=== PATIENT | female | born 1960 | race Caucasian/White ===

== ENCOUNTER → 2017-12-05 09:05 | Outpatient (CLI) | payer OTHER, SELFPAY ==
[2017-12-05 18:31] LABS: Cholesterol 168 mg/dL (200); Glucose 105 mg/dL (74-106); High Density Lipoprotein 47 mg/dL; Triglycerides 138 mg/dL; Very Low Density Lipoprotein 28 mg/dL (5-40)
== END ==
PROVIDERS: Family Provider Family Medicine; PCP Family Medicine; Visit Provider Family Medicine
DX: E78.00 Pure hypercholesterolemia, unspecified (principal); R73.03 Prediabetes
CPT/HCPCS: 36415; 80061; 82947; 83036

== ENCOUNTER → 2017-12-27 09:05 | Outpatient (CLI) | payer OTHER, SELFPAY ==
--- NOTE | 2017-12-27 09:06 | HPBI_ITS ---
MAMMOGRAPHY - BILATERAL SCREENING REASON FOR EXAM: Female, 57 years old. Routine annual screening examination. PERTINENT HISTORY: Grandmother with breast cancer. Remote right stereotactic breast biopsy. TECHNIQUE: Digital bilateral breast perez (3D mammographic acquisition) in the CC and MLO projections. 2-D mediolateral oblique (MLO) and craniocaudad (CC) views of both breasts were obtained. CAD: Full Field Digital Mammography with Computer Added Detection was performed. COMPARISON: Comparison is made with prior study dated June 27, 2016 and June 10, 2015. FINDINGS: Breast Composition: There are scattered areas of fibroglandular density. There are no dominant masses or suspicious calcifications. Once again, a tissue clip marker is seen in the upper anterior lateral portion of the right breast. No other significant abnormalities are identified. There has been no significant change since the prior study. HPBI/SCREENING MAMM (CAD), BILAT IMPRESSION: Stable bilateral screening mammogram. Yearly follow-up mammogram recommended. (A) ASSESSMENT CATEGORY: BIRADS Category 2: Benign. A letter regarding these results will be sent to the patient by the facility within 30 days. Approximately 10% of breast cancers are not detected by mammography. A normal mammogram should not delay biopsy of a clinically suspicious abnormality. [id number] Electronically Signed: Ibrahima Gonzalez MD at 11:07 EST Tel [phone], Service support ,
== END ==
PROVIDERS: Family Provider Family Medicine; PCP Family Medicine; Visit Provider Family Medicine
DX: Z12.31 Encounter for screening mammogram for malignant neoplasm of breast (principal)
CPT/HCPCS: 77063; 77067

== ENCOUNTER → 2018-11-01 16:04 | Outpatient (CLI) | payer OTHER, SELFPAY ==
[2018-11-01 18:11] LABS: Absolute Lymphocyte Count 1.94 X10^3/ul (0.83-4.51); Absolute Neutrophil Count 12.2 X10^3/uL (2.0-7.7); Basophil# 0.02 X10^3/uL; Basophil% 0.1 % (0-1); Eosinophil# 0.01 X10^3/uL; Eosinophils% 0.1 % (0-5); Hematocrit 43.9 % (37-47); Hemoglobin 14.3 g/dl (12.0-15.0); Lymphocyte # 1.94 X10^3/ul (4.0); Lymphocyte % 12.7 % (19-41); Mean Corp Hgb Conc 32.6 g/gl (32-36); Mean Corpuscular Hgb 29.5 pg (27.0-32.0); Mean Corpuscular Volume 90.5 fL (81-99); Mean Platelet Vol. 11.6 fl (6.2-12.0); Monocyte# 1.07 X10^3/uL; Neutrophil # 12.24 X10^3/uL (2.7-7.7); Platelet Count 399 K/mm3 (150-450); RBC Distribution Width SD 43.1 fl (35.1-43.9); Red Blood Count 4.85 M/mm3 (4.2-5.4); White Blood Count 15.3 K/mm3 (4.4-11.0)
[2018-11-01 18:26] LABS: ALB/GLOB Ratio 1.4 RATIO (0.9-2.4); AST(SGOT) 13 U/L (15-37); Alanine Aminotransfer ALT/SGPT 28 U/L (13-56); Albumin, Serum 4.2 g/dL (3.2-5.0); Alkaline Phosphatase 84 U/L (45-117); BUN 20 mg/dL (7-18); BUN/Creat Ratio 23.7 RATIO (10-20); Calcium,Total 9.5 mg/dL (8.5-10.1); Creatinine, Serum 0.84 mg/dL (0.55-1.02); EST Glomerular Filtration Rate 73 mL/min (>60); Est Glom Filt Rate - Afr Amer 88 mL/min (>60); Globulin 2.9 g/dL (2.2-4.2); Glucose 99 mg/dL (74-106); Protein, Total 7.1 g/dL (6.4-8.2); Sodium Level 143 mmol/L (136-145)
[2018-11-01 18:27] LABS: Anion Gap 9 (5-15); Chloride 106 mmol/L (98-107); Free T3 3.2 pg/mL (2.18-3.98); Potassium 3.8 mmol/L (3.5-5.1); T4 Free Direct 1.01 ng/dL (0.76-1.46); Thyroid Stim Hormone (TSH) 3.27 uIU/mL (0.358-3.74)
[2018-11-01 18:30] LABS: POSITIVE COUNT NO; POSITIVE DIFFERENTIAL NO; POSITIVE MORPHOLOGY NO
[2018-11-01 18:38] LABS: Hemoglobin A1c 6.3 % (4.2-6.3)
== END ==
PROVIDERS: Family Provider Family Medicine; PCP Family Medicine; Visit Provider Family Medicine
DX: R63.4 Abnormal weight loss (principal); R73.03 Prediabetes
CPT/HCPCS: 36415; 80053; 83036; 84439; 84443; 84481; 85025

== ENCOUNTER → 2018-11-04 17:11 | Outpatient (CLI) | payer OTHER, SELFPAY ==
--- NOTE | 2018-11-04 17:15 | RAD_ITS ---
HISTORY: weight loss EXAM: XR Chest 2 Views: COMPARISON: None FINDINGS: Normal heart size. No vascular congestion, pleural effusion, or pulmonary infiltration. Atherosclerotic thoracic aorta. No pneumothorax. The bony thorax appears intact. IMPRESSION: No active cardiopulmonary disease. at 0759 Reported and signed by: Haseeb Lainez MD Electronically Signed: Haseeb Lainez, at 7:57 EST Tel , Service support , RAD/Chest PA and Lateral
== END ==
PROVIDERS: Family Provider Family Medicine; PCP Family Medicine; Referring Provider Family Medicine; Visit Provider Family Medicine
DX: R63.4 Abnormal weight loss (principal)
CPT/HCPCS: 71046

== ENCOUNTER → 2018-12-11 10:44 | Outpatient (CLI) | payer OTHER, SELFPAY ==
[2018-12-11 13:01] LABS: Hemoglobin A1c 5.9 % (4.2-6.3)
[2018-12-11 13:24] LABS: Anion Gap 11 (5-15); BUN 18 mg/dL (7-18); BUN/Creat Ratio 22.1 RATIO (10-20); Calcium,Total 9.4 mg/dL (8.5-10.1); Chloride 102 mmol/L (98-107); Cholesterol 147 mg/dL (200); Creatinine, Serum 0.81 mg/dL (0.55-1.02); EST Glomerular Filtration Rate 76 mL/min (>60); Est Glom Filt Rate - Afr Amer 92 mL/min (>60); Glucose 88 mg/dL (74-106); High Density Lipoprotein 50 mg/dL; Potassium 3.9 mmol/L (3.5-5.1); Sodium Level 141 mmol/L (136-145); Triglycerides 116 mg/dL; Very Low Density Lipoprotein 23 mg/dL (5-40)
== END ==
PROVIDERS: Family Provider Family Medicine; PCP Family Medicine; Visit Provider Family Medicine
DX: E78.00 Pure hypercholesterolemia, unspecified (principal); R73.03 Prediabetes; I10 Essential (primary) hypertension
CPT/HCPCS: 36415; 80048; 80061; 83036

== ENCOUNTER → 2018-12-16 10:03 | Outpatient (CLI) | payer OTHER, SELFPAY ==
[2018-12-16 12:51] LABS: Absolute Lymphocyte Count 1.68 X10^3/ul (0.83-4.51); Absolute Neutrophil Count 8.1 X10^3/uL (2.0-7.7); Basophil# 0.03 X10^3/uL; Basophil% 0.3 % (0-1); Eosinophil# 0.05 X10^3/uL; Eosinophils% 0.5 % (0-5); Hematocrit 43.8 % (37-47); Hemoglobin 14.4 g/dl (12.0-15.0); Lymphocyte # 1.68 X10^3/ul (4.0); Lymphocyte % 16.1 % (19-41); Mean Corp Hgb Conc 32.9 g/gl (32-36); Mean Corpuscular Hgb 30.4 pg (27.0-32.0); Mean Corpuscular Volume 92.6 fL (81-99); Mean Platelet Vol. 11.6 fl (6.2-12.0); Monocyte# 0.51 X10^3/uL; Monocyte% 4.9 % (0-10); Neutrophil # 8.14 X10^3/uL (2.7-7.7); Platelet Count 439 K/mm3 (150-450); RBC Distribution Width CV 13.2 % (11.6-14.6); RBC Distribution Width SD 43.7 fl (35.1-43.9); Red Blood Count 4.73 M/mm3 (4.2-5.4); White Blood Count 10.4 K/mm3 (4.4-11.0)
[2018-12-16 12:59] LABS: POSITIVE COUNT NO; POSITIVE DIFFERENTIAL NO; POSITIVE MORPHOLOGY NO
[2018-12-16 13:01] LABS: Erythrocyte Sedimentation Rate 13 mm/hr (0-30)
[2018-12-16 13:26] LABS: AST(SGOT) 17 U/L (15-37); Alanine Aminotransfer ALT/SGPT 25 U/L (13-56); Alkaline Phosphatase 91 U/L (45-117); Bilirubin, Direct 0.12 mg/dL (0.00-0.30); Free T3 3.1 pg/mL (2.18-3.98); Globulin 3.6 g/dL (2.2-4.2); Protein, Total 7.6 g/dL (6.4-8.2); T4 Free Direct 1.12 ng/dL (0.76-1.46); Thyroid Stim Hormone (TSH) 2.87 uIU/mL (0.358-3.74)
== END ==
PROVIDERS: Family Provider Family Medicine; PCP Family Medicine; Visit Provider Family Medicine
DX: R63.4 Abnormal weight loss (principal); R00.0 Tachycardia, unspecified
CPT/HCPCS: 36415; 80076; 84439; 84443; 84481; 85025; 85652

== ENCOUNTER → 2018-12-24 13:48 | Outpatient (CLI) | payer OTHER, SELFPAY ==
--- NOTE | 2018-12-24 13:51 | CT_ITS ---
STUDY: CT ABDOMEN AND PELVIS WITH CONTRAST REASON FOR EXAM: Female, 58 years old. Weight loss in 4 months. RADIATION DOSAGE (If Supplied By Facility): CTDIvol = ( 12.06 ) mGy, DLP = ( 660.62 ) mGycm TECHNIQUE: Transaxial images were obtained from the dome of the diaphragm to the symphysis pubis with oral contrast. Isovue 300 100CC IV/Oral was administered. Sagittal and coronal images were reconstructed. Individualized dose optimization techniques were used for this CT. COMPARISON: None. FINDINGS: The visualized portions of lung bases demonstrate mild atelectasis or scarring in the lingula. The visualized portions of the heart are within normal limits. Normal liver. Normal gallbladder and extrahepatic biliary system. Normal spleen. Normal pancreas. There is symmetric enlargement of the adrenal glands suggesting adrenal hyperplasia. Normal right kidney. Normal left kidney. Normal visualized stomach. Normal small intestine. There is fecal retention. The splenic flexure and the descending colon are not well distended and difficult to evaluate. There is diverticulosis of the sigmoid colon but there is no evidence of acute diverticulitis. There is non-visualization of the appendix. There is mild atherosclerotic calcification of the abdominal aorta, without a demonstrated aneurysm. Normal inferior vena cava. Normal retroperitoneum. Normal urinary bladder. There is a small umbilical hernia containing fat. There are mild degenerative changes in the spine. CT/Abdomen/Pelvis WITH Contrast IMPRESSION: 1. Diverticulosis of the sigmoid colon without evidence of acute diverticulitis. 2. Thickening of the descending colon likely due to underdistention suboptimally evaluated on this exam. 3. Symmetric prominence of the adrenal glands which could be due to adrenal hyperplasia. 4. Otherwise no demonstrated acute process. Electronically Signed: Obey Reich MD at 23:56 EST Tel , Service support ,
== END ==
PROVIDERS: Family Provider Family Medicine; PCP Family Medicine; Referring Provider Family Medicine; Visit Provider Family Medicine
DX: R10.9 Unspecified abdominal pain (principal)
CPT/HCPCS: 74177; Q9967

== ENCOUNTER → 2018-12-31 07:48 | Outpatient (CLI) | payer OTHER, SELFPAY ==
--- NOTE | 2018-12-31 07:50 | ECHOD_ITS ---
Reason For Study: Tachycardia Procedure This was a 2D Doppler, Color Flow transthoracic echocardiogram. The exam was of adequate technical quality. Exam performed in department. Left Ventricle Normal LV size. Left ventricular systolic function is hyperdynamic. The estimated ejection fraction is 75 %. No evidence for diastolic dysfunction. No regional wall motion abnormalities noted. Right Ventricle Normal RV size. Normal systolic function. Atria Normal left atrium. Normal right atrium. No doppler evidence for ASD. Mitral Valve There is no mitral annular calcification. Normal mitral valve. Trivial mitral valve insufficiency. Tricuspid Valve Normal tricuspid valve. Trivial tricuspid valve insufficiency. Aortic Valve Trisinus/trileaflet aortic valve. Mild focal aortic valve thickening. Pulmonic Valve The pulmonic valve is not well visualized. Great Vessels Normal sized aortic root. Pericardium/Pleural No pericardial effusion. MMode/2D Measurements & Calculations LVIDd: 2.9 cm IVSd: 1.1 cm Ao root diam: 2.9 cm LVIDs: 1.6 cm LVPWd: 1.00 cm LA dimension: 2.9 cm FS: 43.4 % LAV(MOD-bp): 23.3 ml LA A4 area: 9.0 cm2 LAV(MOD-bp) Indexed: 14.8 ml/m2 LAV(MOD-sp2): 21.6 ml LAV(MOD-sp4): 18.5 ml Time Measurements MV dec time: 0.21 sec Doppler Measurements & Calculations MV E max michael: 68.2 cm/sec Lat Peak E' Michael: 10.9 cm/sec Med Peak E' Michael: 10.8 cm/sec MV A max michael: 103.8 cm/sec E/E' lat: 6.3 E/E' med: 6.3 MV E/A: 0.66 Ao V2 max: 118.5 cm/sec LV V1 max: 105.2 cm/sec PA V2 max: 124.2 cm/sec Ao max P.6 mmHg LV V1 max P.4 mmHg Interpretation Summary Left ventricular systolic function is hyperdynamic. The estimated ejection fraction is 75 %. Trivial mitral valve insufficiency. Trivial tricuspid valve insufficiency. Mild focal aortic valve thickening. No evidence for diastolic dysfunction. Ordering Physician: Alessandro Lorenzo Referring Physician: Alessandro Lorenzo Performed By: David Harding RCS
== END ==
PROVIDERS: Family Provider Family Medicine; PCP Family Medicine; Referring Provider Family Medicine; Visit Provider Family Medicine
DX: R00.0 Tachycardia, unspecified (principal)
CPT/HCPCS: 93306

== ENCOUNTER → 2019-01-20 12:19 | Outpatient (CLI) | payer OTHER, SELFPAY ==
--- NOTE | 2019-01-20 12:21 | BI_ITS ---
MAMMOGRAPHY - BILATERAL SCREENING REASON FOR EXAM: Female, 58 years old. Routine annual screening examination. PERTINENT HISTORY: Grandmother with breast cancer. TECHNIQUE: Digital bilateral breast perez (3D mammographic acquisition) in the CC and MLO projections. 2-D mediolateral oblique (MLO) and craniocaudad (CC) views of both breasts were obtained. CAD: Full Field Digital Mammography with Computer Added Detection was performed. COMPARISON: Comparison is made with prior study December 27, 2017 and June 27, 2016. FINDINGS: Breast Composition: There are scattered areas of fibroglandular density. There are no dominant masses or suspicious calcifications. A tissue clip marker is once again seen in the upper anterior lateral portion of the right breast. No other significant abnormalities are identified. There has been no significant change since the prior study. BI/SCREENING MAMM (CAD), BILAT IMPRESSION: Stable bilateral screening mammogram. Yearly follow-up mammogram recommended. (A) ASSESSMENT CATEGORY: BIRADS Category 2: Benign. A letter regarding these results will be sent to the patient by the facility within 30 days. Approximately 10% of breast cancers are not detected by mammography. A normal mammogram should not delay biopsy of a clinically suspicious abnormality. [id number] Electronically Signed: Ibrahima Gonzalez, at 14:51 EDT , Service support ,
== END ==
PROVIDERS: Family Provider Family Medicine; PCP Family Medicine; Referring Provider Family Medicine; Visit Provider Family Medicine
DX: Z12.31 Encounter for screening mammogram for malignant neoplasm of breast (principal)
CPT/HCPCS: 77063; 77067

== ENCOUNTER → 2019-07-04 | Outpatient (CLI) | payer OTHER, SELFPAY ==
[2019-07-04 11:21] LABS: Cholesterol 155 mg/dL (200); Glucose 98 mg/dL (74-106); High Density Lipoprotein 51 mg/dL; Thyroid Stim Hormone (TSH) 4.17 uIU/mL (0.358-3.74); Triglycerides 72 mg/dL; Very Low Density Lipoprotein 14 mg/dL (5-40)
[2019-07-04 12:14] LABS: Hemoglobin A1c 5.7 % (4.2-6.3)
== END | disposition home or self-care (01) ==
LOC: MTLAB 07:55
PROVIDERS: Family Provider Family Medicine; PCP Family Medicine; Referring Provider Family Medicine; Visit Provider Family Medicine
DX: R00.0 Tachycardia, unspecified (principal); E78.00 Pure hypercholesterolemia, unspecified; R73.03 Prediabetes
CPT/HCPCS: 36415; 80061; 82947; 83036; 84443

== ENCOUNTER → 2019-10-10 14:32 | Outpatient (CLI) | payer OTHER, SELFPAY ==
[2019-08-30 13:51] VITALS: BMI 27.4
[2019-10-10 15:55] LABS: T4 Total, Thyroxin 6.6 ug/dL (4.8-13.9); Thyroid Stim Hormone (TSH) 2.83 uIU/mL (0.358-3.74)
== END ==
PROVIDERS: Family Provider Family Medicine; PCP Family Medicine; Referring Provider Family Medicine; Visit Provider Family Medicine
DX: R79.89 Other specified abnormal findings of blood chemistry (principal)
CPT/HCPCS: 36415; 84436; 84443

== ENCOUNTER → 2019-10-15 09:16 | Outpatient (CLI) | payer OTHER, SELFPAY ==
[2019-08-30 13:51] VITALS: BMI 27.4
[2019-10-15 09:18] LABS: Bacteria 0 SEEN /hpf (None Seen); White Blood Cells 0 SEEN /hpf (0-5)
[2019-10-15 10:14] LABS: Absolute Lymphocyte Count 1.72 X10^3/uL (0.83-4.51); Absolute Neutrophil Count 5.6 X10^3/uL (2.0-7.7); Basophil# 0.08 X10^3/uL; Basophil% 0.9 % (0-1); Eosinophil# 0.22 X10^3/uL; Eosinophils% 2.6 % (0-5); Hematocrit 44.9 % (37-47); Hemoglobin 14.5 g/dL (12.0-15.0); Lymphocyte # 1.72 X10^3/ul (4.0); Lymphocyte % 20.3 % (19-41); Mean Corp Hgb Conc 32.3 g/dL (32-36); Mean Corpuscular Hgb 30.2 pg (27.0-32.0); Mean Corpuscular Volume 93.5 fL (81-99); Mean Platelet Vol. 11.3 fl (6.2-12.0); Monocyte# 0.79 X10^3/uL; Monocyte% 9.3 % (0-10); NRBC Flagged by Analyzer 0 % (0-5); Neutrophil # 5.63 X10^3/uL (2.7-7.7); Neutrophil % 66.5 % (47-70); Platelet Count 351 K/mm3 (150-450); RBC Distribution Width CV 13.2 % (11.6-14.6); RBC Distribution Width SD 45.2 fl (35.1-43.9); White Blood Count 8.5 K/mm3 (4.4-11.0)
[2019-10-15 10:24] LABS: Color, Urine Yellow (Yellow); Glucose, Dipstick Normal (Normal); Ketone-Dipstick Negative (Negative); Leukocyte Esterase-Dipstick Negative /ul (Negative); Nitrite-Dipstick Negative (Negative); Occult Blood-Urine 10 /ul (Negative); Protein-Dipstick Negative (Negative); Specific Gravity, Urine 1.015 (1.002-1.030); Urine Bilirubin Dipstick Negative (Negative); Urine Clarity Clear (Clear); Urine Urobilinogen Normal (Normal); Urine pH 6.5 (5.0 - 8.0)
[2019-10-15 10:38] LABS: ALB/GLOB Ratio 1.2 RATIO (0.9-2.4); AST(SGOT) 15 U/L (15-37); Alanine Aminotransfer ALT/SGPT 33 U/L (13-56); Albumin, Serum 3.8 g/dL (3.2-5.0); Alkaline Phosphatase 93 U/L (45-117); Anion Gap 5 (5-15); BUN 16 mg/dL (7-18); BUN/Creat Ratio 17.9 RATIO (10-20); CPK Total, Creatine Kinase 78 U/L (26-192); Calcium,Total 8.7 mg/dL (8.5-10.1); Chloride 106 mmol/L (98-107); Cholesterol 166 mg/dL (200); EST Glomerular Filtration Rate 68 mL/min (>60); Est Glom Filt Rate - Afr Amer 82 mL/min (>60); Ferritin 66 ng/mL (8-252); Globulin 3.2 g/dL (2.2-4.2); Glucose 113 mg/dL (74-106); High Density Lipoprotein 50 mg/dL; Magnesium 1.9 mg/dL (1.6-2.6); Potassium 4.1 mmol/L (3.5-5.1); Sodium Level 141 mmol/L (136-145); Triglycerides 127 mg/dL; Very Low Density Lipoprotein 25 mg/dL (5-40)
[2019-10-15 10:40] LABS: Mucous, Urine 1+ /hpf (<or=2+); Red Blood Cells-Urine 0-5 SEEN /hpf (0-5); Squamous Epithelial Cells - UA 0-5 SEEN /hpf (5-10)
[2019-10-15 10:50] LABS: Vitamin D,25 Hydroxy 35.3 ng/mL (29.95-100.01)
[2019-10-15 14:53] LABS: Hemoglobin A1c 6.3 % (4.2-6.3)
== END ==
PROVIDERS: Family Provider Family Medicine; PCP Family Medicine; Referring Provider Family Medicine; Visit Provider Family Medicine
DX: I10 Essential (primary) hypertension (principal); E55.9 Vitamin D deficiency, unspecified; E78.00 Pure hypercholesterolemia, unspecified; R73.02 Impaired glucose tolerance (oral)
CPT/HCPCS: 36415; 80053; 80061; 81001; 82306; 82550; 82728; 83036; 83735; 85025

== ENCOUNTER → 2019-10-24 08:23 | Outpatient (CLI) | payer OTHER, SELFPAY ==
[2019-08-30 13:51] VITALS: BMI 27.4
--- NOTE | 2019-10-24 08:26 | US_ITS ---
STUDY: THYROID ULTRASOUND REASON FOR EXAM: Female, 59 years old. NODULE FELT BY DOCTOR TECHNIQUE: Ultrasound evaluation of the thyroid was performed with real-time and static nicole-scale imaging. COMPARISON: None. FINDINGS: RIGHT LOBE: The right lobe of the thyroid gland measures 3.9 x 1.3 x 1.0 cm. There is a homogeneous echotexture. There are no demonstrated solid, cystic or complex lesions. LEFT LOBE: The left lobe of the thyroid gland measures 3.9 x 1.5 x 0.9 cm. There is a homogeneous echotexture. Tiny nearly anechoic cyst of the left thyroid lobe measures 3 mm. ISTHMUS: The isthmus measures 3 mm. The regional lymph nodes are normal. US/Thyroid IMPRESSION: 1. No solid nodules. 2. 3 mm left colloidal cyst. Electronically Signed: Ramírez Castillo MD ([place]) at 14:27 EST , Service support ,
== END ==
PROVIDERS: Family Provider Family Medicine; PCP Family Medicine; Referring Provider Family Medicine; Visit Provider Family Medicine
DX: E04.1 Nontoxic single thyroid nodule (principal)
CPT/HCPCS: 76536

== ENCOUNTER → 2020-02-09 | Outpatient (CLI) | payer OTHER, SELFPAY ==
[2019-08-30 13:51] VITALS: BMI 27.4
[2020-02-09 12:38] LABS: ALB/GLOB Ratio 1.1 RATIO (0.9-2.4); AST(SGOT) 25 U/L (15-37); Alanine Aminotransfer ALT/SGPT 46 U/L (13-56); Albumin, Serum 3.8 g/dL (3.2-5.0); Alkaline Phosphatase 86 U/L (45-117); Anion Gap 3 (5-15); BUN 16 mg/dL (7-18); BUN/Creat Ratio 19.3 RATIO (10-20); Chloride 105 mmol/L (98-107); Cholesterol 193 mg/dL (200); Creatinine, Serum 0.83 mg/dL (0.55-1.02); EST Glomerular Filtration Rate 74 mL/min (>60); Est Glom Filt Rate - Afr Amer 90 mL/min (>60); Globulin 3.4 g/dL (2.2-4.2); Glucose 119 mg/dL (74-106); High Density Lipoprotein 44 mg/dL; Potassium 3.8 mmol/L (3.5-5.1); Protein, Total 7.2 g/dL (6.4-8.2); Sodium Level 139 mmol/L (136-145); Triglycerides 228 mg/dL; Very Low Density Lipoprotein 46 mg/dL (5-40)
[2020-02-09 13:04] LABS: Hemoglobin A1c 6.5 % (4.2-6.3)
== END | disposition home or self-care (01) ==
LOC: MTLAB 10:09
PROVIDERS: PCP Family Medicine; Referring Provider Family Medicine; Visit Provider Family Medicine
DX: I10 Essential (primary) hypertension (principal); E78.00 Pure hypercholesterolemia, unspecified; R73.02 Impaired glucose tolerance (oral)
CPT/HCPCS: 36415; 80053; 80061; 83036

== ENCOUNTER → 2020-02-17 | Outpatient (CLI) | payer OTHER, SELFPAY ==
[2019-08-30 13:51] VITALS: BMI 27.4
--- NOTE | 2020-02-17 10:23 | BI_ITS ---
MAMMOGRAPHY - BILATERAL SCREENING REASON FOR EXAM: Female, 59 years old. Routine annual screening examination. PERTINENT HISTORY: Grandmother with breast cancer. Remote right stereotactic breast biopsy. TECHNIQUE: Digital bilateral breast syed (3D mammographic acquisition) in the CC and MLO projections. 2-D mediolateral oblique (MLO) and craniocaudad (CC) views of both breasts were obtained. CAD: Full Field Digital Mammography with Computer Added Detection was performed. COMPARISON: Comparison is made with prior examination dated January 20, 2019 and December 27, 2017. FINDINGS: Breast Composition: The breasts are heterogeneously dense, which may obscure small masses. There are no dominant masses or suspicious calcifications. A tissue clip marker is once again seen in the upper anterior lateral portion of the right breast. No other significant abnormalities are identified. There has been no significant change since the prior study. BI/SCREEN MAMM (CAD) W/SYED BILAT IMPRESSION: Stable bilateral screening mammogram. Yearly follow-up mammogram recommended. (A) ASSESSMENT CATEGORY: BIRADS Category 2: Benign. A letter regarding these results will be sent to the patient by the facility within 30 days. Approximately 10% of breast cancers are not detected by mammography. A normal mammogram should not delay biopsy of a clinically suspicious abnormality. [id number] Electronically Signed: Ibrahima Gonzalez, at 11:00 EDT , Service support ,
== END | disposition home or self-care (01) ==
LOC: OPBI 10:21
PROVIDERS: PCP Family Medicine; Referring Provider Family Medicine; Visit Provider Family Medicine
DX: Z12.31 Encounter for screening mammogram for malignant neoplasm of breast (principal)
CPT/HCPCS: 77063; 77067

== ENCOUNTER 2020-02-24 14:00 | Outpatient (RCR) | payer OTHER, SELFPAY ==
[2019-08-30 13:51] VITALS: BMI 27.4
== END 2020-02-26 23:59 ==
LOC: DC 14:00
PROVIDERS: PCP Family Medicine; Visit Provider Family Medicine
DX: Z71.3 Dietary counseling and surveillance (principal); E11.9 Type 2 diabetes mellitus without complications
CPT/HCPCS: 97802; G0108

== ENCOUNTER → 2020-04-21 | Outpatient (CLI) | payer OTHER, SELFPAY ==
[2019-08-30 13:51] VITALS: BMI 27.4
[2020-04-21 12:41] LABS: Absolute Lymphocyte Count 1.58 X10^3/uL (0.83-4.51); Absolute Neutrophil Count 6.5 X10^3/uL (2.0-7.7); Basophil# 0.09 X10^3/uL; Eosinophil# 0.13 X10^3/uL; Eosinophils% 1.5 % (0-5); Lymphocyte # 1.58 X10^3/ul (4.0); Lymphocyte % 17.7 % (19-41); Mean Corp Hgb Conc 31.8 g/dL (32-36); Mean Corpuscular Hgb 30.2 pg (27.0-32.0); Mean Corpuscular Volume 94.8 fL (81-99); Mean Platelet Vol. 11.7 fl (6.2-12.0); Monocyte# 0.64 X10^3/uL; Monocyte% 7.2 % (0-10); NRBC Flagged by Analyzer 0 % (0-5); Neutrophil # 6.46 X10^3/uL (2.7-7.7); Neutrophil % 72.4 % (47-70); Platelet Count 358 K/mm3 (150-450); RBC Distribution Width CV 13.6 % (11.6-14.6); RBC Distribution Width SD 46.9 fl (35.1-43.9); Red Blood Count 4.64 M/mm3 (4.2-5.4); White Blood Count 8.9 K/mm3 (4.4-11.0)
[2020-04-21 12:55] LABS: ALB/GLOB Ratio 1.1 RATIO (0.9-2.4); AST(SGOT) 22 U/L (15-37); Alanine Aminotransfer ALT/SGPT 43 U/L (13-56); Albumin, Serum 3.7 g/dL (3.2-5.0); Alkaline Phosphatase 98 U/L (45-117); Anion Gap 7 (5-15); BUN 17 mg/dL (7-18); BUN/Creat Ratio 20.2 RATIO (10-20); Chloride 104 mmol/L (98-107); Cholesterol 140 mg/dL (200); Creatinine, Serum 0.84 mg/dL (0.55-1.02); EST Glomerular Filtration Rate 73 mL/min (>60); Est Glom Filt Rate - Afr Amer 88 mL/min (>60); Globulin 3.5 g/dL (2.2-4.2); Glucose 124 mg/dL (74-106); High Density Lipoprotein 42 mg/dL; Potassium 4.1 mmol/L (3.5-5.1); Protein, Total 7.2 g/dL (6.4-8.2); Sodium Level 139 mmol/L (136-145); Triglycerides 120 mg/dL; Very Low Density Lipoprotein 24 mg/dL (5-40)
[2020-04-21 12:56] LABS: Vitamin D,25 Hydroxy 62.2 ng/mL
[2020-04-21 16:50] LABS: Microalbumin:Creatinine Ratio 6.3 mg/g CRE (<30 mg/g CRE)
== END | disposition home or self-care (01) ==
LOC: MFPLAB 09:36
PROVIDERS: PCP Family Medicine; Visit Provider Family Medicine
DX: E55.9 Vitamin D deficiency, unspecified (principal); E11.9 Type 2 diabetes mellitus without complications; E78.00 Pure hypercholesterolemia, unspecified; I10 Essential (primary) hypertension
CPT/HCPCS: 36415; 80053; 80061; 82043; 82306; 82570; 83036; 85025

== ENCOUNTER 2020-05-26 09:00 | Outpatient (RCR) | payer OTHER, SELFPAY ==
[2019-08-30 13:51] VITALS: BMI 27.4
== END 2020-05-28 23:59 ==
LOC: DC 09:00
PROVIDERS: PCP Family Medicine; Visit Provider Family Medicine
DX: Z71.3 Dietary counseling and surveillance (principal); E11.9 Type 2 diabetes mellitus without complications
CPT/HCPCS: 97803; G0108

== ENCOUNTER → 2020-08-25 | Outpatient (CLI) | payer OTHER, SELFPAY ==
[2019-08-30 13:51] VITALS: BMI 27.4
[2020-08-25 10:32] LABS: Color, Urine Yellow (Yellow); Glucose, Dipstick Normal (Normal); Ketone-Dipstick 5 mg/dl (Negative); Leukocyte Esterase-Dipstick 25 /ul (Negative); Nitrite-Dipstick Negative (Negative); Occult Blood-Urine 25 /ul (Negative); Protein-Dipstick 15 mg/dl (Negative); Specific Gravity, Urine 1.025 (1.002-1.030); Urine Bilirubin Dipstick Negative (Negative); Urine Clarity Clear (Clear); Urine Urobilinogen 1 mg/dl (Normal)
[2020-08-25 10:35] LABS: Absolute Neutrophil Count 5.7 X10^3/uL (2.0-7.7); Basophil# 0.07 X10^3/uL; Basophil% 0.9 % (0-1); Eosinophil# 0.13 X10^3/uL; Eosinophils% 1.6 % (0-5); Hematocrit 44.7 % (37-47); Hemoglobin 14.3 g/dL (12.0-15.0); Lymphocyte % 18.7 % (19-41); Mean Corpuscular Volume 93.9 fL (81-99); Monocyte# 0.61 X10^3/uL; Monocyte% 7.6 % (0-10); NRBC Flagged by Analyzer 0 % (0-5); Neutrophil # 5.68 X10^3/uL (2.7-7.7); Neutrophil % 70.8 % (47-70); Platelet Count 328 K/mm3 (150-450); RBC Distribution Width CV 13.2 % (11.6-14.6); RBC Distribution Width SD 45.6 fl (35.1-43.9); Red Blood Count 4.76 M/mm3 (4.2-5.4)
[2020-08-25 10:41] LABS: Bacteria 2+ /hpf (None Seen); Hyaline Cast 0-5 SEEN /lpf (0-5); Mucous, Urine 1+ /hpf (<or=2+); Red Blood Cells-Urine 0-5 SEEN /hpf (0-5); Squamous Epithelial Cells - UA 0-5 SEEN /hpf (5-10); White Blood Cells 0-5 SEEN /hpf (0-5)
[2020-08-25 10:55] LABS: Vitamin D,25 Hydroxy 41.7 ng/mL
[2020-08-25 10:57] LABS: Hemoglobin A1c 6.1 % (3.8-5.6)
[2020-08-25 11:04] LABS: ALB/GLOB Ratio 1.2 RATIO (0.9-2.4); AST(SGOT) 19 U/L (15-37); Alanine Aminotransfer ALT/SGPT 37 U/L (13-56); Albumin, Serum 3.8 g/dL (3.2-5.0); Alkaline Phosphatase 104 U/L (45-117); Anion Gap 5 (5-15); BUN 19 mg/dL (7-18); BUN/Creat Ratio 19.4 RATIO (10-20); Calcium,Total 9.3 mg/dL (8.5-10.1); Chloride 109 mmol/L (98-107); Cholesterol 168 mg/dL (200); Creatinine, Serum 0.98 mg/dL (0.55-1.02); EST Glomerular Filtration Rate 61 mL/min (>60); Est Glom Filt Rate - Afr Amer 74 mL/min (>60); Globulin 3.3 g/dL (2.2-4.2); Glucose 118 mg/dL (74-106); High Density Lipoprotein 48 mg/dL; Protein, Total 7.1 g/dL (6.4-8.2); Sodium Level 141 mmol/L (136-145); Triglycerides 120 mg/dL; Very Low Density Lipoprotein 24 mg/dL (5-40)
== END | disposition home or self-care (01) ==
LOC: MFPLAB 08:58
PROVIDERS: PCP Family Medicine; Referring Provider Family Medicine; Visit Provider Family Medicine
DX: I10 Essential (primary) hypertension (principal); E78.00 Pure hypercholesterolemia, unspecified; E11.9 Type 2 diabetes mellitus without complications; E55.9 Vitamin D deficiency, unspecified
CPT/HCPCS: 36415; 80053; 80061; 81001; 82306; 83036; 85025

== ENCOUNTER → 2020-09-02 13:54 | Outpatient (CLI) | payer OTHER, SELFPAY ==
[2019-08-30 13:51] VITALS: BMI 27.4
[2020-09-02 15:13] LABS: Absolute Neutrophil Count 8.3 X10^3/uL (2.0-7.7); Basophil# 0.06 X10^3/uL; Basophil% 0.5 % (0-1); Eosinophil# 0.05 X10^3/uL; Eosinophils% 0.4 % (0-5); Hematocrit 43.2 % (37-47); Hemoglobin 13.8 g/dL (12.0-15.0); Lymphocyte % 20.3 % (19-41); Mean Corp Hgb Conc 31.9 g/dL (32-36); Mean Corpuscular Hgb 29.4 pg (27.0-32.0); Mean Corpuscular Volume 92.1 fL (81-99); Mean Platelet Vol. 11.8 fl (6.2-12.0); Monocyte# 0.95 X10^3/uL; NRBC Flagged by Analyzer 0 % (0-5); Neutrophil # 8.34 X10^3/uL (2.7-7.7); Neutrophil % 70.5 % (47-70); Platelet Count 329 K/mm3 (150-450); RBC Distribution Width CV 13.2 % (11.6-14.6); RBC Distribution Width SD 44.1 fl (35.1-43.9); Red Blood Count 4.69 M/mm3 (4.2-5.4); White Blood Count 11.8 K/mm3 (4.4-11.0)
[2020-09-02 15:24] LABS: ALB/GLOB Ratio 1.1 RATIO (0.9-2.4); AST(SGOT) 16 U/L (15-37); Alanine Aminotransfer ALT/SGPT 32 U/L (13-56); Albumin, Serum 3.8 g/dL (3.2-5.0); Alkaline Phosphatase 114 U/L (45-117); Anion Gap 5 (5-15); BUN 17 mg/dL (7-18); BUN/Creat Ratio 19.5 RATIO (10-20); Calcium,Total 9.5 mg/dL (8.5-10.1); Chloride 105 mmol/L (98-107); Creatinine, Serum 0.87 mg/dL (0.55-1.02); EST Glomerular Filtration Rate 70 mL/min (>60); Est Glom Filt Rate - Afr Amer 85 mL/min (>60); Globulin 3.5 g/dL (2.2-4.2); Glucose 83 mg/dL (74-106); Lactic Acid 1.1 mmol/L (0.4-1.9); Potassium 3.6 mmol/L (3.5-5.1); Protein, Total 7.3 g/dL (6.4-8.2); Sodium Level 139 mmol/L (136-145)
== END ==
PROVIDERS: PCP Family Medicine; Referring Provider Family Medicine; Visit Provider Family Medicine
DX: K57.92 Diverticulitis of intestine, part unspecified, without perforation or abscess without bleeding (principal)
CPT/HCPCS: 36415; 80053; 83605; 85025

== ENCOUNTER → 2020-09-02 14:29 | Outpatient (CLI) | payer OTHER, SELFPAY ==
[2019-08-30 13:51] VITALS: BMI 27.4
--- NOTE | 2020-09-02 14:31 | CT_ITS ---
STUDY: CT ABDOMEN AND PELVIS WITH CONTRAST REASON FOR EXAM: Female, 60 years old. Left lower quadrant abdominal pain for 2 days, history of prior diverticulitis 2 years ago RADIATION DOSAGE (If Supplied By Facility): CTDIvol = ( 15.35 ) mGy, DLP = ( 839.08 ) mGycm TECHNIQUE: CT images were obtained from the dome of the diaphragm to the symphysis pubis without oral contrast. Oral and amp; IV Gastrografin and amp; 100mL Isovue-300 was administered. Sagittal and coronal images were reconstructed. Individualized dose optimization techniques were used for this CT. COMPARISON: None. FINDINGS: The visualized lung bases are unremarkable. The visualized portions of the heart are within normal limits. Normal liver. Normal gallbladder and extrahepatic biliary system. Normal spleen. Normal pancreas. Normal bilateral adrenal glands. Normal right kidney. Normal left kidney. Normal visualized stomach. Normal small intestine. Appendix is normal. There is diffuse sigmoid diverticulosis with rectosigmoid distal diverticulitis. Posterior pelvic pericolonic fat is inflamed without fluid collections or jaycee perforation/gas. Normal abdominal aorta. Normal inferior vena cava. Normal retroperitoneum. Normal urinary bladder. Uterus is removed. Normal abdominal wall. Normal osseous structures. CT/Abdomen/Pelvis WITH Contrast IMPRESSION: Distal sigmoid diverticulitis, no perforation or abscess. Electronically Signed: Catarino Tran, at 17:43 EST Tel , Service support ,
== END ==
PROVIDERS: PCP Family Medicine; Referring Provider Family Medicine; Visit Provider Family Medicine
DX: K57.92 Diverticulitis of intestine, part unspecified, without perforation or abscess without bleeding (principal)
CPT/HCPCS: 74177; Q9967

== ENCOUNTER 2020-11-11 16:12 | Outpatient (RCR) | payer OTHER, SELFPAY ==
[2019-08-30 13:51] VITALS: BMI 27.4
== END 2020-11-28 23:59 ==
LOC: DC 16:12
PROVIDERS: PCP Family Medicine; Visit Provider Family Medicine
DX: Z71.3 Dietary counseling and surveillance (principal); E11.9 Type 2 diabetes mellitus without complications
CPT/HCPCS: G0109

== ENCOUNTER 2020-12-30 14:46 | Outpatient (RCR) | payer OTHER, SELFPAY ==
[2019-08-30 13:51] VITALS: BMI 27.4
== END 2020-12-30 23:59 | disposition home or self-care (01) ==
LOC: DC 14:46
PROVIDERS: PCP Family Medicine; Visit Provider Family Medicine
DX: Z71.3 Dietary counseling and surveillance (principal); E11.9 Type 2 diabetes mellitus without complications
CPT/HCPCS: G0109

== ENCOUNTER → 2021-02-23 08:07 | Outpatient (CLI) | payer OTHER, SELFPAY ==
[2019-08-30 13:51] VITALS: BMI 27.4
[2021-02-23 08:11] LABS: Bacteria 0 SEEN /hpf (None Seen); Mucous, Urine 0 SEEN /hpf (<or=2+); Red Blood Cells-Urine 0 SEEN /hpf (0-5); White Blood Cells 0 SEEN /hpf (0-5)
[2021-02-23 10:24] LABS: Color, Urine Yellow (Yellow); Glucose, Dipstick Normal (Normal); Ketone-Dipstick 5 mg/dl (Negative); Leukocyte Esterase-Dipstick 25 /ul (Negative); Nitrite-Dipstick Negative (Negative); Occult Blood-Urine 25 /ul (Negative); Protein-Dipstick 30 mg/dl (Negative); Specific Gravity, Urine 1.025 (1.002-1.030); Urine Clarity Clear (Clear); Urine Urobilinogen 1 mg/dl (Normal)
[2021-02-23 10:29] LABS: Absolute Lymphocyte Count 1.86 X10^3/uL (0.83-4.51); Basophil# 0.09 X10^3/uL; Basophil% 0.9 % (0-1); Eosinophil# 0.18 X10^3/uL; Eosinophils% 1.8 % (0-5); Hemoglobin 14.4 g/dL (12.0-15.0); Lymphocyte # 1.86 X10^3/ul (0.83-4.51); Lymphocyte % 19.1 % (19-41); Mean Corpuscular Hgb 30.4 pg (27.0-32.0); Mean Corpuscular Volume 94.9 fL (81-99); Mean Platelet Vol. 11.8 fl (6.2-12.0); Monocyte# 0.64 X10^3/uL; Monocyte% 6.6 % (0-10); NRBC Flagged by Analyzer 0 % (0-5); Neutrophil # 6.96 X10^3/uL (2.7-7.7); Neutrophil % 71.3 % (47-70); Platelet Count 365 K/mm3 (150-450); RBC Distribution Width CV 13.5 % (11.6-14.6); RBC Distribution Width SD 47.4 fl (35.1-43.9); Red Blood Count 4.74 M/mm3 (4.2-5.4); White Blood Count 9.8 K/mm3 (4.4-11.0)
[2021-02-23 10:38] LABS: ALB/GLOB Ratio 1.1 RATIO (0.9-2.4); AST(SGOT) 19 U/L (15-37); Alanine Aminotransfer ALT/SGPT 44 U/L (13-56); Albumin, Serum 3.7 g/dL (3.2-5.0); Alkaline Phosphatase 100 U/L (45-117); Anion Gap 4 (5-15); BUN 17 mg/dL (7-18); Calcium,Total 9.1 mg/dL (8.5-10.1); Chloride 108 mmol/L (98-107); Cholesterol 148 mg/dL (200); Creatinine, Serum 0.81 mg/dL (0.55-1.02); EST Glomerular Filtration Rate 76 mL/min (>60); Est Glom Filt Rate - Afr Amer 92 mL/min (>60); Globulin 3.4 g/dL (2.2-4.2); Glucose 112 mg/dL (74-106); High Density Lipoprotein 44 mg/dL; Potassium 3.7 mmol/L (3.5-5.1); Protein, Total 7.1 g/dL (6.4-8.2); Sodium Level 141 mmol/L (136-145); Triglycerides 116 mg/dL; Very Low Density Lipoprotein 23 mg/dL (5-40)
[2021-02-23 10:39] LABS: Urine Bilirubin Dipstick 1 mg/dL (Negative)
[2021-02-23 10:40] LABS: Vitamin D,25 Hydroxy 49.4 ng/mL
[2021-02-23 10:42] LABS: Squamous Epithelial Cells - UA 0-5 SEEN /hpf (5-10)
[2021-02-23 10:59] LABS: Microalbumin,Random Urine 30.3 mg/L (NO RANGE EST.); Microalbumin:Creatinine Ratio 9.7 mg/g CRE (<30 mg/g CRE)
== END ==
PROVIDERS: PCP Family Medicine; Referring Provider Family Medicine; Visit Provider Family Medicine
DX: I10 Essential (primary) hypertension (principal); E78.00 Pure hypercholesterolemia, unspecified; E11.9 Type 2 diabetes mellitus without complications; E55.9 Vitamin D deficiency, unspecified
CPT/HCPCS: 36415; 80053; 80061; 81001; 82043; 82306; 82570; 83036; 85025

== ENCOUNTER → 2021-02-25 08:25 | Outpatient (CLI) | payer OTHER, SELFPAY ==
[2019-08-30 13:51] VITALS: BMI 27.4
[2021-02-25 10:29] LABS: Vitamin B12 341 pg/mL (211-911)
[2021-03-04 20:08] LABS: VITAMIN B6 5.5 ug/L (2.0-32.8)
[2021-03-04 20:50] LABS: Vitamin B1, Thiamine 179.3 nmol/L (66.5-200.0)
== END ==
PROVIDERS: PCP Family Medicine; Referring Provider Family Medicine; Visit Provider Family Medicine
DX: G62.9 Polyneuropathy, unspecified (principal)
CPT/HCPCS: 36415; 82607; 84207; 84425

== ENCOUNTER → 2021-05-31 08:21 | Outpatient (CLI) | payer OTHER, SELFPAY ==
[2019-08-30 13:51] VITALS: BMI 27.4
[2021-05-31 08:24] LABS: Bacteria 0 SEEN /hpf (None Seen); Mucous, Urine 0 SEEN /hpf (<or=2+); Red Blood Cells-Urine 0 SEEN /hpf (0-5)
[2021-05-31 10:05] LABS: Color, Urine Yellow (Yellow); Glucose, Dipstick Normal (Normal); Ketone-Dipstick Negative (Negative); Leukocyte Esterase-Dipstick 25 /ul (Negative); Nitrite-Dipstick Negative (Negative); Occult Blood-Urine 10 /ul (Negative); Protein-Dipstick 15 mg/dl (Negative); Urine Bilirubin Dipstick Negative (Negative); Urine Clarity Clear (Clear); Urine Urobilinogen Normal (Normal)
[2021-05-31 10:06] LABS: Absolute Lymphocyte Count 1.82 X10^3/uL (0.83-4.51); Absolute Neutrophil Count 7.7 X10^3/uL (2.0-7.7); Basophil# 0.08 X10^3/uL; Basophil% 0.8 % (0-1); Eosinophil# 0.15 X10^3/uL; Eosinophils% 1.4 % (0-5); Hematocrit 44.5 % (37-47); Hemoglobin 14.2 g/dL (12.0-15.0); Lymphocyte # 1.82 X10^3/ul (0.83-4.51); Lymphocyte % 17.4 % (19-41); Mean Corp Hgb Conc 31.9 g/dL (32-36); Mean Corpuscular Volume 94.1 fL (81-99); Mean Platelet Vol. 11.9 fl (6.2-12.0); Monocyte% 6.7 % (0-10); NRBC Flagged by Analyzer 0 % (0-5); Neutrophil % 73.4 % (47-70); Platelet Count 335 K/mm3 (150-450); RBC Distribution Width CV 14.1 % (11.6-14.6); RBC Distribution Width SD 47.5 fl (35.1-43.9); Red Blood Count 4.73 M/mm3 (4.2-5.4); White Blood Count 10.5 K/mm3 (4.4-11.0)
[2021-05-31 10:11] LABS: Squamous Epithelial Cells - UA 0-5 SEEN /hpf (5-10); White Blood Cells 0-5 SEEN /hpf (0-5)
[2021-05-31 10:19] LABS: Vitamin D,25 Hydroxy 64.2 ng/mL
[2021-05-31 10:55] LABS: ALB/GLOB Ratio 1.2 RATIO (0.9-2.4); AST(SGOT) 23 U/L (15-37); Alanine Aminotransfer ALT/SGPT 44 U/L (13-56); Albumin, Serum 3.8 g/dL (3.2-5.0); Alkaline Phosphatase 95 U/L (45-117); Anion Gap 7 (5-15); BUN 15 mg/dL (7-18); BUN/Creat Ratio 17.6 RATIO (10-20); Calcium,Total 9.2 mg/dL (8.5-10.1); Chloride 105 mmol/L (98-107); Cholesterol 153 mg/dL (200); Creatinine, Serum 0.85 mg/dL (0.55-1.02); EST Glomerular Filtration Rate 72 mL/min (>60); Est Glom Filt Rate - Afr Amer 87 mL/min (>60); Globulin 3.3 g/dL (2.2-4.2); Glucose 108 mg/dL (74-106); High Density Lipoprotein 42 mg/dL; Potassium 4.1 mmol/L (3.5-5.1); Protein, Total 7.1 g/dL (6.4-8.2); Sodium Level 139 mmol/L (136-145); Triglycerides 176 mg/dL; Very Low Density Lipoprotein 35 mg/dL (5-40)
[2021-05-31 10:56] LABS: Microalbumin:Creatinine Ratio 6.8 mg/g CRE (<30 mg/g CRE)
== END ==
PROVIDERS: PCP Family Medicine; Referring Provider Family Medicine; Visit Provider Family Medicine
DX: E55.9 Vitamin D deficiency, unspecified (principal); E11.59 Type 2 diabetes mellitus with other circulatory complications; F17.200 Nicotine dependence, unspecified, uncomplicated
CPT/HCPCS: 36415; 80053; 80061; 81001; 82043; 82306; 82570; 83036; 85025

== ENCOUNTER → 2021-09-27 08:14 | Outpatient (CLI) | payer OTHER, SELFPAY ==
[2021-09-27 09:52] LABS: Absolute Lymphocyte Count 1.38 X10^3/uL (0.83-4.51); Absolute Neutrophil Count 7.9 X10^3/uL (2.0-7.7); Basophil# 0.08 X10^3/uL; Basophil% 0.8 % (0-1); Eosinophil# 0.31 X10^3/uL; Eosinophils% 2.9 % (0-5); Hematocrit 45.2 % (37-47); Hemoglobin 14.6 g/dL (12.0-15.0); Lymphocyte # 1.38 X10^3/ul (0.83-4.51); Lymphocyte % 13.1 % (19-41); Mean Corp Hgb Conc 32.3 g/dL (32-36); Mean Corpuscular Hgb 29.9 pg (27.0-32.0); Mean Corpuscular Volume 92.6 fL (81-99); Mean Platelet Vol. 11.7 fl (6.2-12.0); Monocyte# 0.85 X10^3/uL; Monocyte% 8.1 % (0-10); NRBC Flagged by Analyzer 0 % (0-5); Neutrophil # 7.86 X10^3/uL (2.7-7.7); Neutrophil % 74.7 % (47-70); Platelet Count 308 K/mm3 (150-450); RBC Distribution Width CV 13.6 % (11.6-14.6); RBC Distribution Width SD 46.1 fl (35.1-43.9); Red Blood Count 4.88 M/mm3 (4.2-5.4); White Blood Count 10.5 K/mm3 (4.4-11.0)
[2021-09-27 10:20] LABS: AST(SGOT) 24 U/L (15-37); Alanine Aminotransfer ALT/SGPT 36 U/L (13-56); Albumin, Serum 3.5 g/dL (3.2-5.0); Alkaline Phosphatase 102 U/L (45-117); Anion Gap 7 (5-15); BUN 18 mg/dL (7-18); BUN/Creat Ratio 21.4 RATIO (10-20); Calcium,Total 9.2 mg/dL (8.5-10.1); Chloride 104 mmol/L (98-107); Cholesterol 163 mg/dL (200); Creatinine, Serum 0.84 mg/dL (0.55-1.02); EST Glomerular Filtration Rate 73 mL/min (>60); Est Glom Filt Rate - Afr Amer 88 mL/min (>60); Globulin 3.6 g/dL (2.2-4.2); Glucose 116 mg/dL (74-106); High Density Lipoprotein 36 mg/dL; Microalbumin,Random Urine 12.2 mg/L (NO RANGE EST.); Microalbumin:Creatinine Ratio 5.2 mg/g CRE (<30 mg/g CRE); Potassium 3.9 mmol/L (3.5-5.1); Protein, Total 7.1 g/dL (6.4-8.2); Sodium Level 139 mmol/L (136-145); Thyroid Stim Hormone (TSH) 3.43 uIU/mL (0.358-3.74); Triglycerides 202 mg/dL; Very Low Density Lipoprotein 40 mg/dL (5-40)
== END ==
PROVIDERS: PCP Family Medicine; Referring Provider Family Medicine; Visit Provider Family Medicine
DX: E55.9 Vitamin D deficiency, unspecified (principal); E11.9 Type 2 diabetes mellitus without complications
CPT/HCPCS: 36415; 80053; 80061; 82043; 82306; 82570; 83036; 84443; 85025

== ENCOUNTER → 2021-10-12 10:30 | Outpatient (CLI) | payer OTHER, SELFPAY ==
--- NOTE | 2021-10-12 10:35 | BD_ITS ---
STUDY: DUAL ENERGY X-RAY ABSORPTIOMETRY / DXA REASON FOR EXAM: Female, 61 years old. Z780. Patient is postmenopausal. TECHNIQUE: Bone Mineral Density (BMD) measurements of lumbar spine and bilateral hips were obtained. COMPARISON: Comparison is made with prior study of 03/07/2011. FINDINGS: Lumbar Spine (L1-L4): g/cm2 (0.865) / T-score (-1.4) / Z-score (0.2) Findings are suggestive of osteopenia with a low fracture risk. Left Femur Total: g/cm2 (0.789) / T-score (-1.3) / Z-score (-0.1) Left Femoral Neck: g/cm2 (0.717) / T-score (-1.2) / Z-score (0.2) Right Femur Total: g/cm2 (0.803) / T-score (-1.1) / Z-score (0.0) Right Femoral Neck: g/cm2 (0.662) / T-score (-1.7) / Z-score (-0.2) The T-Scores on the most recent prior examination were: Lumbar Spine (L1-L4): There has been worsening of bone density since the previous examination. Left Femur Total: which represents a worsening of 8.2%. Right Femur Total: which represents a worsening of 4.5%. BD/Dexa Bone Density Study IMPRESSION: The patient is considered osteopenic as outlined below according to World Terry Organization (WHO) criteria with a low fracture risk. There has been worsening of bone density since the previous examination. Reference Information: The T-score is the number of standard deviations above or below the standard which is normal for young adults at their peak bone mineral density. The World Health Organization (WHO) interprets the T-scores as follows: Above -1 Normal bone density Between -1 and -2.5 Osteopenia Equal to / or below -2.5 Osteoporosis As a practical clinical guideline, osteopenia may be graded as follows: Mild -1 through -1.5 Moderate -1.6 through -2.0 Severe -2.1 through -2.4 The Z-score is the number of standard deviations above or below age-matched controls. A Z-score of less than -1.5 would be considered abnormal. References: 1. NIH Osteoporosis and Related Bone Diseases www osteo.org 2. International Society for Clinical Densitometry www iscd.org 3. National Osteoporosis Foundation www nof.org Electronically Signed: Ibrahima Gonzalez MD at 14:06 EST , Service support ,
== END ==
PROVIDERS: PCP Family Medicine; Visit Provider Family Medicine
DX: Z78.0 Asymptomatic menopausal state (principal)
CPT/HCPCS: 77080

== ENCOUNTER 2021-11-02 13:13 | Outpatient (CLI) | payer OTHER, SELFPAY ==
--- NOTE | 2021-11-02 13:16 | BI_ITS ---
MAMMOGRAPHY - BILATERAL SCREENING REASON FOR EXAM: Female, 61 years old. Routine annual screening examination. PERTINENT HISTORY: Grandmother with breast cancer. Remote right stereotactic breast biopsy. TECHNIQUE: Digital bilateral breast syed (3D mammographic acquisition) in the CC and MLO projections. 2-D mediolateral oblique (MLO) and craniocaudad (CC) views of both breasts were obtained. CAD: Full Field Digital Mammography with Computer Added Detection was performed. COMPARISON: Comparison is made with prior study dated 02/17/2020 and 01/20/2019. FINDINGS: Breast Composition: The breasts are heterogeneously dense, which may obscure small masses. There are no dominant masses or suspicious calcifications. Stable small benign-appearing bilateral axillary lymph nodes. No other significant abnormalities are identified. There has been no significant change since the prior study. BI/SCRN MAMM (CAD)W/SYED BILAT IMPRESSION: Stable bilateral screening mammogram. Yearly follow-up mammogram recommended. (A) ASSESSMENT CATEGORY: BIRADS Category 2: Benign. A letter regarding these results will be sent to the patient by the facility within 30 days. Approximately 10% of breast cancers are not detected by mammography. A normal mammogram should not delay biopsy of a clinically suspicious abnormality. [id number] Electronically Signed: Ibrahima Gonzalez MD at 14:09 EST , Service support ,
== END 2021-11-02 23:59 | disposition short-term general hospital (02) ==
LOC: OPBI 13:15
PROVIDERS: PCP Family Medicine; Referring Provider Family Medicine; Visit Provider Family Medicine
DX: Z12.31 Encounter for screening mammogram for malignant neoplasm of breast (principal); Z80.3 Family history of malignant neoplasm of breast
CPT/HCPCS: 77063; 77067

== ENCOUNTER 2022-01-27 09:16 | Outpatient (CLI) | payer OTHER, SELFPAY ==
[2022-01-27 10:10] LABS: Absolute Lymphocyte Count 1.52 X10^3/uL (0.83-4.51); Absolute Neutrophil Count 6.9 X10^3/uL (2.0-7.7); Basophil# 0.06 X10^3/uL; Basophil% 0.6 % (0-1); Eosinophil# 0.07 X10^3/uL; Eosinophils% 0.8 % (0-5); Hematocrit 45.5 % (37-47); Hemoglobin 14.9 g/dL (12.0-15.0); Lymphocyte # 1.52 X10^3/ul (0.83-4.51); Lymphocyte % 16.4 % (19-41); Mean Corp Hgb Conc 32.7 g/dL (32-36); Mean Corpuscular Hgb 30.3 pg (27.0-32.0); Mean Corpuscular Volume 92.5 fL (81-99); Mean Platelet Vol. 11.4 fl (6.2-12.0); Monocyte# 0.68 X10^3/uL; Monocyte% 7.3 % (0-10); NRBC Flagged by Analyzer 0 % (0-5); Neutrophil % 74.6 % (47-70); Platelet Count 317 K/mm3 (150-450); RBC Distribution Width CV 14.1 % (11.6-14.6); RBC Distribution Width SD 48.2 fl (35.1-43.9); Red Blood Count 4.92 M/mm3 (4.2-5.4); White Blood Count 9.3 K/mm3 (4.4-11.0)
[2022-01-27 10:23] LABS: ALB/GLOB Ratio 1.4 RATIO (0.9-2.4); AST(SGOT) 16 U/L (15-37); Alanine Aminotransfer ALT/SGPT 30 U/L (13-56); Albumin, Serum 3.8 g/dL (3.2-5.0); Alkaline Phosphatase 94 U/L (45-117); Anion Gap 5 (5-15); BUN 20 mg/dL (7-18); BUN/Creat Ratio 22.5 RATIO (10-20); Calcium,Total 9.4 mg/dL (8.5-10.1); Chloride 107 mmol/L (98-107); Cholesterol 167 mg/dL (200); Creatinine, Serum 0.89 mg/dL (0.55-1.02); EST Glomerular Filtration Rate 68 mL/min (>60); Est Glom Filt Rate - Afr Amer 82 mL/min (>60); Globulin 2.8 g/dL (2.2-4.2); Glucose 120 mg/dL (74-106); High Density Lipoprotein 41 mg/dL; Potassium 4.3 mmol/L (3.5-5.1); Protein, Total 6.6 g/dL (6.4-8.2); Sodium Level 141 mmol/L (136-145); Triglycerides 185 mg/dL; Very Low Density Lipoprotein 37 mg/dL (5-40)
[2022-01-27 10:28] LABS: Hemoglobin A1c 5.9 % (3.8-5.6)
== END 2022-01-27 23:59 | disposition home or self-care (01) ==
LOC: MFPLAB 09:17
PROVIDERS: PCP Family Medicine; Referring Provider Family Medicine; Visit Provider Family Medicine
DX: E11.59 Type 2 diabetes mellitus with other circulatory complications (principal); E11.69 Type 2 diabetes mellitus with other specified complication
CPT/HCPCS: 36415; 80053; 80061; 83036; 85025

== ENCOUNTER → 2022-06-26 | Outpatient (CLI) | payer OTHER, SELFPAY ==
[2022-06-26 12:40] LABS: Absolute Lymphocyte Count 2.27 X10^3/uL (0.83-4.51); Absolute Neutrophil Count 12.9 X10^3/uL (2.0-7.7); Basophil% 0.6 % (0-1); Eosinophils% 0.6 % (0-5); Hematocrit 46.1 % (37-47); Hemoglobin 15.2 g/dL (12.0-15.0); Lymphocyte # 2.27 X10^3/ul (0.83-4.51); Mean Corpuscular Hgb 31.1 pg (27.0-32.0); Mean Corpuscular Volume 94.5 fL (81-99); Mean Platelet Vol. 12.2 fl (6.2-12.0); Monocyte# 0.69 X10^3/uL; Monocyte% 4.3 % (0-10); NRBC Flagged by Analyzer 0 % (0-5); Neutrophil # 12.94 X10^3/uL (2.7-7.7); Neutrophil % 79.9 % (47-70); Platelet Count 350 K/mm3 (150-450); RBC Distribution Width SD 48.8 fl (35.1-43.9); Red Blood Count 4.88 M/mm3 (4.2-5.4); White Blood Count 16.2 K/mm3 (4.4-11.0)
[2022-06-26 12:42] LABS: Vitamin D,25 Hydroxy 31.4 ng/mL
[2022-06-26 12:50] LABS: ALB/GLOB Ratio 1.1 RATIO (0.9-2.4); AST(SGOT) 17 U/L (15-37); Alanine Aminotransfer ALT/SGPT 28 U/L (13-56); Albumin, Serum 3.9 g/dL (3.2-5.0); Alkaline Phosphatase 89 U/L (45-117); Anion Gap 7 (5-15); BUN 17 mg/dL (7-18); BUN/Creat Ratio 18.6 RATIO (10-20); Calcium,Total 9.3 mg/dL (8.5-10.1); Chloride 104 mmol/L (98-107); Cholesterol 170 mg/dL (200); Creatinine, Serum 0.91 mg/dL (0.55-1.02); EST Glomerular Filtration Rate 66 mL/min (>60); Est Glom Filt Rate - Afr Amer 80 mL/min (>60); Globulin 3.4 g/dL (2.2-4.2); Glucose 112 mg/dL (74-106); High Density Lipoprotein 42 mg/dL; Potassium 3.7 mmol/L (3.5-5.1); Protein, Total 7.3 g/dL (6.4-8.2); Sodium Level 139 mmol/L (136-145); Thyroid Stim Hormone (TSH) 2.53 uIU/mL (0.358-3.74); Triglycerides 182 mg/dL; Very Low Density Lipoprotein 36 mg/dL (5-40)
[2022-06-26 13:03] LABS: Microalbumin,Random Urine 10.6 mg/L (NO RANGE EST.); Microalbumin:Creatinine Ratio 7.2 mg/g CRE (<30 mg/g CRE)
[2022-06-26 13:57] LABS: Hemoglobin A1c 6.1 % (3.8-5.6)
== END | disposition home or self-care (01) ==
LOC: MFPLAB 09:19
PROVIDERS: PCP Family Medicine; Visit Provider Family Medicine
DX: E11.59 Type 2 diabetes mellitus with other circulatory complications (principal); E55.9 Vitamin D deficiency, unspecified
CPT/HCPCS: 36415; 80053; 80061; 82043; 82306; 82570; 83036; 84443; 85025

== ENCOUNTER → 2022-07-04 | Outpatient (CLI) | payer OTHER, SELFPAY ==
[2022-07-04 15:03] LABS: Absolute Lymphocyte Count 2.64 X10^3/uL (0.83-4.51); Absolute Neutrophil Count 9.4 X10^3/uL (2.0-7.7); Basophil% 0.8 % (0-1); Eosinophil# 0.12 X10^3/uL; Eosinophils% 0.9 % (0-5); Hematocrit 43.9 % (37-47); Hemoglobin 14.3 g/dL (12.0-15.0); Lymphocyte # 2.64 X10^3/ul (0.83-4.51); Lymphocyte % 20.3 % (19-41); Mean Corp Hgb Conc 32.6 g/dL (32-36); Mean Corpuscular Volume 95.2 fL (81-99); Mean Platelet Vol. 12.2 fl (6.2-12.0); Monocyte# 0.71 X10^3/uL; Monocyte% 5.5 % (0-10); NRBC Flagged by Analyzer 0 % (0-5); Neutrophil # 9.36 X10^3/uL (2.7-7.7); Platelet Count 330 K/mm3 (150-450); RBC Distribution Width SD 48.5 fl (35.1-43.9); Red Blood Count 4.61 M/mm3 (4.2-5.4)
== END | disposition home or self-care (01) ==
LOC: MFPLAB 11:51
PROVIDERS: PCP Family Medicine; Visit Provider Family Medicine
DX: D72.829 Elevated white blood cell count, unspecified (principal)
CPT/HCPCS: 36415; 85025

== ENCOUNTER → 2022-07-07 | Outpatient (CLI) | payer OTHER, SELFPAY ==
[2022-07-07 15:51] LABS: Mucous, Urine 0 SEEN /hpf (<or=2+)
[2022-07-07 16:01] LABS: Color, Urine Yellow (Yellow); Glucose, Dipstick Normal (Normal); Ketone-Dipstick 5 mg/dl (Negative); Leukocyte Esterase-Dipstick 500 /ul (Negative); Nitrite-Dipstick Positive (Negative); Occult Blood-Urine 250 /ul (Negative); Protein-Dipstick 30 mg/dl (Negative); Urine Bilirubin Dipstick Negative (Negative); Urine Clarity Cloudy (Clear); Urine Urobilinogen Normal (Normal)
[2022-07-07 18:33] LABS: Bacteria 1+ /hpf (None Seen); Red Blood Cells-Urine 25-50 SEEN /hpf (0-5); Squamous Epithelial Cells - UA 0-5 SEEN /hpf (5-10); White Blood Cells 25-50 SEEN /hpf (0-5)
== END | disposition home or self-care (01) ==
LOC: LABSPEC 15:38
PROVIDERS: PCP Family Medicine; Visit Provider Physician Assistant Surgical
DX: R30.0 Dysuria (principal)
CPT/HCPCS: 81001; 87086; 87088; 87186

== ENCOUNTER → 2022-10-02 | Outpatient (CLI) | payer OTHER, SELFPAY ==
--- NOTE | 2022-10-02 17:42 | CT_ITS ---
EXAM: CT CHEST, LUNG CANCER SCREENING WITHOUT INTRAVENOUS CONTRAST CLINICAL INDICATION: tobacco use TECHNIQUE: Helically acquired images were obtained of the chest without intravenous contrast using low dose (LDCT) lung cancer screening protocol. This CT exam was performed using one or more of the following dose reduction techniques: automated exposure control, adjustment of the mA and/or kV according to patient size, and/or use of iterative reconstruction technique. This report was created using [employer] report generation technology. COMPARISON: None. FINDINGS: LUNGS AND PLEURAL SPACES: There is a calcified nodule in the left lung base which may represent a granuloma. There is minimal scarring in the right middle lobe. No pleural effusion or thickening. No pneumothorax. HEART: Unremarkable. Heart size is normal. No pericardial effusion. No significant coronary artery calcifications. MEDIASTINUM: Unremarkable. No mediastinal or hilar adenopathy. Esophagus is unremarkable. No hiatal hernia. THYROID: Unremarkable. No thyroid lesions. BONES/JOINTS: Unremarkable. No suspicious lytic or blastic abnormality. VASCULATURE: Unremarkable. Thoracic aorta is non-dilated. LYMPH NODES: Unremarkable. No enlarged lymph nodes. CT/Low Dose CT Lung Screening IMPRESSION: 1. Lung-RADS score: 1 - Recommend continued annual screening with low-dose CT (LDCT) in 12 months. 2. No acute pulmonary abnormality. A calcified granuloma left lower lobe as well as minimal scarring in the right middle lobe. Electronically Signed: Grant Mcdonnell MD at 23:55 EST ,
== END | disposition home or self-care (01) ==
LOC: CT 17:41
PROVIDERS: PCP Family Medicine; Referring Provider Family Medicine; Visit Provider Family Medicine
DX: F17.200 Nicotine dependence, unspecified, uncomplicated (principal)
CPT/HCPCS: 71271

== ENCOUNTER → 2022-11-30 | Outpatient (CLI) | payer OTHER, SELFPAY ==
--- NOTE | 2022-11-30 10:31 | BI_ITS ---
MAMMOGRAPHY - BILATERAL SCREENING REASON FOR EXAM: Female, 62 years old. Routine annual screening examination. PERTINENT HISTORY: Grandmother with breast cancer. Remote right stereotactic breast biopsy. TECHNIQUE: Digital bilateral breast syed (3D mammographic acquisition) in the CC and MLO projections. 2-D mediolateral oblique (MLO) and craniocaudad (CC) views of both breasts were obtained. CAD: Full Field Digital Mammography with Computer Added Detection was performed. COMPARISON: Comparison is made with prior study dated 11/02/2021 and 02/17/2020. FINDINGS: Breast Composition: There are scattered areas of fibroglandular density. There are no dominant masses or suspicious calcifications. A tissue clip marker is once again seen in the upper anterior lateral aspect of the right breast. Stable small benign appearing bilateral axillary lymph nodes. No other significant abnormalities are identified. There has been no significant change since the prior study. BI/SCRN MAMM (CAD)W/SYED BILAT IMPRESSION: Stable bilateral screening mammogram. Yearly follow-up mammogram recommended. (A) ASSESSMENT CATEGORY: BIRADS Category 2: Benign. A letter regarding these results will be sent to the patient by the facility within 30 days. Approximately 10% of breast cancers are not detected by mammography. A normal mammogram should not delay biopsy of a clinically suspicious abnormality. [id number] Electronically Signed: Ibrahima Gonzalez MD at 11:26 EST ,
== END | disposition home or self-care (01) ==
PROVIDERS: PCP Family Medicine; Referring Provider Family Medicine; Visit Provider Family Medicine
DX: Z12.31 Encounter for screening mammogram for malignant neoplasm of breast (principal)
CPT/HCPCS: 77063; 77067

== ENCOUNTER → 2022-12-07 | Outpatient (CLI) | payer OTHER, SELFPAY ==
[2022-12-07 10:29] LABS: Hematocrit 44.3 % (37-47); Hemoglobin 14.5 g/dL (12.0-15.0); Mean Corp Hgb Conc 32.7 g/dL (32-36); Mean Corpuscular Hgb 30.8 pg (27.0-32.0); Mean Corpuscular Volume 94.1 fL (81-99); Mean Platelet Vol. 11.7 fl (6.2-12.0); Platelet Count 327 K/mm3 (150-450); RBC Distribution Width CV 13.9 % (11.6-14.6); Red Blood Count 4.71 M/mm3 (4.2-5.4)
[2022-12-07 10:41] LABS: Microalbumin,Random Urine 12.3 mg/L (NO RANGE EST.)
[2022-12-07 11:05] LABS: Vitamin D,25 Hydroxy 34.8 ng/mL
[2022-12-07 11:12] LABS: ALB/GLOB Ratio 1.2 RATIO (0.9-2.4); AST(SGOT) 15 U/L (15-37); Alanine Aminotransfer ALT/SGPT 32 U/L (13-56); Albumin, Serum 3.7 g/dL (3.2-5.0); Alkaline Phosphatase 85 U/L (45-117); Anion Gap 6 (5-15); BUN 20 mg/dL (7-18); BUN/Creat Ratio 25.1 RATIO (10-20); Calcium,Total 9.5 mg/dL (8.5-10.1); Chloride 104 mmol/L (98-107); Cholesterol 166 mg/dL (200); EST Glomerular Filtration Rate 77 mL/min (>60); Est Glom Filt Rate - Afr Amer 93 mL/min (>60); Globulin 3.2 g/dL (2.2-4.2); Glucose 110 mg/dL (74-106); High Density Lipoprotein 43 mg/dL; Protein, Total 6.9 g/dL (6.4-8.2); Sodium Level 140 mmol/L (136-145); Triglycerides 192 mg/dL; Very Low Density Lipoprotein 38 mg/dL (5-40)
[2022-12-07 11:23] LABS: Hemoglobin A1c 6.2 % (3.8-5.6)
== END | disposition home or self-care (01) ==
LOC: MFPLAB 09:26
PROVIDERS: PCP Family Medicine; Referring Provider Family Medicine; Visit Provider Family Medicine
DX: Z00.00 Encounter for general adult medical examination without abnormal findings (principal)
CPT/HCPCS: 36415; 80053; 80061; 82043; 82306; 83036; 85027

== ENCOUNTER → 2023-02-16 | Outpatient (CLI) | payer OTHER, SELFPAY ==
--- NOTE | 2023-02-16 09:30 | RAD_ITS ---
INDICATION: Acute bronchitis EXAMINATION/TECHNIQUE: X-RAY - XR Chest 2 Views COMPARISON: Two-view chest x-ray from 11/04/2018 FINDINGS: LINES/DEVICES: None. LUNGS: Coarsened right basilar opacities. No sizable pleural effusion. No pneumothorax detected. MEDIASTINUM AND CARDIOVASCULAR STRUCTURES: Heart size within normal limits. Mediastinal contours unremarkable. BONES AND SOFT TISSUES: No acute findings. RAD/Chest PA and Lateral IMPRESSION: Mild right basilar scarring versus atelectasis. Electronically Signed: Chuy Vera MD at 7:51 EDT ,
== END | disposition home or self-care (01) ==
LOC: MTRAD 09:29
PROVIDERS: PCP Family Medicine; Referring Provider Family Medicine; Visit Provider Family Medicine
DX: J20.9 Acute bronchitis, unspecified (principal)
CPT/HCPCS: 71046

== ENCOUNTER → 2023-06-14 | Outpatient (CLI) | payer MEDICARE, OTHER, SELFPAY ==
[2023-06-14 10:47] LABS: Absolute Lymphocyte Count 1.83 X10^3/uL (0.83-4.51); Absolute Neutrophil Count 8.7 X10^3/uL (2.0-7.7); Basophil# 0.09 X10^3/uL; Basophil% 0.8 % (0-1); Eosinophil# 0.11 X10^3/uL; Hematocrit 46.2 % (37-47); Hemoglobin 14.6 g/dL (12.0-15.0); Lymphocyte # 1.83 X10^3/ul (0.83-4.51); Lymphocyte % 15.9 % (19-41); Mean Corp Hgb Conc 31.6 g/dL (32-36); Mean Corpuscular Hgb 29.8 pg (27.0-32.0); Mean Corpuscular Volume 94.3 fL (81-99); Mean Platelet Vol. 11.8 fl (6.2-12.0); Monocyte# 0.72 X10^3/uL; Monocyte% 6.2 % (0-10); NRBC Flagged by Analyzer 0 % (0-5); Neutrophil # 8.74 X10^3/uL (2.7-7.7); Neutrophil % 75.7 % (47-70); Platelet Count 352 K/mm3 (150-450); RBC Distribution Width CV 14.1 % (11.6-14.6); RBC Distribution Width SD 48.4 fl (35.1-43.9); White Blood Count 11.5 K/mm3 (4.4-11.0)
[2023-06-14 11:06] LABS: ALB/GLOB Ratio 1.1 RATIO (0.9-2.4); AST(SGOT) 16 U/L (15-37); Alanine Aminotransfer ALT/SGPT 33 U/L (13-56); Albumin, Serum 3.6 g/dL (3.2-5.0); Alkaline Phosphatase 98 U/L (45-117); Anion Gap 5 (5-15); BUN 21 mg/dL (7-18); BUN/Creat Ratio 21.4 RATIO (10-20); Chloride 107 mmol/L (98-107); Cholesterol 176 mg/dL (200); Creatinine, Serum 0.98 mg/dL (0.55-1.02); EST Glomerular Filtration Rate 60 mL/min (>60); Est Glom Filt Rate - Afr Amer 73 mL/min (>60); Globulin 3.4 g/dL (2.2-4.2); Glucose 126 mg/dL (74-106); High Density Lipoprotein 39 mg/dL; Potassium 3.7 mmol/L (3.5-5.1); Sodium Level 139 mmol/L (136-145); Triglycerides 199 mg/dL; Very Low Density Lipoprotein 40 mg/dL (5-40)
[2023-06-14 11:07] LABS: Hemoglobin A1c 6.1 % (3.8-5.6)
[2023-06-14 21:41] LABS: Vitamin D,25 Hydroxy 32.3 ng/mL
== END | disposition home or self-care (01) ==
LOC: MFPLAB 09:39
PROVIDERS: PCP Family Medicine; Visit Provider Family Medicine
DX: E55.9 Vitamin D deficiency, unspecified (principal); E11.9 Type 2 diabetes mellitus without complications; M85.80 Other specified disorders of bone density and structure, unspecified site
CPT/HCPCS: 36415; 80053; 80061; 82306; 83036; 85025

== ENCOUNTER → 2023-10-03 | Outpatient (CLI) | payer MEDICARE, OTHER, SELFPAY ==
--- NOTE | 2023-10-03 12:49 | CT_ITS ---
STUDY: LOW DOSE CT LUNG CANCER SCREENING REASON FOR EXAM: Female, 63 years old. Smoker, Due in September. Patient smokes 1 pack per day for 40 years. RADIATION DOSAGE (If Supplied By Facility): CTDIvol = ( 2.01 ) mGy, DLP = ( 69.72 ) mGycm TECHNIQUE: No contrast was administered. Low dose technique was utilized (average mAS-38 and kVp 120). 1.25 mm axial source images with a slice interval of 1.25-mm were reconstructed in lung windows. 2.5 mm axial source images with a slice interval of 2.5-mm were reconstructed in lung windows. 5.0 mm axial source images with a slice interval of 5.0-mm were reconstructed in soft tissue windows. COMPARISON: Comparison is made with prior study October 02, 2022. NODULES: Calcified granuloma in the posteromedial segment of the left lower lobe. Emphysema: Mild degree of hydrocephalus changes. Minimal linear scarring in the anterior medial aspect of the right upper lobe. Endobronchial lesion: None Aorta: Mild degree of atherosclerotic plaque formation of the aortic arch. CORONARY ARTERIES: Coronary artery calcification is seen. Heart: Unremarkable Pulmonary artery: Remarkable Mediastinal nodes: Unremarkable Other chest and abdominal findings: CT/Low Dose CT Lung Screening IMPRESSION: Lung-RADS category 2 - Continue annual screening with LDCT in 12 months. IMPORTANT NOTES FOR USE: ACR Lung-RADS Version 1.1 Assessment Categories Release Date: 2018 Category: Coded 0-4 bases on nodule(s) with highest degree of suspicion. Negative screen is defined as categories 1 and 2; a positive screen is defined as categories 3 and 4. Category 3 and 4A nodules that are unchanged on interval CT should be coded as category 2, and individuals returned to screening in 12 months. Category 4X: Category 3 or 4 nodules with additional imaging findings that increase the suspicion of lung cancer, such as spiculation, GGN that doubles in size in 1 year, enlarged lymph notes, etc. Category Modifiers: S (significant finding unrelated to lung cancer) Electronically Signed: Ibrahima Gonzalez MD at 15:39 EST ,
== END | disposition home or self-care (01) ==
PROVIDERS: PCP Family Medicine; Referring Provider Family Medicine; Visit Provider Family Medicine
DX: F17.210 Nicotine dependence, cigarettes, uncomplicated (principal)
CPT/HCPCS: 71271

== ENCOUNTER → 2023-12-03 | Outpatient (CLI) | payer MEDICARE, OTHER, SELFPAY ==
--- OUTSIDE RECORDS SUMMARY | 2023-12-03 10:49 | XMS RPT_ITS | CCD ---
Author Name Unknown Address [id number] [place] [address] Organization [facility] Care Team Providers Care Programmer Developer Name Role Phone VIKKI FUENTES Attending Unavailable VIKKI FUENTES Primary Care Unavailable VIKKI FUENTES Admitting Unavailable Encounters Encounter Date Encounter Type Care Provider Facility Start: 01-03-2021 End: 01-03-2021 Patient encounter procedure VIKKI FUENTES [facility] Payers Date Payer Category Payer Unknown [id number] Unknown [id number] Summary Purpose Family History No Family History Records Found Advance Directives No Advanced Directives Records Found Additional Source Comments INFORMATION SOURCE (unrecogn ized section and content) FOR RECORDS PERTAINING TO PATIENTS WHO ARE OR HAVE BEEN ENROLLED IN A CHEMICAL DEPENDENCY/SUBSTANCEABUSE PROGRAM, SOME INFORMATION MAY BE OMITTED. This clinical summary was aggregated from multiple sources. Caution should be exercised in using it in the provision of clinical care. This summary normalizes information from multiple sources, and as a consequence, information in this document may materially change the coding, format and clinical context of patient data. In addition, data may be omitted in some cases. CLINICAL DECISIONS SHOULD BE BASED ON THE PRIMARY CLINICAL RECORDS. [employer] provides no warranty or guarantee of the accuracy or completeness of information in this document.
[2023-12-03 11:56] LABS: Absolute Neutrophil Count 4.9 X10^3/uL (2.0-7.7); Basophil# 0.05 X10^3/uL; Basophil% 0.7 % (0-1); Eosinophil# 0.14 X10^3/uL; Eosinophils% 1.9 % (0-5); Hematocrit 41.7 % (37-47); Hemoglobin 13.5 g/dL (12.0-15.0); Lymphocyte % 20.4 % (19-41); Mean Corp Hgb Conc 32.4 g/dL (32-36); Mean Corpuscular Volume 92.7 fL (81-99); Mean Platelet Vol. 11.8 fl (6.2-12.0); Monocyte% 9.5 % (0-10); NRBC Flagged by Analyzer 0 % (0-5); Neutrophil # 4.94 X10^3/uL (2.7-7.7); Neutrophil % 67.2 % (47-70); Platelet Count 291 K/mm3 (150-450); RBC Distribution Width SD 47.3 fl (35.1-43.9); White Blood Count 7.4 K/mm3 (4.4-11.0)
[2023-12-03 12:28] LABS: Vitamin D,25 Hydroxy 39.7 ng/mL
[2023-12-03 12:38] LABS: Microalbumin,Random Urine 21.9 mg/L (NO RANGE EST.); Microalbumin:Creatinine Ratio 9.4 mg/g CRE (<30 mg/g CRE)
[2023-12-03 12:46] LABS: ALB/GLOB Ratio 0.8 RATIO (0.9-2.4); AST(SGOT) 35 U/L (15-37); Alanine Aminotransfer ALT/SGPT 56 U/L (13-56); Albumin, Serum 3.4 g/dL (3.2-5.0); Alkaline Phosphatase 91 U/L (45-117); Anion Gap 9 (5-15); BUN 20 mg/dL (7-18); BUN/Creat Ratio 26.2 RATIO (10-20); Calcium,Total 9.4 mg/dL (8.5-10.1); Chloride 108 mmol/L (98-107); Cholesterol 139 mg/dL (200); Creatinine, Serum 0.76 mg/dL (0.55-1.02); EST Glomerular Filtration Rate 81 mL/min (>60); Est Glom Filt Rate - Afr Amer 98 mL/min (>60); Globulin 4.4 g/dL (2.2-4.2); Glucose 107 mg/dL (74-106); High Density Lipoprotein 36 mg/dL; Potassium 3.8 mmol/L (3.5-5.1); Protein, Total 7.8 g/dL (6.4-8.2); Sodium Level 141 mmol/L (136-145); Thyroid Stim Hormone (TSH) 2.53 uIU/mL (0.358-3.74); Triglycerides 132 mg/dL; Very Low Density Lipoprotein 26 mg/dL (5-40)
[2023-12-03 13:12] LABS: Hemoglobin A1c 6.2 % (3.8-5.6)
== END | disposition home or self-care (01) ==
LOC: MFPLAB 10:17
PROVIDERS: PCP Family Medicine; Visit Provider Family Medicine
DX: E11.9 Type 2 diabetes mellitus without complications (principal); E55.9 Vitamin D deficiency, unspecified
CPT/HCPCS: 36415; 80053; 80061; 82043; 82306; 82570; 83036; 84443; 85025

== ENCOUNTER → 2023-12-04 | Outpatient (CLI) | payer MEDICARE, OTHER, SELFPAY ==
--- NOTE | 2023-12-04 12:27 | BI_ITS ---
MAMMOGRAPHY - BILATERAL SCREENING REASON FOR EXAM: Female, 63 years old. Routine annual screening examination. PERTINENT HISTORY: Grandmother with breast cancer. TECHNIQUE: Digital bilateral breast syed (3D mammographic acquisition) in the CC and MLO projections. 2-D mediolateral oblique (MLO) and craniocaudad (CC) views of both breasts were obtained. CAD: Full Field Digital Mammography with Computer Added Detection was performed. COMPARISON: Comparison is made with prior study of November 02, 2021 and November 30, 2022. FINDINGS: Breast Composition: There are scattered areas of fibroglandular density. There are no dominant masses or suspicious calcifications. A tissue clip marker is once again seen in the upper anterior lateral aspect of the right breast. Stable small benign-appearing bilateral axillary lymph nodes. No other significant abnormalities are identified. There has been no significant change since the prior study. BI/SCRN MAMM (CAD)W/SYED BILAT IMPRESSION: Stable bilateral screening mammogram. Yearly follow-up mammogram recommended. (A) ASSESSMENT CATEGORY: BIRADS Category 2: Benign. A letter regarding these results will be sent to the patient by the facility within 30 days. Approximately 10% of breast cancers are not detected by mammography. A normal mammogram should not delay biopsy of a clinically suspicious abnormality. [id number] Electronically Signed: Ibrahima Gonzalez MD at 14:20 EST ,
--- NOTE | 2023-12-04 12:31 | BD_ITS ---
STUDY: DUAL ENERGY X-RAY ABSORPTIOMETRY / DXA REASON FOR EXAM: Female, 63 years old. M85.89 TECHNIQUE: Bone Mineral Density (BMD) measurements of lumbar spine and bilateral hips were obtained. COMPARISON: Comparison is made with prior study dated October 12, 2021. FINDINGS: Lumbar Spine (L1-L4): g/cm2 (0.956) / T-score (-0.8) / Z-score (1.0) Findings are suggestive of normal bone density with a low fracture risk. Left Femur Total: g/cm2 (0.817) / T-score (-1.0) / Z-score (0.2) Left Femoral Neck: g/cm2 (0.669) / T-score (-1.6) / Z-score (-0.1) Right Femur Total: g/cm2 (0.895) / T-score (-0.4) / Z-score (0.9) Right Femoral Neck: g/cm2 (0.698) / T-score (-1.4) / Z-score (0.2) The T-Scores on the most recent prior examination were: Lumbar Spine (L1-L4): There has been worsening of bone density since the previous examination. Left Femur Total: which represents an improvement of 3.6%. Right Femur Total: which represents an improvement of 11.4%. BD/Dexa Bone Density Study IMPRESSION: The patient is considered osteopenic as outlined below according to World Terry Organization (WHO) criteria with a moderate fracture risk. There has been improvement of bone density since the previous examination. Reference Information: The T-score is the number of standard deviations above or below the standard which is normal for young adults at their peak bone mineral density. The World Health Organization (WHO) interprets the T-scores as follows: Above -1 Normal bone density Between -1 and -2.5 Osteopenia Equal to / or below -2.5 Osteoporosis As a practical clinical guideline, osteopenia may be graded as follows: Mild -1 through -1.5 Moderate -1.6 through -2.0 Severe -2.1 through -2.4 The Z-score is the number of standard deviations above or below age-matched controls. A Z-score of less than -1.5 would be considered abnormal. References: 1. NIH Osteoporosis and Related Bone Diseases www osteo.org 2. International Society for Clinical Densitometry www iscd.org 3. National Osteoporosis Foundation www nof.org Electronically Signed: Ibrahima Gonzalez MD at 9:18 EST ,
== END | disposition home or self-care (01) ==
LOC: OPBD 12:25
PROVIDERS: PCP Family Medicine; Referring Provider Family Medicine; Visit Provider Family Medicine
DX: Z12.31 Encounter for screening mammogram for malignant neoplasm of breast (principal); M85.89 Other specified disorders of bone density and structure, multiple sites
CPT/HCPCS: 77063; 77067; 77080

== ENCOUNTER → 2024-01-10 | Outpatient (CLI) | payer MEDICARE, OTHER, SELFPAY ==
[2024-01-10 15:23] LABS: Bacteria 0 SEEN /hpf (None Seen)
--- NOTE | 2024-01-10 15:24 | CT_ITS ---
STUDY: CT ABDOMEN AND PELVIS WITH CONTRAST REASON FOR EXAM: Female, 63 years old. Left lower quadrant pain, fever RADIATION DOSAGE (If Supplied By Facility): CTDIvol = ( 14.36 ) mGy, DLP = ( 888.51 ) mGycm TECHNIQUE: Transaxial images were obtained from the dome of the diaphragm to the symphysis pubis without oral contrast. IV 100mL Isovue-300 was administered. Sagittal and coronal images were reconstructed. Individualized dose optimization techniques were used for this CT. COMPARISON: 09/02/2020 FINDINGS: The visualized lung bases are unremarkable. The visualized portions of the heart are within normal limits. Normal liver. Normal gallbladder and extrahepatic biliary system. Normal spleen. Normal pancreas. There are stable small, circumscribed, smooth, low attenuation bilateral adrenal masses, consistent with an adrenal adenoma. Right measures 1.4 cm, left 1.6 cm. Normal right kidney. Normal left kidney. Normal visualized stomach. Normal small intestine. Retained stool noted throughout the colon. Scattered colonic diverticula noted, there is abnormal submucosal thickening and pericolonic inflammatory stranding around the distal sigmoid colon consistent with acute diverticulitis There is non-visualization of the appendix. There is diffuse atherosclerotic calcification of the abdominal aorta with elongation and tortuosity, but without a demonstrated aneurysm. Normal inferior vena cava. Normal retroperitoneum. Normal urinary bladder. There is absence of the uterus consistent with a prior hysterectomy. Normal abdominal wall. Normal osseous structures. CT/Abdomen/Pelvis W IV Cont ONLY IMPRESSION: Scattered colonic diverticula with abnormal submucosal thickening, edema and pericolonic inflammatory stranding around the distal sigmoid colon consistent with acute diverticulitis. No perforation or abscess is noted Stable well-defined likely adrenal adenomas, right measuring 1.4 cm, left 1.6 No free intraperitoneal fluid, air, or suspicious adenopathy Electronically Signed: Steve Forrest MD at 8:22 EDT Reading Location ID and State: [id number] / [place] , Service support ,
[2024-01-10 15:37] LABS: Absolute Lymphocyte Count 2.43 X10^3/uL (0.83-4.51); Absolute Neutrophil Count 8.9 X10^3/uL (2.0-7.7); Basophil# 0.09 X10^3/uL; Basophil% 0.7 % (0-1); Eosinophil# 0.18 X10^3/uL; Eosinophils% 1.4 % (0-5); Hematocrit 42.6 % (37-47); Hemoglobin 14.1 g/dL (12.0-15.0); Lymphocyte # 2.43 X10^3/ul (0.83-4.51); Lymphocyte % 19.2 % (19-41); Mean Corp Hgb Conc 33.1 g/dL (32-36); Mean Corpuscular Hgb 30.6 pg (27.0-32.0); Mean Corpuscular Volume 92.4 fL (81-99); Mean Platelet Vol. 10.9 fl (6.2-12.0); Monocyte# 1.01 X10^3/uL; NRBC Flagged by Analyzer 0 % (0-5); Neutrophil # 8.88 X10^3/uL (2.7-7.7); Neutrophil % 70.4 % (47-70); Platelet Count 334 K/mm3 (150-450); RBC Distribution Width CV 13.7 % (11.6-14.6); RBC Distribution Width SD 46.1 fl (35.1-43.9); Red Blood Count 4.61 M/mm3 (4.2-5.4); White Blood Count 12.6 K/mm3 (4.4-11.0)
[2024-01-10 15:50] LABS: CREATININE FINGERSTICK < 1.0 mg/dL (0.55-1.02); EGFR FINGERSTICK > 60.0000 mL/min (>60)
[2024-01-10 16:00] LABS: Vitamin D,25 Hydroxy 33.1 ng/mL
[2024-01-10 16:17] LABS: Color, Urine Yellow (Yellow); Glucose, Dipstick Normal (Normal); Ketone-Dipstick 5 mg/dl (Negative); Leukocyte Esterase-Dipstick 25 /ul (Negative); Nitrite-Dipstick Negative (Negative); Occult Blood-Urine 50 /ul (Negative); Protein-Dipstick 15 mg/dl (Negative); Urine Bilirubin Dipstick Negative (Negative); Urine Clarity Clear (Clear); Urine Urobilinogen 1 mg/dl (Normal)
[2024-01-10 16:19] LABS: Lactic Acid 1.2 mmol/L (0.4-1.9)
[2024-01-10 16:22] LABS: Red Blood Cells-Urine 0-5 SEEN /hpf (0-5); White Blood Cells 0-5 SEEN /hpf (0-5)
[2024-01-10 16:23] LABS: Mucous, Urine RARE /hpf (<or=2+); Squamous Epithelial Cells - UA 0 SEEN /hpf (5-10)
[2024-01-10 16:32] LABS: ALB/GLOB Ratio 1.1 RATIO (0.9-2.4); AST(SGOT) 21 U/L (15-37); Alanine Aminotransfer ALT/SGPT 38 U/L (13-56); Albumin, Serum 3.9 g/dL (3.2-5.0); Alkaline Phosphatase 103 U/L (45-117); Anion Gap 6 (5-15); BUN 17 mg/dL (7-18); Calcium,Total 9.3 mg/dL (8.5-10.1); Chloride 103 mmol/L (98-107); Cholesterol 157 mg/dL (200); Creatinine, Serum 0.89 mg/dL (0.55-1.02); EST Glomerular Filtration Rate 67 mL/min (>60); Est Glom Filt Rate - Afr Amer 81 mL/min (>60); Globulin 3.6 g/dL (2.2-4.2); Glucose 90 mg/dL (74-106); High Density Lipoprotein 48 mg/dL; Potassium 3.7 mmol/L (3.5-5.1); Protein, Total 7.5 g/dL (6.4-8.2); Sodium Level 138 mmol/L (136-145); Triglycerides 177 mg/dL; Very Low Density Lipoprotein 35 mg/dL (5-40)
== END | disposition home or self-care (01) ==
LOC: CT 15:04
PROVIDERS: PCP Family Medicine; Referring Provider Family Medicine; Visit Provider Family Medicine
DX: K57.92 Diverticulitis of intestine, part unspecified, without perforation or abscess without bleeding (principal); E11.8 Type 2 diabetes mellitus with unspecified complications; F17.200 Nicotine dependence, unspecified, uncomplicated; M85.80 Other specified disorders of bone density and structure, unspecified site
CPT/HCPCS: 36415; 74177; 80053; 80061; 81001; 82306; 83036; 83605; 85025; Q9967

== ENCOUNTER → 2024-02-18 | Outpatient (CLI) | payer MEDICARE, OTHER, SELFPAY | END | disposition home or self-care (01) | LOC: SL 19:57 | PROVIDERS: PCP Family Medicine; Referring Provider Nurse Practitioner Acute Care; Visit Provider Nurse Practitioner Acute Care | DX: G47.10 Hypersomnia, unspecified (principal) | CPT/HCPCS: 95810 ==

== ENCOUNTER → 2024-03-07 | Outpatient (CLI) | payer MEDICARE, OTHER, SELFPAY ==
[2024-03-07 10:29] LABS: Absolute Lymphocyte Count 1.76 X10^3/uL (0.83-4.51); Basophil# 0.08 X10^3/uL; Basophil% 0.8 % (0-1); Eosinophil# 0.14 X10^3/uL; Eosinophils% 1.3 % (0-5); Hematocrit 44.7 % (37-47); Hemoglobin 14.3 g/dL (12.0-15.0); Lymphocyte # 1.76 X10^3/ul (0.83-4.51); Lymphocyte % 16.6 % (19-41); Mean Corpuscular Hgb 29.9 pg (27.0-32.0); Mean Corpuscular Volume 93.5 fL (81-99); Mean Platelet Vol. 11.3 fl (6.2-12.0); Monocyte# 0.64 X10^3/uL; NRBC Flagged by Analyzer 0 % (0-5); Neutrophil # 7.95 X10^3/uL (2.7-7.7); Platelet Count 330 K/mm3 (150-450); RBC Distribution Width CV 13.7 % (11.6-14.6); RBC Distribution Width SD 47.4 fl (35.1-43.9); Red Blood Count 4.78 M/mm3 (4.2-5.4); White Blood Count 10.6 K/mm3 (4.4-11.0)
[2024-03-07 11:09] LABS: Microalbumin:Creatinine Ratio 8.6 mg/g CRE (<30 mg/g CRE)
[2024-03-07 11:13] LABS: Vitamin D,25 Hydroxy 29.3 ng/mL
[2024-03-07 11:31] LABS: ALB/GLOB Ratio 1.2 RATIO (0.9-2.4); AST(SGOT) 19 U/L (15-37); Alanine Aminotransfer ALT/SGPT 30 U/L (13-56); Albumin, Serum 3.8 g/dL (3.2-5.0); Alkaline Phosphatase 88 U/L (45-117); Anion Gap 4 (5-15); BUN 17 mg/dL (7-18); BUN/Creat Ratio 20.5 RATIO (10-20); Calcium,Total 9.8 mg/dL (8.5-10.1); Chloride 106 mmol/L (98-107); Cholesterol 157 mg/dL (200); Creatinine, Serum 0.83 mg/dL (0.55-1.02); EST Glomerular Filtration Rate 73 mL/min (>60); Est Glom Filt Rate - Afr Amer 89 mL/min (>60); Globulin 3.2 g/dL (2.2-4.2); Glucose 114 mg/dL (74-106); High Density Lipoprotein 45 mg/dL; Potassium 4.8 mmol/L (3.5-5.1); Sodium Level 139 mmol/L (136-145); Triglycerides 229 mg/dL; Very Low Density Lipoprotein 46 mg/dL (5-40)
== END | disposition home or self-care (01) ==
LOC: MFPLAB 09:06
PROVIDERS: PCP Family Medicine; Visit Provider Family Medicine
DX: E11.59 Type 2 diabetes mellitus with other circulatory complications (principal); E55.9 Vitamin D deficiency, unspecified
CPT/HCPCS: 36415; 80053; 80061; 82043; 82306; 82570; 83036; 85025

== ENCOUNTER 2024-03-20 07:45 | Inpatient (IN) | payer MEDICARE, OTHER, SELFPAY ==
[2024-03-20] VITALS (22 sets, daily range): BP systolic 126–180; BP diastolic 67–101; PULSE 62–88; RESP 13–26; TEMP 36.2–37.1; O2SAT 94–100; BMI 32.5; BMI 32.7
--- NOTE | 2024-03-20 07:58 | RAD_ITS ---
EXAM: XR CHEST, 1 VIEW CLINICAL INDICATION: chest pain TECHNIQUE: Frontal view of the chest. COMPARISON: XR Chest dated 02/16/2023 FINDINGS: LUNGS AND PLEURAL SPACES: Normal. No consolidation or edema. No pneumothorax. No effusion. HEART: Normal heart size. MEDIASTINUM: No mediastinal or hilar mass. BONES/JOINTS: No acute abnormality. RAD/Chest 1 View (Portable) IMPRESSION: No acute cardiopulmonary abnormality. Clearing of the right lower lobe infiltrate. Electronically Signed: Ronald Calle MD at 8:40 EDT ,
--- NOTE | 2024-03-20 08:06 | EKG12_ITS ---
Test Reason : CHEST TIGHTNESS Blood Pressure : / mmHG Vent. Rate : 075 BPM Atrial Rate : 075 BPM P-R Int : 178 ms QRS Dur : 076 ms QT Int : 374 ms P-R-T Axes : 004 015 015 degrees QTc Int : 417 ms Normal sinus rhythm Low voltage QRS Borderline ECG Confirmed by Anthony Scott ([id number]), film or videotape editor ENMANUEL JULIAN ([id number]) on 03/21/2024 10:17:20 AM Referred By: Confirmed By:Anthony Scott
--- NOTE | 2024-03-20 08:07 | ED.VIS.CHEST ---
HPI History of Present Illness Chief Complaint: Chest Pain Informant: patient and family Narrative Narrative: 64-year-old female presenting to the emergency room for the evaluation of chest pain. Patient notes a history of hypertension hyperlipidemia and diabetes. She states that last evening she does not take her evening medications. This included metoprolol. Around 2100 hrs. she began to have a epigastric lower mid chest tightness. She states she felt somewhat in the back. She thought perhaps it was indigestion and took some Tums which did not relieve it. She has been having a small amount of belching. Was fairly constant during the night but did not prevent her from sleeping. She states that this morning she noted that her blood pressure was higher than normal and her symptoms were still present but better. She took her morning medications. She spoke to her primary care doctor who advised her to come to emergency. Patient has no personal history of coronary artery disease. She has a sister who had a heart attack at about the same age she is. She denies any dyspnea nausea vomiting sweating arm or leg symptoms. [facility] Medical History Sinus infection History of bloody stools history of child Shoulder pain sudden weight loss Arthritis Hypertension Home Medications ?Medication ?Instructions ?Recorded ?Last Taken ?Type aspirin 81 mg tablet,delayed 81 mg PO DAILY 05/08/21 Unknown History release (Adult Aspirin Regimen) hydrochlorothiazide 12.5 mg capsule 12.5 mg PO DAILY 05/08/21 Unknown History albuterol sulfate 90 mcg/actuation 2 puff inhalation Q4-6H PRN SOB 01/31/24 Unknown History aerosol inhaler atorvastatin 20 mg tablet 20 mg PO 01/31/24 Unknown History calcium carbonate 600 mg PO DAILY 01/31/24 Unknown History cholecalciferol (vitamin D3) 25 25 mcg PO DAILY 01/31/24 Unknown History mcg (1,000 unit) capsule coenzyme Q10 100 mg capsule (Co 100 mg PO DAILY 01/31/24 Unknown History Q-10) fexofenadine 180 mg tablet 180 mg PO DAILY 01/31/24 Unknown History (Bertha Allergy) metformin 500 mg tablet 500 mg PO BID 01/31/24 Unknown History metoprolol tartrate 50 mg tablet 50 mg PO BID 01/31/24 Unknown History multivitamin 1 tab PO DAILY 01/31/24 Unknown History nutritional supplement-fiber oral ea PO 01/31/24 Unknown History sertraline 50 mg tablet mg PO DAILY 01/31/24 Unknown History elderberry fruit 350 mg capsule mg PO 02/07/24 Unknown History varenicline 1 mg tablet 1 mg PO BID 02/07/24 Unknown History Allergy/AdvReac Type Severity Reaction Status Date / Time No Known Allergies Allergy Verified 03/20/24 07:49 Family History Mother Colon cancer Heart disease Hypertension Father Heart disease Hypertension Grandmother Breast cancer Surgical History History of cataract extraction History of hysterectomy History of D&C Social History Smoking Status: Current every day smoker tobacco type: cigarettes alcohol intake: current ROS ROS ED Constitutional Constitutional ED: Denies chills, fever(s) or weight loss Eyes Eyes: Denies change in vision or diplopia ENT ENT ED: Denies ear pain, rhinorrhea or sore throat Cardiovascular Cardiovascular: Reports chest pain; Denies orthopnea, palpitations or racing heartbeat Respiratory/Chest Respiratory/Chest: Denies cough, dyspnea or orthopnea Gastrointestinal Gastrointestinal: Denies abdominal pain, diarrhea, nausea or vomiting Genitourinary Genitourinary ED: Denies dysuria, hematuria or urinary frequency Musculoskeletal Musculoskeletal: Reports back pain; Denies arthralgias, myalgias or neck pain Integumentary Denies abscess or rash Neurologic Neurologic: Denies headache(s) or weakness Psychiatric Psychiatric: Denies anxiety, depression, suicidal ideation or suicidal thoughts Endocrine Endocrinology: Denies polydipsia, polyphagia or polyuria Allergic/Immunologic Allergic/Immunologic ED: Denies mouth swelling, tongue swelling or urticaria EXAM Physical Exam Const Vital Signs: 03/20/24 07:46 03/20/24 07:50 03/20/24 08:44 Temperature 97.2 F L Temperature Source Temporal Pulse Rate 85 72 Respiratory Rate 20 H 13 Respiratory Effort Normal Non-Labored Blood Pressure 172/101 H 179/89 H Blood Pressure Mean 124 119 Pulse Ox 97 95 Oxygen Delivery Method Room Air Room Air Positive well nourished and well developed General Appearance ED: well developed and NAD HEENT Reports normocephalic, head/scalp atraumatic and moist mucous membranes Eyes PERRL and EOMs intact bilaterally Neck no lymphadenopathy, supple and no JVD Resp normal respiratory effort and clear to auscultation bilaterally Cardio regular rate, regular rhythm and no murmurs GI normal to inspection, nondistended, normoactive bowel sounds and non-tender Palpation: soft Back/Spine no CVA tenderness and normal ROM Extremity normal to inspection General Extremety ED: Negative for edema General Extremity: Negative for edema Neuro oriented x3 and CN's II-XII intact bilaterally Sensorium / Orientation: alert Motor Exam: strength 5/5 throughout Psych mental status grossly normal Mood & Affect: Negative for depressed or tearful Skin no rashes or lesions noted and no wounds MDM MDM MDM Narrative Medical decision making narrative: Differential diagnosis includes but not limited to acute coronary syndrome, pulmonary embolism, aortic dissection, hypertensive urgency, pancreatitis, biliary disease, GERD/gastritis, pneumothorax or other pulmonary disease. Patient received a GI cocktail which did not improve her symptoms. Initial EKG is a normal sinus rhythm with no concerning features of ACS noted. White count 16.2. D-dimer 0.34. Troponin is 3339. Normal lipase normal LFTs. My independent interpretation of the chest x-ray is no acute process Patient was placed on a heparin drip given Brilinta. She was also placed on nitroglycerin drip given her continued symptoms. I spoke with Dr. Herman from interventional cardiology. He will be down to evaluate the patient and take her to the [facility]. Patient and family were updated. Plan will be admission I will speak with the hospitalist. History & Record Review Discussion w/independent historian: Patient and Family Additional record(s) reviewed:: Prior labs Lab Data Attestation: I reviewed the patient's lab results. Labs: Laboratory Results - last 24 hr 03/20/24 03/20/24 07:52 08:38 WBC 16.2 H RBC 4.99 Hgb 14.9 Hct 45.2 MCV 90.6 MCH 29.9 MCHC 33.0 RDW Std Deviation 44.6 H RDW Coeff of [place] 13.6 Plt Count 371 MPV 11.2 Immature Gran % (Auto) 0.500 Neut % (Auto) 84.1 H Lymph % (Auto) 9.3 L [place] % (Auto) 5.3 Eos % (Auto) 0.2 Baso % (Auto) 0.6 Absolute Neuts (auto) 13.6 H Absolute Lymphs (auto) 1.50 Nucleated RBC % 0 D-Dimer Quant (PE/DVT) Cancelled 0.34 Sodium 136 Potassium 4.1 Chloride 105 Carbon Dioxide 23.0 Anion Gap 8 BUN 15 Creatinine 0.95 Estim Creat Clear Calc 55.14 Est GFR (MDRD) Af Amer 76 Est GFR (MDRD) Non-Af 62 BUN/Creatinine Ratio 15.8 Glucose 150 H Calcium 9.5 Total Bilirubin 0.30 Direct Bilirubin 0.08 AST 43 H ALT 34 Alkaline Phosphatase 107 Troponin I High Sens 3339 H* Total Protein 7.5 Albumin 3.9 Globulin 3.6 Lipase 35 Radiography Diagnostic Testing: Clinical Impression(s) from Imaging Studies Chest X-Ray 03/20/24 07:58 IMPRESSION: No acute cardiopulmonary abnormality. Clearing of the right lower lobe infiltrate. Electronically Signed: Ronald Calle MD at 8:40 EDT , EKG Initial EKG: Attestation: I personally reviewed and interpreted this EKG as follows: Comments: Normal sinus rhythm ventricular rate of 75 bpm Management Discussion w/another healthcare provider: Hospitalist and Director Of Speech Pathology (Dr. Herman) Critical Care Time Critical Care Time: Yes Critical care time (excluding procedures): 30-74 minutes (34 min), Including time spent:, Discussing w/Patient &/or Family/[employer], Discussing w/Consultants, Arranging Admission or Transfer and Performing Direct Patient Care at Bedside Discharge Plan Dx/Rx/DC Orders Clinical Impression: ACS (acute coronary syndrome), Non-ST elevation RI (NSTEMI), Hypertension, Diabetes, Hypercholesteremia Disposition Disposition: Acute Care [facility]
[2024-03-20] MEDS: Mag Hydrox/Al Hydrox/Simeth 30 ML UDC PO (08:12)
[2024-03-20 08:21] LABS: Absolute Neutrophil Count 13.6 X10^3/uL (2.0-7.7); Basophil# 0.09 X10^3/uL; Basophil% 0.6 % (0-1); Eosinophil# 0.03 X10^3/uL; Eosinophils% 0.2 % (0-5); Hematocrit 45.2 % (37-47); Hemoglobin 14.9 g/dL (12.0-15.0); Lymphocyte % 9.3 % (19-41); Mean Corpuscular Hgb 29.9 pg (27.0-32.0); Mean Corpuscular Volume 90.6 fL (81-99); Mean Platelet Vol. 11.2 fl (6.2-12.0); Monocyte# 0.85 X10^3/uL; Monocyte% 5.3 % (0-10); NRBC Flagged by Analyzer 0 % (0-5); Neutrophil # 13.64 X10^3/uL (2.7-7.7); Neutrophil % 84.1 % (47-70); Platelet Count 371 K/mm3 (150-450); RBC Distribution Width CV 13.6 % (11.6-14.6); RBC Distribution Width SD 44.6 fl (35.1-43.9); Red Blood Count 4.99 M/mm3 (4.2-5.4); White Blood Count 16.2 K/mm3 (4.4-11.0)
[2024-03-20 08:47] LABS: Anion Gap 8 (5-15); BUN 15 mg/dL (7-18); BUN/Creat Ratio 15.8 RATIO (10-20); Calcium,Total 9.5 mg/dL (8.5-10.1); Chloride 105 mmol/L (98-107); Creatinine, Serum 0.95 mg/dL (0.55-1.02); EST Glomerular Filtration Rate 62 mL/min (>60); Est Glom Filt Rate - Afr Amer 76 mL/min (>60); Estimated Creatinine Clearance 55.14 ml/min; Glucose 150 mg/dL (74-106); Potassium 4.1 mmol/L (3.5-5.1); Sodium Level 136 mmol/L (136-145); Troponin-I HS 3339 pg/mL (3.0-54.0)
[2024-03-20 08:52] LABS: AST(SGOT) 43 U/L (15-37); Alanine Aminotransfer ALT/SGPT 34 U/L (13-56); Albumin, Serum 3.9 g/dL (3.2-5.0); Alkaline Phosphatase 107 U/L (45-117); Bilirubin, Direct 0.08 mg/dL (0.00-0.30); Globulin 3.6 g/dL (2.2-4.2); Lipase 35 U/L (13-75); Protein, Total 7.5 g/dL (6.4-8.2)
[2024-03-20 08:56] LABS: D-Dimer Quantitative (DVT/PE) 0.34 FEU/ug/m (0.27-0.49)
[2024-03-20] MEDS: Nitroglycerin Infusion 250 ML 3 MG CONT INF (09:01)
[2024-03-20] MEDS: Heparin Injection (Vial) 5,000 UNIT/ML VIAL 5000 UNIT IV (09:01)
[2024-03-20] MEDS: HEPARIN/D5w 25,000 UNITS 25,000 UNITS/250 ML IV.SOLN. 11 UNITS CONT INF (09:02)
[2024-03-20] MEDS: TICAGRELOR 90 MG TABLET 180 MG PO (09:03)
--- NOTE | 2024-03-20 09:12 | HP.PCM.HOS_ITS ---
HPI - General General Date of Admission: 03/20/24 Date of Service: 03/20/24 Chief Complaint: Chest Pain HPI Narrative VIRY PETERS, is a 64 F who presented [facility] Medical History (Updated 03/20/24 @ 09:[address] Suzan Acosta DO) Shortness of breath on exertion Osteopenia Neuropathy Daytime hypersomnia Obesity Hypercholesteremia Hypertension Diabetes Sinus infection History of bloody stools Shoulder pain Arthritis Hypertension Home Medications ?Medication ?Instructions ?Recorded ?Last Taken ?Type aspirin 81 mg tablet,delayed 81 mg PO DAILY 05/08/21 Unknown History release (Adult Aspirin Regimen) hydrochlorothiazide 12.5 mg capsule 12.5 mg PO DAILY 05/08/21 Unknown History albuterol sulfate 90 mcg/actuation 2 puff inhalation Q4-6H PRN SOB 01/31/24 Unknown History aerosol inhaler atorvastatin 20 mg tablet 20 mg PO 01/31/24 Unknown History calcium carbonate 600 mg PO DAILY 01/31/24 Unknown History cholecalciferol (vitamin D3) 25 25 mcg PO DAILY 01/31/24 Unknown History mcg (1,000 unit) capsule coenzyme Q10 100 mg capsule (Co 100 mg PO DAILY 01/31/24 Unknown History Q-10) fexofenadine 180 mg tablet 180 mg PO DAILY 01/31/24 Unknown History (Bertha Allergy) metformin 500 mg tablet 500 mg PO BID 01/31/24 Unknown History metoprolol tartrate 50 mg tablet 50 mg PO BID 01/31/24 Unknown History multivitamin 1 tab PO DAILY 01/31/24 Unknown History nutritional supplement-fiber oral ea PO 01/31/24 Unknown History sertraline 50 mg tablet mg PO DAILY 01/31/24 Unknown History elderberry fruit 350 mg capsule mg PO 02/07/24 Unknown History varenicline 1 mg tablet 1 mg PO BID 02/07/24 Unknown History Allergy/AdvReac Type Severity Reaction Status Date / Time No Known Allergies Allergy Verified 03/20/24 07:49 Family History Mother Colon cancer Heart disease Hypertension Father Heart disease Hypertension Grandmother Breast cancer Surgical History History of cataract extraction History of hysterectomy History of D&C Social History (Updated 05/23/24 @ 09:[address] Suzan Acosta DO) household members: spouse housing: house Smoking Status: Current every day smoker tobacco type: cigarettes how long ago did patient quit smoking: Currently is working on quitting quit status: considering quitting alcohol intake: current alcohol intake frequency: a few times a month substance use type: does not use ROS Constitutional Constitutional: Reports fatigue; Denies anorexia, change in weight, chills, fever(s), malaise, night sweats, weakness or other Eyes Eyes: Denies blurry vision, change in eye color, change in vision, discharge from eye(s), double vision, erythema, eye pain, loss of vision or other ENT HEENT: Denies abnormal hearing, dysphagia, ear pain, epistaxis, headache(s), hearing loss, nasal congestion, nasal discharge, post nasal drip, sinus pressure, sore throat or other Cardiovascular Cardiovascular: Reports chest pain and dyspnea on exertion; Denies claudication, edema, lightheadedness, orthopnea, palpitations, paroxysmal nocturnal dyspnea, rapid heart rate, syncope or other Respiratory/Chest Respiratory/Chest: Reports cough and shortness of breath with exertion; Denies dyspnea, excessive phlegm production, hemoptysis, productive cough, shortness of breath at rest, wheezing or other Gastrointestinal Gastrointestinal: Reports dyspepsia; Denies abdominal pain, coffee ground emesis, constipation, diarrhea, hematemesis, hematochezia, loose stools, melena, nausea, vomiting or other Genitourinary Genitourinary: Denies burning urination, difficulty urinating, dysuria, hematuria, nocturia, urinary frequency, urinary hesitancy, urinary incontinence, urinary urgency or other Musculoskeletal Musculoskeletal: Reports back pain; Denies arthralgias, joint pain, joint stiffness, joint swelling, myalgias, neck pain or other Neurologic Neurologic: Denies abnormal gait, abnormal speech, confusion, disequilibrium, dizziness, focal weakness, headache(s), numbness, paresthesias, seizure-like activity, seizures, syncope, tingling, tremor(s) or other Psychiatric Psychiatric: Denies anxiety, depression, homicidal ideation, suicidal ideation or other Endocrine Endocrinology: Denies change in body appearance, cold intolerance, excessive sweating, heat intolerance, polydipsia, polyuria or other Hematologic/Lymphatic Hematologic/Lymphatic: Denies anemia, easy bleeding, easy bruising, lymphadenopathy or other Allergic/Immunologic Allergic/Immunologic: Denies rhinitis, hives, eczemia, asthma or other Vital Signs Vital Signs Vital Signs: 03/20/24 07:46 03/20/24 07:50 03/20/24 08:44 Temperature 97.2 F L Temperature Source Temporal Pulse Rate 85 72 Respiratory Rate 20 H 13 Respiratory Effort Normal Non-Labored Blood Pressure 172/101 H 179/89 H Blood Pressure Mean 124 119 Pulse Ox 97 95 Oxygen Delivery Method Room Air Room Air 03/20/24 09:01 Temperature Temperature Source Pulse Rate 77 Respiratory Rate Respiratory Effort Blood Pressure 180/91 H Blood Pressure Mean 120 Pulse Ox Oxygen Delivery Method Weight Weight: 78.2 kg Body Mass Index (BMI) 32.5 Physical Exam Const alert, oriented x3, no apparent distress and well nourished; Negative for average body habitus Constitutional Narrative: Obese, upper middle-aged, white female, sitting up in bed, daughter at bedside, patient appears comfortable, currently does not look toxic General Appearance: cooperative HEENT normocephalic, head/scalp atraumatic, hearing grossly normal bilaterally and moist oral mucous membranes HEENT Narrative: Dentition is fair, Mallampati is 2, no thrush Eyes PERRL and EOMs intact bilaterally Eyes Narrative: No scleral icterus Neck no lymphadenopathy and supple Neck Narrative: Trachea midline, no thyroid enlargement Resp normal respiratory effort, no retractions, no use of accessory muscles and clear to auscultation bilaterally Resp Narrative: Mildly diminished at apices clear at bases no adventitious sounds appreciated Auscultation: Negative for rales, rhonchi or wheezes Cardio regular rate, regular rhythm, S1 normal heart sound, S2 normal heart sound, no murmurs, no rub, no gallops and no clicks GI normal to inspection, nondistended, normoactive bowel sounds, soft to palpation and non-tender Extremity no clubbing, cyanosis or edema Extremity Narrative: Pedal pulses are 2+ Skin no rashes or lesions noted, skin turgor normal, no jaundice, no petechiae and no mottling Skin Narrative: Sunburn noted on neck and arms Neuro oriented x3, CN's II-XII intact bilaterally, moves all extremities and no focal motor deficits Speech: speech normal Psych affect normal Psych Narrative: Eye contact is good and patient is appropriately Results Lab / Micro Data 03/20/24 07:52 03/20/24 07:52 Labs: Laboratory Results - last 24 hr 03/20/24 07:52: WBC 16.2 H, RBC 4.99, Hgb 14.9, Hct 45.2, MCV 90.6, MCH 29.9, MCHC 33.0, RDW Std Deviation 44.6 H, RDW Coeff of [place] 13.6, Plt Count 371, MPV 11.2, Immature Gran % (Auto) 0.500, Neut % (Auto) 84.1 H, Lymph % (Auto) 9.3 L, [place] % (Auto) 5.3, Eos % (Auto) 0.2, Baso % (Auto) 0.6, Absolute Neuts (auto) 13.6 H, Absolute Lymphs (auto) 1.50, Nucleated RBC % 0, D-Dimer Quant (PE/DVT) Cancelled, Sodium 136, Potassium 4.1, Chloride 105, Carbon Dioxide 23.0, Anion Gap 8, BUN 15, Creatinine 0.95, Estim Creat Clear Calc 55.14, Est GFR (MDRD) Af Amer 76, Est GFR (MDRD) Non-Af 62, BUN/Creatinine Ratio 15.8, Glucose 150 H, Calcium 9.5, Total Bilirubin 0.30, Direct Bilirubin 0.08, AST 43 H, ALT 34, Alkaline Phosphatase 107, Troponin I High Sens 3339 H*, Total Protein 7.5, Albumin 3.9, Globulin 3.6, Lipase 35 03/20/24 08:38: D-Dimer Quant (PE/DVT) 0.34 Imaging Radiology Impression Chest X-Ray 03/20/24 07:58 IMPRESSION: No acute cardiopulmonary abnormality. Clearing of the right lower lobe infiltrate. Electronically Signed: Ronald Calle MD at 8:40 EDT , Assessment & Plan Assessment/Plan (1) Non-ST elevation NE (NSTEMI): (2) ACS (acute coronary syndrome): (3) Shortness of breath on exertion: PLAN: Plan NSTEMI -Initial troponin greater than 3000 -Continue heparin drip -Continue nitro drip -Patient was loaded with Brilinta -Patient was given full dose aspirin -Continue aspirin 81 mg daily -Plavix versus Brilinta at the discretion of cardiology after cardiac catheterization -Continue home metoprolol 50 mg p.o. twice daily -Start losartan 25 mg daily--> patient with cough on lisinopril previously -Discontinue home statin and start atorvastatin 80 mg at at bedtime -Check hemoglobin A1c -Check lipid panel -Check echocardiogram -Cardiology consultation that was initiated by the emergency department and plan is for [facility] later today Leukocytosis -Suspect stress response -Will repeat lab in a.m. to monitor -No signs of infection Hypertension -Continue home metoprolol -Start losartan 25 mg daily -Hold home hydrochlorothiazide -Will monitor and try to achieve goal blood pressure of less than 130/80 Hyperlipidemia -Check lipids -Continue statin but increase to 80 mg nightly DM-2 -Check hemoglobin A1c -Hold home metformin -SSI -Accu-Cheks as ordered -Currently n.p.o. but once with diet starts will initiate cardiac/carb controlled diet with 1800 kcal restriction Tobacco abuse -Highly suspect the patient may have some underlying COPD -Should have outpatient PFTs -Recommend cessation -Patient has been cutting back and is on Chantix as an outpatient -Will restart at discharge -Denies need for nicotine replacement therapy at this time DOLORES -Continue home CPAP DVT prophylaxis -Subcu Lovenox starting this evening CODE STATUS -Full code as verified at the time of admission Charges/Coding Visit Charges Inpatient E&M: 22359 Init Hosp L2
[2024-03-20 09:17] LABS: Prothrombin Time (Protime)PT. 13.1 SECONDS (11.7-14.9)
[2024-03-20 09:18] LABS: Partial Thromboplast Time 23.2 Seconds (24.1-36.2)
[2024-03-20 09:44] LABS: Cholesterol 201 mg/dL (200); High Density Lipoprotein 49 mg/dL; Triglycerides 198 mg/dL; Very Low Density Lipoprotein 40 mg/dL (5-40)
--- NOTE | 2024-03-20 09:50 | ECHOCS_ITS ---
Reason For Study: CAD/ASHD Procedure This was a 2D Doppler, Color Flow transthoracic echocardiogram. The study was technically difficult. Contrast injection was performed. Exam performed portable in patient room. Left Ventricle Normal LV size. The estimated ejection fraction is 65 %. No evidence for diastolic dysfunction. No regional wall motion abnormalities noted. Right Ventricle Normal RV size. Normal systolic function. Atria The left and right atria are normal. No doppler evidence for ASD. Mitral Valve There is no mitral valve stenosis. No mitral valve insufficiency. Tricuspid Valve There is no tricuspid stenosis. Trivial tricuspid valve insufficiency. Pulmonary artery systolic pressure is 20-25 mmHg. Aortic Valve Trisinus/trileaflet aortic valve. Aortic sclerosis, no stenosis. There is no aortic stenosis. No aortic valve insufficiency. Pulmonic Valve There is no pulmonic valvular stenosis. No pulmonic valve insufficiency. Great Vessels Normal aortic root. Medication Diluted definity 2ml given slow IV push to enhance endocardial definition. Performed a rapid injection of agitated mix of 9 cc saline and 1cc air to assess for atrial septal defect. MMode/2D Measurements & Calculations LVIDd: 4.1 cm IVSd: 0.69 cm Ao root diam: 3.1 cm LVIDs: 2.6 cm LVPWd: 0.69 cm LA dimension: 3.5 cm RVDd: 3.2 cm FS: 36.4 % LAV(MOD-bp): 37.0 ml LVAd ap4: 27.2 cm2 SV(MOD-sp4): 54.1 ml LAV(MOD-bp) Indexed: 20.9 ml/m2 LVLd ap4: 7.3 cm LAV(MOD-sp2): 36.8 ml EDV(MOD-sp4): 83.2 ml LAV(MOD-sp4): 34.7 ml EDV(sp4-el): 85.6 ml LVAs ap4: 14.4 cm2 LVLs ap4: 6.1 cm ESV(MOD-sp4): 29.1 ml ESV(sp4-el): 28.9 ml EF(MOD-sp4): 65.0 % EF(sp4-el): 66.3 % SV(sp4-el): 56.8 ml LA A4 area: 14.9 cm2 RA A4 area: 11.4 cm2 TAPSE: 2.5 cm Time Measurements MV dec time: 0.18 sec Doppler Measurements & Calculations MV E max michael: 46.7 cm/sec Lat Peak E' Michael: 11.3 cm/sec Med Peak E' Michael: 8.6 cm/sec MV A max michael: 80.8 cm/sec E/E' lat: 4.1 E/E' med: 5.4 MV E/A: 0.58 MV V2 max: 104.1 cm/sec MV P1/2t max michael: 78.8 cm/sec Ao V2 max: 107.6 cm/sec MV max P.3 mmHg MV P1/2t: 76.9 msec Ao max P.6 mmHg MV V2 mean: 48.8 cm/sec MV dec slope: 300.1 cm/sec2 Ao V2 mean: 71.1 cm/sec MV mean P.2 mmHg Ao mean P.4 mmHg MV V2 VTI: 24.6 cm MVA(P1/2t): 2.9 cm2 Ao V2 VTI: 24.3 cm AV (velocity ratio): 0.81 LV V1 max: 86.7 cm/sec PA V2 max: 73.4 cm/sec TR max michael: 210.4 cm/sec LV V1 max P.0 mmHg PA V2 mean: 50.4 cm/sec TR max P.7 mmHg LV V1 mean P.5 mmHg LV V1 mean: 58.4 cm/sec LV V1 VTI: 19.6 cm ECHO/Echo Complete W/ Contrast Interpretation Summary The estimated ejection fraction is 65 %. No evidence for diastolic dysfunction. Ordering Physician: Suzan Acosta Referring Physician: Alessandro Shah Performed By: David Harding RCS
[2024-03-20] MEDS: Losartan Potassium 25 MG Tablet PO (11:03)
[2024-03-20] MEDS: Loratadine 10 MG Tablet PO (11:03)
--- NOTE | 2024-03-20 13:12 | EKG12_ITS ---
Test Reason : AM EKG Blood Pressure : / mmHG Vent. Rate : 073 BPM Atrial Rate : 073 BPM P-R Int : 178 ms QRS Dur : 072 ms QT Int : 410 ms P-R-T Axes : 022 017 046 degrees QTc Int : 451 ms Normal sinus rhythm Normal ECG When compared with ECG of 20-MAR-2024 13:39, MANUAL COMPARISON REQUIRED, DATA IS UNCONFIRMED Confirmed by Anthony Scott ([id number]), business editor ENMANUEL JULIAN ([id number]) on 03/21/2024 10:22:45 AM Referred By: Confirmed By:Anthony Scott
[2024-03-20 14:30] LABS: ACT Activated Clotting Time 201 sec (74-137)
[2024-03-20 14:32] LABS: Bedside Glucose 117 mg/dL (74-106)
--- NOTE | 2024-03-20 14:45 | CRPH1.INST_ITS ---
General Education Discussed with Patient CAD and cardiac anatomy and function:: Patient communicates acknowledgment Explanation of diagnoses and procedures:: Patient communicates acknowledgment Sign/Symptoms of [place]:: Patient communicates acknowledgment Antiplatelet therapy: Patient communicates acknowledgment Proper use of NTG-SL: Patient communicates acknowledgment Emergency procedures and activation of EMS: Patient communicates acknowledgment Compliance of all prescribed medications: Patient communicates acknowledgment Smoking Risk Factors Patient Nicotine/Smoking Risk Factors Are:: Cigarettes Recommendations Recommendations Include:: Second-hand smoke recommendation and Previous smoker; encourage continued cessation Response Code Nicotine/Smoking Response Code:: Patient communicates acknowledgment Dyslipidemia Recommendations Recommendations Include:: Lipid profile not available Response Code Dyslipidemia Response Code:: Patient communicates acknowledgment Overweight/Obesity Risk Factors Patient Overweight/Obesity Risk Factors Are:: Obesity - > or = 30 Recommendations Recommendations Include:: Weight loss of 5-10%, Reduced calorie diet and E xercise 5-7 times/week Response Code Overweight/Obesity:: Patient communicates acknowledgment Hypertension Recommendations Recommendations Include:: BP <130/80 if diabetic Response Code Hypertension:: Patient communicates acknowledgment Heart Disease Recommendations Recommendations Include:: Educated family members of their risk Response Code Heart Disease Response Code:: Patient communicates acknowledgment Diabetes Risk Factors Patient Diabetes Risk Factors Are:: Elevated blood sugars Recommendations Recommendations Include:: Maintain fasting blood sugars 70-110 md/dL, Maintain HgbA1c of 6% or less, Monitor blood sugar as prescribed, Diabetic dietary guidelines and Decrease/maintain body weight Response Code Diabetes:: Patient communicates acknowledgment Metabolic Syndrome Recommendations Recommendations Include:: Does not meet criteria Sedentary Recommendations Recommendations Include:: Aerobic exercise 5-7 times/week for 20-30 minutes continuously, Benefits of regular exercise, Discussed home walking program and Monitored Outpatient Cardiac Rehab Response Code Sedentary Response Code:: Patient communicates acknowledgment Stress Recommendations Recommendations Include:: Identification of stressors, and assessment of coping skills and Stress management techniques Response Code Stress Response Code:: Patient communicates acknowledgment
--- NOTE | 2024-03-20 14:45 | CRPHASE1 ---
Patient Communication Patient Information Former Patient:: Phase I PHII Cardiac Rehab Discussed with Patient:: Yes Guide to Cardiac Rehab Given to Patient:: Yes Cardiac Rehab Facility Choice List Given to Patient:: Yes Communication to Cardiac Rehab Pipe Processor:: Becca Herman Refer Phase II Cardiac Rehab:: Yes Sessions:: 36 sessions - 3 days/wk, 12 weeks Cardiac Rehabilitation Info Program Information Cardiac Rehabilitation Program Information: Cardiac Rehab The cardiac rehab team at [facility] consists of highly skilled exercise physiologists, nurses, respiratory therapists and physicians working together with you. Our purpose is to help you have a full recovery and achieve the goals you set for yourself. Over the years many of our patients have returned to activities they assumed they would never do again! We can help restore your confidence and motivation to make lifestyle changes that can have a significant impact on your health and quality of life! We can help answer questions and concerns you may have about exercise, lifestyle, medications, diet, stress and anxiety which are common following a hospitalization. WE monitor ECG and vital signs during exercise and discuss your progress with you and report to your physician(s). Cardiac Rehab is proven to help reduce readmissions, improve functional capacity and lower recurrence of problems with your heart. Our Cardiac Rehab program is Certified by the [place] [employer]-Vascular and Pulmonary [employer] (AACVPR) and Accredited by the [employer] through our [facility]. You can contact us at . We invite you to call us with your questions or to get started in our program. If you have other questions or concerns be sure to ask your physician/provider during your follow-up visit. WE look forward to seeing you!
[2024-03-20] MEDS: 0.9% Normal Saline (1000mL) 1,000 ML 60 ML IV (14:49)
--- NOTE | 2024-03-20 15:15 | CL.I_ITS ---
Patient Name: VIRY PETERS Study Date: 03/20/2024 Performing: Becca Herman MD Ht: 61 inches 154.94 cm : 1960 Wt: 173.5 lbs 78.6 kg Age: 64 Gender: female BSA: 1.78 PROCEDURE(S) PERFORMED DC01-(55362)LHC/COR/LV IC12-([id number])SANA W/WO PTCA, SINGLE CORONARY ARTERY IC02-(60715)PTCA, EACH ADD'L CORONARY ART, SAME MAJOR IC02-(48734)PTCA, EACH ADD'L CORONARY ART, SAME MAJOR CLINICAL PROFILE AND CO-MORBIDITIES Indications: ACS <= 24 hrs. NSTEMI Heart Failure: None CONCLUSIONS CAD as described. LVEF is 60% with no significant regional wall motion abnormalities. No significant aortic stenosis or mitral regurgitation. Successful drug-eluting stent to mid RCA and PTCA alone of RPL and RPDA. RECOMMENDATIONS DESCRIPTION OF PROCEDURE The patient arrived to the procedure lab. The risks and benefits of the procedure as well as a full description of our services here and lack of surgical backup were fully explained to the patient and/or their significant other prior to the catheterization. The Timeout was completed, verifying the correct patient and procedure. The patient's procedural site was prepped and draped in the usual fashion. Local anesthetic was given subcutaneously to right radial region with Lidocaine 2%. Using a modified Seldinger technique, arterial access was obtained via the right radial artery, a 6Fr sheath was inserted.. Left Coronary Artery selective angiography was performed in multiple views using a 5 Fr. JL 3. LV to AO pullback pressures were then recorded. Right Coronary Artery selective angiography was then performed in multiple views using a 5 Fr. JR 4 catheterThe images were reviewed and options discussed. A decision was then made to proceed with an Intervention, IVUS or other adjunct procedure. AR 2 Guide catheter was inserted and engaged into the RCA. BMW 0.014 X 190 Guide wire was advanced to the RCA. EMERGE MONORAIL 2.0 X12 Balloon catheter was inserted. Balloon catheter was advanced across lesion in the right coronary, proximal RPL PTCA balloon inflated at 6 atms for 10 secs. PTCA balloon inflated at 6 atms for 6 secs. PTCA balloon inflated at 12 atms for 10 secs. Angiogram performed post balloon dilatation. Balloon catheter was advanced across lesion in the right coronary, descending artery segment PTCA balloon inflated at 14 atms for 26 secs. Angiogram performed post balloon dilatation. EMERGE MONORAIL 3 X 20 Balloon catheter was inserted. Balloon catheter was advanced across lesion in the right coronary, mid. PTCA balloon inflated at 6 atms for 9 secs. PTCA balloon inflated at 12 atms for 17 secs. PTCA balloon inflated at 12 atms for 10 secs. onxy frontier 4.0 x 38 Drug Eluting stent was inserted. Angiogram performed pre stent deployment. Drug Eluting stent was advanced across the lesion in the right coronary, mid. Angiogram performed post stent deployment. The arterial sheath was pulled and a TR Band was applied for hemostasis 12 ml of air CORONARY ANGIOGRAPHY DOMINANCE: Right Dominant LEFT HEART ASSESSMENT Left Ventricular Ejection Fraction: by LV Gram 60 % Normal LV wall motion LEFT MAIN: 30-40% distal Stenosis LEFT ANTERIOR DESCENDING ARTERY: Ectatic in the proximal segment. No significant obstructive stenosis CIRCUMFLEX ARTERY: Mild luminal irregularities RIGHT CORONARY ARTERY: MID RCA: 90 % Stenosis. Further distally in the mid RCA there is an 80% stenosis. Ostial RPDA has an 80% stenosis. RPL has a 99% stenosis. VALVE FINDINGS: No Aortic Valve Stenosis No Mitral Insufficiency INTERVENTION INFORMATION LESION SITE: RPL (1st) Lesion Complexity: High/C, chronic total occlusion: No, lesion at bifurcation: No, thrombus present: No, lesion length: 10 mm, culprit lesion: Yes, Previously treated lesion: No Pre Stenosis: 99 % Pre intervention RODRIGUE flow: 2 PROCEDURE: Balloon Angioplasty Post Stenosis: 20 % Post intervention RODRIGUE flow: 3 Lesion Devices: Byrne .014 190cm BMW [place] Straight Cordis 6 Fr AR2 100cm Guide Catheter Evan Sci EMERGE MR 2.00x12 BALLOON LESION SITE: RT PDA (Ostial) Lesion Complexity: High/C, chronic total occlusion: No, lesion at bifurcation: Yes, thrombus present: No, lesion length: 8 mm, culprit lesion: Yes, Previously treated lesion: No Pre Stenosis: 80 % Pre intervention RODRIGUE flow: 3 PROCEDURE: Balloon Angioplasty Post Stenosis: 20 % Post intervention RODRIGUE flow: 3 Lesion Devices: Byrne .014 190cm BMW [place] Straight Cordis 6 Fr AR2 100cm Guide Catheter Evan Sci EMERGE MR 2.00x12 BALLOON LESION SITE: RCA (Mid) Lesion Complexity: High/C, chronic total occlusion: No, lesion at bifurcation: Yes, thrombus present: No, lesion length: 38 mm, culprit lesion: Yes, Previously treated lesion: No Pre Stenosis: 90 % Pre intervention RODRIGUE flow: 3 PROCEDURE: Drug Eluting Stent with pre dilatation. 0 % Post intervention RODRIGUE flow: 3 Lesion Devices: Byrne .014 190cm BMW [place] Straight Cordis 6 Fr AR2 100cm Guide Catheter Evan Sci EMERGE MR 3.00x20 BALLOON Medtronic 4.0 x 38 JOSÉ MANUEL FRONTIER SANA COMPLICATIONS No Complications PROCEDURE MEDICATIONS Fentanyl 50 mcg IV Versed 1 mg IV Oxygen: 2 L/min via nasal cannula Heparin given IA 03/20/2024 11:38:23 Heparin 2000 unit(s) IV 03/20/2024 12:12:14 Verapamil 2.5mg, Ntg 100mcgs, 3000 units of Heparin given IA 03/20/2024 11:38:23 SUMMARY OF HEMODYNAMIC DATA Time AIR REST ECG 11:23:16 AO 120/73 (96) SA 11:42:13 LV 148/-4, 19 11:49:28 LV 147/0, 21 11:49:38 LV 146/-1, 19 11:49:50 LV 149/-2, 21 11:49:59 LV 147/0, 20 11:50:26 LV 151/0, 18 11:50:34 LVp 152/-2, 18 11:50:39 LV 146/-3, 17 11:51:04 LVp 143/-3, 17 11:51:07 AO 129/71 (99) 11:52:30 AO 139/61 (96) 12:08:59 AO 158/73 (109) 12:26:10 AO 172/85 (123) 12:33:01 Signed By Becca Herman MD On 03/20/2024 15:14:20 Becca Herman MD
[2024-03-20] MEDS: Insulin Lispro 100 UNIT/ML INSULN.PEN SC (16:25)
[2024-03-20 16:26] LABS: Bedside Glucose 153 mg/dL (74-106)
[2024-03-20] MEDS: Acetaminophen 325 MG Tablet 650 MG PO (16:30)
[2024-03-20] MEDS: Enoxaparin 40 MG/0.4 ML Syringe SC (21:14)
[2024-03-20] MEDS: Atorvastatin Calcium 80 MG Tablet PO (21:26)
[2024-03-20] MEDS: Metoprolol Tartrate 50 MG Tablet PO (21:26)
[2024-03-20] MEDS: TICAGRELOR 90 MG TABLET PO (21:26)
[2024-03-21 02:57] VITALS: BP 122/63; PULSE 73; RESP 14; TEMP 36.6; O2SAT 96
[2024-03-21 03:00] VITALS: PULSE 66
[2024-03-21 03:18] VITALS: BMI 31.8
[2024-03-21 06:50] LABS: Absolute Lymphocyte Count 2.31 X10^3/uL (0.83-4.51); Absolute Neutrophil Count 8.9 X10^3/uL (2.0-7.7); Basophil# 0.07 X10^3/uL; Basophil% 0.6 % (0-1); Eosinophils% 0.8 % (0-5); Hematocrit 44.8 % (37-47); Hemoglobin 14.6 g/dL (12.0-15.0); Lymphocyte # 2.31 X10^3/ul (0.83-4.51); Lymphocyte % 18.8 % (19-41); Mean Corp Hgb Conc 32.6 g/dL (32-36); Mean Corpuscular Volume 92.2 fL (81-99); Monocyte# 0.91 X10^3/uL; Monocyte% 7.4 % (0-10); NRBC Flagged by Analyzer 0 % (0-5); Neutrophil # 8.85 X10^3/uL (2.7-7.7); Platelet Count 325 K/mm3 (150-450); RBC Distribution Width CV 13.9 % (11.6-14.6); RBC Distribution Width SD 46.7 fl (35.1-43.9); Red Blood Count 4.86 M/mm3 (4.2-5.4); White Blood Count 12.3 K/mm3 (4.4-11.0)
[2024-03-21 07:48] VITALS: O2SAT 92
--- NOTE | 2024-03-21 07:49 | PCM.PN.CARD ---
Subjective Subjective The patient underwent successful PCI of the right coronary artery yesterday. She had presented with a non-STEMI. She had plain old balloon angioplasty of the terminal branch of the right coronary artery and the origin of the small posterior descending artery. The larger mid right coronary artery was stented with a drug-eluting stent. The patient reports that all of her symptoms have resolved. Her wrist is not giving her any issues at the insertion site for the catheterization. The patient's echo showed normal wall motion and ejection fraction of 65%. The patient has been on statin therapy in her home environment. She understands Brilinta and aspirin should be uninterrupted for 1 year. Objective Data Vital Signs: Vital Signs Temp Pulse Resp BP Pulse Ox O2 Del Method 97.9 F 66 14 122/63 H 96 Room Air 03/21/24 02:57 03/21/24 03:00 03/21/24 02:57 03/21/24 02:57 03/21/24 02:57 03/21/24 02:57 Oxygen Delivery Method Room Air Weight: 168 lb 13.985 oz Body Mass Index (BMI) 31.8 Intake & Output: Intake and Output for Last 24 Hours 03/19/24 03/20/24 03/21/24 23:59 23:59 23:59 Intake Total 690.55 / 810.55 911 / 911 Balance 690.55 / 810.55 911 / 911 Lab / Micro Data Attestation: I reviewed the patient's lab results. 03/21/24 06:05 03/20/24 07:52 Labs: Laboratory Results - last 24 hr 03/20/24 07:52: WBC 16.2 H, RBC 4.99, Hgb 14.9, Hct 45.2, MCV 90.6, MCH 29.9, MCHC 33.0, RDW Std Deviation 44.6 H, RDW Coeff of [place] 13.6, Plt Count 371, MPV 11.2, Immature Gran % (Auto) 0.500, Neut % (Auto) 84.1 H, Lymph % (Auto) 9.3 L, [place] % (Auto) 5.3, Eos % (Auto) 0.2, Baso % (Auto) 0.6, Absolute Neuts (auto) 13.6 H, Absolute Lymphs (auto) 1.50, Nucleated RBC % 0, PT 13.1, INR 1.0, APTT 23.2 L, D-Dimer Quant (PE/DVT) Cancelled, Sodium 136, Potassium 4.1, Chloride 105, Carbon Dioxide 23.0, Anion Gap 8, BUN 15, Creatinine 0.95, Estim Creat Clear Calc 55.14, Est GFR (MDRD) Af Amer 76, Est GFR (MDRD) Non-Af 62, BUN/Creatinine Ratio 15.8, Glucose 150 H, Hemoglobin A1c 6.0 H, Calcium 9.5, Total Bilirubin 0.30, Direct Bilirubin 0.08, AST 43 H, ALT 34, Alkaline Phosphatase 107, Troponin I High Sens 3339 H*, Total Protein 7.5, Albumin 3.9, Globulin 3.6, Triglycerides 198, Cholesterol 201 H, LDL Cholesterol 112, VLDL Cholesterol 40, HDL Cholesterol 49, Lipase 35 03/20/24 08:38: D-Dimer Quant (PE/DVT) 0.34 03/20/24 12:08: Activated Clotting Time 201 H 03/20/24 13:10: POC Glucose 117 H 03/20/24 16:07: POC Glucose 153 H 03/21/24 06:05: WBC 12.3 H, RBC 4.86, Hgb 14.6, Hct 44.8, MCV 92.2, MCH 30.0, MCHC 32.6, RDW Std Deviation 46.7 H, RDW Coeff of [place] 13.9, Plt Count 325, MPV 11.0, Immature Gran % (Auto) 0.400, Neut % (Auto) 72.0 H, Lymph % (Auto) 18.8 L, [place] % (Auto) 7.4, Eos % (Auto) 0.8, Baso % (Auto) 0.6, Absolute Neuts (auto) 8.9 H, Absolute Lymphs (auto) 2.31, Nucleated RBC % 0 Cardiology Labs/Tests 03/20/24 07:52: WBC 16.2 H, RBC 4.99, Hgb 14.9, Hct 45.2, MCV 90.6, MCH 29.9, MCHC 33.0, Plt Count 371, MPV 11.2, Immature Gran % (Auto) 0.500, Neut % (Auto) 84.1 H, Lymph % (Auto) 9.3 L, [place] % (Auto) 5.3, Eos % (Auto) 0.2, Baso % (Auto) 0.6, Absolute Neuts (auto) 13.6 H, Nucleated RBC % 0, PT 13.1, INR 1.0, APTT 23.2 L, D-Dimer Quant (PE/DVT) Cancelled, Sodium 136, Potassium 4.1, Chloride 105, Carbon Dioxide 23.0, Anion Gap 8, BUN 15, Creatinine 0.95, Est GFR (MDRD) Af Amer 76, Est GFR (MDRD) Non-Af 62, BUN/Creatinine Ratio 15.8, Glucose 150 H, Hemoglobin A1c 6.0 H, Calcium 9.5, Total Bilirubin 0.30, Direct Bilirubin 0.08, Triglycerides 198, Cholesterol 201 H, LDL Cholesterol 112, VLDL Cholesterol 40, HDL Cholesterol 49 03/20/24 08:38: D-Dimer Quant (PE/DVT) 0.34 03/21/24 06:05: WBC 12.3 H, RBC 4.86, Hgb 14.6, Hct 44.8, MCV 92.2, MCH 30.0, MCHC 32.6, Plt Count 325, MPV 11.0, Immature Gran % (Auto) 0.400, Neut % (Auto) 72.0 H, Lymph % (Auto) 18.8 L, [place] % (Auto) 7.4, Eos % (Auto) 0.8, Baso % (Auto) 0.6, Absolute Neuts (auto) 8.9 H, Nucleated RBC % 0 Rhythm: EKG: ECHO: Stress Test: Cardiac Cath: PCI: CT Surgery: Holter monitor: EPS: PPM: CXR: Chest CT Scan: Radiography Diagnostic Testing: Radiology Impression Chest X-Ray 03/20/24 07:58 IMPRESSION: No acute cardiopulmonary abnormality. Clearing of the right lower lobe infiltrate. Electronically Signed: Ronald Calle MD at 8:40 EDT , Echocardiogram 03/20/24 09:50 Interpretation Summary The estimated ejection fraction is 65 %. No evidence for diastolic dysfunction. Ordering Physician: Suzan Acosta Referring Physician: Alessandro Shah Performed By: David Harding RCS Physical Exam Const alert and oriented x3 HEENT normocephalic Eyes EOMs intact bilaterally Neck no JVD Chest inspection of chest normal Resp normal respiratory effort and clear to auscultation bilaterally Cardio regular rate, regular rhythm, S1 normal heart sound, S2 normal heart sound, no murmurs, no rub and no gallops Extremity no pedal edema Skin General Skin Exam: ecchymosis Wound Narrative: At the right wrist catheter insertion site. Neuro Neuro Narrative: Alert and oriented x 3 Psych mental status grossly normal Assessment & Plan Assessment/Plan (1) ACS (acute coronary syndrome): PLAN: The patient presented with acute coronary syndrome and underwent stenting of the right coronary artery. She also had plain old balloon angioplasty of 2 smaller terminal vessels. The most terminal vessel of the right posterolateral branch appear to have a ruptured plaque. The LV function was normal with an ejection fraction of 65% there was no documented wall motion abnormality on echo or LV gram. The patient secondary risk factor modifications are being addressed. Blood pressure is adequately controlled, we will consider intensifying her statin therapy to rosuvastatin 20 mg daily once seen in the office, and the patient's diabetes is managed through the primary service she is on metformin. (2) History of coronary artery stent placement: PLAN: Stenting of the right coronary artery in the midsegment [place] balloon angioplasty ostium of the posterior descending artery and posterolateral branch of the right. (3) Hypertension: QUALIFIERS: Hypertension type: primary hypertension Qualified Code(s): I10 - Essential (primary) hypertension PLAN: Blood pressure is well-controlled on her current medical therapy. (4) Hypercholesteremia: PLAN: Patient will be addressed in the office in 7 to 14 days to determine if more aggressive statin therapy would be indicated such as rosuvastatin 20 mg daily. The patient had been on atorvastatin 20 mg at the time of her acute coronary syndrome. PLAN: Plan Follow-up in the [facility] office in 7 to 14 days. I gave the patient my card to call the office to set up an appointment. Will consider changing statin therapy to more intensive therapy at that visit. Charges/Coding Visit Charges Inpatient E&M: 43892 Subs Hosp L3
[2024-03-21 08:12] LABS: Bedside Glucose 128 mg/dL (74-106)
[2024-03-21 08:35] LABS: AST(SGOT) 55 U/L (15-37); Alanine Aminotransfer ALT/SGPT 32 U/L (13-56); Albumin, Serum 3.4 g/dL (3.2-5.0); Alkaline Phosphatase 94 U/L (45-117); Anion Gap 7 (5-15); BUN 14 mg/dL (7-18); BUN/Creat Ratio 17.1 RATIO (10-20); Calcium,Total 9.6 mg/dL (8.5-10.1); Chloride 108 mmol/L (98-107); Creatinine, Serum 0.82 mg/dL (0.55-1.02); EST Glomerular Filtration Rate 74 mL/min (>60); Est Glom Filt Rate - Afr Amer 90 mL/min (>60); Globulin 3.4 g/dL (2.2-4.2); Glucose 119 mg/dL (74-106); Magnesium 2.2 mg/dL (1.6-2.6); Phosphorus 3.3 mg/dL (2.5-4.9); Potassium 4.3 mmol/L (3.5-5.1); Protein, Total 6.8 g/dL (6.4-8.2); Sodium Level 138 mmol/L (136-145); Thyroid Stim Hormone (TSH) 7.83 uIU/mL (0.358-3.74)
[2024-03-21] MEDS: Loratadine 10 MG Tablet PO (08:53)
[2024-03-21 08:54] VITALS: BP 123/75; PULSE 84
[2024-03-21] MEDS: Aspirin E.C. 81 MG Tablet PO (08:54)
[2024-03-21] MEDS: Losartan Potassium 25 MG Tablet PO (08:54)
[2024-03-21] MEDS: Metoprolol Tartrate 50 MG Tablet PO (08:54)
[2024-03-21] MEDS: Enoxaparin 40 MG/0.4 ML Syringe SC (08:55)
[2024-03-21 09:00] VITALS: BP 123/75; PULSE 84; RESP 18; TEMP 36.6; O2SAT 98
--- NOTE | 2024-03-21 09:54 | CASEMGMT ---
JOSH CM Assessment Face to Face with patient for initial transition planning/care coordination assessment. RN CM introduced self and role at [facility], pt voices understanding. Pt is A&Ox4 and is resting comfortably in bed and is calm. Care providers, pharmacy, and demographics verified. Admitting dx: NSTEMI PCP: Alessandro Shah Specialists: PAULINE, Dr. Villegas (GI), [facility] Preferred Pharmacy: [facility] during this stay Insurance: [employer], [employer] [facility] Prescription Benefit: Yes LNOK: Tee Doe (H), Danni Doe (JUAN) Living Arrangements: Pt lives with her in a single story home with 3 steps to enter ADLs/IADLs: Ind Transportation: Self, DME: Working [employer] and supplies, CPAP (pt started wearing this x1 week ago) with no additional O2, BP Cuff, Cane, FWW, Pulse Ox, W/C, walk in shower with GB and chair. Pt states that the cane, FWW, and WC was for her mother HHC/SNF: Denies history or needs Pt?s goal: Home no needs Plan: 6-Click is 24. Dr. Acosta plans to DC pt today. Dr. Acosta states that she will set the f/u appt with Dr. Scott office. Pt denies additional needs at this time and feels safe discharging home today. CM to also follow for anticoagulants at time of Dc. Trey Lorenzo RN, CM
--- NOTE | 2024-03-21 10:00 | EKG12_ITS ---
Test Reason : post pci Blood Pressure : / mmHG Vent. Rate : 062 BPM Atrial Rate : 062 BPM P-R Int : 172 ms QRS Dur : 076 ms QT Int : 426 ms P-R-T Axes : 023 039 063 degrees QTc Int : 432 ms Normal sinus rhythm Low voltage QRS Borderline ECG When compared with ECG of 20-MAR-2024 07:57, MANUAL COMPARISON REQUIRED, DATA IS UNCONFIRMED Confirmed by Anthony Scott ([id number]), digital editor ENMANUEL JULIAN ([id number]) on 03/21/2024 10:31:19 AM Referred By: Dave Confirmed By:Anthony Scott
[2024-03-21] MEDS: TICAGRELOR 90 MG TABLET PO (10:37)
--- NOTE | 2024-03-21 11:02 | DS.PCM_ITS ---
Providers Date of Admission: 03/20/24 Date of Discharge: 03/21/24 Primary Care Physician: Dr. Alessandro Shah MD Consultations 03/20/24 09:10 Consult: Cardiology Stat Consulting Provider: Brittany Herman Reason for Consult: Chest Pain EMERGENT Consult: Yes MD Notified: Yes Date Notified: 03/20/24 Time Notified: 09:08 Method of Notification: ED Physician Initiated Reason For Visit: NSTEMI Diagnosis Discharge Diagnosis (1) ACS (acute coronary syndrome): Status: Acute Code(s): I24.9 - Acute ischemic heart disease, unspecified (2) History of coronary artery stent placement: Status: Acute Code(s): Z95.5 - Presence of coronary angioplasty implant and graft (3) Hypertension: Status: Chronic Code(s): I10 - Essential (primary) hypertension Qualifiers: Hypertension type: primary hypertension Qualified Code(s): I10 - Essential (primary) hypertension (4) Hypercholesteremia: Status: Acute Code(s): E78.00 - Pure hypercholesterolemia, unspecified Medications at Discharge Home Medications aspirin 81 mg tablet,delayed release (Adult Aspirin Regimen) 81 mg PO DAILY md ordered 05/08/21 albuterol sulfate 90 mcg/actuation aerosol inhaler 2 puff inhalation Q4-6H PRN SOB 01/31/24 calcium carbonate 600 mg PO DAILY 01/31/24 coenzyme Q10 100 mg capsule (Co Q-10) 400 mg PO DAILY unknown 01/31/24 fexofenadine 180 mg tablet (Bertha Allergy) 180 mg PO DAILY 01/31/24 metformin 500 mg tablet 500 mg PO BID 01/31/24 metoprolol tartrate 50 mg tablet 50 mg PO BID 01/31/24 multivitamin 1 tab PO DAILY 01/31/24 sertraline 50 mg tablet 50 mg PO DAILY depression 01/31/24 elderberry fruit 350 mg capsule 700 mg PO QHS immune system 02/07/24 varenicline 1 mg tablet 1 mg PO BID smoking cessation 02/07/24 acidophilus 100 million cell-pectin, citrus 10 mg capsule 1 cap PO DAILY gut health 03/20/24 methylcellulose (laxative) 500 mg tablet (Fiber Therapy (methylcellulose)) 500 mg PO DAILY PRN constipation 03/20/24 atorvastatin 80 mg tablet 80 mg PO QHS #30 tabs 03/21/24 losartan 25 mg tablet 25 mg PO DAILY #30 tabs 03/21/24 ticagrelor 90 mg tablet (Brilinta) 90 mg PO BID #60 tabs 03/21/24 Hospital Course Operations None Procedures 2-D Echocardiogram, Cardiac catheterization, EKG and - (Chest x-ray) Summary of Care Provided Minutes Spent on Discharge: 40 Hospital Course: Mrs. Doe is a 64-year-old white female who presented to the emergency department at [facility] on 02/19/2024 complaining of chest pain. Her symptoms started at about 9 PM last evening at which time she had some epigastric lower mid chest tightness that radiated to her back. She thought it was indigestion and took some Tums at that time which did not relieve her symptoms. She also reported a small amount of belching that was not helping her symptoms either. Her symptoms were fairly consistent through the night but did not prevent her from sleeping. She woke this morning and noted that her blood pressure was higher than normal and that her symptoms were still present but overall better. She took her morning medications and spoke to her primary care physician who advised her to come to the emergency department. She has no personal history of coronary disease but does have a history of hypertension, hyperlipidemia, tobacco abuse, and diabetes. She is for strong family history of coronary disease as well. She had no associated nausea, diaphoresis, or dyspnea. Vital signs on presentation showed a temperature of 97.2, heart rate 85, respiratory was 20, blood pressure was 172/101 with a repeat of 179/89 and pulse ox was 97% on room air. CBC showed a mild leukocytosis with a white count of 16.2 and a left shift with an 84.1% neutrophilia. But was otherwise unremarkable. Coags were unremarkable. D-dimer was 0.34. Chemistry panel was unremarkable other than hyperglycemia with a blood glucose of 150. Liver function showed a mildly elevated AST and a troponin was obtained and was found to be 3339. EKG was unremarkable for any acute findings consistent with acute ischemia however. Chest x-ray was unremarkable. She was started on a heparin drip as well as a nitroglycerin drip and the case was discussed with cardiology who was planning on taking her for cardiac catheterization on the day of presentation. She was admitted to the telemetry floor and maintained on her heparin drip and nitro drip and her home beta-barrington. Her hydrochlorothiazide was discontinued and she was started on losartan 25 mg daily as well as continued on her aspirin, started on Brilinta, and her statin was increased to high intensity dosing at 80 mg nightly. 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 She also had balloon angioplasty of the terminal branch of the RCA and the origin of the PDA. Echocardiogram was performed and showed an EF of 65% and no evidence of diastolic dysfunction or regional wall motion abnormalities. She had no significant valvular disorders and her pulmonary artery systolic pressure was 20 to 25 mmHg. Her blood pressure was much improved on the losartan and metoprolol. Hemoglobin A1c was obtained and found to be 6.0 so she was maintained on her home metformin 500 mg p.o. twice daily. Total cholesterol level was 201 with an LDL of 112, HDL of 49 and triglyceride level of 198. She was maintained on high intensity dose statin rather than her 20 mg dose which she was on previously. She did extremely well and was able to improve more quickly than anticipated and her workup and intervention was completed more quickly than anticipated. She was stable and able to be discharged on 03/21/2024. Prescriptions for the Brilinta, losartan, and atorvastatin were sent to the local pharmacy prior to discharge. We did intensive counseling on the importance of smoking cessation and the fact that she needs to stay on dual antiplatelet therapy unless instructed otherwise by cardiology at least 12 months. Patient voiced understanding with regards to all of the above. An appointment was made for cardiology within the next 2 weeks and have asked that she also follow-up with her primary care physician within the next 2 weeks. Discharge diagnoses: NSTEMI CAD Leukocytosis-resolving HTN HPL [id number] DOLORES Tobacco abuse Obesity Physical Exam Narrative Patient voices no complaints. States she is feeling well. Anxious to go home if possible. Const alert, oriented x3, no apparent distress, no limitations and well nourished; Negative for average body habitus Constitutional Narrative: Obese, upper middle-aged, white female, sitting up in bed, daughter at bedside, nursing at bedside, patient appears comfortable, nontoxic General Appearance: cooperative, comfortable, well kempt and well developed Orientation / Consciousness: awake, oriented to person, oriented to place and oriented to time Exam Limitations: no limitations Nutritional Appearance: obese HEENT normocephalic, head/scalp atraumatic, hearing grossly normal bilaterally and moist oral mucous membranes HEENT Narrative: Dentition is fair for age, Mallampati is 2, no thrush Eyes PERRL and EOMs intact bilaterally Eyes Narrative: No scleral icterus Neck no lymphadenopathy and supple Neck Narrative: Trachea midline, no thyroid enlargement Resp normal respiratory effort, no retractions, no use of accessory muscles and clear to auscultation bilaterally Auscultation: Negative for rales, rhonchi or wheezes Cardio regular rate, regular rhythm, S1 normal heart sound, S2 normal heart sound, no murmurs, no rub, no gallops and no clicks GI normal to inspection, nondistended, normoactive bowel sounds, soft to palpation and non-tender Extremity no clubbing, cyanosis or edema Extremity Narrative: Pedal pulses are 2+ Skin no rashes or lesions noted, skin turgor normal, no jaundice, no petechiae and no mottling Skin Narrative: Sunburn noted on neck and arms, right radial artery with post procedure dressing in place, slight ecchymosis with no significant tenderness and no edema Neuro oriented x3, CN's II-XII intact bilaterally, moves all extremities and no focal motor deficits Speech: speech normal Psych affect normal Psych Narrative: Eye contact is good and patient is appropriately Weight / BMI Weight Weight: 76.6 kg Body Mass Index (BMI) 31.8 ABG / Lab / Microbiology Data 03/21/24 06:05 03/21/24 06:05 Laboratory: Laboratory Results - last 24 hr 03/20/24 12:08: Activated Clotting Time 201 H 03/20/24 13:10: POC Glucose 117 H 03/20/24 16:07: POC Glucose 153 H 03/21/24 06:05: WBC 12.3 H, RBC 4.86, Hgb 14.6, Hct 44.8, MCV 92.2, MCH 30.0, MCHC 32.6, RDW Std Deviation 46.7 H, RDW Coeff of [place] 13.9, Plt Count 325, MPV 11.0, Immature Gran % (Auto) 0.400, Neut % (Auto) 72.0 H, Lymph % (Auto) 18.8 L, [place] % (Auto) 7.4, Eos % (Auto) 0.8, Baso % (Auto) 0.6, Absolute Neuts (auto) 8.9 H, Absolute Lymphs (auto) 2.31, Nucleated RBC % 0, Sodium 138, Potassium 4.3, Chloride 108 H, Carbon Dioxide 23.0, Anion Gap 7, BUN 14, Creatinine 0.82, Estim Creat Clear Calc 63.20, Est GFR (MDRD) Af Amer 90, Est GFR (MDRD) Non-Af 74, BUN/Creatinine Ratio 17.1, Glucose 119 H, Calcium 9.6, Phosphorus 3.3, Magnesium 2.2, Total Bilirubin 0.60, AST 55 H, ALT 32, Alkaline Phosphatase 94, Total Protein 6.8, Albumin 3.4, Globulin 3.4, Albumin/Globulin Ratio 1.0, TSH 7.83 H, Free T4 0.80 03/21/24 06:34: POC Glucose 128 H Radiography Diagnostic Testing: Radiology Impression Echocardiogram 03/20/24 09:50 Interpretation Summary The estimated ejection fraction is 65 %. No evidence for diastolic dysfunction. Ordering Physician: Suzan Acosta Referring Physician: Alessandro Shah Performed By: David Harding RCS D/C Instructions Discharge Diet: Low fat / Low cholesterol and 1800 Calorie Control Diet Discharge Activity: Return to Normal Activity (Do not lift greater than 5 to 10 pounds with right upper extremity for the next 3 to 5 days) Return to work on: 03/31/24 Meaningful Use Info Meaningful Use Meaningful Use Diagnoses (Choose all that apply): AMI AMI/Post PCI/Angioplasty Aspirin given w/in 24hrs of arrival?: Yes ASA at discharge?: Yes Antiplatelet Therapy at Discharge:: Yes Statins at discharge?: Yes Cosme/ARB at discharge?: Yes Beta Barrington at discharge?: Yes Done w/ Acute OR measure.: Yes Documented LVEF (%): 60 Ischemic Stroke Statin Dosing Therapy Reference: STATIN DOSE THERAPY REFERENCE: * Patients > 75 years receive moderate or high dose statin therapy. * Patients 75 years or YOUNGER should receive HIGH intensity statin dose unless contraindicated. You will be required to document reason for non-treatment if statin daily dose does not meet guidelines. HIGH DOSE STATIN THERAPY DAILY Atorvastatin > than or = to 40 mg Rosuvastatin > than or = to 20 mg Amlodipine + Atorvastatin > than or = to 2.5/40 mg Ezetimibe + Simvastatin 10/80 mg Simvastatin 80mg Discharge Plan Admission Admit Date/Time: 03/20/24 09:02 Attending Provider: Suzan Acosta Primary Care Provider: Alessandro Shah Consulting Providers: Brittany Herman Instructions Additional Instructions / Restrictions: 1. Do not miss doses of your Brilinta or Aspirin unless directed to stop by your lead engineer Discharge Orders/Prescriptions Prescriptions: New atorvastatin 80 mg Tablet 80 mg PO QHS Qty: 30 0RF losartan 25 mg Tablet 25 mg PO DAILY Qty: 30 0RF Brilinta 90 mg Tablet 90 mg PO BID Qty: 60 0RF Continued aspirin [Adult Aspirin Regimen] 81 mg tablet,delayed release (DR/EC) 81 mg PO DAILY metformin 500 mg tablet 500 mg PO BID coenzyme Q10 [Co Q-10] 100 mg capsule 400 mg PO DAILY metoprolol tartrate 50 mg tablet 50 mg PO BID sertraline 50 mg tablet 50 mg PO DAILY albuterol sulfate 90 mcg/actuation HFA aerosol inhaler 2 puff inhalation Q4-6H PRN (Reason: SOB) Patient Comments: inhale 2 puffs by mouth and INTO THE LUNGS every 4 hours if needed calcium carbonate 600 mg calcium (1,500 mg) tablet 600 mg PO DAILY fexofenadine [Bertha Allergy] 180 mg tablet 180 mg PO DAILY multivitamin Tablet 1 tab PO DAILY varenicline 1 mg tablet 1 mg PO BID elderberry fruit 350 mg capsule 700 mg PO QHS acidophilus-pectin, citrus 100 million cell-10 mg capsule 1 cap PO DAILY Fiber Therapy (m-cellulose) 500 mg tablet 500 mg PO DAILY PRN (Reason: constipation) Discontinued hydrochlorothiazide 12.5 mg capsule 12.5 mg PO DAILY atorvastatin 20 mg tablet 20 mg PO QHS Referrals / Follow Up: Jeniffer Prado MD [Med Staff - Active Staff] - 04/16/24 10:45 am Alessandro Shah MD [Primary Care Provider] - Within 2 Weeks Disposition Disposition (needs filled in before D/C Order can be placed): Home, Self Care Charges/Coding Visit Charges Inpatient E&M: 17783 Disch Hosp >30min
[2024-03-21 11:09] VITALS: BP 123/75; PULSE 75; RESP 19; O2SAT 98
[2024-03-21 11:35] LABS: Bedside Glucose 104 mg/dL (74-106)
--- NOTE | 2024-03-21 12:04 | CASEMGMT ---
Patient has order for discharge. Patient is discharging on Brilinta. JOSH MARRUFO called [facility] and copay is $80.64, Brilinta savings card applied. JOSH CM in to discuss needs at discharge. RN CM updated patient of Brilinta copay and savings card being applied. RN NIRU advised patient to follow-up with [facility] if medication is too expensive, patient voiced understanding. Patient had no further questions or concerns at this time.
== END 2024-03-21 13:04 | disposition home or self-care (01) | DRG 322 ==
LOC: ED 09:05 → PCU 09:33
PROVIDERS: Admitting Provider Internal Medicine; Emergency Provider Emergency Medicine; PCP Family Medicine; Visit Provider Internal Medicine
DX: I21.4 Non-ST elevation (NSTEMI) myocardial infarction (principal); E11.40 Type 2 diabetes mellitus with diabetic neuropathy, unspecified; J44.9 Chronic obstructive pulmonary disease, unspecified; E11.65 Type 2 diabetes mellitus with hyperglycemia; I10 Essential (primary) hypertension; G47.33 Obstructive sleep apnea (adult) (pediatric); F17.210 Nicotine dependence, cigarettes, uncomplicated; E78.00 Pure hypercholesterolemia, unspecified; E66.9 Obesity, unspecified; Z79.82 Long term (current) use of aspirin; Z79.84 Long term (current) use of oral hypoglycemic drugs; Z79.899 Other long term (current) drug therapy; T44.7X6A Underdosing of beta-adrenoreceptor antagonists, initial encounter; Z68.32 Body mass index [BMI] 32.0-32.9, adult
CPT/HCPCS: 36415; 71045; 80048; 80053; 80061; 80076; 82962; 83036; 83690; 83735; 84100; 84439; 84443; 84484; 85025; 85347; 85379; 85610; 85730; 92921; 92928; 93005; 93306; 93458; 94668; 99152; 99153; 99252; 99285; 99406; C1887; J7030; Q9957; A4216; C1725; C1769; C1874; C1894; C8929; C9600; G0463

== ENCOUNTER → 2024-04-11 | Outpatient (CLI) | payer MEDICARE, OTHER, SELFPAY ==
[2024-04-11 17:56] LABS: T4 Free Direct 0.82 ng/dL (0.76-1.46); Thyroid Stim Hormone (TSH) 3.71 uIU/mL (0.358-3.74)
[2024-04-15 09:09] LABS: Anti-Thyroglobulin AB < 1.0 IU/mL (0.0-0.9); Thyroid Peroxidase AB < 9 IU/mL (0-34)
== END | disposition home or self-care (01) ==
LOC: MFPLAB 14:51
PROVIDERS: PCP Family Medicine; Visit Provider Family Medicine
DX: R79.89 Other specified abnormal findings of blood chemistry (principal); E11.59 Type 2 diabetes mellitus with other circulatory complications
CPT/HCPCS: 36415; 84432; 84439; 84443; 86376; 86800

== ENCOUNTER → 2024-07-03 | Outpatient (CLI) | payer MEDICARE, OTHER, SELFPAY ==
[2024-07-03 15:59] LABS: AST(SGOT) 23 U/L (15-37); Alanine Aminotransfer ALT/SGPT 46 U/L (13-56); Albumin, Serum 3.8 g/dL (3.2-5.0); Alkaline Phosphatase 101 U/L (45-117); Bilirubin, Direct 0.14 mg/dL (0.00-0.30); Cholesterol 130 mg/dL (200); Globulin 3.3 g/dL (2.2-4.2); High Density Lipoprotein 44 mg/dL; Protein, Total 7.1 g/dL (6.4-8.2); Triglycerides 161 mg/dL; Very Low Density Lipoprotein 32 mg/dL (5-40)
== END | disposition home or self-care (01) ==
LOC: MFPLAB 11:42
PROVIDERS: Nurse Practitioner Gerontology; PCP Family Medicine; Visit Provider Family Medicine
DX: E78.00 Pure hypercholesterolemia, unspecified (principal)
CPT/HCPCS: 36415; 80061; 80076

== ENCOUNTER → 2024-07-09 | Outpatient (CLI) | payer MEDICARE, OTHER, SELFPAY ==
--- NOTE | 2024-07-09 08:04 | PCM.CR.ITP ---
Diagnosis General Information Admitting Diagnosis: PCI Personal Learning Style:: Audio/Visual, Demonstration, Group, Individual Preference and Written Barriers to Learning: No Barriers Stage of change r/t lifestyle modifications:: Preparation Gave educational material for:: Treating Heart Disease, How The Heart Works, What it means to have Heart Disease, How Coronary Artery Disease is Diagnosed, Heart Procedures, What Heart Medications Do, Risk Factors & Modifications, Living an Active Life, Nutrition, Emotions & Heart Disease, Stress Management & Relaxation and Sleep Disorders & Heart Disease Education/Goals Cardiac Rehabilitation Goals Personal Goals: Initial Assessment: Quit smoking (participate in smoking cessation, Improve energy level, Participate in home exercise program, Improve knowledge of cardiac disease, Improve muscle strength and endurance, Improve diet and eating habits (eat healthier) and Control risk factors (learn risk factor modification) Scale for measuring improvement of personal goals Diagnosis & Disease Process Outcomes/Goals: Pt IDs own risk factors & lifestyle modifications by Session 10, Verbalizes symptoms of angina & response by session 3. and Pt independently manages Plan/Interventions: Assist Pt to ID & engage in lifestyle modification to reduce CVD risk, Instruct on individual risk factors, Review symptoms of angina & emergency actions and Review secondary diagnosis & identify educational needs. Safety Referral to Physical Therapy: No Referral to [facility] Case Management: No Fall Risk Assessed:: Yes Assistive Devices:: None Exercise - Initial Assessment Visit Date of Eval: 07/09/24 (INITIAL EVAL) Mets: Pre-: >3 METS for 30 minutes by discharge, >5 METS for 30 minutes by discharge and >7 METS for 30 minutes by discharge Physician Prescribed Exercise Modalities: Treadmill, Rower, Schwinn Airdyne AD-7, SciFit Stepper, Easy MetricsFit Pro-II Ergometer and Easy MetricsFit Lateral Right Of Way Agent Frequency: 3x/week for 12 weeks [36 sessions] Intensity: 60-80% of age predicted maximum heart rate reserve Duration: 30 - 45 minutes Resting Blood Pressure: 110/68 EKG Type: NSR Outcomes & Goals Goals:: Verbalizes understanding of THR, RPE & goal METS by session 6, Documents in home exercise log/reports 30 min aerobic 5 day/wk by DC, Demonstrates accurate pulse taking by DC and Other additional outcome/goals: see below Intervention & Plan Exercise Program Goals: Instruct on personal THR & RPE, Instruct on MET level & personal MET goal, Show patient to take own pulse /validate performance until accurate, Instruct on home exercise and Other additional plan/int Physical Activity Home Exercise Physical Activity - Home Exercise: Safe Exercise, Warm-up, Self-monitoring, Cool-Down, Home Exercise > 30 min Daily and Sitting Time <3 hours/daily Outcomes & Goals Outcomes/Goals: Demonstrates correct Warm-up/exercise Cool-Down (S3) if = 2.5 METs, Verbalizes symptoms of exercise intolerance by Session 3 (S3) and Demonstrate safe equipment use (S3) & follows exercise prescrition (6) Intervention & Plan Plan/Intervention: Instruct warm-up & cool-down if exercising at > 2 METs, Instruct on symptoms of exercise intolerance & actions to take, Instruct & monitor on saf and Assess intial functional capacity & safety risk Nutrition - Initial Assessment Program Goals Nutrition Program Goals Patient has diagnosis of Hyperlipidemia (ICD E78)?: Yes Visit Date of Eval: 07/09/24 (INITIAL EVAL) Cholesterol/Lipids (Other Core Measures) Determine presence & major risk factors that modify LDL goal: Hypertension or hypertensive medication and Age men > 45 years; women >/= 55 years Outcomes/Goals: Pt IDs own risk factors & lifestyle modifications by Session 10, Verbalizes symptoms of angina & response by session 3. and Pt independently manages Intervention/Plan: Advocate for lipid panel cholesterol medication if applicable, Instruct on personal lipid levels & lipid goals/NCEP guidelines and Instruct on cholesterol Referral to dietitian:: No (has seen already) Diabetes (Other Core Measures) Diabetes Type: Diagnosis Type II ICD-10 E11 Insulin dependent injection/pump?: No Non-Insulin Dependent?: Yes Do you monitor your blood sugar at home?: Yes Referral to Diabetic Clinic:: No (says she is managed with primary care) Outcomes/Goals:: Able to state symptoms of, Able to state and Able to state Intervention/Plan:: Instruct on, Refer to and Instruct on Weight Mgt (Other Care) Height: 5 ft 1 in Weight:: 167 lb BMI: 31.5 Diagnosis Overweight/Obesity BMI> 30% ICD-10 E66: Yes Diagnosis High BMI/Morbid Obesity BMI> 35% ICD-10 Z68: No Outcomes/Goals: Pt sets, maintains & shows weight loss goal & trend during rehab and Other additional outcomes/goals Intervention/Plan: Instruct on ideal BMI & set weight loss goal w/patient, Assist pt to ID & incorporate diet changes for weight loss by S9, Refer to Structured Weight Loss program as appropriate and Encourage goal of using 250-300dcal per session for weight loss Healthy Eating Habits Will attend diet classes:: Yes Outcomes/Goals:: Consume diet rich in vegs,fruits,whole grain/high fiber,fish,lean meat, Limit sat/trans fats,cholesterol & added salts & sugars and Other additional outcome/goals: Intervention/Plan:: Assess current eating habits and Other Additional plan/interventions Education Gave educational materials for:: Signs & symptoms of hypoglycemia, Signs & symptoms of hyperglycemia, Relate diabetes to coronary artery disease and Healthy eating Core - Initial Assessment Visit Date of Eval: 07/09/24 (INITIAL EVAL) Medication Compliance Preventative Medication(s):: Aspirin, Ticagrelor/P2Y12 inhibitor, Statin/lipid, Beta jayson and ARB (Angiotensi Rcap) H/O mental health issues: depression, anxiety, or addiction?: Yes Doesn?t believe in the benefits of treatment?: No Believes medications are unnecessary or harmful?: No Has a concern about medication side effects?: No Expresses concern over the cost of medications?: No Outcomes/Goals: Verbalizes medications,desired effect & common side effects @ DC, Pt self-reports following medication regimen and Keeps card in wallet w/medications listed by DC Interventions/plans: Instruct on medication effects & side effects, Review medication list w/patient every two weeks and Instruct importance of taking meds as ordered & assist problem solving Tobacco Use Tobacco Use: Cigarettes Years Smokin Do you use smokeless tobacco?: No Outcomes/Goals: Smoking cessation achieved or maintained by discharge and Identify aids/strategies for achieving smoking cessation by session 6 Interventions/plan: Instruct on effects of smoking & provide smoking cessation resource, Assist pt to set quit date & provide encouragement, Assist pt to develop strategies to achieve/maintain quit date and Assist pt w/nicotine replacement & medication for cessation success Hypertension Hypertension Diagnosis:: Hypertension ICD-10 I10 Resting Blood Pressure:: 110/68 [employer] Hypertension Guidelines Outcomes/Goals: Able to verbalize/achieve optimal blood pressure <130/80, Incorporates diet changes & exercise for blood pressure control by DC and Other additional outcomes/goals Interventions/plan: Instruct on optimal blood pressure, hypertension & medications, Instruct on effects of sodium, alcohol, stress, exercise &hypertension and Other additional plan/interventions Tobacco Cessation Referral Smoking Cessation Referral:: No (declined at this time, on chantix) Individual Education/Counseling:: No Education Schedule Given:: Yes Psychosocial - Initial Assess VIsit Date of Eval: 07/09/24 (INITIAL EVAL) History of previous Mental disease:: Yes History of Emotional Disorders: Depression Target Goals Target Goals Psychosocial Test Tool Used:: PHQ-9 Questionnaire phq-9 Severity See PHQ-9 Score: 0 Referral to Behavioral Health PS - Interventions: Yes: Attend Stress Management Classes and No: Referral to Behavioral Health if PHQ-9 score >9:, No: Referral to [facility] and No: Referral to Physician if PHQ-9 if score is 5-9: Outcomes/Goals: See list Psychosocial Outcomes/Goals:: ID's personal stressors & 2 strategies to manage stress by discharge Intervention/Plan: See List Interventions/Plan:: Assess stressors,coping strategies & signs of derpression on admission, Instruct/assist pt to develop coping & personal stress Mgt strategies, Refer to Behavioral Health if appropriate, Refer to Physician if appropriate, Instruct patient to recognize signs & symptoms of depression and Instruct patient to recog Patient Health Questionnaire PHQ-9 Screening Initial Assessment: 1. Little interest or pleasure in doing things: Not at all 2. Feeling down, depressed, or hopeless: Not at all 3. Trouble falling or staying asleep, or sleeping too much: Not at all 4. Feeling tired or having little energy: Not at all 5. Poor appetite or overeating: Not at all 6. Feeling bad about yourself -- or that you are a failure or have let yourself or your family down: Not at all 7. Trouble concentrating on things, such as reading the newspaper or watching television: Not at all 8. Moving or speaking so slowly that other people could have noticed. Or the opposite - being so fidgety or restless that you have been moving around a lot more than usual: Not at all 9. Thoughts that you would be better off , or of hurting yourself in some way: Not at all How difficult have these problems made it for you to do your work, take care of things at home, or get along with other people?: Not difficult at all Total Score: 0 VISHAL-Q SV Test Statements CAD is a disease of the arteries in the heart: False Examples of risk factors for heart disease: True Angina is chest pain or discomfort: False The benefits of resistance training include: True Eating more meat and dairy products: False Anti-platelet medications such as aspirin are important: True The only effective way to manage stress: False An exercise warm-up slowly increases heart rate: True Prepared, processed foods usually have high sodium: True Depression is common after a heart attack: I Don't Know The statin medications lower cholesterol: True To control blood pressure, lower the amount of sodium: True If someone gets chest discomfort during walking: False Transfats are partially hydrogenated vegetable oils: True Sleep apnea that is not treated increases the risk: True To control cholesterol, one should become a vegetarian: False Someone knows if he/she is exercising at the right level: True Diabetes cannot be prevented with exercise & health eating: False Stress is a large risk for heart attack: True A diet that can help lower blood pressure is rich in: True Total Score Total Correct Responses: 17 Self-Efficacy 6-Item Scale Initial Assessment: We would like to know how confident you are in doing certain activities. Please select your confidence level for: Fatigue Select Number: 9 Physical Discomfort or Pain Select Number: 9 Emotional Distress Select Number: 8 Other Symptoms or Health Problems Select Number: 8 Different Tasks and Activities Select Number: 9 Medication Select Number: 9 Total Score:: 8 Nutrition Survey Nutrition Survey Instructions Scoring Instructions Nutrition Survey Initial: Have you lost >10 lbs over the past 2 months without trying?: No Are you following a special diet at home for diabetes, low fat, or low salt?: Yes Are you interested in meeting with a dietitian for help understanding your diet?: No Do you eat less than 3 meals a day?: Yes Do you eat fatty meats (muñoz, sausage, ribs, etc), fried foods, desserts, large amounts of salad dressings, margarine, butter, or cheese most days?: No Do you have food allergies? [Enter types in comment field]: No Do you eat in restaurants more than 3 times a week?: No Do you season food with salt, seasoning salt, or garlic salt?: No Do you used canned, boxed, frozen meals, or soups, seasoning packets?: Yes Total Score:: 3 Exercise - 30-day Assessment Physician Prescribed Exercise Modalities: Treadmill, Rower, Raegan Saeed AD-7, SciFit Stepper, SciFit Pro-II Ergometer and SciFit Lateral [place] Exercise - 60-day Assessment Physician Prescribed Exercise Modalities: Treadmill, Rower, Schwinn Airdyne AD-7, SciFit Stepper, SciFit Pro-II Ergometer and SciFit Lateral Right Of Way Agent Exercise - 90-day Assessment Physician Prescribed Exercise Modalities: Treadmill, Rower, Schwinn Airdyne AD-7, SciFit Stepper, SciFit Pro-II Ergometer and SciFit Lateral Right Of Way Agent Exercise - Final/Discharge Physician Prescribed Exercise Modalities: Treadmill, Rower, Schwinn Airdyne AD-7, SciFit Stepper, SciFit Pro-II Ergometer and SciFit Lateral Right Of Way Agent Frequency: 3x/week for 12 weeks [36 sessions] Intensity: 60-80% of age predicted maximum heart rate reserve Nutrition - 30-Day Assessment Weight Mgt (Other Care) Height: 5 ft 1 in Weight:: 167 lb BMI: 31.5 Nutrition - 60-Day Assessment Weight Mgt (Other Care) Height: 5 ft 1 in Weight:: 167 lb BMI: 31.5 Core - 30-Day Assessment Tobacco Use Years Smokin Core - Final Assessment Hypertension Resting Blood Pressure:: 110/68 [employer] Hypertension Guidelines Core - 60-Day Assessment Hypertension Resting Blood Pressure:: 110/68 [employer] Hypertension Guidelines Psychosocial - 30-Day Assess Target Goals Target Goals Referral to Behavioral Health PS - Interventions: Yes: Attend Stress Management Classes and No: Referral to Behavioral Health if PHQ-9 score >9:, No: Referral to [facility] and No: Referral to Physician if PHQ-9 if score is 5-9: Psychosocial - 60-Day Assess Target Goals Target Goals Referral to Behavioral Health PS - Interventions: Yes: Attend Stress Management Classes and No: Referral to Behavioral Health if PHQ-9 score >9:, No: Referral to [facility] and No: Referral to Physician if PHQ-9 if score is 5-9: Psychosocial - 90-Day Assess Target Goals Target Goals Referral to Behavioral Health PS - Interventions: Yes: Attend Stress Management Classes and No: Referral to Behavioral Health if PHQ-9 score >9:, No: Referral to [facility] and No: Referral to Physician if PHQ-9 if score is 5-9: Psychosocial - Final Assessmen Target Goals Target Goals Psychosocial Test phq-9 Severity See PHQ-9 Score: 0 Referral to Behavioral Health PS - Interventions: Yes: Attend Stress Management Classes and No: Referral to Behavioral Health if PHQ-9 score >9:, No: Referral to [facility] and No: Referral to Physician if PHQ-9 if score is 5-9: Nutrition - 90-Day Assessment Weight Mgt (Other Care) Height: 5 ft 1 in Weight:: 167 lb BMI: 31.5 Nutrition - Final Assessment Program Goals Patient has diagnosis of Hyperlipidemia (ICD E78)?: Yes Weight Mgt (Other Care) Height: 5 ft 1 in Weight:: 167 lb BMI: 31.5
--- NOTE | 2024-07-09 08:09 | CR.HP_ITS ---
CR - History & Physical General Arrival date:: 07/09/24 (INITIAL EVAL) Arrival time:: 08:09 Date of Referral:: 06/26/24 Date of CR Evaluation:: 07/09/24 Referring Physician: Dr. Herman Primary Diagnosis: PCI with stenting History of Present Cardiac Event Onset Date Current stable Angina Pectoris:: No Acute Myocardial Infarction within 12 months:: Yes Coronary Artery Bypass Graft:: No Heart valve replacement or repair:: No PTCA or coronary stenting:: Yes Vessel: RCA Heart or Heart-Lung Transplant:: No Heart Failure EF <35%:: No Interventions with present event:: stent to mid RCA and PTCA alone of RPL and RPDA Medications Ambulatory Orders ?Medication ?Instructions ?Recorded aspirin 81 mg tablet,delayed 81 mg PO DAILY md ordered 05/08/21 release (Adult Aspirin Regimen) albuterol sulfate 90 mcg/actuation 2 puff inhalation Q4-6H PRN SOB 01/31/24 aerosol inhaler calcium carbonate 600 mg PO DAILY 01/31/24 coenzyme Q10 100 mg capsule (Co 400 mg PO DAILY unknown 01/31/24 Q-10) fexofenadine 180 mg tablet 180 mg PO DAILY 01/31/24 (Bertha Allergy) metformin 500 mg tablet 500 mg PO BID 01/31/24 metoprolol tartrate 50 mg tablet 50 mg PO BID 01/31/24 multivitamin 1 tab PO DAILY 01/31/24 sertraline 50 mg tablet 50 mg PO DAILY depression 01/31/24 varenicline 1 mg tablet 1 mg PO BID smoking cessation 02/07/24 methylcellulose (laxative) 500 mg 500 mg PO DAILY PRN constipation 03/20/24 tablet (Fiber Therapy (methylcellulose)) atorvastatin 80 mg tablet 80 mg PO QHS #90 tabs 04/10/24 losartan 25 mg tablet 25 mg PO DAILY #90 tabs 04/10/24 ticagrelor 90 mg tablet (Brilinta) 90 mg PO BID #180 tabs 07/08/24 Allergies Allergies lisinopril Adverse Reaction (Mild, Verified 07/09/24 08:35) cough Sleep Disorder Evaluation Hx of Sleep Apnea: Yes Do you snore loudly (louder than talking or can be heard through closed doors)?: Yes Do you often feel tired/ fatigued/ sleepy during daytime?: No Has anyone observed you stop breathing during sleep?: No History of Hypertension (for STOP score): Yes STOP Results: Positive Advanced Directives Advanced Directives Power of Physical Security Specialist: Yes Living Will: Yes Advance Directives Information Provided: No Advance Directives on File: Yes DNR Order?:: No Past Medical History Covid-19 Screening Physicial Symptoms Fever: No Unexplained muscle aches: No Current respiratory symptoms: No Upper respiratory infections symptoms: No Gastro-intestinal symptoms: No Qru-Hwwd-Ceqoiy symptoms: No Other Clinical Concerns Has tested positive for COVID-19 in last 30 days: No Exposure Risk Had contact w/person w/symptoms or Covid-19 (+) last 14 days: No Has High Risk Exposures ID'd by Health dept/Inf Control team: No Pertinent Comorbidities 65 years or older:: Yes Lives in Assisted Living facility:: No Has a chronic lung disease or moderate to severe asthma:: No Has a serious heart condition:: Yes Immunocompromised:: No Severely obese (Body Mass Index of 40 or higher):: No Diabetic:: Yes Has chronic kidney disease undergoing dialysis:: No Has liver disease:: No Past Medical Illness Medical History Hypercholesteremia Non-ST elevation DC (NSTEMI) Hypertension Shortness of breath on exertion Osteopenia Neuropathy Daytime hypersomnia Obesity Diabetes Sinus infection History of bloody stools Shoulder pain Arthritis Hypertension Past Surgical History Surgical History History of coronary artery stent placement History of cataract extraction History of hysterectomy History of D&C Family History Summary Family History Mother Colon cancer Heart disease Hypertension Father Heart disease Hypertension Grandmother Breast cancer Social History Smoking History Smoking Status: Current every day smoker Years Smokin Packs Smoked per Day: 1 Hx Tobacco Use: No Hx Smoking Exposure: Yes Alcohol Use Alcohol Usage: Yes (OCCASIONAL) Substance Abuse Hx Substance Use: No Occupation Occupation (List type of work in comments):: Retired Hobbies, Recreation, Social Activities Hobbies: Reading Recreational Activities: I am able to engage in all my recreational activities Social Environment Status Marital Status: Current Living Arrangements Living Environment:: Spouse Children How many children do you have?: 3 Do any of your children live nearby?: Yes Safety Do you feel safe in your surroundings?: Yes Assistance Do you need any assistance at home?: NO Review of Systems Review of Systems Hints Review of Present Symptoms: Reports Shortness of Breath with Exertion, Dizziness/Lightheadedness (occasional lightheaded, not often, at random times) and Appetite - Normal Pain Is Patient Pain Free?: Yes Risk Factor Assessment Vital Signs Pulse Ox: 96 Blood Pressure: 110/68 Pulse Pulse Rate: 61 Hypertension How long have you been treated?: 15 years On medication(s)?: METOPROLOL Blood Pressure Sitting - Right Arm: 110/68 Diabetes Diabetic History: Type II Nutrition Referral for Diabetes: No Obesity Height: 5 ft 1 in Weight:: 167 lb Weight in Pounds: 167.0 lbs Body Mass Index (BMI): 31.5 Nutritional Referral for Obesity: No Physical Inactivity Physical Inactivity: None Risk Stratification Risk Guidelines: Moderate Risk: Risk Factor for Sedentary Lifestyle and Risk Factor for Depression and Highest Risk: Risk Factor for Smoking, Risk Factor for Dyslipidemia, Risk Factor for Diabetes, Risk Factor for Obesity and Risk Factor for Hypertension For Smoking Smoking Risk Guidelines For Dyslipidemia Dyslipidemia Risk Guidelines For Diabetes Mellitus Diabetes Risk Guidelines For Obesity/Overweight Obesity/Overweight Risk Guidelines For Hypertension Hypertension Risk Guidelines For Sedentary Lifestyle Sedentary Lifestyle Risk Guidelines For Depression Depression Risk Guidelines Family History Family History Mother Colon cancer Heart disease Hypertension Father Heart disease Hypertension Grandmother Breast cancer Motivation Motivation to Participate On a scale of 1 to 10, how prepared are you to commit to attending program?: 10 What do you see as barriers to successfully being able to complete the program?: none What do you see as the benefits of succesfully completing the program? In other words, what do you hope to get out of participating in the program?: encouragement for healthier lifestyle Are there issues you are dealing with that will interfere with completing the program?: no Do you have a spouse or signficant other, family or friends who will help support you to complete the program?: yes
[2024-07-09 08:49] VITALS: BMI 31.5
[2024-07-09 09:19] VITALS: BP 110/68
[2024-07-09 09:27] VITALS: BP 110/68; PULSE 61; O2SAT 96; BMI 31.5
== END | disposition home or self-care (01) ==
PROVIDERS: PCP Family Medicine; Referring Provider Specialist; Visit Provider Specialist
DX: I25.2 Old myocardial infarction (principal); E11.40 Type 2 diabetes mellitus with diabetic neuropathy, unspecified; E78.00 Pure hypercholesterolemia, unspecified; I10 Essential (primary) hypertension; M19.90 Unspecified osteoarthritis, unspecified site; Z95.5 Presence of coronary angioplasty implant and graft; F17.200 Nicotine dependence, unspecified, uncomplicated; E66.9 Obesity, unspecified; Z68.31 Body mass index [BMI] 31.0-31.9, adult; Z79.899 Other long term (current) drug therapy; Z79.84 Long term (current) use of oral hypoglycemic drugs; M85.80 Other specified disorders of bone density and structure, unspecified site; Z79.82 Long term (current) use of aspirin; R06.02 Shortness of breath; G47.30 Sleep apnea, unspecified

== ENCOUNTER 2024-07-28 08:00 | Outpatient (RCR) | payer MEDICARE, OTHER, SELFPAY ==
[2024-07-09 08:49] VITALS: BMI 31.5
== END 2024-07-28 23:59 ==
LOC: CR 08:00
PROVIDERS: PCP Family Medicine; Referring Provider Specialist; Visit Provider Specialist
DX: I25.10 Atherosclerotic heart disease of native coronary artery without angina pectoris (principal); I21.4 Non-ST elevation (NSTEMI) myocardial infarction; Z95.5 Presence of coronary angioplasty implant and graft
CPT/HCPCS: 93798

== ENCOUNTER 2024-08-27 08:00 | Outpatient (RCR) | payer MEDICARE, OTHER, SELFPAY ==
[2024-07-09 08:49] VITALS: BMI 31.5
--- NOTE | 2024-08-08 07:11 | PCM.CR.ITP ---
Exercise - Initial Assessment Visit Session #:: 11 Physician Prescribed Exercise Modalities: Treadmill, Schwinn Airdyne AD-7 and SciFit Stepper Nutrition - Initial Assessment Weight Mgt (Other Care) Height: 5 ft 1 in Weight:: 169 lb BMI: 31.9 Core - Initial Assessment Tobacco Use Years Smokin Psychosocial - Initial Assess Target Goals Target Goals Referral to Behavioral Health PS - Interventions: Yes: Attend Stress Management Classes Patient Health Questionnaire PHQ-9 Screening 30-Day Re-eval Assessment: 1. Little interest or pleasure in doing things: Not at all 2. Feeling down, depressed, or hopeless: Not at all 3. Trouble falling or staying asleep, or sleeping too much: Not at all 4. Feeling tired or having little energy: Not at all 5. Poor appetite or overeating: Not at all 6. Feeling bad about yourself -- or that you are a failure or have let yourself or your family down: Not at all 7. Trouble concentrating on things, such as reading the newspaper or watching television: Not at all 8. Moving or speaking so slowly that other people could have noticed. Or the opposite - being so fidgety or restless that you have been moving around a lot more than usual: Not at all 9. Thoughts that you would be better off , or of hurting yourself in some way: Not at all How difficult have these problems made it for you to do your work, take care of things at home, or get along with other people?: Not difficult at all Total Score: 0 Self-Efficacy 6-Item Scale 30-Day Re-eval Assessment: We would like to know how confident you are in doing certain activities. Please select your confidence level for: Fatigue Select Number: 9 Physical Discomfort or Pain Select Number: 9 Emotional Distress Select Number: 8 Other Symptoms or Health Problems Select Number: 8 Different Tasks and Activities Select Number: 9 Medication Select Number: 9 Total Score:: 8 Nutrition Survey Nutrition Survey Instructions Scoring Instructions Exercise - 30-day Assessment Visit Date of Eval: 08/08/24 Session #:: 11 Physician Prescribed Exercise Modalities: Treadmill, Schwinn Airdyne AD-7 and SciFit Stepper Frequency: 3x/week for 12 weeks [36 sessions] Intensity: 60-80% of age predicted maximum heart rate reserve Duration: 30 - 45 minutes Current METSs:: 4.3 Target Heart Rate:: 92-115 Current RPE:: 11-12 Maximum Excercise HR:: 100 Resting Blood Pressure: 108/62 Maximum Exercise Blood Pressure: 112/60 EKG Type: NSR to ST Outcomes & Goals Goals:: Verbalizes understanding of THR, RPE & goal METS by session 6, Documents in home exercise log/reports 30 min aerobic 5 day/wk by DC, Demonstrates accurate pulse taking by DC and Other additional outcome/goals: see below Intervention & Plan Exercise Program Goals: Instruct on personal THR & RPE, Instruct on MET level & personal MET goal, Show patient to take own pulse /validate performance until accurate, Instruct on home exercise and Other additional plan/int 30-day Reassessments 30 day Reassessments:: Progressing Reassessment Notes & Comments:: RPE explained and pt can demonstrate understanding Physical Activity Home Exercise Physical Activity - Home Exercise: Safe Exercise, Warm-up, Self-monitoring, Cool-Down, Home Exercise > 30 min Daily and Sitting Time <3 hours/daily Outcomes & Goals Outcomes/Goals: Demonstrates correct Warm-up/exercise Cool-Down (S3) if = 2.5 METs, Verbalizes symptoms of exercise intolerance by Session 3 (S3), Demonstrate safe equipment use (S3) & follows exercise prescrition (6) and Other: See below Intervention & Plan Plan/Intervention: Instruct warm-up & cool-down if exercising at > 2 METs, Instruct on symptoms of exercise intolerance & actions to take, Instruct & monitor on saf, Assess intial functional capacity & safety risk and Other See below 30-day Reassessments 30 day Reassessments:: Progressing Reassessment Notes & Comments:: Proper warm up demonstrated. Pt is able to return demonstration Exercise - 60-day Assessment Physician Prescribed Exercise Modalities: Treadmill, Schwinn Airdyne AD-7 and SciFit Stepper Exercise - 90-day Assessment Physician Prescribed Exercise Modalities: Treadmill, Schwinn Airdyne AD-7 and SciFit Stepper Exercise - Final/Discharge Physician Prescribed Exercise Modalities: Treadmill, Schwinn Airdyne AD-7 and SciFit Stepper Nutrition - 30-Day Assessment Program Goals Nutrition Program Goals Patient has diagnosis of Hyperlipidemia (ICD E78)?: Yes Visit Date of Eval: 08/08/24 Session #:: 11 Cholesterol/Lipids (Other Core Measures) Determine presence & major risk factors that modify LDL goal: Cigarette smoking, Hypertension or hypertensive medication, Low HDL cholesterol <40 mg/dL*, Family history of premature CHD in Male < 55 years: female <65 yearsFa and Age men > 45 years; women >/= 55 years Outcomes/Goals: Pt IDs own risk factors & lifestyle modifications by Session 10, Verbalizes symptoms of angina & response by session 3., Pt independently manages and Other Additional Outcomes/Goals: Intervention/Plan: Advocate for lipid panel cholesterol medication if applicable, Instruct on personal lipid levels & lipid goals/NCEP guidelines, Instruct on cholesterol and Other additional plan/int 30-day Reassessments:: Progressing Reassessment Notes & Comments:: Risk factors explained. Pt understands Diabetes (Other Core Measures) Diabetes Type: Diagnosis Type II ICD-10 E11 Insulin dependent injection/pump?: No Non-Insulin Dependent?: Yes Do you monitor your blood sugar at home?: Yes Referral to Diabetic Clinic:: No 30-day Reassessments:: Met Reassessment Notes & Comments:: pt manages sugars with primary care Weight Mgt (Other Care) Height: 5 ft 1 in Weight:: 169 lb BMI: 31.9 Diagnosis Overweight/Obesity BMI> 30% ICD-10 E66: Yes Diagnosis High BMI/Morbid Obesity BMI> 35% ICD-10 Z68: No Outcomes/Goals: Pt sets, maintains & shows weight loss goal & trend during rehab and Other additional outcomes/goals Intervention/Plan: Instruct on ideal BMI & set weight loss goal w/patient, Assist pt to ID & incorporate diet changes for weight loss by S9, Refer to Structured Weight Loss program as appropriate, Encourage goal of using 250-300dcal per session for weight loss and Other additional plan/interventions 30 day Reassessments:: Progressing Reassessment Notes & Comments:: pt has lost 2 lbs Healthy Eating Habits Will attend diet classes:: Yes Outcomes/Goals:: Consume diet rich in vegs,fruits,whole grain/high fiber,fish,lean meat, Limit sat/trans fats,cholesterol & added salts & sugars and Other additional outcome/goals: Intervention/Plan:: Assess current eating habits and Other Additional plan/interventions 30-day Reassessments:: Progressing Reassessment Notes & Comments:: pt will be attending nutrition class Education Gave educational materials for:: Signs & symptoms of hypoglycemia, Signs & symptoms of hyperglycemia, Relate diabetes to coronary artery disease and Healthy eating Nutrition - 60-Day Assessment Weight Mgt (Other Care) Height: 5 ft 1 in Weight:: 169 lb BMI: 31.9 Core - 30-Day Assessment Visit Date of Amanda: 08/08/24 Session #:: 11 Medication Compliance Preventative Medication(s):: Aspirin, Ticagrelor/P2Y12 inhibitor, Statin/lipid and Beta jayson H/O mental health issues: depression, anxiety, or addiction?: Yes Doesn?t believe in the benefits of treatment?: No Believes medications are unnecessary or harmful?: No Has a concern about medication side effects?: No Expresses concern over the cost of medications?: No Outcomes/Goals: Verbalizes medications,desired effect & common side effects @ DC, Pt self-reports following medication regimen, Keeps card in wallet w/medications listed by DC and Other additional outcome/goals: Interventions/plans: Instruct on medication effects & side effects, Review medication list w/patient every two weeks, Instruct importance of taking meds as ordered & assist problem solving and Other additional 30-day Reassessments:: Progressing Reassessment Notes & Comments:: pt is decreasing her smoking and trying to quit. will encourages smoking cessation class Tobacco Use Tobacco Use: Cigarettes Years Smokin Do you use smokeless tobacco?: No Outcomes/Goals: Smoking cessation achieved or maintained by discharge, Identify aids/strategies for achieving smoking cessation by session 6 and Other additional outcome/goals Interventions/plan: Instruct on effects of smoking & provide smoking cessation resource, Assist pt to set quit date & provide encouragement, Assist pt to develop strategies to achieve/maintain quit date, Assist pt w/nicotine replacement & medication for cessation success and Other additional plan/interventions 30-day Reassessments:: Progressing Reassessment Notes & Comments:: pt is decreasing her smoking and trying to quit. will encourages smoking cessation class Hypertension Hypertension Diagnosis:: Hypertension ICD-10 I10 Resting Blood Pressure:: 108/62 [place] [employer] Hypertension Guidelines Peak Exercise Blood Pressure:: 112/60 Outcomes/Goals: Able to verbalize/achieve optimal blood pressure <130/80, Incorporates diet changes & exercise for blood pressure control by DC and Other additional outcomes/goals Interventions/plan: Instruct on optimal blood pressure, hypertension & medications, Instruct on effects of sodium, alcohol, stress, exercise &hypertension and Other additional plan/interventions 30 day Reassessments:: Met Reassessment Notes & Comments:: bp's are within AHA normal limits. Will continue to monitor and notify physician if necessary Tobacco Cessation Referral Smoking Cessation Referral:: No Individual Education/Counseling:: No Education Schedule Given:: Yes Psychosocial - 30-Day Assess VIsit Date of Eval: 08/08/24 Session #:: 11 History of previous Mental disease:: Yes History of Emotional Disorders: Depression Target Goals Target Goals Psychosocial Test Tool Used:: [employer] QOL Cardiac and PHQ-9 Questionnaire phq-9 Severity Referral to Behavioral Health PS - Interventions: Yes: Attend Stress Management Classes Outcomes/Goals: See list Psychosocial Outcomes/Goals:: ID's personal stressors & 2 strategies to manage stress by discharge and Other Additional outcome/goals: Intervention/Plan: See List Interventions/Plan:: Assess stressors,coping strategies & signs of derpression on admission, Instruct/assist pt to develop coping & personal stress Mgt strategies, Refer to Behavioral Health if appropriate, Refer to Physician if appropriate, Instruct patient to recognize signs & symptoms of depression, Instruct patient to recog and Other additional plan/intervention 30-day Reassessments: 30 day Reassessments:: Progressing Reassessment Notes & Comments:: pt is currently doing well Psychosocial - 60-Day Assess Target Goals Target Goals Referral to Behavioral Health PS - Interventions: Yes: Attend Stress Management Classes Outcomes/Goals: See list Psychosocial Outcomes/Goals:: ID's personal stressors & 2 strategies to manage stress by discharge and Other Additional outcome/goals: Psychosocial - 90-Day Assess Target Goals Target Goals Referral to Behavioral Health PS - Interventions: Yes: Attend Stress Management Classes Psychosocial - Final Assessmen Target Goals Target Goals Referral to Behavioral Health PS - Interventions: Yes: Attend Stress Management Classes Nutrition - 90-Day Assessment Weight Mgt (Other Care) Height: 5 ft 1 in Weight:: 169 lb BMI: 31.9 Nutrition - Final Assessment Weight Mgt (Other Care) Height: 5 ft 1 in Weight:: 169 lb BMI: 31.9
[2024-08-08 07:16] VITALS: BP 108/62
[2024-08-08 07:29] VITALS: BP 108/62; BMI 31.9
== END 2024-08-28 23:59 ==
LOC: CR 08:00
PROVIDERS: PCP Family Medicine; Referring Provider Specialist; Visit Provider Specialist
DX: I25.10 Atherosclerotic heart disease of native coronary artery without angina pectoris (principal); I21.4 Non-ST elevation (NSTEMI) myocardial infarction; Z95.5 Presence of coronary angioplasty implant and graft
CPT/HCPCS: 93798

== ENCOUNTER → 2024-09-02 | Outpatient (CLI) | payer MEDICARE, OTHER, SELFPAY ==
[2024-08-08 07:29] VITALS: BMI 31.9
--- NOTE | 2024-09-02 15:56 | RAD_ITS ---
STUDY: X-RAY - ABDOMEN/PELVIS REASON FOR EXAM: Female, 64 years old. PAIN, CONSTIPATION TECHNIQUE: AP supine and upright views of the abdomen and pelvis. COMPARISON: None. FINDINGS: Normal visualized lung bases. There is an unremarkable bowel gas pattern. There is no demonstrated free abdominal air. The visualized liver, spleen and kidneys are grossly normal in size and morphology. Normal soft tissue structures. Normal visualized osseous structures. RAD/Abd Inc Decub and/or Erect IMPRESSION: Normal x-ray examination of the abdomen and pelvis. Electronically Signed: Red Berumen MD at 12:32 EST ,
[2024-09-02 18:30] LABS: CRP < 2.90 mg/L (0.0-3.0)
[2024-09-04 16:10] LABS: Endomysial Antibody IgA Negative (Negative); Immunoglobulin A 77 mg/dL (87-352); t-Transglutaminase IgA <2 U/mL (0-3)
== END | disposition home or self-care (01) ==
LOC: MTLAB 15:54
PROVIDERS: PCP Family Medicine; Referring Provider Internal Medicine Gastroenterology; Visit Provider Internal Medicine Gastroenterology
DX: R10.9 Unspecified abdominal pain (principal); K59.00 Constipation, unspecified; R19.7 Diarrhea, unspecified
CPT/HCPCS: 36415; 74019; 82784; 83516; 86140; 86255

== ENCOUNTER 2024-09-24 08:00 | Outpatient (RCR) | payer MEDICARE, OTHER, SELFPAY ==
[2024-08-08 07:29] VITALS: BMI 31.9
[2024-08-29 00:47] VITALS: BP 108/62
--- NOTE | 2024-09-08 07:14 | CR.ITP_ITS ---
Exercise - Initial Assessment Physician Prescribed Exercise Modalities: Treadmill, Schwinn Airdyne AD-7 and SciFit Stepper Nutrition - Initial Assessment Weight Mgt (Other Care) Height: 5 ft 1 in Weight:: 172 lb BMI: 32.5 Core - Initial Assessment Hypertension Resting Blood Pressure:: 116/76 [place] [employer] Hypertension Guidelines Psychosocial - Initial Assess Target Goals Target Goals Referral to Behavioral Health PS - Interventions: Yes: Attend Stress Management Classes Patient Health Questionnaire PHQ-9 Screening 60-Day Re-eval Assessment: 1. Little interest or pleasure in doing things: Not at all 2. Feeling down, depressed, or hopeless: Not at all 3. Trouble falling or staying asleep, or sleeping too much: Not at all 4. Feeling tired or having little energy: Not at all 5. Poor appetite or overeating: Not at all 6. Feeling bad about yourself -- or that you are a failure or have let yourself or your family down: Not at all 7. Trouble concentrating on things, such as reading the newspaper or watching television: Not at all 8. Moving or speaking so slowly that other people could have noticed. Or the opposite - being so fidgety or restless that you have been moving around a lot more than usual: Not at all 9. Thoughts that you would be better off , or of hurting yourself in some way: Not at all How difficult have these problems made it for you to do your work, take care of things at home, or get along with other people?: Not difficult at all Total Score: 0 Self-Efficacy 6-Item Scale 60-Day Re-eval Assessment: We would like to know how confident you are in doing certain activities. Please select your confidence level for: Fatigue Select Number: 9 Physical Discomfort or Pain Select Number: 9 Emotional Distress Select Number: 8 Other Symptoms or Health Problems Select Number: 8 Different Tasks and Activities Select Number: 9 Medication Select Number: 9 Total Score:: 8 Nutrition Survey Nutrition Survey Instructions Scoring Instructions Exercise - 30-day Assessment Physician Prescribed Exercise Modalities: Treadmill, Schwinn Airdyne AD-7 and SciFit Stepper Exercise - 60-day Assessment Visit Date of Eval: 09/08/24 Session #:: 23 Physician Prescribed Exercise Modalities: Treadmill, Schwinn Airdyne AD-7 and SciFit Stepper Frequency: 3x/week for 12 weeks [36 sessions] Intensity: 60-80% of age predicted maximum heart rate reserve Duration: 30 - 45 minutes Current METSs:: 5.2 Target Heart Rate:: 92-115 Current RPE:: 12 Maximum Excercise HR:: 97 Resting Blood Pressure: 122/74 Maximum Exercise Blood Pressure: 128/68 EKG Type: NSR with rare pac Outcomes & Goals Goals:: Verbalizes understanding of THR, RPE & goal METS by session 6, Documents in home exercise log/reports 30 min aerobic 5 day/wk by DC, Demonstrates accurate pulse taking by DC and Other additional outcome/goals: see below Intervention & Plan Exercise Program Goals: Instruct on personal THR & RPE, Instruct on MET level & personal MET goal, Show patient to take own pulse /validate performance until accurate, Instruct on home exercise and Other additional plan/int 30-day Reassessments 30 day Reassessments:: Met Reassessment Notes & Comments:: Pt has been able to increase her exercise intensity. Pt demonstrates knowledge of safe exercise. Physical Activity Home Exercise Physical Activity - Home Exercise: Safe Exercise, Warm-up, Self-monitoring, Cool-Down, Home Exercise > 30 min Daily and Sitting Time <3 hours/daily Outcomes & Goals Outcomes/Goals: Demonstrates correct Warm-up/exercise Cool-Down (S3) if = 2.5 METs, Verbalizes symptoms of exercise intolerance by Session 3 (S3), Demonstrate safe equipment use (S3) & follows exercise prescrition (6) and Other: See below Intervention & Plan Plan/Intervention: Instruct warm-up & cool-down if exercising at > 2 METs, Instruct on symptoms of exercise intolerance & actions to take, Instruct & monitor on saf, Assess intial functional capacity & safety risk and Other See below 30-day Reassessments 30 day Reassessments:: Met Reassessment Notes & Comments:: Pt demonstrates knowledge of proper warm up, cool down, and safe exercise. Exercise - 90-day Assessment Physician Prescribed Exercise Modalities: Treadmill, Schwinn Airdyne AD-7 and SciFit Stepper Exercise - Final/Discharge Physician Prescribed Exercise Modalities: Treadmill, Schwinn Airdyne AD-7 and SciFit Stepper Nutrition - 30-Day Assessment Weight Mgt (Other Care) Height: 5 ft 1 in Weight:: 172 lb BMI: 32.5 Nutrition - 60-Day Assessment Program Goals Nutrition Program Goals Patient has diagnosis of Hyperlipidemia (ICD E78)?: Yes Visit Date of Eval: 09/08/24 Session #:: 23 Cholesterol/Lipids (Other Core Measures) Determine presence & major risk factors that modify LDL goal: Cigarette smoking, Hypertension or hypertensive medication, Low HDL cholesterol <40 mg/dL*, Family history of premature CHD in Male < 55 years: female <65 yearsFa and Age men > 45 years; women >/= 55 years Outcomes/Goals: Pt IDs own risk factors & lifestyle modifications by Session 10, Verbalizes symptoms of angina & response by session 3., Pt independently manages and Other Additional Outcomes/Goals: Intervention/Plan: Advocate for lipid panel cholesterol medication if applicable, Instruct on personal lipid levels & lipid goals/NCEP guidelines, Instruct on cholesterol and Other additional plan/int 30-day Reassessments:: Progressing Reassessment Notes & Comments:: Risk factors discussed. Pt demonstrates knowledge on minimizing risk factors. Diabetes (Other Core Measures) Diabetes Type: Diagnosis Type II ICD-10 E11 Insulin dependent injection/pump?: No Non-Insulin Dependent?: Yes Do you monitor your blood sugar at home?: Yes Referral to Diabetic Clinic:: No 30-day Reassessments:: Met Reassessment Notes & Comments:: pt manages BS with PCP Weight Mgt (Other Care) Height: 5 ft 1 in Weight:: 172 lb BMI: 32.5 Diagnosis Overweight/Obesity BMI> 30% ICD-10 E66: Yes Diagnosis High BMI/Morbid Obesity BMI> 35% ICD-10 Z68: No Outcomes/Goals: Pt sets, maintains & shows weight loss goal & trend during rehab and Other additional outcomes/goals Intervention/Plan: Instruct on ideal BMI & set weight loss goal w/patient, Assist pt to ID & incorporate diet changes for weight loss by S9, Refer to Structured Weight Loss program as appropriate, Encourage goal of using 250- 300dcal per session for weight loss and Other additional plan/interventions 30 day Reassessments:: Progressing Reassessment Notes & Comments:: Pt has attended nutrition class. Pt is encouraged to keep a food log. Healthy Eating Habits Will attend diet classes:: Yes Outcomes/Goals:: Consume diet rich in vegs,fruits,whole grain/high fiber,fish,lean meat, Limit sat/trans fats,cholesterol & added salts & sugars and Other additional outcome/goals: Intervention/Plan:: Assess current eating habits and Other Additional plan/interventions 30-day Reassessments:: Met Reassessment Notes & Comments:: pt has attended nutrition class. Pt demonstrates knowledge of a healthy diet. Education Gave educational materials for:: Signs & symptoms of hypoglycemia, Signs & symptoms of hyperglycemia, Relate diabetes to coronary artery disease and Healthy eating Core - Final Assessment Tobacco Use Years Smokin Hypertension Resting Blood Pressure:: 116/76 [place] [employer] Hypertension Guidelines Core - 60-Day Assessment Medication Compliance Preventative Medication(s):: Aspirin, Ticagrelor/P2Y12 inhibitor, Statin/lipid and Beta jayson H/O mental health issues: depression, anxiety, or addiction?: Yes Doesn?t believe in the benefits of treatment?: No Believes medications are unnecessary or harmful?: No Has a concern about medication side effects?: No Expresses concern over the cost of medications?: No Outcomes/Goals: Verbalizes medications,desired effect & common side effects @ DC, Pt self-reports following medication regimen, Keeps card in wallet w/medications listed by DC and Other additional outcome/goals: Interventions/plans: Instruct on medication effects & side effects, Review medication list w/patient every two weeks, Instruct importance of taking meds as ordered & assist problem solving and Other additional 30-day Reassessments:: Progressing Reassessment Notes & Comments:: Pt is decreasing her smoking and trying to quit. Will discuss smoking cessation class with pt. Tobacco Use Tobacco Use: Cigarettes Years Smokin Do you use smokeless tobacco?: No Outcomes/Goals: Smoking cessation achieved or maintained by discharge, Identify aids/strategies for achieving smoking cessation by session 6 and Other additional outcome/goals Interventions/plan: Instruct on effects of smoking & provide smoking cessation resource, Assist pt to set quit date & provide encouragement, Assist pt to develop strategies to achieve/maintain quit date, Assist pt w/nicotine replacement & medication for cessation success and Other additional plan/interventions 30-day Reassessments:: Progressing Reassessment Notes & Comments:: Pt is decreasing her smoking and trying to quit. Will discuss smoking cessation class with pt. Hypertension Hypertension Diagnosis:: Hypertension ICD-10 I10 Resting Blood Pressure:: 122/74 Resting Blood Pressure:: 116/76 [place] [employer] Hypertension Guidelines Peak Exercise Blood Pressure:: 128/68 Outcomes/Goals: Able to verbalize/achieve optimal blood pressure <130/80, Incorporates diet changes & exercise for blood pressure control by DC and Other additional outcomes/goals Interventions/plan: Instruct on optimal blood pressure, hypertension & medications, Instruct on effects of sodium, alcohol, stress, exercise &hypertension and Other additional plan/interventions 30 day Reassessments:: Met Reassessment Notes & Comments:: bp's are within AHA normal limits Tobacco Cessation Referral Individual Education/Counseling:: Yes Education Schedule Given:: Yes Psychosocial - 30-Day Assess Target Goals Target Goals Referral to Behavioral Health PS - Interventions: Yes: Attend Stress Management Classes Outcomes/Goals: See list Psychosocial Outcomes/Goals:: ID's personal stressors & 2 strategies to manage stress by discharge and Other Additional outcome/goals: Psychosocial - 60-Day Assess VIsit Date of Eval: 09/08/24 History of previous Mental disease:: Yes History of Emotional Disorders: Depression Target Goals Target Goals Psychosocial Test Tool Used:: [employer] QOL Cardiac and PHQ-9 Questionnaire phq-9 Severity Referral to Behavioral Health PS - Interventions: Yes: Attend Stress Management Classes Outcomes/Goals: See list Psychosocial Outcomes/Goals:: ID's personal stressors & 2 strategies to manage stress by discharge and Other Additional outcome/goals: Intervention/Plan: See List Interventions/Plan:: Assess stressors,coping strategies & signs of derpression on admission, Instruct/assist pt to develop coping & personal stress Mgt strategies, Refer to Behavioral Health if appropriate, Refer to Physician if appropriate, Instruct patient to recognize signs & symptoms of depression, Instruct patient to recog and Other additional plan/intervention 30-day Reassessments: 30 day Reassessments:: Progressing Reassessment Notes & Comments:: Pt is doing well at this time. Psychosocial - 90-Day Assess Target Goals Target Goals Referral to Behavioral Health PS - Interventions: Yes: Attend Stress Management Classes Psychosocial - Final Assessmen Target Goals Target Goals Referral to Behavioral Health PS - Interventions: Yes: Attend Stress Management Classes Nutrition - 90-Day Assessment Weight Mgt (Other Care) Height: 5 ft 1 in Weight:: 172 lb BMI: 32.5 Nutrition - Final Assessment Weight Mgt (Other Care) Height: 5 ft 1 in Weight:: 172 lb BMI: 32.5
[2024-09-08 07:27] VITALS: BP 116/76; BP 122/74; BMI 32.5
== END 2024-09-27 23:59 ==
LOC: CR 08:00
PROVIDERS: PCP Family Medicine; Referring Provider Specialist; Visit Provider Specialist
DX: I21.4 Non-ST elevation (NSTEMI) myocardial infarction (principal); I25.10 Atherosclerotic heart disease of native coronary artery without angina pectoris; Z95.5 Presence of coronary angioplasty implant and graft
CPT/HCPCS: 93798

== ENCOUNTER → 2024-10-06 | Outpatient (CLI) | payer MEDICARE, OTHER, SELFPAY ==
[2024-08-08 07:29] VITALS: BMI 31.9
[2024-09-08 07:27] VITALS: BMI 32.5
--- NOTE | 2024-10-06 12:55 | CT_ITS ---
STUDY: LOW DOSE CT LUNG CANCER SCREENING REASON FOR EXAM: Female, 64 years old. smoker RADIATION DOSAGE (If Supplied By Facility): CTDIvol = ( 3.02 ) mGy, DLP = ( 98.55 ) mGycm TECHNIQUE: No contrast was administered. Low dose technique was utilized (average mAS-38 and kVp 120). 1.25 mm axial source images with a slice interval of 1.25-mm were reconstructed in lung windows. 2.5 mm axial source images with a slice interval of 2.5-mm were reconstructed in lung windows. 5.0 mm axial source images with a slice interval of 5.0-mm were reconstructed in soft tissue windows. COMPARISON: Prior study dated: 10/03/2023 Total lung nodules (excluding granulomas): 0 Emphysema: Mild Endobronchial lesion: None Aorta: Normal caliber. CORONARY ARTERIES: Coronary artery calcification is seen. Heart: Normal heart size. No pericardial effusion. Pulmonary artery: Normal caliber. Mediastinal nodes: No mediastinal lymphadenopathy. Other chest and abdominal findings: Redemonstration of the calcified left lower lobe granuloma. No consolidation. CT/Low Dose CT Lung Screening IMPRESSION: Lung-RADS category 1 - Continue annual screening with LDCT in 12 months. IMPORTANT NOTES FOR USE: ACR Lung-RADS Version 1.1 Assessment Categories Release Date: 2018 Category: Coded 0-4 bases on nodule(s) with highest degree of suspicion. Negative screen is defined as categories 1 and 2; a positive screen is defined as categories 3 and 4. Category 3 and 4A nodules that are unchanged on interval CT should be coded as category 2, and individuals returned to screening in 12 months. Category 4X: Category 3 or 4 nodules with additional imaging findings that increase the suspicion of lung cancer, such as spiculation, GGN that doubles in size in 1 year, enlarged lymph notes, etc. Category Modifiers: S (significant finding unrelated to lung cancer) Electronically Signed: Nolan Infante MD at 20:34 EST ,
== END | disposition home or self-care (01) ==
LOC: CT 12:51
PROVIDERS: PCP Family Medicine; Referring Provider Nurse Practitioner Acute Care; Visit Provider Nurse Practitioner Acute Care
DX: F17.210 Nicotine dependence, cigarettes, uncomplicated (principal)
CPT/HCPCS: 71271

== ENCOUNTER 2024-10-08 08:00 | Outpatient (RCR) | payer MEDICARE, OTHER, SELFPAY ==
[2024-09-08 07:27] VITALS: BMI 32.5
[2024-09-28 00:51] VITALS: BP 108/62; BP 116/76; BP 122/74
--- NOTE | 2024-10-08 07:11 | PCM.CR.ITP ---
Exercise - Initial Assessment Physician Prescribed Exercise Modalities: Treadmill, Schwinn Airdyne AD-7 and SciFit Stepper Nutrition - Initial Assessment Weight Mgt (Other Care) Height: 5 ft 1 in Weight:: 171 lb BMI: 32.3 Psychosocial - Initial Assess Target Goals Target Goals Referral to Behavioral Health PS - Interventions: Yes: Attend Stress Management Classes Patient Health Questionnaire PHQ-9 Screening 90-Day Re-eval Assessment: 1. Little interest or pleasure in doing things: Not at all 2. Feeling down, depressed, or hopeless: Not at all 3. Trouble falling or staying asleep, or sleeping too much: Not at all 4. Feeling tired or having little energy: Not at all 5. Poor appetite or overeating: Not at all 6. Feeling bad about yourself -- or that you are a failure or have let yourself or your family down: Not at all 7. Trouble concentrating on things, such as reading the newspaper or watching television: Not at all 8. Moving or speaking so slowly that other people could have noticed. Or the opposite - being so fidgety or restless that you have been moving around a lot more than usual: Not at all 9. Thoughts that you would be better off , or of hurting yourself in some way: Not at all How difficult have these problems made it for you to do your work, take care of things at home, or get along with other people?: Not difficult at all Total Score: 0 Self-Efficacy 6-Item Scale 90-Day Re-eval Assessment: We would like to know how confident you are in doing certain activities. Please select your confidence level for: Fatigue Select Number: 9 Physical Discomfort or Pain Select Number: 9 Emotional Distress Select Number: 8 Other Symptoms or Health Problems Select Number: 8 Different Tasks and Activities Select Number: 9 Medication Select Number: 9 Total Score:: 8 Nutrition Survey Nutrition Survey Instructions Scoring Instructions Exercise - 30-day Assessment Physician Prescribed Exercise Modalities: Treadmill, Schwinn Airdyne AD-7 and SciFit Stepper Exercise - 60-day Assessment Physician Prescribed Exercise Modalities: Treadmill, Schwinn Airdyne AD-7 and SciFit Stepper Exercise - 90-day Assessment Visit Date of Eval: 10/08/24 Session #:: 35 Physician Prescribed Exercise Modalities: Treadmill, Schwinn Airdyne AD-7 and SciFit Stepper Frequency: 3x/week for 12 weeks [36 sessions] Intensity: 60-80% of age predicted maximum heart rate reserve Duration: 30 - 45 minutes Current METSs:: 5.2 Target Heart Rate:: 92-123 Current RPE:: 12-13 Maximum Excercise HR:: 106 Resting Blood Pressure: 120/66 Maximum Exercise Blood Pressure: 132/82 EKG Type: NSR to ST with rare PAC Outcomes & Goals Goals:: Verbalizes understanding of THR, RPE & goal METS by session 6, Documents in home exercise log/reports 30 min aerobic 5 day/wk by DC, Demonstrates accurate pulse taking by DC and Other additional outcome/goals: see below Intervention & Plan Exercise Program Goals: Instruct on personal THR & RPE, Instruct on MET level & personal MET goal, Show patient to take own pulse /validate performance until accurate, Instruct on home exercise and Other additional plan/int 30-day Reassessments 30 day Reassessments:: Met (Phas met her exercise goals. Pt plans to continue to exercise at her local gym. Pt given her current heart rates and exercise workloads.) Physical Activity Home Exercise Physical Activity - Home Exercise: Safe Exercise, Warm-up, Self-monitoring, Cool-Down, Home Exercise > 30 min Daily and Sitting Time <3 hours/daily Outcomes & Goals Outcomes/Goals: Demonstrates correct Warm-up/exercise Cool-Down (S3) if = 2.5 METs, Verbalizes symptoms of exercise intolerance by Session 3 (S3), Demonstrate safe equipment use (S3) & follows exercise prescrition (6) and Other: See below Intervention & Plan Plan/Intervention: Instruct warm-up & cool-down if exercising at > 2 METs, Instruct on symptoms of exercise intolerance & actions to take, Instruct & monitor on saf, Assess intial functional capacity & safety risk and Other See below 30-day Reassessments 30 day Reassessments:: Met Reassessment Notes & Comments:: Pt is ready to exercise on her own. Pt understands how to self monitor and exercise safely. Exercise - Final/Discharge Physician Prescribed Exercise Modalities: Treadmill, Schwinn Airdyne AD-7 and SciFit Stepper Nutrition - 30-Day Assessment Weight Mgt (Other Care) Height: 5 ft 1 in Weight:: 171 lb BMI: 32.3 Nutrition - 60-Day Assessment Weight Mgt (Other Care) Height: 5 ft 1 in Weight:: 171 lb BMI: 32.3 Core - 30-Day Assessment Hypertension [employer] Hypertension Guidelines Reassessment Notes & Comments:: Pt's BP's are within AHA normal limits. Core - Final Assessment Hypertension [employer] Hypertension Guidelines Reassessment Notes & Comments:: Pt's BP's are within AHA normal limits. Core - 90 Day Assessment Visit Date of Eval: 10/08/24 Session #:: 35 Medication Compliance Preventative Medication(s):: Aspirin, Ticagrelor/P2Y12 inhibitor, Statin/lipid and Beta jayson H/O mental health issues: depression, anxiety, or addiction?: Yes Doesn?t believe in the benefits of treatment?: No Believes medications are unnecessary or harmful?: No Has a concern about medication side effects?: No Expresses concern over the cost of medications?: No Outcomes/Goals: Verbalizes medications,desired effect & common side effects @ DC, Pt self-reports following medication regimen, Keeps card in wallet w/medications listed by DC and Other additional outcome/goals: Interventions/plans: Instruct on medication effects & side effects, Review medication list w/patient every two weeks, Instruct importance of taking meds as ordered & assist problem solving and Other additional 30-day Reassessments:: Met Reassessment Notes & Comments:: Pt i staking her meds as prescribed Tobacco Use Tobacco Use: Cigarettes Years Smokin Outcomes/Goals: Smoking cessation achieved or maintained by discharge, Identify aids/strategies for achieving smoking cessation by session 6 and Other additional outcome/goals Interventions/plan: Instruct on effects of smoking & provide smoking cessation resource, Assist pt to set quit date & provide encouragement, Assist pt to develop strategies to achieve/maintain quit date, Assist pt w/nicotine replacement & medication for cessation success and Other additional plan/interventions 30-day Reassessments:: Progressing Reassessment Notes & Comments:: Pt has reduced her smoking significantly. Encourage smoking cessation. Hypertension Hypertension Diagnosis:: Hypertension ICD-10 I10 Resting Blood Pressure:: 120/66 [employer] Hypertension Guidelines Peak Exercise Blood Pressure:: 132/82 Outcomes/Goals: Able to verbalize/achieve optimal blood pressure <130/80, Incorporates diet changes & exercise for blood pressure control by DC and Other additional outcomes/goals Interventions/plan: Instruct on optimal blood pressure, hypertension & medications, Instruct on effects of sodium, alcohol, stress, exercise &hypertension and Other additional plan/interventions 30 day Reassessments:: Met Reassessment Notes & Comments:: Pt's BP's are within AHA normal limits. Tobacco Cessation Referral Smoking Cessation Referral:: No (declines) Individual Education/Counseling:: No Education Schedule Given:: Yes Psychosocial - 30-Day Assess Target Goals Target Goals Referral to Behavioral Health PS - Interventions: Yes: Attend Stress Management Classes Psychosocial - 60-Day Assess Target Goals Target Goals Referral to Behavioral Health PS - Interventions: Yes: Attend Stress Management Classes Psychosocial - 90-Day Assess VIsit Date of Eval: 10/08/24 Session #:: 35 History of previous Mental disease:: Yes History of Emotional Disorders: Depression (Pt is currently doing well) Target Goals Target Goals Psychosocial Test Tool Used:: [employer] QOL Cardiac and PHQ-9 Questionnaire phq-9 Severity Referral to Behavioral Health PS - Interventions: Yes: Attend Stress Management Classes Outcomes/Goals: See list Psychosocial Outcomes/Goals:: ID's personal stressors & 2 strategies to manage stress by discharge and Other Additional outcome/goals: Intervention/Plan: See List Interventions/Plan:: Assess stressors,coping strategies & signs of derpression on admission, Instruct/assist pt to develop coping & personal stress Mgt strategies, Refer to Behavioral Health if appropriate, Refer to Physician if appropriate, Instruct patient to recognize signs & symptoms of depression, Instruct patient to recog and Other additional plan/intervention 30-day Reassessments: 30 day Reassessments:: Progressing Reassessment Notes & Comments:: Pt is currently doing well Psychosocial - Final Assessmen Target Goals Target Goals Referral to Behavioral Health PS - Interventions: Yes: Attend Stress Management Classes Nutrition - 90-Day Assessment Program Goals Nutrition Program Goals Patient has diagnosis of Hyperlipidemia (ICD E78)?: Yes Visit Date of Eval: 10/08/24 Session #:: 35 Cholesterol/Lipids (Other Core Measures) Determine presence & major risk factors that modify LDL goal: Cigarette smoking, Hypertension or hypertensive medication, Low HDL cholesterol <40 mg/dL*, Family history of premature CHD in Male < 55 years: female <65 yearsFa and Age men > 45 years; women >/= 55 years Outcomes/Goals: Pt IDs own risk factors & lifestyle modifications by Session 10, Verbalizes symptoms of angina & response by session 3., Pt independently manages and Other Additional Outcomes/Goals: Intervention/Plan: Advocate for lipid panel cholesterol medication if applicable, Instruct on personal lipid levels & lipid goals/NCEP guidelines, Instruct on cholesterol and Other additional plan/int 30-day Reassessments:: Met Reassessment Notes & Comments:: Pt understands her risk factors and how to minimize her risk factors. Diabetes (Other Core Measures) Diabetes Type: Diagnosis Type II ICD-10 E11 Insulin dependent injection/pump?: No Non-Insulin Dependent?: Yes Do you monitor your blood sugar at home?: Yes Referral to Diabetic Clinic:: No 30-day Reassessments:: Met Reassessment Notes & Comments:: Pt manages her BS with her PCP and is doing well Weight Mgt (Other Care) Height: 5 ft 1 in Weight:: 171 lb BMI: 32.3 Diagnosis Overweight/Obesity BMI> 30% ICD-10 E66: Yes Diagnosis High BMI/Morbid Obesity BMI> 35% ICD-10 Z68: No Outcomes/Goals: Pt sets, maintains & shows weight loss goal & trend during rehab and Other additional outcomes/goals Intervention/Plan: Instruct on ideal BMI & set weight loss goal w/patient, Assist pt to ID & incorporate diet changes for weight loss by S9, Refer to Structured Weight Loss program as appropriate, Encourage goal of using 250-300dcal per session for weight loss and Other additional plan/interventions 30 day Reassessments:: Progressing Reassessment Notes & Comments:: Pt has attended nutrition class. Pt is still working to her desired weight goal. Pt encourages to keep a food log. Healthy Eating Habits Will attend diet classes:: Yes Outcomes/Goals:: Consume diet rich in vegs,fruits,whole grain/high fiber,fish,lean meat, Limit sat/trans fats,cholesterol & added salts & sugars and Other additional outcome/goals: Intervention/Plan:: Assess current eating habits and Other Additional plan/interventions 30-day Reassessments:: Met Reassessment Notes & Comments:: Pt has attended nutrition class and understands the benefits of a heart healthy diet. Education Gave educational materials for:: Signs & symptoms of hypoglycemia, Signs & symptoms of hyperglycemia, Relate diabetes to coronary artery disease and Healthy eating Nutrition - Final Assessment Weight Mgt (Other Care) Height: 5 ft 1 in Weight:: 171 lb BMI: 32.3
[2024-10-08 07:25] VITALS: BP 120/66; BMI 32.3
== END 2024-10-28 23:59 ==
LOC: CR 08:00
PROVIDERS: PCP Family Medicine; Referring Provider Specialist; Visit Provider Specialist
DX: I21.4 Non-ST elevation (NSTEMI) myocardial infarction (principal); I25.10 Atherosclerotic heart disease of native coronary artery without angina pectoris; Z95.5 Presence of coronary angioplasty implant and graft
CPT/HCPCS: 93798

== ENCOUNTER 2024-10-28 08:00 | Outpatient (RCR) | payer SELFPAY | END 2024-10-28 23:59 | LOC: CR 08:00 | PROVIDERS: PCP Family Medicine; Referring Provider Specialist; Visit Provider Specialist | DX: Z00.00 Encounter for general adult medical examination without abnormal findings (principal) ==

== ENCOUNTER → 2024-11-04 | Outpatient (CLI) | payer MEDICARE, OTHER, SELFPAY ==
[2024-11-04 13:24] VITALS: BMI 32.3
[2024-11-04 15:24] LABS: Absolute Lymphocyte Count 2.05 X10^3/uL (0.83-4.51); Absolute Neutrophil Count 8.7 X10^3/uL (2.0-7.7); Basophil% 0.8 % (0-1); Eosinophil# 0.18 X10^3/uL; Eosinophils% 1.5 % (0-5); Hematocrit 43.7 % (37-47); Hemoglobin 14.3 g/dL (12.0-15.0); Lymphocyte # 2.05 X10^3/ul (0.83-4.51); Lymphocyte % 17.2 % (19-41); Mean Corp Hgb Conc 32.7 g/dL (32-36); Mean Corpuscular Hgb 30.4 pg (27.0-32.0); Mean Corpuscular Volume 92.8 fL (81-99); Mean Platelet Vol. 10.4 fl (6.2-12.0); Monocyte# 0.82 X10^3/uL; Monocyte% 6.9 % (0-10); NRBC Flagged by Analyzer 0 % (0-5); Neutrophil # 8.72 X10^3/uL (2.7-7.7); Neutrophil % 73.3 % (47-70); Platelet Count 305 K/mm3 (150-450); RBC Distribution Width CV 13.8 % (11.6-14.6); Red Blood Count 4.71 M/mm3 (4.2-5.4); White Blood Count 11.9 K/mm3 (4.4-11.0)
[2024-11-04 16:11] LABS: Microalbumin,Random Urine 20.6 mg/L (NO RANGE EST.); Microalbumin:Creatinine Ratio 7.5 mg/g CRE (<30 mg/g CRE)
[2024-11-04 16:34] LABS: Hemoglobin A1c 6.3 % (3.8-5.6)
[2024-11-04 19:16] LABS: ALB/GLOB Ratio 1.2 RATIO (0.9-2.4); AST(SGOT) 33 U/L (15-37); Alanine Aminotransfer ALT/SGPT 78 U/L (13-56); Alkaline Phosphatase 139 U/L (45-117); Anion Gap 7 (5-15); BUN 19 mg/dL (7-18); BUN/Creat Ratio 22.1 RATIO (10-20); Calcium,Total 9.1 mg/dL (8.5-10.1); Chloride 106 mmol/L (98-107); Cholesterol 133 mg/dL (200); Creatinine, Serum 0.86 mg/dL (0.55-1.02); EST Glomerular Filtration Rate 70 mL/min (>60); Est Glom Filt Rate - Afr Amer 85 mL/min (>60); Globulin 3.4 g/dL (2.2-4.2); Glucose 105 mg/dL (74-106); High Density Lipoprotein 43 mg/dL; Potassium 3.7 mmol/L (3.5-5.1); Protein, Total 7.4 g/dL (6.4-8.2); Sodium Level 139 mmol/L (136-145); T4 Free Direct 0.94 ng/dL (0.76-1.46); Triglycerides 163 mg/dL; Very Low Density Lipoprotein 33 mg/dL (5-40)
[2024-11-06 16:08] LABS: Anti-Thyroglobulin AB < 1.0 IU/mL (0.0-0.9); Thyroglobulin, Serum Qt. 15.5 ng/mL (1.5-38.5); Thyroid Peroxidase AB 12 IU/mL (0-34)
== END | disposition home or self-care (01) ==
LOC: MTLAB 13:26
PROVIDERS: PCP Family Medicine; Referring Provider Family Medicine; Visit Provider Family Medicine
DX: R79.89 Other specified abnormal findings of blood chemistry (principal); E11.8 Type 2 diabetes mellitus with unspecified complications; I25.10 Atherosclerotic heart disease of native coronary artery without angina pectoris
CPT/HCPCS: 36415; 80053; 80061; 82043; 82570; 83036; 84432; 84439; 84443; 85025; 86376; 86800

== ENCOUNTER 2024-11-06 14:45 | Outpatient (CLI) | payer MEDICARE, OTHER, SELFPAY ==
[2024-11-04 13:24] VITALS: BMI 32.3
[2024-11-06 18:21] LABS: Hepatitis B Surface Antibody Non-Reactive; Hepatitis B Surface Antigen Non-Reactive (Nonreactive); Hepatitis C Antibody Non-Reactive (Nonreactive)
== END 2024-11-06 23:59 | disposition home or self-care (01) ==
LOC: MFPLAB 14:46
PROVIDERS: PCP Family Medicine; Referring Provider Family Medicine; Visit Provider Family Medicine
DX: R79.89 Other specified abnormal findings of blood chemistry (principal)
CPT/HCPCS: 36415; 86706; 86803; 87340

== ENCOUNTER 2024-11-27 08:00 | Outpatient (RCR) | payer SELFPAY ==
[2024-10-29 00:47] VITALS: BMI 32.5
== END 2024-11-28 23:59 ==
LOC: CR 08:00
PROVIDERS: PCP Family Medicine; Referring Provider Specialist; Visit Provider Specialist
DX: Z00.00 Encounter for general adult medical examination without abnormal findings (principal)

== ENCOUNTER 2024-12-02 06:17 | Day surgery (SDC) | payer MEDICARE, OTHER, SELFPAY ==
--- NOTE | 2024-11-27 22:18 | PAT.ANESEVAL ---
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 HEART 11/27/24 14:23 CATH AND 1 STENT PLACED Any Problems With Anesthesia No 11/27/24 14:23 Cholinesterase deficiency No 11/27/24 14:23 You/Your Family Experience No 11/27/24 14:23 fever (hyperthermia) with Relationship Recent Exposure to Contagious Disease Does patient have nerve No 11/27/24 14:23 stimulator Patient instructed to have device shut off --Does patient have Pacemaker or ICD? When Was Last Pacemaker Check QUESTION #4 FULL TEXT: You/Your Family Experience fever (hyperthermia) with Anesthesia Last Oral Intake Last Oral intake: Last Oral Intake NPO since Meds taken in AM with sips of water? Meds patient instructed to take am of surgery PONV PONV - revenue accounting manager: PONV - revenue accounting manager Female Yes 11/27/24 14:23 HX of Motion Sickness No 11/27/24 14:23 HX of N/V After Surgery No 11/27/24 14:23 Non-Smoker Yes 11/27/24 14:23 Duration of Surgery greater No 11/27/24 14:23 than 60 minutes Number of Risk Factors 2 11/27/24 14:23 PONV Score Moderate Risk 11/27/24 14:23 Height & Weight Height & Weight: Anesthesia: Height & Weight Height 5 ft 1 in 11/11/24 09:30 Respiratory Assessment Respiratory Assessment - revenue accounting manager: Respiratory Tract Infection Hx - revenue accounting manager Hx Respiratory Tract Infection No 11/27/24 14:23 STOP Sleep Apnea STOP Sleep Apnea - revenue accounting manager: STOP Sleep Apnea - revenue accounting manager Hx Hypertension Yes: CONTROLLED WITH MEDS 11/27/24 14:23 Hx Sleep Apnea Yes 11/27/24 14:23 CPAP Yes 11/27/24 14:23 BIPAP No 11/27/24 14:23 Do you snore loudly (louder than talking or can be heard Do you often feel tired/ fatigued/ sleepy during daytime? Has anyone observed you stop breathing during sleep? STOP Results Positive 11/27/24 14:23 QUESTION #5 FULL TEXT : Do you snore loudly (louder than talking or can be heard through closed doors)? Tobacco Use History Tobacco Use History - revenue accounting manager: Tobacco Use History - revenue accounting manager Tobacco Use Smoking Status Current every day smoker 11/27/24 14:23 Hx Tobacco Use No 11/27/24 14:23 Years Smoking Packs Smoked per Day Smoking Cessation Date was within the last 15 years Hx Smoking Cessation Date Hx Smoking Cessation No 11/27/24 14:23 Counseling Hematologic Medial History Hematologic Hx - revenue accounting manager: Hematologic Medical Hx - balance truer Hx of Blood Transfusion No 11/27/24 14:23 Hx of Transfusion in last 3 No 11/27/24 14:23 Months Date of Last Transfusion (if within last 3 months) Ever experience any problems No 11/27/24 14:23 with transfusion(s)? Specify any problems Hx of Preganancy in last 3 No 11/27/24 14:23 Months Nurse Filling Out Transfusion [id number] 11/27/24 14:23 & Questions: Date: 11/27/24 11/27/24 14:23 Time: 14:26 11/27/24 14:23 Patient unable to answer at this time (ie. confused, unrespo /Reproduction History /Reproductive History - revenue accounting manager: /Reproductive Hx- revenue accounting manager Hx Now Gestational Age (in weeks): EDC: Hx Hx Para Hx Section SAB PFSH Medical History (Updated 11/27/24 @ 14:31 by Oskar Smith) Wears partial dentures Depression Gastric reflux Smoker CPAP (continuous positive airway pressure) dependence Sleep apnea Shortness of breath on exertion Chronic cough History of heart attack Cardiology follow-up encounter Hypercholesteremia Diabetes Hypertension Non-ST elevation NC (NSTEMI) Shortness of breath on exertion Obesity Daytime hypersomnia Osteopenia Neuropathy Sinus infection History of bloody stools Shoulder pain Arthritis Hypertension Home Medications ?Medication ?Instructions ?Recorded ?Last Taken ?Type aspirin 81 mg tablet,delayed 81 mg PO DAILY md ordered 05/08/21 03/20/24 History release (Adult Aspirin Regimen) calcium carbonate 600 mg PO DAILY 01/31/24 Unknown History coenzyme Q10 100 mg capsule (Co 400 mg PO DAILY unknown 01/31/24 03/14/24 History Q-10) fexofenadine 180 mg tablet 180 mg PO DAILY 01/31/24 Unknown History (Bertha Allergy) metformin 500 mg tablet 500 mg PO BID 01/31/24 Unknown History metoprolol tartrate 50 mg tablet 50 mg PO BID 01/31/24 Unknown History multivitamin 1 tab PO DAILY 01/31/24 Unknown History varenicline tartrate 1 mg tablet 1 mg PO BID smoking cessation 02/07/24 Unknown History atorvastatin 80 mg tablet 80 mg PO QHS #90 tabs 04/10/24 Unknown Rx losartan 25 mg tablet 25 mg PO DAILY #90 tabs 04/10/24 Unknown Rx ticagrelor 90 mg tablet (Brilinta) 90 mg PO BID #180 tabs 07/08/24 Unknown Rx cholecalciferol (vitamin D3) 25 25 mcg PO BID Low level 10/08/24 Unknown History mcg (1,000 unit) capsule (Vitamin D3) Allergy/AdvReac Type Severity Reaction Status Date / Time lisinopril AdvReac Mild cough Verified 11/27/24 14:19 Family History Mother Colon cancer Heart disease Hypertension Father Heart disease Hypertension Grandmother Breast cancer Surgical History (Updated 11/27/24 @ 14:31 by Oskar Smith) History of cardiac catheterization S/P laparoscopy History of coronary artery stent placement History of cataract extraction History of hysterectomy History of D&C Social History household members: spouse housing: house Smoking Status: Current every day smoker tobacco type: cigarettes how long ago did patient quit smoking: Currently is working on quitting quit status: considering quitting alcohol intake: current alcohol intake frequency: a few times a month substance use type: does not use Audit: Pertinent Findings Pertinent Findings EKG Perinent findings: March 20, 2024. Normal sinus rhythm. Echo (EF%) pertinent findings: March 20, 2024. Ejection fraction 65%. Pulmonary artery systolic pressure is 20 to 25 mmHg. There is no aortic stenosis. Heart catheterization pertinent findings: March 20, 2024. Ejection fraction 60%. Successful drug-eluting stent to mid RCA. PTCA to the RPL and RPDA Consult pertinent findings: July 04, 2024. Willian HOPKINS. 1. History of coronary artery stent placement to the mid RCA. And PTCA to the RPL and RPDA. Patient is stable at this time. Denies any recent symptoms or events. Continue current meds. Recommendation Anesthesia Recommendation Anesthesia recommendation: OPTIMIZED for anesthesia
[2024-12-01 10:05] VITALS: BMI 32.3
[2024-12-02] VITALS (8 sets, daily range): BP systolic 100–136; BP diastolic 62–76; PULSE 73–77; RESP 16–18; TEMP 36.4–37.3; O2SAT 96–100; BMI 32.5
--- NOTE | 2024-12-02 07:08 | PCM.PRE.AN2 ---
ASA Classification* ASA Classification ASA Classification: 3 Assessment & Plan Anesthesia* Anesthesia Assessment Anesthesia Assessment: Discussed sedation and/or anesthesia options, risks, benefits, and alternatives with patient/parents/legal guardian/POA. Questions invited. The patient/parents/legal guardian/POA seems to understand and agrees to proceed with anesthesia plan. Reviewed the physical assessment, medical history, allergy history and patient home medications list prior to surgery/procedure/anesthetic and documented any changes. Performed airway and anesthesia risk assessments. Anesthesia Type Anesthesia Type: MAC History Source History Obtained from:: Patient and Chart Anesthesia Focused Assessment* Temperature: 97.6 F Pulse Rate: 77 Blood Pressure: 136/67 Respiratory Rate: 16 Pulse Ox: 100 Oxygen Delivery Method: Room Air Airway Assessment Mouth opens: >3 cm Mallampati Score: III Teeth Condition: Caps/Crowns (Patient has several crowns. Patient has a couple of bridges bilateral lower jaw. All tight.) and Partial (Patient has an upper partial.) Neck Range of motion (ROM): Full ROM Focused Labs Anesthesia Preop lab: CBC WBC 11.9 K/mm3 (4.4-11.0) H 11/04/24 13:11/04/24 RBC 4.71 M/mm3 (4.2-5.4) 11/04/24 13:11/04/24 Hgb 14.3 g/dL (12.0-15.0) 11/04/24 13:11/04/24 Hct 43.7 % (37-47) 11/04/24 13:11/04/24 Plt Count 305 K/mm3 (150-450) 11/04/24 13:11/04/24 CHEMISTRY Potassium 3.7 mmol/L (3.5-5.1) 11/04/24 13:29 11/04/24 Sodium 139 mmol/L (136-145) 11/04/24 13:11/04/24 Magnesium 2.2 mg/dL (1.6-2.6) 03/21/24 06:03/21/24 Phosphorus 3.3 mg/dL (2.5-4.9) 03/21/24 06:05 03/21/24 BUN 19 mg/dL (7-18) H 11/04/24 13:29 11/04/24 Creatinine 0.86 mg/dL (0.55-1.02) 11/04/24 13:29 11/04/24 Glucose 105 mg/dL (74-106) 11/04/24 13:29 11/04/24 POC Glucose 104 mg/dL (74-106) 03/21/24 11:14 03/21/24 TSH 4.460 uIU/mL (0.358-3.740) H 11/04/24 13:29 11/04/24 COAG PT 13.1 SECONDS (11.7-14.9) 03/20/24 07:52 03/20/24 Pre-Assessment Diagnosis/Proposed Procedure Planned Operative Procedure(s): COLONOSCOPY Anesthesia History Anesthesia History - coverstitch elastic attacher: Anesthesia History - coverstitch elastic attacher Hx Hospitalization Yes: [place] 02/2024, [facility]. HEART 11/27/24 14:23 CATH AND 1 STENT PLACED Any Problems With Anesthesia No 11/27/24 14:23 Cholinesterase deficiency No 11/27/24 14:23 You/Your Family Experience No 11/27/24 14:23 fever (hyperthermia) with Relationship Recent Exposure to Contagious No 12/02/24 06:45 Disease Does patient have nerve No 11/27/24 14:23 stimulator Patient instructed to have device shut off --Does patient have Pacemaker No 12/02/24 06:45 or ICD? When Was Last Pacemaker Check QUESTION #4 FULL TEXT: You/Your Family Experience fever (hyperthermia) with Anesthesia Last Oral Intake Last Oral intake: Last Oral Intake NPO since 21:00 12/02/24 06:45 Meds taken in AM with sips of water? Meds patient instructed to take am of surgery PONV PONV - coverstitch elastic attacher: PONV - coverstitch elastic attacher Female Yes 11/27/24 14:23 HX of Motion Sickness No 11/27/24 14:23 HX of N/V After Surgery No 11/27/24 14:23 Non-Smoker Yes 11/27/24 14:23 Duration of Surgery greater No 11/27/24 14:23 than 60 minutes Number of Risk Factors 2 11/27/24 14:23 PONV Score Moderate Risk 11/27/24 14:23 Height & Weight Height & Weight: Anesthesia: Height & Weight Height 5 ft 1 in 12/02/24 06:45 Weight: 78 kg 12/02/24 06:45 Body Mass Index (BMI) 32.5 12/02/24 06:45 Respiratory Assessment Respiratory Assessment - coverstitch elastic attacher: Respiratory Tract Infection Hx - coverstitch elastic attacher Hx Respiratory Tract Infection No 11/27/24 14:23 STOP Sleep Apnea STOP Sleep Apnea - coverstitch elastic attacher: STOP Sleep Apnea - coverstitch elastic attacher Hx Hypertension Yes: CONTROLLED WITH MEDS 12/01/24 10:05 Hx Sleep Apnea Yes 11/27/24 14:23 CPAP Yes 11/27/24 14:23 BIPAP No 11/27/24 14:23 Do you snore loudly (louder than talking or can be heard Do you often feel tired/ fatigued/ sleepy during daytime? Has anyone observed you stop breathing during sleep? STOP Results Positive 11/27/24 14:23 QUESTION #5 FULL TEXT : Do you snore loudly (louder than talking or can be heard through closed doors)? Tobacco Use History Tobacco Use History - coverstitch elastic attacher: Tobacco Use History - coverstitch elastic attacher Tobacco Use Smoking Status Current every day smoker 11/27/24 14:23 Hx Tobacco Use No 11/27/24 14:23 Years Smoking Packs Smoked per Day Smoking Cessation Date was within the last 15 years Hx Smoking Cessation Date Hx Smoking Cessation No 11/27/24 14:23 Counseling Any additional information?: Yes Smoking Status: Current every day smoker (Patient smoked today.) Hematologic Medial History Hematologic Hx - coverstitch elastic attacher: Hematologic Medical Hx - greens planter Hx of Blood Transfusion No 11/27/24 14:23 Hx of Transfusion in last 3 No 11/27/24 14:23 Months Date of Last Transfusion (if within last 3 months) Ever experience any problems No 11/27/24 14:23 with transfusion(s)? Specify any problems Hx of Preganancy in last 3 No 11/27/24 14:23 Months Nurse Filling Out Transfusion [email or web address] 11/27/24 14:23 & Questions: Date: 11/27/24 11/27/24 14:23 Time: 14:26 11/27/24 14:23 Patient unable to answer at this time (ie. confused, unrespo /Reproduction History /Reproductive History - coverstitch elastic attacher: /Reproductive Hx- coverstitch elastic attacher Hx Now Gestational Age (in weeks): EDC: Hx Hx Para Hx Section SAB [facility] Medical History Wears partial dentures Depression Gastric reflux Smoker CPAP (continuous positive airway pressure) dependence Sleep apnea Shortness of breath on exertion Chronic cough History of heart attack Cardiology follow-up encounter Hypercholesteremia Diabetes Hypertension Non-ST elevation [place] (NSTEMI) Shortness of breath on exertion Obesity Daytime hypersomnia Osteopenia Neuropathy Sinus infection History of bloody stools Shoulder pain Arthritis Hypertension Home Medications ?Medication ?Instructions ?Recorded ?Last Taken ?Type aspirin 81 mg tablet,delayed 81 mg PO DAILY md ordered 05/08/21 12/01/24 History release (Adult Aspirin Regimen) calcium carbonate 600 mg PO DAILY 01/31/24 12/01/24 History coenzyme Q10 100 mg capsule (Co 400 mg PO DAILY unknown 01/31/24 12/01/24 History Q-10) fexofenadine 180 mg tablet 180 mg PO DAILY 01/31/24 12/01/24 History (Bertha Allergy) metformin 500 mg tablet 500 mg PO BID 01/31/24 12/01/24 History metoprolol tartrate 50 mg tablet 50 mg PO BID 01/31/24 12/02/24 History multivitamin 1 tab PO DAILY 01/31/24 12/01/24 History varenicline tartrate 1 mg tablet 1 mg PO BID smoking cessation 02/07/24 12/01/24 History atorvastatin 80 mg tablet 80 mg PO QHS #90 tabs 04/10/24 12/01/24 Rx losartan 25 mg tablet 25 mg PO DAILY #90 tabs 04/10/24 12/02/24 Rx ticagrelor 90 mg tablet (Brilinta) 90 mg PO BID #180 tabs 07/08/24 12/01/24 Rx cholecalciferol (vitamin D3) 25 25 mcg PO BID Low level 10/08/24 12/01/24 History mcg (1,000 unit) capsule (Vitamin D3) Allergy/AdvReac Type Severity Reaction Status Date / Time lisinopril AdvReac Mild cough Verified 12/02/24 06:43 Family History Mother Colon cancer Heart disease Hypertension Father Heart disease Hypertension Grandmother Breast cancer Surgical History History of cardiac catheterization S/P laparoscopy History of coronary artery stent placement History of cataract extraction History of hysterectomy History of D&C Social History household members: spouse housing: house Smoking Status: Current every day smoker tobacco type: cigarettes how long ago did patient quit smoking: Currently is working on quitting quit status: considering quitting alcohol intake: current alcohol intake frequency: a few times a month substance use type: does not use Review of Systems (Anesthesia) ROS Narrative System reviewed and no additional complaints, except as documented.
--- NOTE | 2024-12-02 07:31 | PCM.HP.STD ---
HPI - General General Date of Admission: 12/02/24 Date of Service: 12/02/24 Chief Complaint: change in bowels HPI Narrative The patient is a 64-year-old female who is being seen today for colonoscopy. She has a family history of colon cancer. Her mother had colon cancer. Patient had her last colonoscopy about 5 years ago. This was negative for any polyps however a previous colonoscopy she did have polyps removed. Patient also has history of diverticulosis/diverticulitis. No active inflammation or abdominal pain however she states that she has been having some alternating normal stools along with jaycee watery bowel movements. She states that this watery stools occur at least once a week. She denies any abdominal pain. Given her family history she certainly has some concerns for colon polyps and cancers. She did use an qwdo-cro-petmzci fecal occult blood testing kit which was positive for occult blood. It is important to note that she had an [place] back in February of last year. She had a stent placed at that time. She has been on Brilinta as well as aspirin. She was told that she needs to stay on blood thinners for at least a year. [facility] Medical History (Updated 12/02/24 @ 07:[address] Juan Antonio White MD) Screening for intestinal cancer Wears partial dentures Depression Gastric reflux Smoker CPAP (continuous positive airway pressure) dependence Sleep apnea Shortness of breath on exertion Chronic cough History of heart attack Cardiology follow-up encounter Hypercholesteremia Diabetes Hypertension Non-ST elevation [place] (NSTEMI) Shortness of breath on exertion Obesity Daytime hypersomnia Osteopenia Neuropathy Sinus infection History of bloody stools Shoulder pain Arthritis Hypertension Home Medications ?Medication ?Instructions ?Recorded ?Last Taken ?Type aspirin 81 mg tablet,delayed 81 mg PO DAILY md ordered 05/08/21 12/01/24 History release (Adult Aspirin Regimen) calcium carbonate 600 mg PO DAILY 01/31/24 12/01/24 History coenzyme Q10 100 mg capsule (Co 400 mg PO DAILY unknown 01/31/24 12/01/24 History Q-10) fexofenadine 180 mg tablet 180 mg PO DAILY 01/31/24 12/01/24 History (Bertha Allergy) metformin 500 mg tablet 500 mg PO BID 01/31/24 12/01/24 History metoprolol tartrate 50 mg tablet 50 mg PO BID 01/31/24 12/02/24 History multivitamin 1 tab PO DAILY 01/31/24 12/01/24 History varenicline tartrate 1 mg tablet 1 mg PO BID smoking cessation 02/07/24 12/01/24 History atorvastatin 80 mg tablet 80 mg PO QHS #90 tabs 04/10/24 12/01/24 Rx losartan 25 mg tablet 25 mg PO DAILY #90 tabs 04/10/24 12/02/24 Rx ticagrelor 90 mg tablet (Brilinta) 90 mg PO BID #180 tabs 07/08/24 12/01/24 Rx cholecalciferol (vitamin D3) 25 25 mcg PO BID Low level 10/08/24 12/01/24 History mcg (1,000 unit) capsule (Vitamin D3) Allergy/AdvReac Type Severity Reaction Status Date / Time lisinopril AdvReac Mild cough Verified 12/02/24 06:43 Family History Mother Colon cancer Heart disease Hypertension Father Heart disease Hypertension Grandmother Breast cancer Surgical History History of cardiac catheterization S/P laparoscopy History of coronary artery stent placement History of cataract extraction History of hysterectomy History of D&C Social History household members: spouse housing: house Smoking Status: Current every day smoker (Patient smoked today.) tobacco type: cigarettes how long ago did patient quit smoking: Currently is working on quitting quit status: considering quitting alcohol intake: current alcohol intake frequency: a few times a month substance use type: does not use Vital Signs Vital Signs Vital Signs: 12/02/24 06:45 12/02/24 06:45 12/02/24 07:20 Temperature 97.6 F L 97.6 F L Temperature Source Temporal Pulse Rate 77 77 Respiratory Rate 16 16 Respiratory Pattern Normal Blood Pressure 136/67 H 136/67 H Blood Pressure Mean 90 Blood Pressure Source Monitor Blood Pressure Position Semi-Fowlers Blood Pressure Location Right Arm Pulse Ox 100 100 Oxygen Delivery Method Room Air Room Air Weight Weight: 171 lb 15.369 oz Body Mass Index (BMI) 32.5 Physical Exam Const alert, oriented x3 and no apparent distress Assessment & Plan Assessment/Plan (1) Screening for intestinal cancer: PLAN: Plan colonoscopy today
[2024-12-02 07:57] LABS: Bedside Glucose 106 mg/dL (74-106)
--- NOTE | 2024-12-02 08:21 | OP.COLON_ITS ---
Patient Name: Rhina Doe Procedure Date: 12/02/2024 7:21 AM Date of : 1960 Age: 64 Procedure: Colonoscopy Indications: Screening in patient at increased risk: Family history of 1st-degree relative with colorectal cancer Providers: Juan Antonio White MD Referring MD: Alessandro Shah Medicines: Monitored Anesthesia Care Patient Profile: Refer to note in patient chart for documentation of history and physical. Last Colonoscopy: 5 years ago. Complications: No immediate complications. Estimated blood loss: None. Procedure: Pre-Anesthesia Assessment: - Prior to the procedure, a History and Physical was performed, and patient medications and allergies were reviewed. The patient's tolerance of previous anesthesia was also reviewed. The risks and benefits of the procedure and the sedation options and risks were discussed with the patient. All questions were answered, and informed consent was obtained. Prior Anticoagulants: The patient has taken Brilinta (ticagrelor). ASA Grade Assessment: II - A patient with mild systemic disease. After reviewing the risks and benefits, the patient was deemed in satisfactory condition to undergo the procedure. After I obtained informed consent, the scope was passed under direct vision. Throughout the procedure, the patient's blood pressure, pulse, and oxygen saturations were monitored continuously. The adult colonoscope was introduced through the anus and advanced to the cecum, identified by appendiceal orifice and ileocecal valve. The ileocecal valve, appendiceal orifice, and rectum were photographed. The entire colon was examined. The colonoscopy was performed without difficulty. The patient tolerated the procedure well. The quality of the bowel preparation was good. Moderate Sedation: See the other procedure note for documentation of moderate sedation with intraservice time. Scope In: 7:40:34 AM Scope Withdrawal Time 0 hours 12 minutes 57 seconds Scope Out: 8:12:58 AM Total Procedure Duration Time 0 hours 32 minutes 24 seconds Findings: The perianal and digital rectal examinations were normal. Multiple small-mouthed diverticula were found in the sigmoid colon. The exam was otherwise without abnormality on direct and retroflexion views. Impression: - Diverticulosis in the sigmoid colon. - The examination was otherwise normal on direct and retroflexion views. - No specimens collected. Recommendation: - Discharge patient to home (ambulatory). - High fiber diet. - Repeat colonoscopy in 5 years for surveillance. - Return to my office PRN. - Continue present medications. Procedure Code(s): --- Professional --- 23118, Colonoscopy, flexible; diagnostic, including collection of specimen(s) by brushing or washing, when performed (separate procedure) Diagnosis Code(s): --- Professional --- K57.30, Diverticulosis of large intestine without perforation or abscess without bleeding Z80.0, Family history of malignant neoplasm of digestive organs CPT copyright 2021 [employer] [place] [employer]. All rights reserved. The codes documented in this report are preliminary and upon food and beverage operations manager review may be revised to meet current compliance requirements. Juan Antonio White MD 12/02/2024 8:21:12 AM This report has been signed electronically. Number of Addenda: 0 Note Initiated On: 12/02/2024 7:21 AM
--- NOTE | 2024-12-02 08:21 | OP.CCLET_ITS ---
12/02/2024 Alessandro Shah [address] [place] [address] Re : Colonoscopy procedure for Rhina Doe Dear Dr. Shah This procedure was performed on Monday, December 02, 2024. My impressions and recommendations are as follows: Impressions : - Diverticulosis in the sigmoid colon. - The examination was otherwise normal on direct and retroflexion views. - No specimens collected. Recommendations : - Discharge patient to home (ambulatory). - High fiber diet. - Repeat colonoscopy in 5 years for surveillance. - Return to my office PRN. - Continue present medications. My findings are described in the full procedure note, which is enclosed. If I can be of further assistance, please feel free to contact me at . Sincerely, Juan Antonio White MD 12/02/2024 8:21:12 AM This report has been signed electronically.
--- NOTE | 2024-12-02 08:23 | PCM.POST.ANE ---
Anesthesia: Postop Eval I Current Vital Signs Temperature: 99.2 F Pulse Rate: 73 Blood Pressure: 100/62 Respiratory Rate: 18 Pulse Ox: 97 Oxygen Delivery Method: Room Air Assessment Airway patent: Yes Spontaneous unlabored respirations: Yes Mental status: Awake and Calm nausea: No Vomiting: No Anesthesia Complication: No Fluid Hydration Crystalloid volume administer (ml): 10 Total IV fluid infused: 10 Progress Note Anesthesia document: Postop Eval 1 completed: Yes
--- NOTE | 2024-12-02 18:13 | POSTOPAN2_ITS ---
Anesthesia Postop Eval I Sum Postop Eval Completion status Anesthesia document: Postop Eval 1 completed: Yes Anesthesia Postop Eval I Summary Anesthesia Postop Eval I Summary: Anesthesia Postop Eval I: Assessment Summary Airway patent Yes 12/02/24 08:23 [employer][email or web address] Spontaneous unlabored Yes 12/02/24 08:23 [employer]K respirations Mental status Awake,Calm 12/02/24 08:23 [employer] nausea No 12/02/24 08:23 [employer]K Vomiting No 12/02/24 08:23 LAB[employer].DBAK Anesthesia Postop Eval I: Fluid Summary Crystalloid volume administer 10 12/02/24 08:23 LAB[employer].DBAK (ml) Colloids volume administered ( ml) Blood Product volume administered (ml) Total IV fluid infused 10 12/02/24 08:23 [employer].DBAK Anesthesia Postop Eval I: Summary Notes Anesthesia Complication No 12/02/24 08:23 LAB[employer] STE[employer].DBAK Anesthesia Complication Comment: Post-operative progress note Anesthesia: Postop Eval II Evaluation Mental status: Awake and Calm Pain Level: 0 nausea: No Vomiting: No Complications Anesthesia Complication: No
--- NOTE | 2024-12-02 18:13 | PCM.POSTANE2 ---
Anesthesia Postop Eval I Sum Postop Eval Completion status Anesthesia document: Postop Eval 1 completed: Yes Anesthesia Postop Eval I Summary Anesthesia Postop Eval I Summary: Anesthesia Postop Eval I: Assessment Summary Airway patent Yes 12/02/24 08:23 ELECTRICAL LINEMAN.DBAK Spontaneous unlabored Yes 12/02/24 08:23 ELECTRICAL [employer]EM[employer].DBAK respirations Mental status Awake,Calm 12/02/24 08:23 ELECTRICAL [employer]EM[employer].DBAK nausea No 12/02/24 08:23 ELECTRICAL [employer]EM[employer].DBAK Vomiting No 12/02/24 08:23 ELECTRICAL LINEMAN.DBAK Anesthesia Postop Eval I: Fluid Summary Crystalloid volume administer 10 12/02/24 08:23 ELECTRICAL LINEMAN.DBAK (ml) Colloids volume administered ( ml) Blood Product volume administered (ml) Total IV fluid infused 10 12/02/24 08:23 ELECTRICAL LINEMAN.DBAK Anesthesia Postop Eval I: Summary Notes Anesthesia Complication No 12/02/24 08:23 ELECTRICAL LINEMAN.DBAK Anesthesia Complication Comment: Post-operative progress note Anesthesia: Postop Eval II Evaluation Mental status: Awake and Calm Pain Level: 0 nausea: No Vomiting: No Complications Anesthesia Complication: No
== END 2024-12-02 09:00 | disposition home or self-care (01) ==
LOC: EN 06:18 → AC 06:19
PROVIDERS: PCP Family Medicine; Referring Provider Family Medicine; Visit Provider Surgery
PROC: 0DJD8ZZ Inspection of Lower Intestinal Tract, Via Natural or Artificial Opening Endoscopic (ICD-10-PCS; CPT 45378; principal; 2024-12-02 07:25)
DX: Z12.11 Encounter for screening for malignant neoplasm of colon (principal); E11.40 Type 2 diabetes mellitus with diabetic neuropathy, unspecified; K57.30 Diverticulosis of large intestine without perforation or abscess without bleeding; E78.00 Pure hypercholesterolemia, unspecified; F17.210 Nicotine dependence, cigarettes, uncomplicated; Z80.0 Family history of malignant neoplasm of digestive organs; I10 Essential (primary) hypertension; K21.9 Gastro-esophageal reflux disease without esophagitis; Z79.84 Long term (current) use of oral hypoglycemic drugs; Z79.899 Other long term (current) drug therapy; Z79.82 Long term (current) use of aspirin
CPT/HCPCS: 45378; 82962

== ENCOUNTER → 2024-12-08 | Outpatient (CLI) | payer MEDICARE, OTHER, SELFPAY ==
[2024-12-01 10:05] VITALS: BMI 32.3
--- NOTE | 2024-12-08 10:27 | BI_ITS ---
PROCEDURE: SCRN MAMM (CAD)W/SYED BILAT REASON FOR EXAM: F, Age 64 y/o, presents for annual screening mammogram. Family history of breast cancer in paternal grandmother in her 60s and paternal cousin in her 70s. TECHNIQUE: Bilateral screening digital breast tomosynthesis with 2D and 3D images. Computer aided detection. COMPARISON: 12/04/2023 FINDINGS: There are scattered areas of fibroglandular density. There is a group of calcifications in the upper-outer right breast at middle depth. No suspicious masses, areas of developing architectural distortion, or suspicious calcifications in the left breast. BI/SCRN MAMM (CAD)W/SYED BILAT IMPRESSION: The group of calcifications in the upper-outer right breast at middle depth req uire further evaluation. Recommend diagnostic mammogram with spot magnification views. BI-RADS 0: INCOMPLETE - NEED ADDITIONAL IMAGING EVALUATION. Follow-up code: Additional Views obtained/call backs The patient will be notified of the results by letter. Reading Location: [id number]
== END | disposition home or self-care (01) ==
LOC: OPBI 10:26
PROVIDERS: PCP Family Medicine; Referring Provider Family Medicine; Visit Provider Family Medicine
DX: Z12.31 Encounter for screening mammogram for malignant neoplasm of breast (principal)
CPT/HCPCS: 77063; 77067

== ENCOUNTER → 2024-12-11 | Outpatient (CLI) | payer MEDICARE, OTHER, SELFPAY ==
[2024-12-01 10:05] VITALS: BMI 32.3
--- NOTE | 2024-12-11 09:29 | BI_ITS ---
EXAM: DIAG MAMM W/CAD, UNILAT CLINICAL HISTORY: Abnormal screening mammogram. COMPARISON: Comparison is made with prior mammogram dated December 08, 2024. TECHNIQUE: Compression magnification views in the mediolateral oblique and craniocaudad projections were obtained. FINDINGS: The calcifications in the upper-outer quadrant of the right breast were further characterize. Biopsy recommended. BI/DIAG MAMM W/CAD, UNILAT IMPRESSION: Biopsy of the cluster of microcalcifications in the upper-outer quadrant right breast is recommended. BI-RADS category: 4 Reading Location: [place] [id number]
== END | disposition home or self-care (01) ==
LOC: OPBI 09:27
PROVIDERS: PCP Family Medicine; Referring Provider Family Medicine; Visit Provider Family Medicine
DX: R92.8 Other abnormal and inconclusive findings on diagnostic imaging of breast (principal)
CPT/HCPCS: 77065

== ENCOUNTER 2024-12-25 08:00 | Outpatient (RCR) | payer SELFPAY ==
[2024-11-29 00:26] VITALS: BMI 32.5
== END 2024-12-26 23:59 ==
LOC: CR 08:00
PROVIDERS: PCP Family Medicine; Referring Provider Specialist; Visit Provider Specialist
DX: Z00.00 Encounter for general adult medical examination without abnormal findings (principal)

== ENCOUNTER → 2024-12-31 | Outpatient (CLI) | payer MEDICARE, OTHER, SELFPAY ==
[2024-12-31 11:32] VITALS: BMI 32.3
[2024-12-31 19:31] LABS: AST(SGOT) 34 U/L (<=31); Alanine Aminotransfer ALT/SGPT 69 U/L (<=34); Albumin, Serum 4.3 g/dL (3.4-4.8); Alkaline Phosphatase 104 U/L (35-104); Bilirubin, Direct 0.15 mg/dL (0.00-0.30); Cholesterol 143 mg/dL (<=200); Globulin 2.5 g/dL (2.2-4.2); High Density Lipoprotein 44 mg/dL; Low Density Lipoprotein Calc. 43 mg/dL; Protein, Total 6.8 g/dL (5.9-8.4); Total Bilirubin 0.33 mg/dL (0.00-1.30); Triglycerides 285 mg/dL; Very Low Density Lipoprotein 57 mg/dL (5-40); cholesterol:hdl ratio screen 3.29
== END | disposition home or self-care (01) ==
PROVIDERS: PCP Family Medicine; Referring Provider Nurse Practitioner Gerontology; Visit Provider Nurse Practitioner Gerontology
DX: E78.00 Pure hypercholesterolemia, unspecified (principal)
CPT/HCPCS: 36415; 80061; 80076

== ENCOUNTER → 2025-01-01 | Outpatient (CLI) | payer MEDICARE, OTHER, SELFPAY ==
[2024-12-01 10:05] VITALS: BMI 32.3
--- NOTE | 2025-01-01 11:15 | BREAST_PTH ---
PATIENT: VIRY PETERS LOC: [facility] U#:[id number] AGE/SX: 64/F ROOM: RE01/01/[address]: Dr. Juan Antonio White MD : 1960 BED: DIS: 01/01/2025 SPEC #: [id number] RECD: 01/01/25 12:24 STATUS: SELENE JARRETT #: [id number] JYOTI: 01/01/25 11:[address]: Juan Antonio White DEPT: SURGICAL PATHOLOGY RECD BY: Ole Roa ENTERED: 01/01/25 12:24 SP TYPE: BREAST OTHR DR: Dr. Alessandro Shah MD Tissues: Right breast, NOS Procedures: Immunohistochemical Stains Surgery Specimen Level V IHC Stain ADDITIONAL HEADER OPERATION: Right stereotactic breast biopsy PRE-OP DIAGNOSIS: Right upper outer quadrant breast microcalcifications TISSUE SUBMITTED: Right breast core tissue Ischemic Time: 1 minute Fixation Time: 8.5 hours MICROSCOPIC DIAGNOSIS Right breast, upper outer quadrant, core biopsy: * Negative for malignancy - see Comment. * Benign breast tissue with usual ductal hyperplasia (UDH), apocrine metaplasia, and sclerosing adenosis - see note and Comment. * Microcalcifications present. Note: IHCs utilized in the evaluation include CK5/6 and ER (blocks #1,2,3,4). COMMENT Selected slides/images were reviewed in intradepartmental consultation by Dr Vandana Jacome ([facility] breast pathology division). MICROSCOPIC DESCRIPTION Slides are reviewed. These tests were developed and their performance characteristics determined by [facility]. They may not have been cleared or approved by the U.S. Food and Drug Administration. The FDA has determined that such clearance or approval is not necessary. The above immunohistochemical/dualISH markers are ordered and reviewed by the Pathologist. GROSS DESCRIPTION Received in formalin labeled Viry Peters and not designated are multiple yellow-red, lobular, cylindrical, tissue cores that range from 0.3 to 2.6 cm long, and 0.2 to 0.5 cm in diameter. The cores are entirely submitted in four cassettes.JK. 01/01/2025 CP:[id number]
--- NOTE | 2025-01-01 11:33 | OP.PCM_ITS ---
Problems Associated Problem List Diagnoses (1) Microcalcification of right breast on mammogram: Procedures Integumentary [id number]: [id number] Bx breast 1st lesion [facility] Operative Report (Standard) Operative Information Date of Procedure: 01/01/25 Pre-Operative Diagnosis: Right breast microcalcification Post-Operative Diagnosis: Same Surgery/Procedure Performed: Right breast stereotactic mammotome biopsy roustabout pusher: No Type of Anesthesia: Local Procedure Start Time: 11:00 Procedure Stop Time: 11:20 Select all DRAINS/GRAFTS/IMPLANTS that apply: Implanted device Implanted device details: Post procedure marking clip Estimated Blood Loss: Minimal Specimen collected: Yes Description of specimen(s) removed: Right breast tissue with microcalcifications Description of surgery: The patient is a 64-year-old female recently seen through the office with a newly discovered microcalcifications in the right breast. She has had a previous stereotactic biopsy in that same breast previously. I recommended stereotactic biopsy of these microcalcifications. We discussed the details of the planned procedure and she wished to proceed. She was brought to the mammography suite today following informed consent. She was placed prone on the stereotactic table. The right breast was then suspended in the aperture of the table. The right breast was placed in a compression and scalp views were obtained until we were able to clearly see the region of microcalcifications of interest. Once this was performed 2 stereotactic views were obtained. Using the stereotactic views were able to target upon the lesion in question. At this point the skin of the breast was then prepped and draped in the usual manner. Local anesthetic was injected. The mammotome probe was then inserted to the desired depth. Post fire images showed the tip of the probe to be in the desired location. At this point circumferential suction biopsies were obtained with good tissue sampling. The tissue specimen was then radiographed and clearly showed numerous microcalcifications within the samples. After this was performed a marking clip was then deployed. A post clip placement image showed the clip to be in the desired location. She was then taken out of compression. Manual pressure was then held for period of time and then Steri-Strip tapes were then applied. She tolerated the procedure well. I will contact her as soon as pathology results become available Surgical Findings: See description of surgery Complications Complications: No Admit VTE Documentation VTE Present on Admission: No VTE Mechan Device Prophylaxis: None VTE Pharm Prophylaxis ordered?: No Reason prophylaxis not ordered: Treatment Not Indicated
== END | disposition home or self-care (01) ==
PROVIDERS: PCP Family Medicine; Referring Provider Surgery; Visit Provider Surgery
DX: N60.81 Other benign mammary dysplasias of right breast (principal); N60.21 Fibroadenosis of right breast; R92.0 Mammographic microcalcification found on diagnostic imaging of breast
CPT/HCPCS: 19081; 88307; 88341; 88342; A4648

== ENCOUNTER 2025-01-22 08:00 | Outpatient (RCR) | payer SELFPAY ==
[2024-12-27 01:45] VITALS: BMI 32.5
== END 2025-01-26 23:59 ==
LOC: CR 08:00
PROVIDERS: PCP Family Medicine; Referring Provider Specialist; Visit Provider Specialist
DX: Z00.00 Encounter for general adult medical examination without abnormal findings (principal)

== ENCOUNTER 2025-02-24 08:00 | Outpatient (RCR) | payer SELFPAY ==
[2025-01-27 00:23] VITALS: BMI 32.5
== END 2025-02-25 23:59 ==
LOC: CR 08:00
PROVIDERS: PCP Family Medicine; Referring Provider Specialist; Visit Provider Specialist
DX: Z00.00 Encounter for general adult medical examination without abnormal findings (principal)

== ENCOUNTER 2025-03-04 10:31 | Outpatient (CLI) | payer MEDICARE, OTHER, SELFPAY ==
[2025-03-04 10:31] VITALS: BMI 32.3
[2025-03-04 11:24] LABS: Bacteria 0 SEEN /hpf (None Seen); Red Blood Cells-Urine 0 SEEN /hpf (0-5)
[2025-03-04 13:00] LABS: Absolute Lymphocyte Count 1.56 X10^3/uL (0.83-4.51); Absolute Neutrophil Count 5.9 X10^3/uL (2.0-7.7); Basophil# 0.07 X10^3/uL; Basophil% 0.8 % (0-1); Eosinophil# 0.13 X10^3/uL; Eosinophils% 1.6 % (0-5); Hematocrit 41.3 % (37-47); Hemoglobin 13.5 g/dL (12.0-15.0); Lymphocyte # 1.56 X10^3/ul (0.83-4.51); Lymphocyte % 18.8 % (19-41); Mean Corp Hgb Conc 32.7 g/dL (32-36); Mean Corpuscular Hgb 30.3 pg (27.0-32.0); Mean Corpuscular Volume 92.8 fL (81-99); Monocyte# 0.63 X10^3/uL; Monocyte% 7.6 % (0-10); NRBC Flagged by Analyzer 0 % (0-5); Neutrophil # 5.88 X10^3/uL (2.7-7.7); Platelet Count 329 K/mm3 (150-450); RBC Distribution Width CV 13.7 % (11.6-14.6); RBC Distribution Width SD 46.4 fl (35.1-43.9); Red Blood Count 4.45 M/mm3 (4.2-5.4); White Blood Count 8.3 K/mm3 (4.4-11.0)
[2025-03-04 13:16] LABS: Color, Urine Yellow (Yellow); Glucose, Dipstick Normal (Normal); Ketone-Dipstick Negative (Negative); Leukocyte Esterase-Dipstick 25 /ul (Negative); Nitrite-Dipstick Negative (Negative); Occult Blood-Urine 10 /ul (Negative); Protein-Dipstick Negative (Negative); Urine Bilirubin Dipstick Negative (Negative); Urine Clarity Clear (Clear); Urine Urobilinogen Normal (Normal)
[2025-03-04 13:22] LABS: Hemoglobin A1c 6.4 % (<=5.6)
[2025-03-04 13:56] LABS: Microalbumin,Random Urine < 12.0 mg/L (NO RANGE EST.); Microalbumin:Creatinine Ratio UNABLE TO CALCULATE mg/g CRE
[2025-03-04 13:57] LABS: ALB/GLOB Ratio 1.7 RATIO (0.9-2.4); AST(SGOT) 30 U/L (<=31); Alanine Aminotransfer ALT/SGPT 48 U/L (<=34); Albumin, Serum 4.2 g/dL (3.4-4.8); Alkaline Phosphatase 102 U/L (35-104); Anion Gap 12 (5-15); BUN 15 mg/dL (4-19); BUN/Creat Ratio 18.9 RATIO (10-20); Calcium,Total 9.4 mg/dL (7.6-11.0); Carbon Dioxide 22.2 mmol/L (21.0-32.0); Chloride 106 mmol/L (98-108); Cholesterol 129 mg/dL (<=200); Creatinine, Serum 0.81 mg/dL (0.70-1.20); EST Glomerular Filtration Rate 80 (>60); Globulin 2.5 g/dL (2.2-4.2); Glucose 129 mg/dL (70-99); High Density Lipoprotein 40 mg/dL; Low Density Lipoprotein Calc. 65 mg/dL; Potassium 4.4 mmol/L (3.3-5.1); Protein, Total 6.7 g/dL (5.9-8.4); Sodium Level 140 mmol/L (133-145); Triglycerides 120 mg/dL; Very Low Density Lipoprotein 24 mg/dL (5-40); cholesterol:hdl ratio screen 3.25
[2025-03-04 13:58] LABS: Vitamin D,25 Hydroxy 33.2 ng/mL (30-100)
[2025-03-04 14:16] LABS: Squamous Epithelial Cells - UA 0-5 SEEN /hpf (5-10); White Blood Cells 0-5 SEEN /hpf (0-5)
[2025-03-04 14:17] LABS: Mucous, Urine 1+ /hpf (<or=2+)
== END 2025-03-04 23:59 | disposition home or self-care (01) ==
LOC: MFPLAB 10:31
PROVIDERS: PCP Family Medicine; Referring Provider Family Medicine; Visit Provider Family Medicine
DX: E11.59 Type 2 diabetes mellitus with other circulatory complications (principal); E11.69 Type 2 diabetes mellitus with other specified complication; E03.8 Other specified hypothyroidism; E55.9 Vitamin D deficiency, unspecified
CPT/HCPCS: 36415; 80053; 80061; 81001; 82043; 82306; 82570; 83036; 84439; 84443; 85025

== ENCOUNTER 2025-03-17 08:00 | Outpatient (RCR) | payer SELFPAY ==
[2025-01-27 00:23] VITALS: BMI 32.5
== END 2025-03-28 23:59 ==
LOC: CR 08:00
PROVIDERS: PCP Family Medicine; Referring Provider Specialist; Visit Provider Specialist
DX: Z00.00 Encounter for general adult medical examination without abnormal findings (principal)

== ENCOUNTER 2025-04-02 08:00 | Outpatient (RCR) | payer SELFPAY ==
[2025-03-29 00:35] VITALS: BMI 32.5
== END 2025-04-27 23:59 ==
LOC: CR 08:00
PROVIDERS: PCP Family Medicine; Referring Provider Specialist; Visit Provider Specialist
DX: Z00.00 Encounter for general adult medical examination without abnormal findings (principal)

== ENCOUNTER 2025-05-26 08:00 | Outpatient (RCR) | payer SELFPAY ==
[2025-04-28 00:30] VITALS: BMI 32.3
== END 2025-05-28 23:59 ==
LOC: CR 08:00
PROVIDERS: PCP Family Medicine; Referring Provider Specialist; Visit Provider Specialist
DX: Z00.00 Encounter for general adult medical examination without abnormal findings (principal)

== ENCOUNTER 2025-06-02 09:51 | Outpatient (RCR) | payer SELFPAY ==
[2025-04-28 00:30] VITALS: BMI 32.3
== END 2025-06-28 23:59 ==
LOC: CR 09:51
PROVIDERS: PCP Family Medicine; Referring Provider Specialist; Visit Provider Specialist
DX: Z00.00 Encounter for general adult medical examination without abnormal findings (principal)

== ENCOUNTER 2025-06-30 09:47 | Outpatient (RCR) | payer SELFPAY ==
[2025-04-28 00:30] VITALS: BMI 32.3
== END 2025-07-28 23:59 ==
LOC: CR 09:47
PROVIDERS: PCP Family Medicine; Referring Provider Specialist; Visit Provider Specialist
DX: Z00.00 Encounter for general adult medical examination without abnormal findings (principal)

== ENCOUNTER → 2025-07-14 | Outpatient (CLI) | payer MEDICARE, OTHER, SELFPAY ==
[2025-04-28 00:30] VITALS: BMI 32.3
--- OUTSIDE RECORDS SUMMARY | 2025-07-14 06:50 | XMS RPT_ITS | CCD ---
Author Organization [facility] CliniSyar Care Team Providers Care Medical Assistant Name Role Phone VIKKI FUENTES Attending Unavailable VIKKI FUENTES Primary Care Unavailable VIKKI FUENTES Admitting Unavailable Dr. Alessandro Shah Primary Care Provider [phone] Dr. Alessandro Shah Referring Provider MARIZA Morales Attending Provider [phone] Dr. Alessandro Shah Primary Care Provider [phone] Dr. Alessandro Shah Referring Provider MARIZA Morales Attending Provider [phone] Alessandro Shah Primary Care Provider [phone] Dr. Alessandro Shah Referring Provider Majo FINANCIAL SYSTEMS MANAGER, KELLIE Ervin Attending Provider KELLIE Patel Attending Provider Dr. Alessandro Shah Primary Care Provider [phone] Dr. Alessandro Shah Referring Provider Majo FINANCIAL SYSTEMS MANAGER, KELLIE Ervin Attending Provider KELLIE Patel Attending Provider Dr. Alessandro Shah Primary Care Provider [phone] Dr. Alessandro Shah Referring Provider Kristan HURST, NATALI-C Sadia Attending Provider Dr. Alessandro Shah MD Primary Care Provider Virgil AGUIRRE, Dr. Soto Attending Provider Virgil AGUIRRE, Dr. Soto Referring Provider Kristan FINANCIAL SYSTEMS MANAGER-C, Sadia Attending Provider Kristan FINANCIAL SYSTEMS MANAGER-C, Sadia Referring Provider Pablo AGUIRRE, Dr. Alessandro Trevizo Referring Provider [phone] Pablo AGUIRRE, Dr. Alessandro Trevizo Attending Provider Cindy AGUIRRE, Dr. Juan Antonio Sanchez Attending Provider Cindy AGUIRRE, Dr. Juan Antonio Sanchez Other Provider Willian HURST-C, Kymberly Attending Provider Willian FINANCIAL SYSTEMS MANAGER-C, Kymberly Referring Provider Cindy AGUIRRE, Dr. Juan Antonio Sanchez Referring Provider Manpreet DAWKINS, Karen Ross Attending Provider [phone] Pablo AGUIRRE, Dr. Alessandro Trevizo Primary Care Provider [phone] Virgil AGUIRRE, Dr. Soto Attending Provider Virgil AGUIRRE, Dr. Soto Referring Provider Pablo AGUIRRE, Dr. Alessandro Trevizo Primary Care Provider Pablo AGUIRRE, Dr. Alessandro Trevizo Referring Provider Virgil AGUIRRE, Dr. Soto Attending Provider Virgil AGUIRRE, Dr. Soto Referring Provider Pablo AGUIRRE, Dr. Alessandro Trevizo Attending Provider [phone] Pablo AGUIRRE, Dr. Alessandro Trevizo Primary Care Provider [phone] Pablo AGUIRRE, Dr. Alessandro Trevizo Referring Provider Cindy AGUIRRE, Dr. Juan Antonio Sanchez Attending Provider Virgil AGUIRRE, Dr. Soto Attending Provider Virgil AGUIRRE, Dr. Soto Referring Provider Pablo AGUIRRE, Dr. Alessandro Trevizo Primary Care Provider Cindy AGUIRRE, Dr. Juan Antonio Sanchez Attending Provider Cindy AGUIRRE, Dr. Juan Antonio Sanchez Other Provider Pablo AGUIRRE, Dr. Alessandro Trevizo Referring Provider Virgil AGUIRRE, Dr. Soto Attending Provider Virgil AGUIRRE, Dr. Soto Referring Provider Pablo AGUIRRE, Dr. Alessandro Trevizo Attending Provider [phone] Pablo AGUIRRE, Dr. Alessandro Trevizo Primary Care Provider Virgil AGUIRRE, Dr. Soto Attending Provider Virgil AGUIRRE, Dr. Soto Referring Provider Pablo AGUIRRE, Dr. Alessandro Trevizo Referring Provider Karen Carranza Attending Provider Pablo AGUIRRE, Dr. Alessandro Trevizo Primary Care Provider Virgil AGUIRRE, Dr. Soto Attending Provider Virgil AGUIRRE, Dr. Soto Referring Provider Alessandro Shah Primary Care Unavailable Brittany Herman Attending Unavailabl e Orin Hermane Referring UnavailAlessandro Grigsby Attending Unavailable Alessandro Shah Referring Unavailable Alessandro Shah Primary Care Unavailable Alessandro Shah Primary Care Unavailable Brittany Herman Attending Unavailabl e MarcosatalthiOrine Referring UnavailJuan Antonio Melgar Attending Unavailable Juan Antonio White Referring Unavailable Alessandro Shah Primary Care Unavailable Alessandro Shah Primary Care Unavailable MarcosajoMarcos pñeaapradejoseline Referring Unavailabl e Brittany Herman Attending Unavailabl Alessandro Barrera Primary Care Unavailable MarcosajoMarcos peñaapradee Referring Unavailabl e MarcosajothiOrine Attending UnavailAlessandro Grigsby Primary Care Unavailable Brittany Herman Attending Unavailabl e MarcosajoMarcos peñaapradee Referring Unavailabl Alessandro Barrera E Referring Unavailable Alessandro Shah Primary Care Unavailable Juan Antonio White Attending Unavailable Alessandro Shah Primary Care Unavailable Nagajothi, Nagapradee Referring Unavailabl e Nagajothi, Nagapradee Attending Unavailabl Alessandro Barrera Primary Care Unavailable Nagajothi, Nagapradee Referring Unavailabl e Nagajothi, Nagapradee Attending UnavailAlessandro Grigsby Primary Care Unavailable Nagajothi, Nagapradee Referring Unavailabl e Nagajothi, Nagapradee Attending UnavailAlessandro Grigsby Primary Care Unavailable Nagajothi, Nagapradee Referring Unavailabl e Nagajothi, Marcosapradee Attending UnavailAlessandro Grigsby Primary Care Unavailable Nagajothi, Nagapradee Referring Unavailabl e Nagajothi, Nagapradee Attending UnavailAlessandro Grigsby Primary Care Unavailable Kristan HURST, Sadia Attending Unavailable Sadia Rushing NP Referring Unavailable Alessandro Shah Referring Unavailable Alessandro Shah Primary Care Unavailable Alessandro Shah Attending Unavailable Juan Antonio White Attending Unavailable Alessandro Shah Referring Unavailable Alessandro Shah Primary Care Unavailable Alessandro Shah Referring Unavailable Alessandro Shah Primary Care Unavailable Alessandro Shah Attending Unavailable Alessandro Shah Primary Care Unavailable Austin Villegas Referring Unavailable Austin Villegas Attending Unavailable Alessandro Shah Attending Unavailable Alessandro Shah Referring Unavailable Alessandro Shah Primary Care Unavailable Alessandro Shah Primary Care Unavailable Nagatalthi, Nagapradee Attending Unavailabl e Nagajothi, Nagapradee Referring UnavailAlessandro Grigsby Primary Care Unavailable Nagtanothi, Marcosapradee Attending Unavailabl e Marcosajothi, Nagapradee Referring UnavailAlessandro Grisgby Referring Unavailable Alessandro Shah Primary Care Unavailable Sadia Rushing NP Attending Unavailable Alessandro Shah Referring Unavailable Alessandro Shah Primary Care Unavailable aKren Carranza Attending Unavail able Juan Antonio White Attending Unavailable Alessandro Shah Referring Unavailable Alessandro Shah Primary Care Unavailable Juan Antonio White Referring Unavailable Juan Antonio White Consulting Unavailable Alessandro Shah Primary Care Unavailable Juan Antonio White Attending Unavailable Juan Antonio White Attending Unavailable Juan Antonio White Consulting Unavailable Alessandro Shah Referring Unavailable SchAlessandro restrepo Primary Care Unavailable SchAlessandro restrepo Referring Unavailable Alessandro Shah Primary Care Unavailable Karen Carranza Attending Unavail able Alessandro Shah Primary Care Unavailable Nagajothi, Nagapradee Referring Unavailabl e Nagajothi, Nagapradee Attending Unavailabl e Alessandro Shah Primary Care Unavailable Nagatalthi, Nagapradee Attending Unavailabl e Nagatalthi, Nagapradee Referring Unavailabl e Alessandro Shah Primary Care Unavailable Nagajothi, Nagapradee Referring Unavailabl e Nagajothi, Nagapradee Attending Unavailabl Alessandro Barrera Primary Care Unavailable Nagajothi, Nagapradee Attending Unavailabl e Wendythi, Nagapradee Referring UnavailAlessandro Grigsby Primary Care Unavailable Willian HURST, Kymberly Attending Unavailable Kymberly Dorsey NP Referring Unavailable Alessandro Shah Referring Unavailable Alessandro Shah Attending Unavailable Alessandro Shah Primary Care Unavailable Alessandro Shah Primary Care Unavailable Karen Carranza Attending Unavail able Karen Carranza Referring Unavail able Allergies Allergy Classification Reported Allergen(s) Allergy Type Date of Onset Reaction(s) Facility (9 sources) Lisinopril Drug Allergy 01-02-2025 [facility] (1 source) Lisinopril Drug Allergy 05-26-2025 [facility] Repository Medications Current Medications Medication Drug Class(es) Dates Sig (Normalized) Sig (Original) aspirin 81 mg delayed release oral tablet (20 sources) Platelet Aggregation Inhibitor, Nonsteroidal Anti-inflammatory Drug Start: 05-08-2021 take 1 tablet by mouth once daily Aspirin (Adult Aspirin Regimen) 81 mg tablet,delayed release (DR/EC) Active 81 mg PO DAILY May 08, 2021 12:00am md ordered calcium carbonate 1500 mg oral tablet (10 sources) Start: 01-31-2024 take 1 tablet by mouth once daily Calcium Carbonate 600 mg calcium (1,500 mg) tablet Active 600 mg PO DAILY January 31, 2024 12:00am cholecalciferol 0.025 mg oral capsule (20 sources) Vitamin D Start: 10-08-2024 take 1 capsule by mouth twice daily Cholecalciferol (Vitamin D3) (Vitamin D3) 25 mcg (1,000 unit) capsule Active 25 ug PO TWICE A DAY October 08, 2024 1:00am Low level Start: 01-31-2024 End: 03-20-2024 take 1 capsule by mouth once daily Cholecalciferol (Vitamin D3) 25 mcg (1,000 unit) capsule Discontinued 25 ug PO DAILY January 31, 2024 12:00am March 20, 2024 4:36pm Start: 05-08-2021 End: 01-31-2024 take 1 capsule by mouth once daily Cholecalciferol (Vitamin D3) 10 mcg (400 unit) capsule Discontinued 10 ug PO DAILY May 08, 2021 12:00am January 31, 2024 9:36am clopidogrel 75 mg oral tablet (9 sources) [id number] Platelet Inhibitor Start: 01-02-2025 take 1 tablet by mouth once daily Clopidogrel (Plavix) 75 mg tablet Active 75 mg PO daily January 02, 2025 1:00am fexofenadine hydrochloride 180 mg oral tablet (10 sources) Histamine-1 Receptor Antagonist Start: 01-31-2024 take 1 tablet by mouth once daily Fexofenadine (Bertha Allergy) 180 mg tablet Active 180 mg PO DAILY January 31, 2024 12:00am metFORMIN hydrochloride 500 mg oral tablet (20 sources) Biguanide Start: 01-31-2024 take 1 tablet by mouth twice daily Metformin 500 mg tablet Active 500 mg PO TWICE A DAY January 31, 2024 9:38am Start: 05-08-2021 End: 01-31-2024 take 1 tablet by mouth once daily Metformin 500 mg tablet Discontinued 500 mg PO DAILY May 08, 2021 12:00am January 31, 2024 9:43am metoprolol tartrate 50 mg oral tablet (20 sources) beta-Adrenergic [place] Start: 01-31-2024 take 1 tablet by mouth twice daily Metoprolol Tartrate 50 mg tablet Active 50 mg PO TWICE A DAY January 31, 2024 12:00am Start: 01-31-2024 take 1 mg by mouth twice daily Metoprolol Tartrate Active MG PO TWICE A DAY January 31, 2024 12:00am Start: 05-08-2021 End: 01-31-2024 take 1 tablet by mouth once daily Metoprolol Tartrate 25 mg tablet Discontinued 25 mg PO DAILY May 08, 2021 12:00am January 31, 2024 9:38am Multivitamin preparation (1 source) Start: 01-31-2024 take 1 tablet by mouth once daily Multivitamin Active 1 TABLET PO DAILY January 31, 2024 12:00am Multivitamin tablet (9 sources) Start: 01-31-2024 Multivitamin tablet Active 1 {tbl} PO DAILY January 31, 2024 12:00am nitroglycerin 0.4 mg sublingual tablet (3 sources) Nitrate Vasodilator Start: 05-26-2025 Nitroglycerin (Nitrostat) 0.4 mg tablet, sublingual Active 0.4 mg SL every 5 to 15 minutes as needed for chest pain 25 3 May 26, 2025 12:00am do not exceed 3 doses per episode Nutritional Supplement-Fiber (1 source) Start: 01-31-2024 Nutritional Supplement-Fiber Active EACH PO January 31, 2024 12:00am ubidecarenone 100 mg oral capsule (20 sources) Start: 01-31-2024 Start: 01-31-2024 Coenzyme Q10 ( Co Q-10) 100 mg capsule Active 100 MG PO DAILY January 31, 2024 12:00am Start: 05-08-2021 End: 01-31-2024 Coenzyme Q10 10 mg capsule D iscontinued 10 mg PO ONCE May 08, 2021 12:00am January 31, 2024 9:37am varenicline 1 mg oral tablet (10 sources) Partial Cholinergic Nicotinic Agonist Start: 02-07-2024 take 1 tablet by mouth twice daily Varenicline Tartrate 1 mg tablet Active 1 mg PO TWICE A DAY February 07, 2024 12:00am smoking cessation Completed/Discontinued Medications Medication Drug Class(es) Dates Sig (Normalized) Sig (Original) [id number] 200 actuat albuterol 0.09 mg/actuat metered dose inhaler (10 sources) beta2-Adrenergic Agonist Start: 01-31-2024 End: 11-11-2024 Albuterol Sulfate 90 mcg/actuation HFA aerosol inhaler Discontinued 2 NMA INHALATION EVERY 4-6 HOURS as needed for SOB January 31, 2024 12:00am November 11, 2024 10:31am Start: 01-31-2024 take 1 puff(s) by in halation every four to six hours Albuterol Sulfate Active 2 PUFF INHALATION EVERY 4-6 HOURS January 31, 2024 12:00am atorvastatin 80 mg oral tablet (20 sources) HMG-CoA Reductase Inhibitor Start: 03-21-2024 End: 03-03-2025 take 1 tablet by mouth at bedtime Atorvastatin 80 mg tablet Discontinued 80 mg PO AT BEDTIME 90 3 April 10, 2024 10:50am March 03, 2025 4:04pm Start: 01-31-2024 End: 03-21-2024 take 1 tablet by mouth at bedtime Atorvastatin 20 mg tablet Discontinued 20 mg PO AT BEDTIME January 31, 2024 12:00am March 21, 2024 11:04am cholesterol Start: 01-31-2024 Atorvastatin A ctive MG PO January 31, 2024 12:00am Start: 05-08-2021 End: 01-31-2024 take 1 tablet by mouth once daily Atorvastatin 10 mg tablet Discontinued 10 mg PO DAILY May 08, 2021 12:00am January 31, 2024 9:35am azithromycin 250 mg oral tablet (13 sources) Macrolide Antimicrobial Start: 09-19-2023 End: 01-31-2024 Azithromycin (Zithromax Z-Benjie) 250 mg tablet Discontinued 0 PO .COMPLEX 6 0 September 19, 2023 1:00am January 31, 2024 9:36am For 250 mg dose pack: take 500 mg today (day 1), then 250 mg for 4 days (days 2-5) PO cephalexin 500 mg oral capsule (20 sources) Cephalosporin Antibacterial Start: 07-07-2022 End: 07-17-2022 take 1 capsule by mouth every twelve hours Cephalexin 500 mg capsule Discontinued 500 mg PO Q12H 20 10 0 July 07, 2022 12:00am July 16, 2022 12:00am July 17, 2022 12:03am doxycycline hyclate 100 mg oral capsule (12 sources) Tetracycline-class Drug Start: 11-18-2023 End: 11-25-2023 take 1 capsule by mouth twice daily Doxycycline Hyclate 100 mg capsule Discontinued 100 mg PO TWICE A DAY 14 7 0 November 18, 2023 1:00am November 24, 2023 1:00am November 25, 2023 1:04am ELDERBERRY FRUIT (10 sources) Start: 02-07-2024 End: 04-10-2024 take 1 capsule by mouth at bedtime Elderberry Fruit 350 mg capsule Discontinued 700 mg PO AT BEDTIME February 07, 2024 12:00am April 10, 2024 10:49am immune system Start: 02-07-2024 End: 04-10-2024 take 1 capsule by mouth at bedtime Elderberry Fruit 350 mg capsule Discontinued 700 mg PO AT BEDTIME February 07, 2024 12:00am April 10, 2024 10:49am Start: 02-07-2024 Elderberry Fru it Active MG PO February 07, 2024 12:00am hydroCHLOROthiazide 12.5 mg oral capsule (20 sources) Thiazide Diuretic Start: 05-08-2021 End: 03-21-2024 take 1 capsule by mouth once daily Hydrochlorothiazide 12.5 mg capsule Discontinued 12.5 mg PO DAILY May 08, 2021 12:00am March 21, 2024 11:04am lactobacillus acidophilus [id number] unt / pectin 10 mg oral capsule (9 sources) Start: 03-20-2024 End: 04-10-2024 take 1 capsule by mouth once daily Acidophilus-Pectin, Alcona 100 million cell-10 mg capsule Discontinued 1 NMA PO DAILY March 20, 2024 12:00am April 10, 2024 10:49am gut health losartan potassium 25 mg oral tablet (20 sources) Angiotensin 2 Receptor [place] Start: 03-21-2024 End: 03-03-2025 take 1 tablet by mouth once daily Losartan 25 mg tablet Discontinued 25 mg PO DAILY 90 3 April 10, 2024 10:50am March 03, 2025 4:04pm methylcellulose 500 mg oral tablet (9 sources) Start: 03-20-2024 End: 11-11-2024 take 1 tablet by mouth once daily as needed for constipation Methylcellulose (Laxative) (Fiber Therapy (M-Cellulose)) 500 mg tablet Discontinued 500 mg PO DAILY as needed for constipation March 20, 2024 12:00am November 11, 2024 10:31am nitrofurantoin, macrocrystals 25 mg / nitrofurantoin, monohydrate 75 mg oral capsule (20 sources) Nitrofuran Antibacterial Start: 08-30-2019 End: 09-07-2019 take 1 capsule by mouth every twelve hours at mealtime Nitrofurantoin Monohyd/M-Cryst 100 mg capsule Discontinued 1 NMA PO Q12H 14 7 0 August 30, 2019 12:00am September 05, 2019 1:00am September 07, 2019 1:09am administer with a meal/food; swallow whole; do not open, crush, dissolve , or chew Nutritional Supplement-Fiber misc (9 sources) Start: 01-31-2024 End: 03-20-2024 Nutritional Supplement-Fiber misc Discontinued NMA PO January 31, 2024 12:00am March 20, 2024 10:08am polymyxin b [id number] unt/ml / trimethoprim 1 mg/ml ophthalmic solution (20 sources) Dihydrofolate Reductase Inhibitor Antibacterial, Polymyxin-class Antibacterial Start: 05-08-2021 End: 05-15-2021 Polymyxin B Sulf-Trimethoprim 10,000 unit- 1 mg/mL drops Discontinued 1 NMA OPHTHALMIC Q3H 10 7 0 May 08, 2021 12:00am May 14, 2021 12:00am May 15, 2021 12:01am right eye conjunctivitis while awake; do not exceed 6 doses in 24 hours sertraline 50 mg oral tablet (10 sources) Serotonin Reuptake Inhibitor Start: 01-31-2024 End: 11-11-2024 take 1 tablet by mouth once daily Sertraline 50 mg tablet Discontinued 50 mg PO DAILY January 31, 2024 12:00am November 11, 2024 10:31am depression Start: 01-31-2024 take 1 mg by mouth once daily Sertraline Active MG PO DAILY January 31, 2024 12:00am ticagrelor 90 mg oral tablet (20 sources) Start: 03-21-2024 End: 01-02-2025 take 1 tablet by mouth twice daily Ticagrelor (Brilinta) 90 mg tablet Discontinued 90 mg PO TWICE A DAY 180 3 July 08, 2024 4:08pm January 02, 2025 3:03pm Problems Active Problems Problem Classification Problem Date Documented Date Episodic/Chronic Acute myocardial infarction (9 sources) Myocardial infarction; Translations: [Non-ST elevation (NSTEMI) myocardial infarction] 06-26-2024 Chronic Chronic obstructive pulmonary disease and bronchiectasis (12 sources) Mild chronic obstructive pulmonary disease; Translations: [Chronic obstructive pulmonary disease, unspecified] 10-08-2024 Chronic Chronic obstructive pulmonary disease and bronchiectasis (6 sources) Bronchitis; Translations: [Bronchitis, not specified as acute or chronic] 11-18-2023 Episodic Coronary atherosclerosis and other heart disease (18 sources) Arteriosclerotic vascular disease; Translations: [Atherosclerotic heart disease of ramona coronary artery without angina pectoris] 06-26-2024 Chronic Coronary atherosclerosis and other heart disease (2 sources) Presence of coronary angioplasty implant and graft; Translations: [Presence of coronary angioplasty implant and graft] Onset: 05-26-2025 Episodic Diabetes mellitus with complications (1 source) Type 2 diabetes mellitus with other circulatory complications; Translations: [Type 2 diabetes mellitus with other circulatory complications] Onset: 03-09-2025 Chronic Diabetes mellitus without complication (9 sources) Diabetes mellitus; Translations: [Type 2 diabetes mellitus without complications] 03-20-2024 Chronic Diseases of white blood cells (9 sources) Leukocytosis; Translations: [Elevated white blood cell count, unspecified] 03-20-2024 Chronic Disorders of lipid metabolism (19 sources) Hypercholesterolemia; Translations: [Pure hypercholesterolemia, unspecified] Onset: 05-26-2025 03-21-2024 Chronic Essential hypertension (20 sources) Hypertensive disorder; Translations: [Essential (primary) hypertension] Onset: 05-26-2025 04-10-2024 Chronic Inflammation; infection of eye (except that caused by tuberculosis or sexually transmitteddisease) (12 sources) Conjunctivitis; Translations: [Unspecified conjunctivitis] 05-08-2021 Episodic Malaise and fatigue (1 source) Fatigue; Translations: [Other fatigue] 01-31-2024 Episodic Other bone disease and musculoskeletal deformities (10 sources) Osteopenia; Translations: [Other specified disorders of bone density and structure, unspecified site] 01-31-2024 Episodic Other lower respiratory disease (10 sources) Dyspnea on exertion; Translations: [Shortness of breath] 02-07-2024 Episodic Other lower respiratory disease (1 source) Shortness of breath; Translations: [Shortness of breath] 02-07-2024 Episodic Other nervous system disorders (10 sources) Neuropathy; Translations: [Polyneuropathy, unspecified] 01-31-2024 Chronic Other nutritional; endocrine; and metabolic disorders (10 sources) Obesity; Translations: [Obesity, unspecified] 02-07-2024 Chronic Other nutritional; endocrine; and metabolic disorders (1 source) Obesity, unspecified; Translations: [Obesity, unspecified] 02-07-2024 Chronic Other upper respiratory infections (7 sources) Maxillary sinusitis; Translations: [Chronic maxillary sinusitis] 09-19-2023 Chronic Residual codes; unclassified (10 sources) Daytime hypersomnia; Translations: [Hypersomnia, unspecified] 02-07-2024 Chronic Residual codes; unclassified (1 source) Hypersomnia, unspecified; Translations: [Hypersomnia, unspecified] 02-07-2024 Chronic Residual codes; unclassified (12 sources) Obstructive sleep apnea syndrome; Translations: [Obstructive sleep apnea (adult) (pediatric)] 04-22-2024 Chronic Comment on above: mild AHI 6.2 Substance-related disorders (13 sources) Cigarette smoker ; Translations: [Nicotine dependence, cigarettes, uncomplicated] Onset: 11-06-2024 04-22-2024 Chronic Comment on above: quit 03/20/24 Urinary tract infections (3 sources) Urinary tract infection, site not specified; Translations: [Urinary tract infection, site not specified] Episodic Past or Other Problems Problem Classification Problem Date Documented Date Episodic/Chronic Abdominal pain (1 source) Unspecified abdominal pain; Translations: [Unspecified abdominal pain] Onset: 4 Episodic Nonmalignant breast conditions (20 sources) Mammographic microcalcification of breast; Translations: [Mammographic microcalcification found on diagnostic imaging of breast] Onset: 5 12-16-2024 Episodic Other gastrointestinal disorders (1 source) Change in bowel habit; Translations: [Change in bowel habit] Onset: 5 Episodic Other screening for suspected conditions (not mental disorders or infectious disease) (19 sources) Patient encounter status; Translations: [Encounter for screening for malignant neoplasm of intestinal tract, unspecified] Onset: 5 12-02-2024 Episodic Unclassified (20 sources) history of child 05-17-2022 Unclassified (20 sources) sudden weight loss 05-17-2022 Results Test Name Value Interpretation Reference Range Facility Cardiology Visit Reporton Cardiology Visit Report [facility] [address] [place] [address] OFFICE VISIT Date of Service: 05/26/25 MR#: [id number] Acct: [id number] Name: RHINA PETERS Rep #: [id number] : 1960 Provider: MARIZA Lao Age/Sex: 65/F Location: [facility] Status: Signed HPI HPI History of Present Illness Details: Mrs. Peters is a 65-year-old white female who presented to the emergency department at [facility] on 02/19/2024 complaining of chest pain. 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 She also had balloon angioplasty of the terminal branch of the RCA and the origin of the PDA. Echocardiogram was performed and showed an EF of 65% and no evidence of diastolic dysfunction or regional wall motion abnormalities. She had no significant valvular disorders and her pulmonary artery systolic pressure was 20 to 25 mmHg. She has a history of hypertension, hyperlipidemia, tobacco abuse, and diabetes. She was in the ER for back pain/elevated HR/chest pain while she was out of town. She has been doing cardiac rehab but she has been consistent with it. She has not needed to use any NTG. She does not have any worsening SOB. She does not have any palpitations. She does not have any lightheadedness/dizzines s. She did use a [employer], she would have sinus tachycardia noted. She did not feel bad with this. Intake Vital Signs 01/02/25 13:38 05/26/25 09:46 Height 5 ft 1 in 5 ft 1 in Weight: 177 lb BMI 33.4 BP 125/79 H Blood Pressure Location Lt brachial Position Sitting Respiration 18 Pulse 70 Pulse Source Monitor Intake Visit Reasons: SEE NOTES/HTN Back Grinder Required: No Accompanied by: Is patient in pain?: No Allergies lisinopril Adverse Reaction (Mild, Verified 05/26/25 09:46) cough Medications ???Medication ???Instructions ???Recorded ???Confirmed ???Type aspirin 81 mg tablet,delayed 81 mg PO DAILY md ordered 05/08/21 05/26/25 History release (Adult Aspirin Regimen) calcium carbonate 600 mg PO DAILY 01/31/24 05/26/25 History coenzyme Q10 100 mg capsule (Co 400 mg PO DAILY unknown 01/31/24 0 05/26/25 History Q-10) fexofenadine 180 mg tablet 180 mg PO DAILY 01/31/24 05/26/25 History (Bertha Allergy) metformin 500 mg tablet 500 mg PO BID 01/31/24 05/26/25 Hi story metoprolol tartrate 50 mg tablet 50 mg PO BID 01/31/24 05/26/25 His tory multivitamin 1 tab PO DAILY 01/31/24 05/26/25 H istory varenicline tartrate 1 mg tablet 1 mg PO BID smoking cessation 01/2705/26/25 History cholecalciferol (vitamin D3) 25 25 mcg PO BID Low level 10/08/24 0 05/26/25 History mcg (1,000 unit) capsule (Vitamin D3) clopidogrel 75 mg tablet (Plavix) 75 mg PO QDAY #90 tabs 01/02/25 0 05/26/25 Rx atorvastatin 80 mg tablet 80 mg PO QHS #90 tabs 03/03/25 Rx losartan 25 mg tablet 25 mg PO DAILY #90 tabs 03/03/25 0 05/26/25 Rx nitroglycerin 0.4 mg sublingual 0.4 mg sublingual Q5-15M PRN chest 05/26/25 05/26/25 Rx tablet (Nitrostat) pain #25 tabs Have you fallen in the past year?: No PFSH Medical History Breast microcalcification, mammographic Screening for intestinal cancer Wears partial dentures Depression Gastric reflux Smoker CPAP (continuous positive airway pressure) dependence Sleep apnea Shortness of breath on exertion Chronic cough History of heart attack Cardiology follow-up encounter Hypercholesteremia Diabetes Hypertension Non-ST elevation MA (NSTEMI) Shortness of breath on exertion Obesity Daytime hypersomnia Osteopenia Neuropathy Sinus infection History of bloody stools Shoulder pain Arthritis Hypertension Surgical History H/O breast biopsy History of cardiac catheterization S/P laparoscopy History of coronary artery stent placement History of cataract extraction History of hysterectomy History of D C Family History Mother Colon cancer Hypertension Father Heart disease Hypertension Grandmother Breast cancer Social History household members: spouse housing: house Smoking Status: Current every day smoker (Patient smoked today.) tobacco type: cigarettes how long ago did patient quit smoking: Currently is working on quitting quit status: considering quitting alcohol intake: current alcohol intake frequency: a few times a month substance use type: does not use ROS Const Const: Negative for fatigue or weakness Eyes (more content not included)... Normal [facility] Absolute lymphocyte countOrd ered By: Alessandro Shah on 03-04-2025 Lymphocytes Auto (Unsp spec) [#/Vol] 1.56 10*3/uL 0.83-4.51 [facility] Absolute neutrophil countOrd ered By: Alessandro Shah on 03-04-2025 Neutrophils (Bld) [#/Vol] 5.9 10*3/uL 2.0-7.7 [facility] Anion gap in Serum or Plasma Ordered By: Alessandro Shah on 03-04-2025 Anion gap [Moles/Vol] 12 mmol/L 5-15 [facility] [place] Automated blood erythrocyte countOrdered By: Alessandro Shah on 03-04-2025 RBC (Bld) [#/Vol] 4.45 10*6/uL Normal 4.2-5.4 [facility] Comment on above: Order Comment: Order Date: 11/06/24 Order Info: [id number] - CBCD Performed By: #### L 506.0400, L500.4050, L501.9520, L502.0250, L501.9985, L100.0100, L500.4100 #### [facility] [address] [place], [place], [id number] Automated blood hematocrit ( percentage)Ordered By: Alessandro Shah on 03-04-2025 Hematocrit (Bld) [Volume fraction] 41.3 % Normal 37-47 [facility] Comment on above: Order Comment: Order Date: 11/06/24 Order Info: [id number]- - CBCD Performed By: #### L 506.0400, L500.4050, L501.9520, L502.0250, L501.9985, L100.0100, L500.4100 #### [facility] [address] [place], [place], [id number] Automated lymphocyte count a s percentage of total leukocytesOrdered By: Alessandro Shah on 03-04-2025 Lymphocytes/100 WBC Auto (Unsp spec) 18.8 % Low 19- [facility] BUN/creatinine ratioOrdered By: Alessandro Shah on 03-04-2025 Urea nitrogen/Creatinine [Mass ratio] 18.9 mg/mg 10- [facility] Basophil percentageOrdered B y: Alessandro Shah on 03-04-2025 Basophils/100 WBC (Bld) 0.8 % Normal 0-1 [facility] Comment on above: Order Comment: Order Date: 11/06/24 Order Info: [id number] - CBCD Performed By: #### L 506.0400, L500.4050, L501.9520, L502.0250, L501.9985, L100.0100, L500.4100 #### [facility] [address] [place], [place], [id number] Bilirubin Test strip Ql (U)O rdered By: Alessandro Shah on 03-04-2025 Bilirubin Ql (U) Negative Negative [facility] Bilirubin, totalOrdered By: Alessandro Shah on 03-04-2025 Bilirubin [Mass/Vol] 0.30 mg/dL 0.00-1.30 [facility] CBC W/Diff, Automatedon Absolute Lymph 1.56 X10 3/uL Normal 0.83-4.51 [facility] Comment on above: Order Comment: Order Date: 11/06/24 Order Info: 018- - CBCD Performed By: #### L 506.0400, L500.4050, L501.9520, L502.0250, L501.9985, L100.0100, L500.4100 #### [facility] [address] [place], [address] Absolute Neut 5.9 X10 3/uL Normal 2.0-7.7 [facility] Comment on above: Order Comment: Order Date: 11/06/24 Order Info: [id number] - CBCD Performed By: #### L 506.0400, L500.4050, L501.9520, L502.0250, L501.9985, L100.0100, L500.4100 #### [facility] [address] [place], [address] IG% 0.200 Normal 0.0-0.9 [facility] Comment on above: Order Comment: Order Date: 11/06/24 Order Info: [id number]- - CBCD Result Comment: IG% - Immature Granulocytes (promyelocytes, myelocytes and metamyelocytes) > 1% indicates that a LEFT SHIFT is Present. Performed By: #### L 506.0400, L500.4050, L501.9520, L502.0250, L501.9985, L100.0100, L500.4100 #### [facility] [address] [place], [address] Lymphocytes/100 WBC (Bld) 18.8 % Low 19-41 [facility] Comment on above: Order Comment: Order Date: 11/06/24 Order Info: [id number] - CBCD Performed By: #### L 506.0400, L500.4050, L501.9520, L502.0250, L501.9985, L100.0100, L500.4100 #### [facility] [address] [place], [address] Nucleated RBC (Bld) [#/Vol] 0 10*3/uL Normal 0-5 [facility] Comment on above: Order Comment: Order Date: 11/06/24 Order Info: 0184-1 - CBCD Performed By: #### L 506.0400, L500.4050, L501.9520, L502.0250, L501.9985, L100.0100, L500.4100 #### [facility] [address] [place] [place], [address] RDW SD 46.4 fl High 35.1-43.9 [facility] Comment on above: Order Comment: Order Date: 11/06/24 Order Info: [id number] - CBCD Performed By: #### L 506.0400, L500.4050, L501.9520, L502.0250, L501.9985, L100.0100, L500.4100 #### [facility] [address] [place], [address] Calculated very low density lipoprotein (VLDL) cholesterol measurementOrdered By: Alessandro Shah on 03-04-2025 Calculated very low density lipoprotein (VLDL) cholesterol measurement 24 mg/dL 5-40 [facility] Carbon dioxide, total [Moles /volume] in Central venous bloodOrdered By: Alessandro Shah on 03-04-2025 CO2 [Moles/Vol] 22.2 mmol/L 21.0-32.0 [facility] Chloride assayOrdered By: Tal Shah on 03-04-2025 Chloride [Moles/Vol] 106 mmol/L 98-108 [facility] Comprehensive Metabolic Prof ilon 03-04-2025 Albumin [Mass/Vol] 4.2 g/dL Normal 3.4-4.8 [facility] Comment on above: Order Comment: Order Date: 11/06/24 Order Info: [id number] - CMP Order Info: [id number] - LIPID Order Info: [id number] - TSH Order Info: 3024-7 - T4F Performed By: #### L 506.0400, L500.4050, L501.9520, L502.0250, L501.9985, L100.0100, L500.4100 #### [facility] [address] [place], [address] Albumin/Globulin [Mass ratio] 1.7 {ratio} Normal 0.9-2.4 [facility] Comment on above: Order Comment: Order Date: 11/06/24 Order Info: 86-1 - CMP Order Info: - LIPID Order Info: [id number] - TSH Order Info: 3023-7 - T4F Performed By: #### L 506.0400, L500.4050, L501.9520, L502.0250, L501.9985, L100.0100, L500.4100 #### [facility] [address] [place], [address] ALK PHOS 102 U/L Normal 35-104 [facility] Comment on above: Order Comment: Order Date: 11/06/24 Order Info: 785-1 - CMP Order Info: - LIPID Order Info: [id number] - TSH Order Info: 7 - T4F Performed By: #### L 506.0400, L500.4050, L501.9520, L502.0250, L501.9985, L100.0100, L500.4100 #### [facility] [address] [place], [address] ALT [Catalytic activity/Vol] 48 U/L High <=34 [facility] Comment on above: Order Comment: Order Date: 11/06/24 Order Info: 785- - CMP Order Info: - LIPID Order Info: [id number] - TSH Order Info: 7 - T4F Performed By: #### L 506.0400, L500.4050, L501.9520, L502.0250, L501.9985, L100.0100, L500.4100 #### [facility] [address] [place], [address] AST [Catalytic activity/Vol] 30 U/L Normal <=31 [facility] Comment on above: Order Comment: Order Date: 11/06/24 Order Info: 86-1 - CMP Order Info: [id number] - LIPID Order Info: 3016-3 - TSH Order Info: 7 - T4F Performed By: #### L 506.0400, L500.4050, L501.9520, L502.0250, L501.9985, L100.0100, L500.4100 #### [facility] [address] [place], [address] Bilirubin [Mass/Vol] 0.30 mg/dL Normal 0.00-1.30 [facility] Comment on above: Order Comment: Order Date: 11/06/24 Order Info: 785-1 - CMP Order Info: - LIPID Order Info: [id number] - TSH Order Info: 7 - T4F Performed By: #### L 506.0400, L500.4050, L501.9520, L502.0250, L501.9985, L100.0100, L500.4100 #### [facility] [address] [place], [address] BUN/CRE 18.9 RATIO Normal 10-20 [facility] Comment on above: Order Comment: Order Date: 11/06/24 Order Info: 785- - CMP Order Info: [id number] - LIPID Order Info: [id number] - TSH Order Info: 7 - T4F Performed By: #### L 506.0400, L500.4050, L501.9520, L502.0250, L501.9985, L100.0100, L500.4100 #### [facility] [address] [place], [address] Calcium [Mass/Vol] 9.4 mg/dL Normal 7.6-11.0 [facility] Comment on above: Order Comment: Order Date: 11/06/24 Order Info: 0786-1 - CMP Order Info: [id number] - LIPID Order Info: 3015-12 - TSH Order Info: [id number] - T4F Performed By: #### L 506.0400, L500.4050, L501.9520, L502.0250, L501.9985, L100.0100, L500.4100 #### [facility] [address] [place], [address] Chloride [Moles/Vol] 106 mmol/L Normal 98-108 [facility] Comment on above: Order Comment: Order Date: 11/06/24 Order Info: 0786-1 - CMP Order Info: [id number] - LIPID Order Info: [id number] - TSH Order Info: 3024-7 - T4F Performed By: #### L 506.0400, L500.4050, L501.9520, L502.0250, L501.9985, L100.0100, L500.4100 #### [facility] [address] [place], [address] CO2 [Moles/Vol] 22.2 mmol/L Normal 21.0-32.0 [facility] Comment on above: Order Comment: Order Date: 11/06/24 Order Info: 785- - CMP Order Info: [id number] - LIPID Order Info: 3015-3 - TSH Order Info: 3024-7 - T4F Performed By: #### L 506.0400, L500.4050, L501.9520, L502.0250, L501.9985, L100.0100, L500.4100 #### [facility] [address] [place], [address] Creatinine [Mass/Vol] 0.81 mg/dL Normal 0.70-1.20 [facility] [place] Comment on above: Order Comment: Order Date: 11/06/24 Order Info: 0786-1 - CMP Order Info: [id number] - LIPID Order Info: 3016-3 - TSH Order Info: 3024-7 - T4F Performed By: #### L 506.0400, L500.4050, L501.9520, L502.0250, L501.9985, L100.0100, L500.4100 #### [facility] [address] [place], [address] GAP 12 Normal 5-15 [facility] Comment on above: Order Comment: Order Date: 11/06/24 Order Info: 785- - CMP Order Info: - LIPID Order Info: [id number] - TSH Order Info: 3024-04 - T4F Performed By: #### L 506.0400, L500.4050, L501.9520, L502.0250, L501.9985, L100.0100, L500.4100 #### [facility] [address] [place], [address] GFR/1.73 sq M.predicted among non-blacks MDRD (S/P/Bld) [Vol rate/Area] 80 mL/min/{1.73_m2} Normal >60 [facility] Comment on above: Order Comment: Order Date: 11/06/24 Order Info: 785-10 - CMP Order Info: - LIPID Order Info: [id number] - TSH Order Info: 3024-04 - T4F Result Comment: mL/m in/1.73m2 CKD-EPI Creatinine Equation (2020) Performed By: #### L 506.0400, L500.4050, L501.9520, L502.0250, L501.9985, L100.0100, L500.4100 #### [facility] [address] [place], [address] Globulin (S) [Mass/Vol] 2.5 g/dL Normal 2.2-4.2 [facility] Comment on above: Order Comment: Order Date: 11/06/24 Order Info: 785-10 - CMP Order Info: - LIPID Order Info: [id number] - TSH Order Info: 3024-04 - T4F Performed By: #### L 506.0400, L500.4050, L501.9520, L502.0250, L501.9985, L100.0100, L500.4100 #### [facility] [address] [place], [address] Glucose [Mass/Vol] 129 mg/dL High 70-99 [facility] Comment on above: Order Comment: Order Date: 11/06/24 Order Info: 0786-1 - CMP Order Info: [id number] - LIPID Order Info: 3016-3 - TSH Order Info: 3024-7 - T4F Performed By: #### L 506.0400, L500.4050, L501.9520, L502.0250, L501.9985, L100.0100, L500.4100 #### [facility] [address] [place], [address] Potassium [Moles/Vol] 4.4 mmol/L Normal 3.3-5.1 [facility] [place] Comment on above: Order Comment: Order Date: 11/06/24 Order Info: 0786-1 - CMP Order Info: [id number] - LIPID Order Info: 3015-3 - TSH Order Info: 3024-7 - T4F Performed By: #### L 506.0400, L500.4050, L501.9520, L502.0250, L501.9985, L100.0100, L500.4100 #### [facility] [address] [place], [address] Sodium [Moles/Vol] 140 mmol/L Normal 133-145 [facility] Comment on above: Order Comment: Order Date: 11/06/24 Order Info: 0786-1 - CMP Order Info: [id number] - LIPID Order Info: 3016-3 - TSH Order Info: 3024-7 - T4F Performed By: #### L 506.0400, L500.4050, L501.9520, L502.0250, L501.9985, L100.0100, L500.4100 #### [facility] [address] [place], [address] T PROT 6.7 g/dL Normal 5.9-8.4 [facility] Comment on above: Order Comment: Order Date: 11/06/24 Order Info: 0786-1 - CMP Order Info: [id number] - LIPID Order Info: [id number] - TSH Order Info: 7 - T4F Performed By: #### L 506.0400, L500.4050, L501.9520, L502.0250, L501.9985, L100.0100, L500.4100 #### [facility] [address] [place], [address] Urea nitrogen [Mass/Vol] 15 mg/dL Normal 4-19 [facility] Comment on above: Order Comment: Order Date: 11/06/24 Order Info: 0786-1 - CMP Order Info: [id number] - LIPID Order Info: 3 - TSH Order Info: 7 - T4F Performed By: #### L 506.0400, L500.4050, L501.9520, L502.0250, L501.9985, L100.0100, L500.4100 #### [facility] [address] [place], [address] Eosinophil percentageOrdered By: Alessandro Shah on 03-04-2025 Eosinophils/100 WBC (Bld) 1.6 % Normal 0-5 [facility] Comment on above: Order Comment: Order Date: 11/06/24 Order Info: 0184-1 - CBCD Performed By: #### L 506.0400, L500.4050, L501.9520, L502.0250, L501.9985, L100.0100, L500.4100 #### [facility] [address] [place], [address] Erythrocyte distribution wid th ratioOrdered By: Alessandro Shah on 03-04-2025 Erythrocyte distribution width (RBC) [Ratio] 13.7 % Normal 11.6-14.6 [facility] Comment on above: Order Comment: Order Date: 11/06/24 Order Info: 0184-1 - CBCD Performed By: #### L 506.0400, L500.4050, L501.9520, L502.0250, L501.9985, L100.0100, L500.4100 #### [facility] [address] [place], [address] Erythrocyte distribution wid th standard deviationOrdered By: Alessandro Shah on 03-04-2025 Erythrocyte distribution width (RBC) [Ratio] 46.4 fl High 35.1-43.9 [facility] Glomerular filtration rate ( GFR) estimation/1.73 sq m using serum, plasma, or whole bOrdered By: Alessandro Shah on 03-04-2025 GFR/1.73 sq M.predicted among non-blacks MDRD (S/P/Bld) [Vol rate/Area] 80 mL/min/{1.73_m2} >60 [facility] Comment on above: mL/min/1.73m2 CKD-EP I Creatinine Equation (2020) Hemoglobin A1con 03-04-2025 HbA1c (Bld) [Mass fraction] 6.4 % High <=5.6 [facility] Comment on above: Order Comment: Order Date: 11/06/24 Order Info: [id number] - A1C Result Comment: Norm al < 5.7 % Prediabetic 5.7 - 6.4 % Diabetic >or= 6.5 % Please note range changes. Performed By: #### L 506.0400, L500.4050, L501.9520, L502.0250, L501.9985, L100.0100, L500.4100 #### [facility] [address] [place], [place], [id number] Hemoglobin A1c percentageOrd ered By: Alessandro Shah on 03-04-2025 HbA1c (Bld) [Mass fraction] 6.4 % High <5.7 [facility] Comment on above: Normal < 5.7 % Predi abetic 5.7 - 6.4 % Diabetic >or= 6.5 % Please note range changes. Hemoglobin measurementOrdere d By: Alessandro Shah on 03-04-2025 Hemoglobin (Bld) [Mass/Vol] 13.5 g/dL Normal 12.0-15.0 [facility] Comment on above: Order Comment: Order Date: 11/06/24 Order Info: [id number] - CBCD Performed By: #### L 506.0400, L500.4050, L501.9520, L502.0250, L501.9985, L100.0100, L500.4100 #### [facility] [address] [place], [place], [id number] (727) Immature granulocytes/100 WB C Auto (Bld)Ordered By: Alessandro Shah on 03-04-2025 Immature granulocytes/100 WBC (Bld) 0.200 % 0.0-0.9 [facility] Comment on above: IG% - Immature Granu locytes (promyelocytes, myelocytes and metamyelocytes) > 1% indicates that a LEFT SHIFT is Present. Ketones Test strip Ql (U)Ord ered By: Alessandro Shah on 03-04-2025 Ketones Ql (U) Negative Negative [facility] LDL calc ser/plasOrdered By: Alessandro Shah on 03-04-2025 Cholesterol in LDL [Mass/Vol] 65 mg/dL [facility] Comment on above: Sgqokihbzm=298-926 m g/dL & Higher Nceg=417 mg/dL or greater Laboratory - Chemistry and C hemistry - challengeOrdered By: Alessandro Shah on 03-04-2025 AST [Catalytic activity/Vol] 30 U/L <32 [facility] Lipid Profileon 03-04-2025 CHOL:HDL 3.25 Normal [facility] Comment on above: Order Comment: Order Date: 11/06/24 Order Info: 0786-1 - CMP Order Info: [id number] - LIPID Order Info: [id number] - TSH Order Info: 3024-7 - T4F Performed By: #### L 506.0400, L500.4050, L501.9520, L502.0250, L501.9985, L100.0100, L500.4100 #### [facility] [address] [place], [address] Cholesterol [Mass/Vol] 129 mg/dL Normal <=200 [facility] Comment on above: Order Comment: Order Date: 11/06/24 Order Info: 0786- - CMP Order Info: - LIPID Order Info: [id number] - TSH Order Info: 3024-04 T4 Result Comment: Chol esterol level, Desirable <200 mg/dL Borderline high cholesterol 200-239 mg/dL High cholesterol >=240 mg/dL Recommendations of the NCEP Adult Treatment Panel for the following risk-cutoff thresholds for the [place] population. Performed By: #### L 506.0400, L500.4050, L501.9520, L502.0250, L501.9985, L100.0100, L500.4100 #### [facility] [address] [place], [address] Cholesterol in HDL [Mass/Vol] 40 mg/dL Normal [facility] Comment on above: Order Comment: Order Date: 11/06/24 Order Info: 785-10 - CMP Order Info: - LIPID Order Info: [id number] - TSH Order Info: 3024-04 T4 Result Comment: Elidia onal Cholesterol Education Program (NCEP) guidelines: <40 mg/dL: Low HDL-cholesterol (major risk factor for CHD) >= 60 mg/dL: High HDL-cholesterol (negative risk factor for CHD) HDL-cholesterol is affected by a number of factors, e.g. smoking, exercise, hormones, sex and age. Performed By: #### L 506.0400, L500.4050, L501.9520, L502.0250, L501.9985, L100.0100, L500.4100 #### [facility] [address] [place], [address] Cholesterol in LDL [Mass/Vol] 65 mg/dL Normal [facility] Comment on above: Order Comment: Order Date: 11/06/24 Order Info: 0786- - CMP Order Info: [id number] - LIPID Order Info: 3015-12 - TSH Order Info: 3024-04 T4F Result Comment: Bord wufjtb=083-453 mg/dL Higher Chek=432 mg/dL or greater Performed By: #### L 506.0400, L500.4050, L501.9520, L502.0250, L501.9985, L100.0100, L500.4100 #### [facility] [address] [place], [address] Cholesterol in VLDL [Mass/Vol] 24 mg/dL Normal 5-40 [facility] Comment on above: Order Comment: Order Date: 11/06/24 Order Info: 0786-1 - CMP Order Info: [id number] - LIPID Order Info: 3 - TSH Order Info: 7 - T4F Performed By: #### L 506.0400, L500.4050, L501.9520, L502.0250, L501.9985, L100.0100, L500.4100 #### [facility] [address] [place], [address] Triglyceride [Mass/Vol] 120 mg/dL Normal [facility] Comment on above: Order Comment: Order Date: 11/06/24 Order Info: 0786-1 - CMP Order Info: [id number] - LIPID Order Info: 3 - TSH Order Info: 7 - T4F Result Comment: The drugs N-Acetylcysteine and Metamizole may falsely depress this assay. Normal range: <150 mg/dL Borderline High: 150-199 mg/dL High: 200-499 mg/dL Very High: >500 mg/dL Performed By: #### L 506.0400, L500.4050, L501.9520, L502.0250, L501.9985, L100.0100, L500.4100 #### [facility] [address] [place], [address] MCV (mean corpuscular volume ) determinationOrdered By: Alessandro Shah on 03-04-2025 MCV (RBC) [Entitic vol] 92.8 fL Normal 81-99 [facility] Comment on above: Order Comment: Order Date: 11/06/24 Order Info: 0184-1 - CBCD Performed By: #### L 506.0400, L500.4050, L501.9520, L502.0250, L501.9985, L100.0100, L500.4100 #### [facility] [address] [place], [address] Mean corpuscular hemoglobin (MCH) determinationOrdered By: Alessandro Shah on 03-04-2025 MCH (RBC) [Entitic mass] 30.3 pg Normal 27.0-32.0 [facility] Comment on above: Order Comment: Order Date: 11/06/24 Order Info: 018- - CBCD Performed By: #### L 506.0400, L500.4050, L501.9520, L502.0250, L501.9985, L100.0100, L500.4100 #### [facility] [address] [place], [place], [id number] Mean corpuscular hemoglobin concentration (MCHC) determinationOrdered By: Alessandro Shah on 03-04-2025 MCHC (RBC) [Mass/Vol] 32.7 g/dL Normal 32-36 [facility] [place] Comment on above: Order Comment: Order Date: 11/06/24 Order Info: 018- - CBCD Performed By: #### L 506.0400, L500.4050, L501.9520, L502.0250, L501.9985, L100.0100, L500.4100 #### [facility] [address] [place], [address] Mean platelet volume determi nationOrdered By: Alessandro Shah on 03-04-2025 Platelet mean volume (Bld) [Entitic vol] 11.0 fL Normal 6.2-12.0 [facility] Comment on above: Order Comment: Order Date: 11/06/24 Order Info: [id number]- - CBCD Performed By: #### L 506.0400, L500.4050, L501.9520, L502.0250, L501.9985, L100.0100, L500.4100 #### [facility] [address] [place], [address] Microalb:Creat Ratio,Random URon 03-04-2025 Creatinine [Mass/Vol] 99.10 mg/dL Normal 28.00-217.00 [facility] Comment on above: Order Comment: Order Date: 11/06/24 Order Info: [id number] - MIACRE Performed By: #### L 506.0400, L500.4050, L501.9520, L502.0250, L501.9985, L100.0100, L500.4100 #### [facility] [address] [place], [address] MALB:CREAT UNABLE TO CALCULATE Normal [facility] Comment on above: Order Comment: Order Date: 11/06/24 Order Info: [id number] - MIACRE Performed By: #### L 506.0400, L500.4050, L501.9520, L502.0250, L501.9985, L100.0100, L500.4100 #### [facility] [address] [place], [address] MICROALBUMIN,UR < 12.0 Normal NO RANGE EST. [facility] Comment on above: Order Comment: Order Date: 11/06/24 Order Info: [id number] - MIACRE Performed By: #### L 506.0400, L500.4050, L501.9520, L502.0250, L501.9985, L100.0100, L500.4100 #### [facility] [address] [place], [address] Microalbumin/creat ratio urO rdered By: Alessandro Shah on 03-04-2025 Urine microalbumin/creatinine ratio measurement UNABLE TO CALCULATE mg/g CRE [facility] Microscopic analysis of urin e for red blood cells (RBC)Ordered By: Alessandro Shah on 03-04-2025 Microscopic analysis of urine for red blood cells (RBC) 0 SEEN /hpf 0-5 [facility] Monocyte percentageOrdered B y: Alessandro Shah on 03-04-2025 Monocytes/100 WBC (Bld) 7.6 % Normal 0-10 [facility] Comment on above: Order Comment: Order Date: 11/06/24 Order Info: [id number] - CBCD Performed By: #### L 506.0400, L500.4050, L501.9520, L502.0250, L501.9985, L100.0100, L500.4100 #### [facility] [address] [place], [place], [address] Mucus LM Ql (Urine sed)Order ed By: Alessandro Shah on 03-04-2025 Mucus Ql (Urine sed) 1+ /hpf [facility] Neutrophil percentageOrdered By: Alessandro Shah on 03-04-2025 Neutrophils/100 WBC (Bld) 71.0 % High 47-70 [facility] Comment on above: Order Comment: Order Date: 11/06/24 Order Info: [id number]- - CBCD Performed By: #### L 506.0400, L500.4050, L501.9520, L502.0250, L501.9985, L100.0100, L500.4100 #### [facility] [address] [place], [place], [address] Nitrite Test strip Ql (U)Ord ered By: Alessandro Shah on 03-04-2025 Nitrite Ql (U) Negative Negative [facility] Nucleated red blood cell per centageOrdered By: Alessandro Shah on 03-04-2025 Nucleated RBC/100 WBC (Bld) [Ratio] 0 % 0-5 [facility] Platelet countOrdered By: Tal Shah on 03-04-2025 Platelets (Bld) [#/Vol] 329 10*3/uL Normal 150-450 [facility] Comment on above: Order Comment: Order Date: 11/06/24 Order Info: [id number] - CBCD Performed By: #### L 506.0400, L500.4050, L501.9520, L502.0250, L501.9985, L100.0100, L500.4100 #### [facility] [place], [address] Potassium measurement (mass/ volume)Ordered By: Alessandro Shah on 03-04-2025 Potassium (Unsp spec) [Mass/Vol] 4.4 mmol/L 3.3-5.1 [facility] Protein Test strip Ql (U)Ord ered By: Alessandro Shah on 03-04-2025 Protein Ql (U) Negative Negative [facility] Random urine creatinine yaakov urement (mass/volume)Ordered By: Alessandro Shah on 03-04-2025 Creatinine Unsp time (U) [Mass/Vol] 99.10 mg/dL 28.00-217.00 [facility] Screening total cholesterol/ high density lipoprotein (HDL) cholesterol ratioOrdered By: Alessandro Shah on 03-04-2025 Cholesterol.total/Choles terol in HDL [Mass ratio] 3.25 {ratio} [facility] Serum creatinine measurement (mass/volume)Ordered By: Alessandro Shah on 03-04-2025 Creatinine [Mass/Vol] 0.81 mg/dL 0.70-1.20 [facility] Serum globulin measurementOr dered By: Alessandro Shah on 03-04-2025 Globulin (S) [Mass/Vol] 2.5 g/dL 2.2-4.2 [facility] Serum glucose measurement (m ass/volume)Ordered By: Alessandro Shah on 03-04-2025 Glucose [Mass/Vol] 129 mg/dL High 70-99 [facility] Serum or plasma alanine merritt otransferase (ALT) measurementOrdered By: Alessandro Shah on 03-04-2025 ALT [Catalytic activity/Vol] 48 U/L High <35 [facility] Serum or plasma albumin yaakov urement (mass/volume)Ordered By: Alessandro Shah on 03-04-2025 Albumin [Mass/Vol] 4.2 g/dL 3.4-4.8 [facility] Serum or plasma albumin/glob ulin mass ratioOrdered By: Alessandro Shah on 03-04-2025 Albumin/Globulin [Mass ratio] 1.7 {ratio} 0.9-2.4 [facility] Serum or plasma alkaline ethel sphatase measurementOrdered By: Alessandro Shah on 03-04-2025 ALP [Catalytic activity/Vol] 102 U/L 35-104 [facility] Serum or plasma calcium yaakov urement (mass/volume)Ordered By: Alessandro Shah on 03-04-2025 Calcium [Mass/Vol] 9.4 mg/dL 7.6-11.0 [facility] Serum or plasma cholesterol in HDL measurement (mass/volume)Ordered By: Alessandro Shah on 03-04-2025 Cholesterol in HDL [Mass/Vol] 40 mg/dL >40 [facility] Comment on above: National Cholesterol Education Program (NCEP) guidelines:<40 mg/dL: Low HDL-cholesterol (major risk factor for CHD)>= 60 mg/dL: High HDL-cholesterol (negative risk factor for CHD)HDL-cholesterol is affected by a number of factors, e.g. smoking, exercise, hormones, sex and age. Serum or plasma cholesterol measurement (mass/volume)Ordered By: Alessandro Shah on 03-04-2025 Cholesterol [Mass/Vol] 129 mg/dL <201 [facility] Comment on above: Cholesterol level, D esirable <200 mg/dLBorderline high cholesterol 200-239 mg/dLHigh cholesterol >=240 mg/dLRecommendations of the NCEP Adult Treatment Panel for the following risk-cutoff thresholds for the [place] population. Serum or plasma urea nitroge n measurement (mass/volume)Ordered By: Alessandro Shah on 03-04-2025 Urea nitrogen [Mass/Vol] 15 mg/dL 4-19 [facility] Sodium levelOrdered By: Alessandro Shah on 03-04-2025 Sodium [Moles/Vol] 140 mmol/L 133-145 [facility] Squamous epithelial cells de tection in urine sediment by light microscopyOrdered By: Alessandro Shah on 03-04-2025 Epithelial cells.squamous LM Ql (Urine sed) 0-5 SEEN /hpf 5-10 [facility] T4 Free Directon 03-04-2025 T4 FREE DIRECT 0.90 ng/dL Normal 0.76-1.46 [facility] Comment on above: Order Comment: Order Date: 11/06/24 Order Info: [id number] - CMP Order Info: [id number] - LIPID Order Info: 3 - TSH Order Info: 7 - T4F Performed By: #### L 506.0400, L500.4050, L501.9520, L502.0250, L501.9985, L100.0100, L500.4100 #### [facility] [address] [place], [address] T4 freeOrdered By: Alessandro duran on 03-04-2025 Free T4 [Mass/Vol] 0.90 ng/dL 0.76-1.46 [facility] TSH DL <= 0.005 mIU/L QnOrde red By: Alessandro Shah on 03-04-2025 TSH Qn 4.020 uIU/mL 0.300-4.200 [facility] Thyroid Stim Hormone (TSH)on 03-04-2025 TSH 4.020 uIU/mL Normal 0.300-4.200 [facility] Comment on above: Order Comment: Order Date: 11/06/24 Order Info: [id number]- - CMP Order Info: [id number] - LIPID Order Info: 3 - TSH Order Info: [id number] - T4F Performed By: #### L 506.0400, L500.4050, L501.9520, L502.0250, L501.9985, L100.0100, L500.4100 #### [facility] [address] [place], [address] Total proteinOrdered By: Darwin Shah on 03-04-2025 Protein [Mass/Vol] 6.7 g/dL 5.9-8.4 [facility] Triglycerides measurementOrd ered By: Alessandro Shah on 03-04-2025 Triglyceride [Mass/Vol] 120 mg/dL <199 [facility] Comment on above: The drugs N-Acetylcy steine and Metamizole may falsely depress this assay. Normal range: <150 mg/dLBorderline High: 150-199 mg/dLHigh: 200-499 mg/dLVery High: >500 mg/dL Urinalysis, Completeon 03-04 Mucus Ql (Urine sed) 1+ /hpf Normal [facility] Comment on above: Order Comment: PER P T-JUST THIS ORDER Performed By: #### L 501.6710, L3410.2400 #### [facility] [address] [place], [address] EPI,SQUAMOUS 0-5 SEEN Normal 5-10 [facility] Comment on above: Order Comment: PER P T-JUST THIS ORDER Performed By: #### L 501.6710, L3410.2400 #### [facility] [address] [place], [address] WBC 0-5 SEEN Normal 0-5 [facility] Comment on above: Order Comment: PER P T-JUST THIS ORDER Performed By: #### L 501.6710, L3410.2400 #### [facility] [address] [place], [address] BACTERIA 0 SEEN Normal None Seen [facility] Comment on above: Order Comment: PER P T-JUST THIS ORDER Performed By: #### L 501.6710, L3410.2400 #### [facility] [address] [place], [address] RBC 0 SEEN Normal 0-5 [facility] Comment on above: Order Comment: PER P T-JUST THIS ORDER Performed By: #### L 501.6710, L3410.2400 #### [facility] [address] [place], [address] Urine albumin measurement wi detection limit of 20 mg/L or less (mass/volume)Ordered By: Alessandro Shah on 03-04-2025 Albumin DL <= 20 mg/L (U) [Mass/Vol] < 12.0 mg/L NO RANGE EST. [facility] Urine clarityOrdered By: Darwin Shah on 03-04-2025 Clarity (U) Clear Clear [facility] Urine color determinationOrd ered By: Alessandro Shah on 03-04-2025 Color (U) Yellow Yellow [facility] Urine glucose detectionOrder ed By: Alessandro Shah on 03-04-2025 Glucose Ql (U) Normal mg/dl Normal [facility] Urine leukocyte esterase det ection by dipstickOrdered By: Alessandro Shah on 03-04-2025 Leukocyte esterase Test strip Ql (U) 25 /ul High Negative [facility] Urine pHOrdered By: Alessandro restrepo on 03-04-2025 pH (U) 5.0 [pH] 5.0 - 8.0 [facility] Urine sediment bacteria coun t by microscopy (number/high power field)Ordered By: Alessandro Shah on 03-04-2025 Bacteria LM.HPF (Urine sed) [#/Area] 0 /[HPF] None Seen [facility] Urine specific gravity measu rementOrdered By: Alessandro Shah on 03-04-2025 Specific gravity (U) [Rel density] 1.010 1.002-1.030 [facility] Urine urobilinogen measureme ntOrdered By: Alessandro Shah on 03-04-2025 Urobilinogen Ql (U) Normal mg/dl Normal [facility] Vitamin D,25 Hydroxyon 03-04 Vitamin D 25-OH 33.2 ng/mL Normal 30-100 [facility] Comment on above: Order Comment: PER P T-JUST THIS ORDER Result Comment: Rachelle min D Status Deficiency: <20 ng/mL (50nmol/L) Insufficiency: 20-30 ng/mL (50-75 nmol/L) Sufficiency: 30-100 ng/mL (75-250 nmol/L) Toxicity: >100 ng/mL (>250 nmol/L) Performed By: #### L 501.6710, L3410.2400 #### [facility] [place], [address] White blood cell (WBC) count Ordered By: Alessandro Shah on 03-04-2025 WBC (Bld) [#/Vol] 8.3 10*3/uL Normal 4.4-11.0 [facility] Comment on above: Order Comment: Order Date: 11/06/24 Order Info: [id number] - CBCD Performed By: #### L 506.0400, L500.4050, L501.9520, L502.0250, L501.9985, L100.0100, L500.4100 #### [facility] [address] [place], [address] White blood cell countOrdere d By: Alessandro Shah on 03-04-2025 White blood cell count 0-5 SEEN /hpf 0-5 [facility] Surgical pathology reportOrd ered By: Mitzy Brewster on 01-14-2025 Surgical pathology study [facility] Cardiology Visit Reporton Cardiology Visit Report [facility] [address] [place] [address] OFFICE VISIT Date of Service: 01/02/25 MR#: [id number] Acct: [id number] Name: RHINA PETERS Rep #: [id number] : 1960 Provider: MARIZA Lao Age/Sex: 64/F Location: [facility] Status: Signed HPI HPI History of Present Illness Details: Mrs. Peters is a 64-year-old white female who presents to the office today for a cardiovascular follow-up visit. She presented to the emergency department at [facility] on 02/19/2024 complaining of chest pain. Her symptoms started at about 9 PM last evening at which time she had some epigastric lower mid chest tightness that radiated to her back. She thought it was indigestion and took some Tums at that time which did not relieve her symptoms. She also reported a small amount of belching that was not helping her symptoms either. Her symptoms were fairly consistent through the night but did not prevent her from sleeping. She woke this morning and noted that her blood pressure was higher than normal and that her symptoms were still present but overall better. She took her morning medications and spoke to her primary care physician who advised her to come to the emergency department. 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 She also had balloon angioplasty of the terminal branch of the RCA and the origin of the PDA. Echocardiogram was performed and showed an EF of 65% and no evidence of diastolic dysfunction or regional wall motion abnormalities. She had no significant valvular disorders and her pulmonary artery systolic pressure was 20 to 25 mmHg. She has a history of hypertension, hyperlipidemia, tobacco abuse, and diabetes. Had had to hold her Brilinta for a few days from a breast biopsy, she was last SOB. She wonders if she can switch to Plavix. She does sometimes have heartburn but this is related to food and relieved by TUMS. Intake Vital Signs 07/04/24 14:36 01/02/25 07:48 01/02/25 13:38 Height 5 ft 1 in 5 ft 1 in 5 ft 1 in Weight: 177 lb BMI 33.4 BP 126/69 H Blood Pressure Location Lt brachial Position Sitting Respiration 18 Pulse 94 Pulse Source Monitor Pulse Oximetry (%) 98 Intake Visit Reasons: 6 M FU Allergies lisinopril Adverse Reaction (Mild, Verified 01/02/25 13:34) cough Medications ???Medication ???Instructions ???Recorded ???Confirmed ???Type aspirin 81 mg tablet,delayed 81 mg PO DAILY md ordered 05/08/21 01/02/25 History release (Adult Aspirin Regimen) calcium carbonate 600 mg PO DAILY 01/31/24 01/02/25 History coenzyme Q10 100 mg capsule (Co 400 mg PO DAILY unknown 01/31/24 0 01/02/25 History Q-10) fexofenadine 180 mg tablet 180 mg PO DAILY 01/31/24 01/02/25 History (Bertha Allergy) metformin 500 mg tablet 500 mg PO BID 01/31/24 01/02/25 Hi story metoprolol tartrate 50 mg tablet 50 mg PO BID 01/31/24 01/02/25 His tory multivitamin 1 tab PO DAILY 01/31/24 01/02/25 H istory varenicline tartrate 1 mg tablet 1 mg PO BID smoking cessation 01/2701/02/25 History atorvastatin 80 mg tablet 80 mg PO QHS #90 tabs 04/10/2405/22 Rx losartan 25 mg tablet 25 mg PO DAILY #90 tabs 04/10/24 0 01/02/25 Rx cholecalciferol (vitamin D3) 25 25 mcg PO BID Low level 10/08/24 0 01/02/25 History mcg (1,000 unit) capsule (Vitamin D3) clopidogrel 75 mg tablet (Plavix) 75 mg PO QDAY #90 tabs 01/02/25 0 01/02/25 Rx Have you fallen in the past year?: No PFSH Medical History Breast microcalcification, mammographic Screening for intestinal cancer Wears partial dentures Depression Gastric reflux Smoker CPAP (continuous positive airway pressure) dependence Sleep apnea Shortness of breath on exertion Chronic cough History of heart attack Cardiology follow-up encounter Hypercholesteremia Diabetes Hypertension Non-ST elevation MA (NSTEMI) Shortness of breath on exertion Obesity Daytime hypersomnia Osteopenia Neuropathy Sinus infection History of bloody stools Shoulder pain Arthritis Hypertension Surgical History History of cardiac catheterization S/P laparoscopy History of coronary artery stent placement History of cataract extraction History of hysterectomy History of D C Family History (Updated 01/02/25 @ 14:09 by Karen DAWKINS, PA) Mother Colon cancer Hypertension Father Heart disease Hypertension Grandmother Breast cancer Social History household memb (more content not included)... Normal [facility] Immunohistochemical Stainson 01-01-2025 Immunohistochemical Stains Patient Age/Sex Location Account Attending Physician RHINA PETERS 64/F [facility] [id number] Dr. Juan Antonio White MD Specimen: [id number] Received: 01/01/25 Status: SELENE Arreguin Num: [id number] Spec Type: BREAST Subm Dr: Dr. Juan Antonio White MD HEADER OPERATION: Right stereotactic breast biopsy PRE-OP DIAGNOSIS: Right upper outer quadrant breast microcalcifications TISSUE SUBMITTED: Right breast core tissue Ischemic Time: 1 minute Fixation Time: 8.5 hours MICROSCOPIC DIAGNOSIS Right breast, upper outer quadrant, core biopsy: * Negative for malignancy - see Comment. * Benign breast tissue with usual ductal hyperplasia (UDH), apocrine metaplasia, and sclerosing adenosis - see note and Comment. * Microcalcifications present. Note: IHCs utilized in the evaluation include CK5/6 and ER (blocks #1,2,3,4). COMMENT Selected slides/images were reviewed in intradepartmental consultation by Dr Vandana Jacome ([facility] breast pathology division). MICROSCOPIC DESCRIPTION Slides are reviewed. All matched controls reacted appropriately. GROSS DESCRIPTION Received in formalin labeled Rhina Peters and not designated are multiple yellow-red, lobular, cylindrical, tissue cores that range from 0.3 to 2.6 cm long, and 0.2 to 0.5 cm in diameter. The cores are entirely submitted in four cassettes.JK. 01/01/2025 CP:[id number] Patient Age/Sex Location Account Attending Physician RHINA PETERS 64/F [facility] [id number] Dr. Juan Antonio White MD Signed (signature on file) Dr. Mitzy Brewster MD 01/14/25 1740 [facility] Comment on above: Performed By: #### L 501.6710, L3410.2400 #### [facility] [address] [place], [address] Operative Reporton 5 Operative Report [facility] Medical Records Department [address] [place] [address] Operative Report 01/01/25 1133 MR#: [id number] Acct: [id number] Name: RHINA PETERS Rep #: [id number] : 1960 64 From: Juan Antonio White MD PCP: Dr. 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 She has had a previous stereotactic biopsy in that same breast previously. I recommended stereotactic biopsy of these microcalcifications. We discussed the details of the planned procedure and she wished to proceed. She was brought to the mammography suite today following informed consent. She was placed prone on the stereotactic table. The right breast was then suspended in the aperture of the table. The right breast was placed in a compression and scalp views were obtained until we were able to clearly see the region of microcalcifications of interest. Once this was performed 2 stereotactic views were obtained. Using the stereotactic views were able to target upon the lesion in question. At this point the skin of the breast was then prepped and draped in the usual manner. Local anesthetic was injected. The mammotome probe was then inserted to the desired depth. Post fire images showed the tip of the probe to be in the desired location. At this point circumferential suction biopsies were obtained with good tissue sampling. The tissue specimen was then radiographed and clearly showed numerous microcalcifications within the samples. After this was performed a marking clip was then deployed. A post clip placement image showed the clip to be in the desired location. She was then taken out of compression. Manual pressure was then held for period of time and then Steri- Strip tapes were then applied. She tolerated the procedure well. I will contact her as soon as pathology results become available Surgical Findings: See description of surgery Complications Complications: No Admit VTE Documentation VTE Present on Admission: No VTE Mechan Device Prophylaxis: None VTE Pharm Prophylaxis ordered?: No Reason prophylaxis not ordered: Treatment Not Indicated 01/01/25 3131 Cosigner Signature (if applicable): CC: Dr. Alessandro Shah MD; Dr. Juan Antonio White MD Signed Normal [facility] Bilirubin directOrdered By: Kymberly Dorsey on 12-31-2024 Bilirubin.direct [Mass/Vol] 0.15 mg/dL 0.00-0.30 [facility] Bilirubin, totalOrdered By: Kymberly Dorsey on 12-31-2024 Bilirubin [Mass/Vol] 0.33 mg/dL 0.00-1.30 [facility] Calculated very low density lipoprotein (VLDL) cholesterol measurementOrdered By: Kymberly Dorsey on 12-31-2024 Calculated very low density lipoprotein (VLDL) cholesterol measurement 57 mg/dL High 5-40 [facility] VLDL Cholesterol 57 mg/dL High 5-40 [facility] LDL calc ser/plasOrdered By: Kymberly Dorsey on 12-31-2024 Cholesterol in LDL [Mass/Vol] 43 mg/dL [facility] Comment on above: Ydpfbxxxip=470-907 m g/dL & Higher Qion=586 mg/dL or greater LDL Cholesterol, Calculated 43 mg/dL [facility] Comment on above: Jdrzppdvvq=314-739 m g/dL & Higher Tcgl=170 mg/dL or greater Laboratory - Chemistry and C hemistry - challengeOrdered By: Kymberly Dorsey on 12-31-2024 AST [Catalytic activity/Vol] 34 U/L High <32 [facility] Lipid Profileon 12-31-2024 CHOL:HDL 3.29 Normal [facility] Comment on above: Performed By: #### L 501.6710, L3410.0 #### [facility] [address] [place], [address] Cholesterol [Mass/Vol] 143 mg/dL Normal <=200 [facility] Comment on above: Result Comment: Chol esterol level, Desirable <200 mg/dL Borderline high cholesterol 200-239 mg/dL High cholesterol >=240 mg/dL Recommendations of the NCEP Adult Treatment Panel for the following risk-cutoff thresholds for the [place] population. Performed By: #### L 501.6710, L3410.0 #### [facility] [address] [place], [address] Cholesterol in HDL [Mass/Vol] 44 mg/dL Normal [facility] Comment on above: Result Comment: Elidia onal Cholesterol Education Program (NCEP) guidelines: <40 mg/dL: Low HDL-cholesterol (major risk factor for CHD) >= 60 mg/dL: High HDL-cholesterol (negative risk factor for CHD) HDL-cholesterol is affected by a number of factors, e.g. smoking, exercise, hormones, sex and age. Performed By: #### L 501.6710, L341.2399 #### [facility] [address] [place], [address] Cholesterol in LDL [Mass/Vol] 43 mg/dL Normal [facility] Comment on above: Result Comment: Bord slfezm=182-586 mg/dL Higher Ieoj=450 mg/dL or greater Performed By: #### L 501.6710, L3410.2400 #### [facility] [address] [place], [address] Cholesterol in VLDL [Mass/Vol] 57 mg/dL High 5-40 [facility] Comment on above: Performed By: #### L 501.6710, L3410.2400 #### [facility] [address] [place], [address] Triglyceride [Mass/Vol] 285 mg/dL High [facility] Comment on above: Result Comment: The drugs N-Acetylcysteine and Metamizole may falsely depress this assay. Normal range: <150 mg/dL Borderline High: 150-199 mg/dL High: 200-499 mg/dL Very High: >500 mg/dL Performed By: #### L 501.6710, L3410.2400 #### [facility] [address] [place], [address] Liver Profileon 12-31-2024 Albumin [Mass/Vol] 4.3 g/dL Normal 3.4-4.8 [facility] Comment on above: Performed By: #### L 501.6710, L3410.2400 #### [facility] [address] [place], [address] ALK PHOS 104 U/L Normal 35-104 [facility] Comment on above: Performed By: #### L 501.6710, L3410.2400 #### [facility] [address] [place], [address] ALT [Catalytic activity/Vol] 69 U/L High <=34 [facility] Comment on above: Performed By: #### L 501.6710, L3410.2400 #### [facility] [address] [place], [address] AST [Catalytic activity/Vol] 34 U/L High <=31 [facility] Comment on above: Performed By: #### L 501.6710, L3410.2400 #### [facility] [address] [place], [address] Bilirubin [Mass/Vol] 0.33 mg/dL Normal 0.00-1.30 [facility] Comment on above: Performed By: #### L 501.6710, L3410.2400 #### [facility] [address] [place], [address] Bilirubin.direct [Mass/Vol] 0.15 mg/dL Normal 0.00-0.30 [facility] Comment on above: Performed By: #### L 501.6710, L3410.2400 #### [facility] [address] [place], [address] Globulin (S) [Mass/Vol] 2.5 g/dL Normal 2.2-4.2 [facility] Comment on above: Performed By: #### L 501.6710, L3410.2400 #### [facility] [address] [place], [address] T PROT 6.8 g/dL Normal 5.9-8.4 [facility] Comment on above: Performed By: #### L 501.6710, L3410.2400 #### [facility] [address] [place], [place], [address] Screening total cholesterol/ high density lipoprotein (HDL) cholesterol ratioOrdered By: Kymberly Dorsey on 12-31-2024 Cholesterol.total/Choles terol in HDL [Mass ratio] 3.29 {ratio} [facility] Serum globulin measurementOr dered By: Kymberly Dorsey on 12-31-2024 Globulin (S) [Mass/Vol] 2.5 g/dL 2.2-4.2 [facility] Serum or plasma alanine merritt otransferase (ALT) measurementOrdered By: Kymberly Dorsey on 12-31-2024 ALT [Catalytic activity/Vol] 69 U/L High <35 [facility] Serum or plasma albumin yaakov urement (mass/volume)Ordered By: Kymberly Dorsey on 12-31-2024 Albumin [Mass/Vol] 4.3 g/dL 3.4-4.8 [facility] Serum or plasma alkaline ethel sphatase measurementOrdered By: Kymberly Dorsey on 12-31-2024 ALP [Catalytic activity/Vol] 104 U/L 35-104 [facility] Serum or plasma cholesterol in HDL measurement (mass/volume)Ordered By: Kymberly Dorsey on 12-31-2024 Cholesterol in HDL [Mass/Vol] 44 mg/dL >40 [facility] Comment on above: National Cholesterol Education Program (NCEP) guidelines:<40 mg/dL: Low HDL-cholesterol (major risk factor for CHD)>= 60 mg/dL: High HDL-cholesterol (negative risk factor for CHD)HDL-cholesterol is affected by a number of factors, e.g. smoking, exercise, hormones, sex and age. Serum or plasma cholesterol measurement (mass/volume)Ordered By: Kymberly Dorsey on 12-31-2024 Cholesterol [Mass/Vol] 143 mg/dL <201 [facility] Comment on above: Cholesterol level, D esirable <200 mg/dLBorderline high cholesterol 200-239 mg/dLHigh cholesterol >=240 mg/dLRecommendations of the NCEP Adult Treatment Panel for the following risk-cutoff thresholds for the [place] population. Total proteinOrdered By: Ron Dorsey on 12-31-2024 Protein [Mass/Vol] 6.8 g/dL 5.9-8.4 [facility] Triglycerides measurementOrd ered By: Kymberly Dorsey on 12-31-2024 Triglyceride [Mass/Vol] 285 mg/dL High <199 [facility] Comment on above: The drugs N-Acetylcy steine and Metamizole may falsely depress this assay. Normal range: <150 mg/dLBorderline High: 150-199 mg/dLHigh: 200-499 mg/dLVery High: >500 mg/dL Surgery Visit Reporton 12-16 Surgery Visit Report [facility] [address] [place] [address] OFFICE VISIT Date of Service: 12/16/24 MR#: [id number] Acct: [id number] Name: RHINA PETERS Rep #: [id number] : 1960 Provider: Dr. Juan Antonio beckwith MD Age/Sex: 64/F Location: [facility] Status: Signed Intake Vital Signs 12/02/24 06:45 12/16/24 14:23 Height 5 ft 1 in 5 ft 1 in Weight: 175 lb BMI 33.0 BP 110/60 Blood Pressure Location Rt brachial Position Sitting Respiration 16 Intake Visit Reasons: MICROCALCIFICATIONS Chief Complaint: microcalcifications Back Grinder Required: No Is patient in pain?: No Allergies lisinopril Adverse Reaction (Mild, Verified 12/16/24 14:24) cough Medications ???Medication ???Instructions ???Recorded ???Confirmed ???Type aspirin 81 mg tablet,delayed 81 mg PO DAILY md ordered 05/08/21 12/16/24 History release (Adult Aspirin Regimen) calcium carbonate 600 mg PO DAILY 01/31/24 12/16/24 History coenzyme Q10 100 mg capsule (Co 400 mg PO DAILY unknown 01/31/24 0 12/16/24 History Q-10) fexofenadine 180 mg tablet 180 mg PO DAILY 01/31/24 12/16/24 History (Bertha Allergy) metformin 500 mg tablet 500 mg PO BID 01/31/24 12/16/24 Hi story metoprolol tartrate 50 mg tablet 50 mg PO BID 01/31/24 12/16/24 His tory multivitamin 1 tab PO DAILY 01/31/24 12/16/24 H istory varenicline tartrate 1 mg tablet 1 mg PO BID smoking cessation 01/2712/16/24 History atorvastatin 80 mg tablet 80 mg PO QHS #90 tabs 04/10/24 Rx losartan 25 mg tablet 25 mg PO DAILY #90 tabs 04/10/24 0 12/16/24 Rx ticagrelor 90 mg tablet (Brilinta) 90 mg PO BID #180 tabs 07/08/24 12/16/24 Rx cholecalciferol (vitamin D3) 25 25 mcg PO BID Low level 10/08/24 0 12/16/24 History mcg (1,000 unit) capsule (Vitamin D3) Have you fallen in the past year?: No PFSH Medical History (Updated 12/16/24 @ 14:[address] Juan Antonio White MD) Breast microcalcification, mammographic Screening for intestinal cancer Wears partial dentures Depression Gastric reflux Smoker CPAP (continuous positive airway pressure) dependence Sleep apnea Shortness of breath on exertion Chronic cough History of heart attack Cardiology follow-up encounter Hypercholesteremia Diabetes Hypertension Non-ST elevation MA (NSTEMI) Shortness of breath on exertion Obesity Daytime hypersomnia Osteopenia Neuropathy Sinus infection History of bloody stools Shoulder pain Arthritis Hypertension Surgical History History of cardiac catheterization S/P laparoscopy History of coronary artery stent placement History of cataract extraction History of hysterectomy History of D C Family History Mother Colon cancer Heart disease Hypertension Father Heart disease Hypertension Grandmother Breast cancer Social History household members: spouse housing: house Smoking Status: Current every day smoker (Patient smoked today.) how long ago did patient quit smoking: Currently is working on quitting quit status: considering quitting alcohol intake: current alcohol intake frequency: a few times a month substance use type: does not use HPI HPI HPI: The patient is a 64-year-old female who presents today for newly discovered microcalcifications in the right breast. She states that she has had a previous stereotactic biopsy in the same breast about 20 years ago. She underwent recent mammography that showed a new area of calcifications in the right breast. Radiology recommended stereotactic biopsy. Patient denies any new breast lumps or issues. She does have a family history of breast cancer. ROS General General: Yes weight change and fatigue; No appetite, colon cancer, breast cancer or weakness HEENT HEENT: Yes eye injury and eye surgery; No difficulty swallowing, swollen glands or hoarseness Endo Endocrine: Yes diabetes mellitus; No thyroid disease, thyroid cancer, Hair loss, heat intolerance or cold intolerance Skin Skin: No rash or changing moles Breast Breast: No left breast lump, right breast lump, nipple discharge, breast pain, abnormal mammogram, abnormal US or breast enlargement Musc Musculoskeletal: No back problems, arthritis, rheumatoid arthritis, gout or joint pain Cardio Cardiovascular: Yes heart disease, high blood pressure, heart attack and heart stent; No murmur, pacemaker, atrial fibrillation, palpitations, shortness of breat with exertion or chest pain Psych Psychiatric: Yes depression; No anxiety or hearing voices Resp Respiratory: Yes shortness of breath, Yes sleep apnea, No cou (more content not included)... Normal [facility] DIAG MAMM W/CAD, UNILATon DIAG MAMM W/CAD, UNILAT [facility] [address] [place] [address] DIAG MAMM W/CAD, UNIL MR#: [id number] Acct: [id number] Name: RHINA PETERS Rep #: [id number] : 1960 F 64 From: Ibrahima rivera MD PCP: Dr. Alessandro Shah MD Status: REG CLI Study: DIAG MAMM W/CAD, UNILAT Date of Exam: 12/11/24 Exam# [id number] Ordering Dr: Alessandro Shah MD EXAM: DIAG MAMM W/CAD, UNILAT CLINICAL HISTORY: Abnormal screening mammogram. COMPARISON: Comparison is made with prior mammogram dated December 08, 2024. TECHNIQUE: Compression magnification views in the mediolateral oblique and craniocaudad projections were obtained. FINDINGS: The calcifications in the upper-outer quadrant of the right breast were further characterize. Biopsy recommended. BI/DIAG MAMM W/CAD, UNILAT IMPRESSION: Biopsy of the cluster of microcalcifications in the upper-outer quadrant right breast is recommended. BI-RADS category: 4 Reading Location: [place] [address] CC: Dr. Alessandro Shha MD Diabetes Manager: Signed Normal [facility] SCRN MAMM (CAD)W/SYED BILATo n 12-08-2024 SCRN MAMM (CAD)W/SYED BILAT [facility] Imaging Services [address] [place] [address] [id number] SCRN MAMM (CAD)W/SYED BILAT MR#: [id number] Acct: [id number] Name: RHINA PETERS Rep #: [id number] : 1960 F 64 From: Emili Vance MD PCP: Dr. Alessandro Shah MD Status: REG CLI Study: SCRN MAMM (CAD)W/SYED BILAT Date of Exam: 11/29 Exam# [id number] Ordering Dr: Alessandro Shah MD PROCEDURE: SCRN MAMM (CAD)W/SYED BILAT REASON FOR EXAM: F, Age 64 y/o, presents for annual screening mammogram. Family history of breast cancer in paternal grandmother in her 60s and paternal cousin in her 70s. TECHNIQUE: Bilateral screening digital breast tomosynthesis with 2D and 3D images. Computer aided detection. COMPARISON: 12/04/2023 FINDINGS: There are scattered areas of fibroglandular density. There is a group of calcifications in the upper-outer right breast at middle depth. No suspicious masses, areas of developing architectural distortion, or suspicious calcifications in the left breast. BI/SCRN MAMM (CAD)W/SYED BILAT IMPRESSION: The group of calcifications in the upper-outer right breast at middle depth require further evaluation. Recommend diagnostic mammogram with spot magnification views. BI-RADS 0: INCOMPLETE - NEED ADDITIONAL IMAGING EVALUATION. Follow-up code: Additional Views obtained/call backs The patient will be notified of the results by letter. Reading Location: [facility] CC: Dr. Alessandro Shah MD Diabetes Manager: Signed Normal [facility] Bedside Glucoseon 12-02-2024 FINGERSTICK GLU 106 mg/dL Normal 74-106 [facility] Comment on above: Result Comment: AIMEE GEMENT OF PATIENT CARE PER NURSING PROTOCOL Performed By: #### L 501.6710, L3410.2400 #### [facility] [address] [place], [address] Colonoscopy Reporton 025 Colonoscopy Report [facility] Medical Records Department [address] [place] [address] Colonoscopy Report MR#: [id number] Acct: [id number] Name: RHINA PETERS Rep #: [id number] : 1960 64 From: Juan Antonio White MD PCP: Dr. Alessandro Shah MD Status:[facility] Patient Name: Rhina Peters Procedure Date: 12/02/2024 7:21 AM Date of : 1960 Age: 64 Procedure: Colonoscopy Indications: Screening in patient at increased risk: Family history of 1st-degree relative with colorectal cancer Providers: Juan Antonio White MD Referring MD: Alessandro Shah Medicines: Monitored Anesthesia Care Patient Profile: Refer to note in patient chart for documentation of history and physical. Last Colonoscopy: 5 years ago. Complications: No immediate complications. Estimated blood loss: None. Procedure: Pre-Anesthesia Assessment: - Prior to the procedure, a History and Physical was performed, and patient medications and allergies were reviewed. The patient's tolerance of previous anesthesia was also reviewed. The risks and benefits of the procedure and the sedation options and risks were discussed with the patient. All questions were answered, and informed consent was obtained. Prior Anticoagulants: The patient has taken Brilinta (ticagrelor). ASA Grade Assessment: II - A patient with mild systemic disease. After reviewing the risks and benefits, the patient was deemed in satisfactory condition to undergo the procedure. After I obtained informed consent, the scope was passed under direct vision. Throughout the procedure, the patient's blood pressure, pulse, and oxygen saturations were monitored continuously. The adult colonoscope was introduced through the anus and advanced to the cecum, identified by appendiceal orifice and ileocecal valve. The ileocecal valve, appendiceal orifice, and rectum were photographed. The entire colon was examined. The colonoscopy was performed without difficulty. The patient tolerated the procedure well. The quality of the bowel preparation was good. Moderate Sedation: See the other procedure note for documentation of moderate sedation with intraservice time. Scope In: 7:40:34 AM Scope Withdrawal Time 0 hours 12 minutes 57 seconds Scope Out: 8:12:58 AM Total Procedure Duration Time 0 hours 32 minutes 24 seconds Findings: The perianal and digital rectal examinations were normal. Multiple small-mouthed diverticula were found in the sigmoid colon. The exam was otherwise without abnormality on direct and retroflexion views. Impression: - Diverticulosis in the sigmoid colon. - The examination was otherwise normal on direct and retroflexion views. - No specimens collected. Recommendation: - Discharge patient to home (ambulatory). - High fiber diet. - Repeat colonoscopy in 5 years for surveillance. - Return to my office PRN. - Continue present medications. Procedure Code(s): --- Professional --- 35343, Colonoscopy, flexible; diagnostic, including collection of specimen(s) by brushing or washing, when performed (separate procedure) Diagnosis Code(s): --- Professional --- K57.30, Diverticulosis of large intestine without perforation or abscess without bleeding Z80.0, Family history of malignant neoplasm of digestive organs CPT copyright 2021 [employer]. All rights reserved. The codes documented in this report are preliminary and upon sap mobility architect review may be revised to meet current compliance requirements. Juan Antonio White MD 12/02/2024 8:21:12 AM This report has been signed electronically. Number of Addenda: 0 Note Initiated On: 12/02/2024 7:21 AM 12/02/24820 Date Juan Antonio White MD Cosigner Signature: Date (if indicated) CC: Dr. Alessandro Shah MD; Dr. Juan Antonio White MD Date Dictated: 12/02/24720 Date Transcribed: Diabetes Manager: ADRIANA Signed Normal [facility] deOrdered By: Juan Antonio White on 12-02-2024 [facility] 106 mg/dL 74-106 [facility] Comment on above: MANAGEMENT OF PATIEN T CARE PER NURSING PROTOCOL Glucose [Mass/Vol] 106 mg/dL 74-106 [facility] Comment on above: MANAGEMENT OF PATIEN T CARE PER NURSING PROTOCOL MR/POSTOP.Kayleigh 12-02-2024 MR/POSTOP.[facility] Medical Records Department [address] [place] [address] Anesthesia Postop Eval I 12/02/24822 MR#: [id number] Acct: [id number] Name: RHINA PETERS Rep #: [id number] : 1960 64 From: Marbin Gautam II, CRNA PCP: Dr. Alessandro Shah MD Status:REG SDC Y Race: C Location: [place] [address] Anesthesia: Postop Eval I Current Vital Signs Temperature: 99.2 F Pulse Rate: 73 Blood Pressure: 100/62 Respiratory Rate: 18 Pulse Ox: 97 Oxygen Delivery Method: Room Air Assessment Airway patent: Yes Spontaneous unlabored respirations: Yes Mental status: Awake and Calm nausea: No Vomiting: No Anesthesia Complication: No Fluid Hydration Crystalloid volume administer (ml): 10 Total IV fluid infused: 10 Progress Note Anesthesia document: Postop Eval 1 completed: Yes 12/02/24822 Date Marbin Gatuam II ASSISTANT PROFESSOR OF MUSIC Cosigner Signature: Date CC: Signed Normal [facility] MR/HROLZVID0em [facility]-02-2024 [facility] Medical Records Department [address] [place] [address] Anesthesia Postop Eval II 12/02/24 181 MR#: [id number] Acct: [id number] Name: RHINA PETERS Rep #: [id number] : 1960 64 From: Steve Holm MD PCP: Dr. Alessandro Shah MD Status:[facility] Y Race: C Location: EN Anesthesia Postop Eval I Sum Postop Eval Completion status Anesthesia document: Postop Eval 1 completed: Yes Anesthesia Postop Eval I Summary Anesthesia Postop Eval I Summary: Anesthesia Postop Eval I: Assessment Summary Airway patent Yes 12/02/24 08:23 ASSISTANT PROFESSOR OF MUSIC.DBAK Spontaneous unlabored Yes 12/02/24 08:23 ASSISTANT PROFESSOR OF MUSIC.DBAK respirations Mental status Awake,Calm 12/02/24 08:23 ASSISTANT PROFESSOR OF MUSIC.DBAK nausea No 12/02/24 08:23 ASSISTANT PROFESSOR OF MUSIC.DBAK Vomiting No 12/02/24 08:23 ASSISTANT PROFESSOR OF MUSIC.DBAK Anesthesia Postop Eval I: Fluid Summary Crystalloid volume administer 10 12/02/24 08:23 ASSISTANT PROFESSOR OF MUSIC.DBAK (ml) Colloids volume administered ( ml) Blood Product volume administered (ml) Total IV fluid infused 10 12/02/24 08:23 ASSISTANT PROFESSOR OF MUSIC.DBAK Anesthesia Postop Eval I: Summary Notes Anesthesia Complication No 12/02/24 08:23 ASSISTANT PROFESSOR OF MUSIC.DBAK Anesthesia Complication Comment: Post-operative progress note Anesthesia: Postop Eval II Evaluation Mental status: Awake and Calm Pain Level: 0 nausea: No Vomiting: No Complications Anesthesia Complication: No 12/02/24 1813 Date Steve Holm MD Cosigner Signature: Date CC: Signed [facility] MR/PATSIERRAon 11-27-2024 MR/PAT.[facility] Medical Records Department [address] [place] [address] PAT - Anesthesia 11/27/248 MR#: [id number] Acct: [id number] Name: RHINA PETERS Rep #: [id number] : 1960 64 From: Steve Holm MD PCP: Dr. Alessandro Shah MD Status:PRE [facility] Y Race: C Location: [facility] Pre-Assessment Diagnosis/Proposed Procedure Planned Operative Procedure(s): COLONOSCOPY Anesthesia History Anesthesia History - outpatient case manager: Anesthesia History - outpatient case manager Hx Hospitalization Yes: [place] 02/2024, [facility]. HEART 11/27/24 14:23 CATH AND 1 STENT PLACED Any Problems With Anesthesia No 11/27/24 14:23 Cholinesterase deficiency No 11/27/24 14:23 You/Your Family Experience No 11/27/24 14:23 fever (hyperthermia) with Relationship Recent Exposure to Contagious Disease Does patient have nerve No 11/27/24 14:23 stimulator Patient instructed to have device shut off --Does patient have Pacemaker or ICD? When Was Last Pacemaker Check QUESTION #4 FULL TEXT: You/Your Family Experience fever (hyperthermia) with Anesthesia Last Oral Intake Last Oral intake: Last Oral Intake NPO since Meds taken in AM with sips of water? Meds patient instructed to take am of surgery PONV PONV - outpatient case manager: PONV - outpatient case manager Female Yes 11/27/24 14:23 HX of Motion Sickness No 11/27/24 14:23 HX of N/V After Surgery No 11/27/24 14:23 Non-Smoker Yes 11/27/24 14:23 Duration of Surgery greater No 11/27/24 14:23 than 60 minutes Number of Risk Factors 2 11/27/24 14:23 PONV Score Moderate Risk 11/27/24 14:23 Height Weight Height Weight: Anesthesia: Height Weight Height 5 ft 1 in 11/11/24 09:30 Respiratory Assessment Respiratory Assessment - outpatient case manager: Respiratory Tract Infection Hx - outpatient case manager Hx Respiratory Tract Infection No 11/27/24 14:23 STOP Sleep Apnea STOP Sleep Apnea - outpatient case manager: STOP Sleep Apnea - outpatient case manager Hx Hypertension Yes: CONTROLLED WITH MEDS 11/27/24 14:23 Hx Sleep Apnea Yes 11/27/24 14:23 CPAP Yes 11/27/24 14:23 BIPAP No 11/27/24 14:23 Do you snore loudly (louder than talking or can be heard Do you often feel tired/ fatigued/ sleepy during daytime? Has anyone observed you stop breathing during sleep? STOP Results Positive 11/27/24 14:23 QUESTION #5 FULL TEXT : Do you snore loudly (louder than talking or can be heard through closed doors)? Tobacco Use History Tobacco Use History - outpatient case manager: Tobacco Use History - outpatient case manager Tobacco Use Smoking Status Current every day smoker 11/27/24 14:23 Hx Tobacco Use No 11/27/24 14:23 Years Smoking Packs Smoked per Day Smoking Cessation Date was within the last 15 years Hx Smoking Cessation Date Hx Smoking Cessation No 11/27/24 14:23 Counseling Hematologic Medial History Hematologic Hx - outpatient case manager: Hematologic Medical Hx - office clin asst Hx of Blood Transfusion No 11/27/24 14:23 Hx of Transfusion in last 3 No 11/27/24 14:23 Months Date of Last Transfusion (if within last 3 months) Ever experience any problems No 11/27/24 14:23 with transfusion(s)? Specify any problems Hx of Preganancy in last 3 No 11/27/24 14:23 Months Nurse Filling Out Transfusion [id number] 11/27/24 14:23 Questions: Date: 11/27/24 11/27/24 14:23 Time: 14:26 11/27/24 14:23 Patient unable to answer at this time (ie. confused, unrespo /Reproduction History /Reproductive History - outpatient case manager: /Reproductive Hx- outpatient case manager Hx Now Gestational Age (in weeks): EDC: Hx Hx Para Hx Section [facility] Medical History (Updated 11/27/24 @ 14:31 by Oskar Smith) Wears partial dentures Depression Gastric reflux Smoker CPAP (continuous positive airway pressure) dependence Sleep apnea Shortness of breath on exertion Chronic cough History of heart attack Cardiology follow-up encounter Hypercholesteremia Diabetes Hypertension Non-ST elevation MA (NSTEMI) Shortness of breath on exertion Obesity Daytime hypersomnia Osteopenia Neuropathy Sinus infection History of bloody stools Shoulder pain Arthritis Hypertension Home Medications ???Medication ???Instructions ???Recorded ???Last Taken ???Type aspirin 81 mg tablet,delayed 81 mg PO DAILY md ordered 05/08/21 03/20/24 History release (Adult Aspirin Regimen) calcium carbonate 600 mg PO DAILY 01/31/24 Unknown H istory coenzyme Q10 100 mg capsule (Co 400 mg PO DAILY unknown 01/31/24 0 03/14/24 History Q-10) fexofenadine 180 mg tablet (more content not included)... Normal [facility] Surgery Visit Reporton 11-11 Surgery Visit Report [facility] [address] [place] [address] [address] [place] [address] OFFICE VISIT Date of Service: 11/11/24 MR#: [id number] Acct: [id number] Name: RHINA PETERS Rep #: [id number] : 1960 Provider: Dr. Juan Antonio beckwith MD Age/Sex: 64/F Location: [facility] Status: Signed Intake Vital Signs 10/08/24 07:57 11/11/24 09:30 Height 5 ft 1 in 5 ft 1 in Weight: 175 lb BMI 33.0 BP 132/78 H Blood Pressure Location Lt brachial Position Sitting Respiration 18 Intake Visit Reasons: CHANGE IN BOWEL HABITS Chief Complaint: change in bowels Back Grinder Required: No Is patient in pain?: No Allergies lisinopril Adverse Reaction (Mild, Verified 11/11/24 09:30) cough Medications ???Medication ???Instructions ???Recorded ???Confirmed ???Type aspirin 81 mg tablet,delayed 81 mg PO DAILY md ordered 05/08/21 11/11/24 History release (Adult Aspirin Regimen) calcium carbonate 600 mg PO DAILY 01/31/24 11/11/24 History coenzyme Q10 100 mg capsule (Co 400 mg PO DAILY unknown 01/31/24 11/11/24 History Q-10) fexofenadine 180 mg tablet 180 mg PO DAILY 01/31/24 11/11/24 History (Bertha Allergy) metformin 500 mg tablet 500 mg PO BID 01/31/24 11/11/24 History metoprolol tartrate 50 mg tablet 50 mg PO BID 01/31/24 11/11/24 History multivitamin 1 tab PO DAILY 01/31/24 11/11/24 History varenicline tartrate 1 mg tablet 1 mg PO BID smoking cessation 02/07/24 11/11/24 History atorvastatin 80 mg tablet 80 mg PO QHS #90 tabs 04/10/24 11/11/24 Rx losartan 25 mg tablet 25 mg PO DAILY #90 tabs 04/10/24 11/11/24 Rx ticagrelor 90 mg tablet (Brilinta) 90 mg PO BID #180 tabs 07/08/24 11/11/24 Rx cholecalciferol (vitamin D3) 25 25 mcg PO BID Low level 10/08/24 11/11/24 History mcg (1,000 unit) capsule (Vitamin D3) Have you fallen in the past year?: No PFSH Medical History Hypercholesteremia Non-ST elevation MA (NSTEMI) Hypertension Shortness of breath on exertion Osteopenia Neuropathy Daytime hypersomnia Obesity Diabetes Sinus infection History of bloody stools Shoulder pain Arthritis Hypertension Surgical History S/P laparoscopy History of coronary artery stent placement History of cataract extraction History of hysterectomy History of D C Family History Mother Colon cancer Heart disease Hypertension Father Heart disease Hypertension Grandmother Breast cancer Social History household members: spouse housing: house Smoking Status: Current every day smoker how long ago did patient quit smoking: Currently is working on quitting quit status: considering quitting alcohol intake: current alcohol intake frequency: a few times a month substance use type: does not use HPI HPI HPI: The patient is a 64-year-old female who is being seen today to discuss possible colonoscopy. She has a family history of colon cancer. Her mother had colon cancer. Patient had her last colonoscopy about 5 years ago. This was negative for any polyps however a previous colonoscopy she did have polyps removed. Patient also has history of diverticulosis/diverticu litis. No active inflammation or abdominal pain however she states that she has been having some alternating normal stools along with jaycee watery bowel movements. She states that this watery stools occur at least once a week. She denies any abdominal pain. Given her family history she certainly has some concerns for colon polyps and cancers. She did use an [id number] fecal occult blood testing kit which was positive for occult blood. It is important to note that she had an MA back in February of last year. She had a stent placed at that time. She has been on Brilinta as well as aspirin. She was told that she needs to stay on blood thinners for at least a year. ROS General General: Yes weight change and fatigue; No appetite, colon cancer, breast cancer or weakness HEENT HEENT: Yes eye injury and eye surgery; No difficulty swallowing, swollen glands or hoarseness Endo Endocrine: Yes diabetes mellitus; No thyroid disease, thyroid cancer, Hair loss, heat intolerance or cold intolerance Skin Skin: No rash or changing moles Breast Breast: No left breast lump, right breast lump, nipple discharge, breast pain, abnormal mammogram, abnormal US or breast enlargement Musc Musculoskeletal: No back problems, arthritis, rheumatoid arthritis, gout or joint pain Cardio Cardiovascular: Yes heart disease, high blood pressure, heart attack and heart stent; No murmur, pacemaker, atrial fibrillation, palpitations, mickey (more content not included)... Normal [facility] HBV surface IgG Ql (S)Ordere d By: Alessandro Shah on 11-06-2024 Hepatitis B Surface Antibody Non-Reactive [facility] Comment on above: Non Reactive: Incons istent with immunity less than <10 mIU/mL Reactive: Consistent with immunity greater than or equal to 10 mIU/mL Hepatitis B Surface Antibody on 11-06-2024 HEP B Surf Ab Non-Reactive Normal [facility] Comment on above: Result Comment: Non Reactive: Inconsistent with immunity less than <10 mIU/mL Reactive: Consistent with immunity greater than or equal to 10 mIU/mL Performed By: #### L [id number], L3410.2400 #### [facility] [address] [facility] [id number] Hepatitis B Surface Antigeno n 11-06-2024 HEP B Surf Ag Non-Reactive Normal Nonreactive [facility] Comment on above: Performed By: #### L [id number], L3410.2400 #### [facility] [address] [facility] [id number] Hepatitis B surface antigen detectionOrdered By: Alessandro Shah on 11-06-2024 Hepatitis B Surface Antigen Non-Reactive Nonreactive [facility] Hepatitis C Antibodyon 11-06 Hepatitis C AB Non-Reactive Normal [employer] [facility] Comment on above: Result Comment: Non Reactive: < 0.8 Equivocal: >/= 0.8 to < 1.0 Reactive: >/= 1.0 The [facility] requires that a reactive/equivocal HCV antibody result be sent out for confirmation. HCV Quant by PCR testing. Performed By: #### Christopher [id number], L3410.2400 #### [facility] [address] [place], [place], [id number] Hepatitis C virus antibody a ssayOrdered By: Alessandro Shah on 11-06-2024 Hepatitis C Antibody Non-Reactive Nonreactive [facility] Comment on above: Non Reactive: < 0.8 Equivocal: >/= 0.8 to < 1.0 Reactive: >/= 1.0The CDC requires that a reactive/equivocal HCV antibody result be sent out for confirmation. HCV Quant by PCR testing. Thyroglobulin w/Anti-TG ABon 11-06-2024 Anti-TG AB < 1.0 Normal 0.0-0.9 [facility] Comment on above: Result Comment: Thyr oglobulin Antibody measured by [facility] [place] [employer] It should be noted that the presence of thyroglobulin antibodies may not be pathogenic nor diagnostic, especially at very low levels. The assay swimming pool installer and servicer has found that four percent of individuals without evidence of thyroid disease or autoimmunity will have positive TgAb levels up to 4 IU/mL. Performed By: #### L [id number], L3410.2400 #### [facility] [address] [place], [address] THYROGLOB QUANT 15.5 ng/mL Normal 1.5-38.5 [facility] Comment on above: Result Comment: Acco rding to the National Academy of Clinical Biochemistry, the reference interval for Thyroglobulin (TG) should be related to euthyroid patients and not for patients who underwent thyroidectomy. TG reference intervals for these patients depend on the residual mass of the thyroid tissue left after surgery. Establishing a post-operative baseline is recommended. The assay limit of quantitation is 0.1 ng/mL Thyroglobulin measured by [facility] [employer] Performed By: #### L [id number], L3415.0028 #### [facility] [address] [place], [address] Thyroid Peroxidase ABon THYR PEROX AB 12 IU/mL Normal 0-34 [facility] Comment on above: Result Comment: Perf ormed at: [facility] [id number] C Java Developer: Austin Soto PhD, Phone: [phone] Performed By: #### L [id number], L3459.0430 #### [facility] [address] [place], [address] Absolute neutrophil countOrd ered By: Alessandro Shah on 11-04-2024 Neutrophils (Bld) [#/Vol] 8.7 10*3/uL High 2.0-7.7 [facility] Albumin to globulin ratioOrd ered By: Alessandro Shah on 11-04-2024 Albumin/Globulin [Mass ratio] 1.2 {ratio} 0.9-2.4 [facility] Basophil percentageOrdered B y: Alessandro Shah on 11-04-2024 Basophils/100 WBC (Bld) 0.8 % 0-1 [facility] Bilirubin, totalOrdered By: Alessandro Shah on 11-04-2024 Bilirubin [Mass/Vol] 0.80 mg/dL 0.20-1.00 [facility] Comment on above: For patients on eltr ombopag therapy, use of Dimension [place] TBIL is not recommended. Blood urea nitrogen (BUN)/cr eatinine ratioOrdered By: Alessandro Shah on 11-04-2024 Urea nitrogen/Creatinine [Mass ratio] 22.1 mg/mg High 10-20 [facility] CBC W/Diff, Automatedon Absolute Lymph 2.05 X10 3/uL Normal 0.83-4.51 [facility] Comment on above: Order Comment: PER P T-JUST THIS ORDER Performed By: #### L [id number], L3410.2400 #### [facility] [address] [place], [address] Absolute Neut 8.7 X10 3/uL High 2.0-7.7 [facility] Comment on above: Order Comment: PER P T-JUST THIS ORDER Performed By: #### L [id number], [id number] #### [facility] [address] [place], [address] Basophils/100 WBC (Bld) 0.8 % Normal 0-1 [facility] Comment on above: Order Comment: PER P T-JUST THIS ORDER Performed By: #### L [id number], [id number] #### [facility] [address] [place], [address] Eosinophils/100 WBC (Bld) 1.5 % Normal 0-5 [facility] Comment on above: Order Comment: PER P T-JUST THIS ORDER Performed By: #### L [id number], [id number] #### [facility] [address] [place], [address] Erythrocyte distribution width (RBC) [Ratio] 13.8 % Normal 11.6-14.6 [facility] Comment on above: Order Comment: PER P T-JUST THIS ORDER Performed By: #### L [id number], [id number] #### [facility] [address] [place], [address] Hematocrit (Bld) [Volume fraction] 43.7 % Normal 37-47 [facility] Comment on above: Order Comment: PER P T-JUST THIS ORDER Performed By: #### L [id number], [id number] #### [facility] [address] [place], [address] Hemoglobin (Bld) [Mass/Vol] 14.3 g/dL Normal 12.0-15.0 [facility] Comment on above: Order Comment: PER P T-JUST THIS ORDER Performed By: #### L [id number], [id number] #### [facility] [address] [place], [address] IG% 0.300 Normal 0.0-0.9 [facility] Comment on above: Order Comment: PER P T-JUST THIS ORDER Result Comment: IG% - Immature Granulocytes (promyelocytes, myelocytes and metamyelocytes) > 1% indicates that a LEFT SHIFT is Present. Performed By: #### L [id number], [id number] #### [facility] [address] [place], [address] Lymphocytes/100 WBC (Bld) 17.2 % Low 19-41 [facility] Comment on above: Order Comment: PER P T-JUST THIS ORDER Performed By: #### L [id number], [id number] #### [facility] [address] [place], [address] MCH (RBC) [Entitic mass] 30.4 pg Normal 27.0-32.0 [facility] Comment on above: Order Comment: PER P T-JUST THIS ORDER Performed By: #### L [id number], [id number] #### [facility] [address] [place], [address] MCHC (RBC) [Mass/Vol] 32.7 g/dL Normal 32-36 [facility] Comment on above: Order Comment: PER P T-JUST THIS ORDER Performed By: #### L [id number], [id number] #### [facility] [address] [place], [address] MCV (RBC) [Entitic vol] 92.8 fL Normal 81-99 [facility] Comment on above: Order Comment: PER P T-JUST THIS ORDER Performed By: #### L [id number], [id number] #### [facility] [address] [place], [address] Monocytes/100 WBC (Bld) 6.9 % Normal 0-10 [facility] Comment on above: Order Comment: PER P T-JUST THIS ORDER Performed By: #### L [id number], [id number] #### [facility] [address] [place], [address] Neutrophils/100 WBC (Bld) 73.3 % High 47-70 [facility] Comment on above: Order Comment: PER P T-JUST THIS ORDER Performed By: #### L [id number], [id number] #### [facility] [address] [place], [address] Nucleated RBC (Bld) [#/Vol] 0 10*3/uL Normal 0-5 [facility] Comment on above: Order Comment: PER P T-JUST THIS ORDER Performed By: #### L [id number], [id number] #### [facility] [address] [place], [address] Platelet mean volume (Bld) [Entitic vol] 10.4 fL Normal 6.2-12.0 [facility] Comment on above: Order Comment: PER P T-JUST THIS ORDER Performed By: #### L [id number], [id number] #### [facility] [address] [place], [address] Platelets (Bld) [#/Vol] 305 10*3/uL Normal 150-450 [facility] Comment on above: Order Comment: PER P T-JUST THIS ORDER Performed By: #### L [id number], [id number] #### [facility] [address] [place], [address] RBC (Bld) [#/Vol] 4.71 10*6/uL Normal 4.2-5.4 [facility] Comment on above: Order Comment: PER P T-JUST THIS ORDER Performed By: #### L [id number], [id number] #### [facility] [address] [place], [address] RDW SD 47.0 fl High 35.1-43.9 [facility] Comment on above: Order Comment: PER P T-JUST THIS ORDER Performed By: #### L [id number], [id number] #### [facility] [address] [place], [address] WBC (Bld) [#/Vol] 11.9 10*3/uL High 4.4-11.0 [facility] Comment on above: Order Comment: PER P T-JUST THIS ORDER Performed By: #### L [id number], [id number] #### [facility] [address] [place], [address] Carbon dioxide measurementOr dered By: Alessandro Shah on 11-04-2024 CO2 [Moles/Vol] 25.0 mmol/L 21.0-32.0 [facility] Chloride measurementOrdered By: Alessandro Shah on 11-04-2024 Chloride [Moles/Vol] 106 mmol/L 98-107 [facility] Comprehensive Metabolic Prof ilon 11-04-2024 Albumin [Mass/Vol] 4.0 g/dL Normal 3.2-5.0 [facility] Comment on above: Order Comment: PER P T-JUST THIS ORDER Performed By: #### L [id number], [id number] #### [facility] [address] [place], [address] Albumin/Globulin [Mass ratio] 1.2 {ratio} Normal 0.9-2.4 [facility] Comment on above: Order Comment: PER P T-JUST THIS ORDER Performed By: #### L [id number], [id number] #### [facility] [address] [place], [address] ALK P 139 U/L High 45-117 [facility] Comment on above: Order Comment: PER P T-JUST THIS ORDER Performed By: #### L [id number], [id number] #### [facility] [address] [place], [address] ALT [Catalytic activity/Vol] 78 U/L High 13-56 [facility] Comment on above: Order Comment: PER P T-JUST THIS ORDER Performed By: #### L [id number], [id number] #### [facility] [address] [place], [address] AST [Catalytic activity/Vol] 33 U/L Normal 15-37 [facility] Comment on above: Order Comment: PER P T-JUST THIS ORDER Performed By: #### L [id number], [id number] #### [facility] [address] [place], [address] Bilirubin [Mass/Vol] 0.80 mg/dL Normal 0.20-1.00 [facility] Comment on above: Order Comment: PER P T-JUST THIS ORDER Result Comment: For patients on eltrombopag therapy, use of Dimension [place] TBIL is not recommended. Performed By: #### L [id number], [id number] #### [facility] [address] [place], [address] BUN/CRE 22.1 RATIO High 10-20 [facility] Comment on above: Order Comment: PER P T-JUST THIS ORDER Performed By: #### L [id number], [id number] #### [facility] [address] [place], [address] CA,Total 9.1 mg/dL Normal 8.5-10.1 [facility] Comment on above: Order Comment: PER P T-JUST THIS ORDER Performed By: #### L [id number], [id number] #### [facility] [address] [place], [address] Chloride [Moles/Vol] 106 mmol/L Normal 98-107 [facility] Comment on above: Order Comment: PER P T-JUST THIS ORDER Performed By: #### L [id number], [id number] #### [facility] [address] [place], [address] CO2 [Moles/Vol] 25.0 mmol/L Normal 21.0-32.0 [facility] Comment on above: Order Comment: PER P T-JUST THIS ORDER Performed By: #### L [id number], [id number] #### [facility] [address] [place], [address] Creatinine [Mass/Vol] 0.86 mg/dL Normal 0.55-1.02 [facility] Comment on above: Order Comment: PER P T-JUST THIS ORDER Result Comment: The validity of the calculated GFR GFRAA in patients over 70 years has not been determined. Clinical correlation is essential. Performed By: #### L [id number], [id number] #### [facility] [address] [place], [address] EST GFR - AA 85 mL/min Normal >60 [facility] Comment on above: Order Comment: PER P T-JUST THIS ORDER Result Comment: Afri can Tunisian GFR Calc Performed By: #### L [id number], [id number] #### [facility] [address] [place], [address] GAP 7 Normal 5-15 [facility] Comment on above: Order Comment: PER P T-JUST THIS ORDER Performed By: #### L [id number], [id number] #### [facility] [address] [place], [address] GFR/1.73 sq M.predicted among non-blacks MDRD (S/P/Bld) [Vol rate/Area] 70 mL/min/{1.73_m2} Normal >60 [facility] Comment on above: Order Comment: PER P T-JUST THIS ORDER Result Comment: Non- GFR Calc Performed By: #### L [id number], [id number] #### [facility] [address] [place], [address] Globulin (S) [Mass/Vol] 3.4 g/dL Normal 2.2-4.2 [facility] Comment on above: Order Comment: PER P T-JUST THIS ORDER Performed By: #### L [id number], [id number] #### [facility] [address] [place], [address] Glucose [Mass/Vol] 105 mg/dL Normal 74-106 [facility] Comment on above: Order Comment: PER P T-JUST THIS ORDER Result Comment: Fast ing Glucose result from 100 to 125 mg/dL suggests IMPAIRED HOMEOSTASIS per A.D.A. criteria. Performed By: #### L [id number], [id number] #### [facility] [address] [place], [address] Potassium [Moles/Vol] 3.7 mmol/L Normal 3.5-5.1 [facility] Comment on above: Order Comment: PER P T-JUST THIS ORDER Performed By: #### L [id number], [id number] #### [facility] [address] [place], [address] Sodium [Moles/Vol] 139 mmol/L Normal 136-145 [facility] Comment on above: Order Comment: PER P T-JUST THIS ORDER Performed By: #### L [id number], [id number] #### [facility] [address] [place], [address] T PROT 7.4 g/dL Normal 6.4-8.2 [facility] Comment on above: Order Comment: PER P T-JUST THIS ORDER Performed By: #### L [id number], [id number] #### [facility] [address] [place], [address] Urea nitrogen [Mass/Vol] 19 mg/dL High 7-18 [facility] Comment on above: Order Comment: PER P T-JUST THIS ORDER Performed By: #### L [id number], [id number] #### [facility] [address] [place], [address] Direct serum free thyroxine (FT4) measurementOrdered By: Alessandro Shah on 11-04-2024 Free T4 [Mass/Vol] 0.94 ng/dL 0.76-1.46 [facility] Eosinophil percentageOrdered By: Alessandro Shah on 11-04-2024 Eosinophils/100 WBC (Bld) 1.5 % 0-5 [facility] Erythrocyte distribution wid th ratioOrdered By: Alessandro Shah on 11-04-2024 Erythrocyte distribution width (RBC) [Ratio] 13.8 % 11.6-14.6 [facility] Erythrocyte distribution wid th standard deviationOrdered By: Alessandro Shah on 11-04-2024 Erythrocyte distribution width (RBC) [Entitic vol] 47.0 fL High 35.1-43.9 [facility] Estimated glomerular filtrat ion rate (GFR) AmericanOrdered By: Alessandro Shah on 11-04-2024 Estimated GFR (MDRD) Amer 85 mL/min >60 [facility] Comment on above: GFR Calc Glomerular filtration rate ( GFR) estimationOrdered By: Alessandro Shah on 11-04-2024 Estimated GFR (MDRD) Non-Af Amer 70 mL/min >60 [facility] Comment on above: Non- GFR Calc Glucose measurementOrdered B y: Alessandro Shah on 11-04-2024 Glucose [Mass/Vol] 105 mg/dL 74-106 [facility] Comment on above: Fasting Glucose resu lt from 100 to 125 mg/dL suggests IMPAIRED HOMEOSTASIS per A.D.A. criteria. Hematocrit Auto (Bld) [Volum e fraction]Ordered By: Alessandro Shah on 11-04-2024 Hematocrit (Bld) [Volume fraction] 43.7 % 37-47 [facility] Hemoglobin A1con 11-04-2024 HbA1c (Bld) [Mass fraction] 6.3 % High 3.8-5.6 [facility] [facility] Comment on above: Order Comment: PER P T-JUST THIS ORDER Result Comment: Norm al < 5.7 % Prediabetic 5.7 - 6.4 % Diabetic >or= 6.5 % Please note range changes. Performed By: #### L 501.6710, L3410.2400 #### [facility] [address] [place], [address] Hemoglobin A1c percentageOrd ered By: Alessandro Shah on 11-04-2024 HbA1c (Bld) [Mass fraction] 6.3 % High 3.8-5.6 [facility] Comment on above: Normal < 5.7 % Predi abetic 5.7 - 6.4 % Diabetic >or= 6.5 % Please note range changes. Hemoglobin measurementOrdere d By: Alessandro Shah on 11-04-2024 Hemoglobin (Bld) [Mass/Vol] 14.3 g/dL 12.0-15.0 [facility] High density lipoprotein (HD L) measurementOrdered By: Alessandro Shah on 11-04-2024 Cholesterol in HDL [Mass/Vol] 43 mg/dL >40 [facility] Comment on above: The drugs N-Acetylcy steine and Metamizole may falsely depress this assay. Reference Range HDL <40 mg/dL Low HDL Cholesterol HDL >or= 60 mg/dL High HDL Cholesterol Immature granulocytes/100 WB C Auto (Bld)Ordered By: Alessandro Shah on 11-04-2024 Immature granulocytes/100 WBC (Bld) 0.300 % 0.0-0.9 [facility] Comment on above: IG% - Immature Granu locytes (promyelocytes, myelocytes and metamyelocytes) > 1% indicates that a LEFT SHIFT is Present. Laboratory - Chemistry and C hemistry - challengeOrdered By: Alessandro Shah on 11-04-2024 AST [Catalytic activity/Vol] 33 U/L 15-37 [facility] Lipid Profileon 11-04-2024 Cholesterol [Mass/Vol] 133 mg/dL Normal 200 [facility] Comment on above: Order Comment: PER P T-JUST THIS ORDER Result Comment: <200 mg/dL Desirable 200-240 mg/dL Borderline >240 mg/dL High Risk Performed By: #### L 501.6710, L3410.2400 #### [facility] [address] [place], [address] Cholesterol in HDL [Mass/Vol] 43 mg/dL Normal [facility] Comment on above: Order Comment: PER P T-JUST THIS ORDER Result Comment: The drugs N-Acetylcysteine and Metamizole may falsely depress this assay. Reference Range HDL <40 mg/dL Low HDL Cholesterol HDL >or= 60 mg/dL High HDL Cholesterol Performed By: #### L 501.6710, L3410.2400 #### [facility] [address] [place], [address] Cholesterol in LDL [Mass/Vol] 57 mg/dL Normal 0-130 [facility] Comment on above: Order Comment: PER P T-JUST THIS ORDER Performed By: #### L 501.6710, L3410.2400 #### [facility] [address] [place], [place], [id number] Cholesterol in VLDL [Mass/Vol] 33 mg/dL Normal 5-40 [facility] Comment on above: Order Comment: PER P T-JUST THIS ORDER Performed By: #### L 501.6710, L3410.2400 #### [facility] [address] [place], [place], [id number] Triglyceride [Mass/Vol] 163 mg/dL Normal [facility] Comment on above: Order Comment: PER P T-JUST THIS ORDER Result Comment: The drugs N-Acetylcysteine and Metamizole may falsely depress this assay. Serum Triglycerides Reference Interval Normal <150 mg/dL Borderline high 150 - 199 mg/dL High 200 - 499 mg/dL Very High > or = 500 mg/dL Performed By: #### L 501.6710, L3410.2400 #### [facility] [address] [place], [place], [id number] Low density lipoprotein (LDL ) cholesterol measurementOrdered By: Alessandro Shah on 11-04-2024 Cholesterol in LDL [Mass/Vol] 57 mg/dL 0-130 [facility] Lymphocytes Auto (Unsp spec) [#/Vol]Ordered By: Alessandro Shah on 11-04-2024 Lymphocytes (Bld) [#/Vol] 2.05 10*3/uL 0.83-4.51 [facility] Lymphocytes/100 WBC Auto (Un sp spec)Ordered By: Alessandro Shah on 11-04-2024 Lymphocytes/100 WBC (Bld) 17.2 % Low 19-41 [facility] MCV (mean corpuscular volume ) determinationOrdered By: Alessandro Shah on 11-04-2024 MCV (RBC) [Entitic vol] 92.8 fL 81-99 [facility] Mean corpuscular hemoglobin (MCH) determinationOrdered By: Alessandro Shah on 11-04-2024 MCH (RBC) [Entitic mass] 30.4 pg 27.0-32.0 [facility] Mean corpuscular hemoglobin concentration (MCHC) determinationOrdered By: Alessandro Shah on 11-04-2024 MCHC (RBC) [Mass/Vol] 32.7 g/dL 32-36 [facility] Mean platelet volume determi nationOrdered By: Alessandro Shah on 11-04-2024 Platelet mean volume (Bld) [Entitic vol] 10.4 fL 6.2-12.0 [facility] Microalb:Creat Ratio,Random URon 11-04-2024 Creatinine [Mass/Vol] 275.00 mg/dL Normal NO RAN GE EST. [facility] Comment on above: Order Comment: PER P T-JUST THIS ORDER Performed By: #### L 501.6710, L3410.2400 #### [facility] [address] [place], [address] MALB:CRE 7.5 mg/g CRE Normal <30 mg/g CRE [facility] Comment on above: Order Comment: PER P T-JUST THIS ORDER Performed By: #### L [id number], L3410.2400 #### [facility] [address] [place], [address] MICROALBUMIN,UR 20.6 mg/L Normal NO RANGE EST. [facility] Comment on above: Order Comment: PER P T-JUST THIS ORDER Performed By: #### L [id number], L3410.2400 #### [facility] [address] [place], [address] Monocyte percentageOrdered B y: Alessandro Shah on 11-04-2024 Monocytes/100 WBC (Bld) 6.9 % 0-10 [facility] Neutrophil percentageOrdered By: Alessandro Shah on 11-04-2024 Neutrophils/100 WBC (Bld) 73.3 % High 47-70 [facility] Nucleated red blood cell per centageOrdered By: Alessandro Shah on 11-04-2024 Nucleated RBC/100 WBC (Bld) [Ratio] 0 % 0-5 [facility] Platelet countOrdered By: Tal Shah on 11-04-2024 Platelets (Bld) [#/Vol] 305 10*3/uL 150-450 [facility] Potassium measurementOrdered By: Alessandro Shah on 11-04-2024 Potassium [Moles/Vol] 3.7 mmol/L 3.5-5.1 [facility] RBC Auto (Bld) [#/Vol]Ordere d By: Alessandro Shah on 11-04-2024 RBC (Bld) [#/Vol] 4.71 10*6/uL 4.2-5.4 [facility] Random urine microalbumin me asurementOrdered By: Alessandro Shah on 11-04-2024 Urine Random Microalbumin 20.6 mg/L NO RANGE EST. [facility] Serum anion gap measurementO rdered By: Alessandro Shah on 11-04-2024 Anion gap [Moles/Vol] 7 mmol/L 5-15 [facility] Serum globulin measurementOr dered By: Alessandro Shah on 11-04-2024 Globulin (S) [Mass/Vol] 3.4 g/dL 2.2-4.2 [facility] Serum or plasma alanine merritt otransferase (ALT) measurementOrdered By: Alessandro Shah on 11-04-2024 ALT [Catalytic activity/Vol] 78 U/L High 13-56 [facility] Serum or plasma albumin yaakov urement (mass/volume)Ordered By: Alessandro Shah on 11-04-2024 Albumin [Mass/Vol] 4.0 g/dL 3.2-5.0 [facility] Serum or plasma alkaline ethel sphatase measurementOrdered By: Alessandro Shah on 11-04-2024 ALP [Catalytic activity/Vol] 139 U/L High 45-117 [facility] Serum or plasma calcium yaakov urement (mass/volume)Ordered By: Alessandro Shah on 11-04-2024 Calcium [Mass/Vol] 9.1 mg/dL 8.5-10.1 [facility] Serum or plasma cholesterol measurement (mass/volume)Ordered By: Alessandro Shah on 11-04-2024 Cholesterol [Mass/Vol] 133 mg/dL <200 [facility] Comment on above: <200 mg/dL Desirable 200-240 mg/dL Borderline >240 mg/dL High Risk Serum or plasma creatinine m easurement (mass/volume)Ordered By: Alessandro Shah on 11-04-2024 Creatinine [Mass/Vol] 0.86 mg/dL 0.55-1.02 [facility] Comment on above: The validity of the calculated GFR & GFRAA in patients over 70 years has not been determined. Clinical correlation is essential. Serum or plasma urea nitroge n measurement (mass/volume)Ordered By: Alessandro Shah on 11-04-2024 Urea nitrogen [Mass/Vol] 19 mg/dL High 7-18 [facility] Sodium levelOrdered By: Alessandro Shah on 11-04-2024 Sodium [Moles/Vol] 139 mmol/L 136-145 [facility] T4 Free Directon 11-04-2024 T4 FREE DIRECT 0.94 ng/dL Normal 0.76-1.46 [facility] Comment on above: Order Comment: PER P T-JUST THIS ORDER Performed By: #### L [id number], L3410.2400 #### [facility] [address] [place] [address], [address] TPO Ab QnOrdered By: Alessandro bella on 11-04-2024 Thyroid Peroxidase Antibodies 12 IU/mL 0-34 [facility] Comment on above: Performed at: [address] [id number] Director: Austin Soto PhD, Phone: [phone] TSH QnOrdered By: Alessandro lemos on 11-04-2024 Thyroid Stimulating Hormone (TSH) 4.460 uIU/mL High 0.358-3.740 [facility] Thyroglobulin Ab serumOrdere d By: Alessandro Shah on 11-04-2024 Thyroglobulin Antibody < 1.0 IU/mL 0.0-0.9 [facility] Comment on above: Thyroglobulin Antibo dy measured by [employer] Diamond TechnologiesMethodologyIt should be noted that the presence of thyroglobulinantibodies may not be pathogenic nor diagnostic, especiallyat very low levels. The assay swimming pool installer and servicer has found thatfour percent of individuals without evidence of thyroiddisease or autoimmunity will have positive TgAb levels upto 4 IU/mL. Thyroglobulin serOrdered By: Alessandro Shah on 11-04-2024 Thyroglobulin Level 15.5 ng/mL 1.5-38.5 [facility] Comment on above: According to the [facility] Academy of Clinical Biochemistry,the reference interval for Thyroglobulin (TG) should berelated to euthyroid patients and not for patients whounderwent thyroidectomy. TG reference intervals for thesepatients depend on the residual mass of the thyroid tissueleft after surgery. Establishing a post-operative baselineis recommended. The assay limit of quantitation is 0.1ng/mLThyroglobulin measured by [employer] [place] [employer] Thyroid Stim Hormone (TSH)on 11-04-2024 TSH 4.460 uIU/mL High 0.358-3.740 [facility] Comment on above: Order Comment: PER P T-JUST THIS ORDER Performed By: #### L [id number], L3410.2400 #### [facility] [address] [place] [address]. [place], [address] Total proteinOrdered By: Darwin Shah on 11-04-2024 Protein [Mass/Vol] 7.4 g/dL 6.4-8.2 [facility] Triglycerides measurementOrd ered By: Alessandro Shah on 11-04-2024 Triglyceride [Mass/Vol] 163 mg/dL <199 [facility] Comment on above: The drugs N-Acetylcy steine and Metamizole may falsely depress this assay.Serum Triglycerides Reference Interval Normal <150 mg/dL Borderline high 150 - 199 mg/dL High 200 - 499 mg/dL Very High > or = 500 mg/dL Urine albumin/creatinine rat io for detection of microalbuminuriaOrdered By: Alessandro Shah on 11-04-2024 Urine Microalbumin/Creatinine Ratio 7.5 mg/g CRE <30 [facility] Urine creatinine measurement (mass/volume)Ordered By: Alessandro Shah on 11-04-2024 Creatinine (U) [Mass/Vol] 275.00 mg/dL NO RANGE EST. [facility] Very low density lipoprotein (VLDL) cholesterol measurementOrdered By: Alessandro Shah on 11-04-2024 VLDL Cholesterol 33 mg/dL 5-40 [facility] White blood cell (WBC) count Ordered By: Alessandro Shah on 11-04-2024 WBC (Bld) [#/Vol] 11.9 10*3/uL High 4.4-11.0 [facility] Pulmonary Visit Reporton Pulmonary Visit Report [facility] [address] [place] [address] OFFICE VISIT Date of Service: 10/08/24 MR#: [id number] Acct: [id number] Name: RHINA PETERS Rep #: [id number] : 1960 Provider: KELLIE Rushing Age/Sex: 64/F Location: [facility] Status: Signed Assessment and Plan Assessment and Plan (1) DOLORES (obstructive sleep apnea): Status: Chronic Comment: mild AHI 6.2 Plan: She is using and benefiting from Pap therapy. No indication for titration study at this time. Contact the office for any new or worsening symptoms in the meantime. Follow-up in 1 year. (2) Smoking greater than 40 pack years: Status: Chronic Comment: quit 03/20/24 Plan: Highly encourage ongoing smoking cessation. The patient does seem motivated at this time. The patient does remain appropriate for LDCT which is due in September 2025 ordered accordingly. (3) Stage 1 mild COPD by GOLD classification: Status: Chronic Plan: Mild emphysema noted on LDCT, given the patient's ongoing smoking she likely also has mild COPD by diagnostic criteria. She is agreeable to a PFT before returning to the office in 1 year. She is not currently requiring any maintenance medications. Orders: Orders Low Dose CT Lung Screening 09/28/25 F17.200 - Nicotine dependence, unspecified, uncomplicated, F17.210 - Nicotine dependence, cigarettes, uncomplicated PFT Complete: DLCO, Spirometry b/a bronchodilators, lung volumes 09/28/25 F17.210 - Nicotine dependence, cigarettes, uncomplicated HPI 6 M FU Chief Complaint: PAP therapy HPI Comments Details: This patient presents to the office today for a follow-up on her obstructive sleep apnea. She is ambulatory and currently on room air. She has not recently been seen in the ED or urgent care for any respiratory illness. She has not recently been prescribed antibiotics or steroids for breathing problems. She denies any difficulty with shortness of breath. She denies any cough, sputum production or hemoptysis. She denies any wheezing, chest tightness, chest pain or palpitations. She also denies any fever, chills or body aches. She wakes up feeling rested refreshed with use of her Pap device. She recently had some tips on how to adjust the facemask and is no longer experiencing face swelling. She is not having difficulty with dry mouth. She denies any mask leaks. She is not requiring naps and denies nodding off to sleep unintentionally. She does not reporting excessive nocturia. She does report that at the beginning of this particular 30-day recording cycle she was experiencing GI upset and was having diarrhea. Due to frequently getting out of bed to go to the bathroom she was not able to tolerate her PAP device for several days. However, typically she wears the device every night. She continues to smoke cigarettes. She is currently smoking about 3 to 4 cigarettes/day. She is trying to quit smoking and asked her PCP to put me back on Chantix. She states that she will likely quit completely on October 29. Test results personally reviewed with the patient: Low-dose CT lung screening completed on October 06, 2024. Mild emphysema. 0 nodule seen. Recommendation is to repeat LDCT in 12 months. Compliance report for the past 30 days shows 57 % compliance with average use of 5 hours and 33 minutes on nights being used. Current setting is AutoPap 5-15 cmH2O pressures typically being utilized at 9.9-13.9 cmH2O. Residual AHI of 0.6 events per hour. Leaks do not appear to be problematic. Intake Vital Signs 07/09/24 08:14 10/08/24 07:57 Height 5 ft 1 in 5 ft 1 in Weight: 172 lb BMI 32.5 BP 123/72 H Blood Pressure Location Rt brachial Position Sitting Respiration 18 Pulse 77 Pulse Source Monitor Temp 98.2 F Temperature Source Temporal Artery Pulse Oximetry (%) 97 Oxygen Delivery Method room air Intake Visit Reasons: 6 M FU Chief Complaint: pap compliance Back Grinder Required: No DME Vendor: pap- stacia Accompanied by: Self Is patient in pain?: No Allergies lisinopril Adverse Reaction (Mild, Verified 10/08/24 11:03) cough Medications ???Medication ???Instructions ???Recorded ???Confirmed ???Type aspirin 81 mg tablet,delayed 81 mg PO DAILY md ordered 05/08/21 10/08/24 History release (Adult Aspirin Regimen) albuterol sulfate 90 mcg/actuation 2 puff inhalation Q4-6H PRN SOB 01/31/24 10/08/24 History aerosol inhaler calcium carbonate 600 mg PO DAILY 01/31/24 10/08/24 History coenzyme Q10 100 mg capsule (Co 400 mg PO DAILY unknown 01/31/24 10/08/24 History Q-10) fexofenadine 180 mg tablet 180 mg PO DAILY 01/31/24 10/08/24 History (Bertha Allergy) metformin 500 mg tablet 500 mg PO BID 01/31/24 10/08/24 History metoprolol tartrate 5 (more content not included)... Normal [facility] Low Dose CT Lung Screeningon 10-06-[address] Lung Screening [facility] Imaging Services [address] [place] [id number] Lung Screening MR#: [id number] Acct: [id number] Name: RHINA PETERS Rep #: [id number] : 1960 F 64 From: Nolan michael MD PCP: Dr. Alessandro Shah MD Status: [facility] Study: Low Dose CT Lung Screening Date of Exam: 10/06 Exam# [id number] Ordering Dr: Sadia Rushing NP FINANCIAL SYSTEMS MANAGER-C [id number] STUDY: LOW DOSE CT LUNG CANCER SCREENING REASON FOR EXAM: Female, 64 years old. smoker RADIATION DOSAGE (If Supplied By Facility): CTDIvol = ( 3.02 ) mGy, DLP = ( 98.55 ) mGycm TECHNIQUE: No contrast was administered. Low dose technique was utilized (average mAS-38 and kVp 120). 1.25 mm axial source images with a slice interval of 1.25-mm were reconstructed in lung windows. 2.5 mm axial source images with a slice interval of 2.5-mm were reconstructed in lung windows. 5.0 mm axial source images with a slice interval of 5.0-mm were reconstructed in soft tissue windows. COMPARISON: Prior study dated: 10/03/2023 Total lung nodules (excluding granulomas): 0 Emphysema: Mild Endobronchial lesion: None Aorta: Normal caliber. CORONARY ARTERIES: Coronary artery calcification is seen. Heart: Normal heart size. No pericardial effusion. Pulmonary artery: Normal caliber. Mediastinal nodes: No mediastinal lymphadenopathy. Other chest and abdominal findings: Redemonstration of the calcified left lower lobe granuloma. No consolidation. CT/Low Dose CT Lung Screening IMPRESSION: Lung-RADS category 1 - Continue annual screening with LDCT in 12 months. IMPORTANT NOTES FOR USE: ACR Lung-RADS Version 1.1 Assessment Categories Release Date: 2018 Category: Coded 0-4 bases on nodule(s) with highest degree of suspicion. Negative screen is defined as categories 1 and 2; a positive screen is defined as categories 3 and 4. Category 3 and 4A nodules that are unchanged on interval CT should be coded as category 2, and individuals returned to screening in 12 months. Category 4X: Category 3 or 4 nodules with additional imaging findings that increase the suspicion of lung cancer, such as spiculation, GGN that doubles in size in 1 year, enlarged lymph notes, etc. Category Modifiers: S (significant finding unrelated to lung cancer) Electronically Signed: Nolan Infante MD at 20:34 EST Reading Location ID and State: [address] [place] [address] Tel , Service support , CC: KELLIE Rushing; Dr. Alessandro Shah MD Diabetes Manager: Signed Normal [facility] Celiac Disease Profileon ENDOMYSIAL IGA Negative Normal Negative [facility] Comment on above: Order Comment: PER P T-JUST THIS ORDER Performed By: #### L [id number], L3410.2400 #### [facility] [address] [place], [address] IMMUNOGLOB A QN 77 mg/dL Low 87-352 [facility] Comment on above: Order Comment: PER P T-JUST THIS ORDER Performed By: #### L [id number], L3410.2400 #### [facility] [address] [place], [place], [id number] tTG IGA <2 Normal 0-3 [facility] Comment on above: Order Comment: PER P T-JUST THIS ORDER Result Comment: Nega tive 0 - 3 Weak Positive 4 - 10 Positive >10 Tissue Transglutaminase (tTG) has been identified as the endomysial antigen. Studies have demonstr- ated that endomysial IgA antibodies have over 99% specificity for gluten sensitive enteropathy. Performed By: #### L 501.6710, L3410.2400 #### [facility] [address] [place], [place], [id number] tTG IGG <2 Normal 0-5 [facility] Comment on above: Order Comment: PER P T-JUST THIS ORDER Result Comment: Nega tive 0 - 5 Weak Positive 6 - 9 Positive >9 Performed at: [address] [id number] C Java Developer: Austin Soto PhD, Phone: [phone] Performed By: #### L [id number], L3410.2400 #### [facility] [address] [place], [place], [id number] [employer] Decub and/or Erecton 09-02-2024 [employer] Decub and/or Erect [facility] Imaging Services [address] [place] [id number] [employer] Decub and/or Erect MR#: [id number] Acct: [id number] Name: RHINA PETERS Rep #: [id number] : 1960 F 64 From: Red Berumen MD PCP: Dr. Alessandro Shah MD Status: REG CLI Study: [employer] Decub and/or Erect Date of Exam: 09/02 Exam# [id number] Ordering Dr: Austin Villegas MD [id number] STUDY: X-RAY - ABDOMEN/PELVIS REASON FOR EXAM: Female, 64 years old. PAIN, CONSTIPATION TECHNIQUE: AP supine and upright views of the abdomen and pelvis. COMPARISON: None. FINDINGS: Normal visualized lung bases. There is an unremarkable bowel gas pattern. There is no demonstrated free abdominal air. The visualized liver, spleen and kidneys are grossly normal in size and morphology. Normal soft tissue structures. Normal visualized osseous structures. RAD/[employer] Decub and/or Erect IMPRESSION: Normal x-ray examination of the abdomen and pelvis. Electronically Signed: Red Berumen MD at 12:32 EST , CC: Dr. Alessandro Shah MD; Dr. Austin Villegas MD Diabetes Manager: Signed Normal [facility] CRPon 09-02-2024 C-REACTIVE PROT < 2.90 Normal 0.0-3.0 [facility] Comment on above: Order Comment: PER P T-JUST THIS ORDER Result Comment: C-Re active Protein (CRP) provides useful information for the diagnosis, therapy and monitoring of inflammatory processes and associated diseases. For the evaluation of Relative Risk for Cardiovascular Disease, a High Sensitivity CRP (HSCRP) should be ordered. Performed By: #### L 501.6710, L3410.2400 #### [facility] [address] [place], [address] Absolute lymphocyte countOrd ered By: Alessandro Shah on 01-10-2024 Lymphocytes Auto (Unsp spec) [#/Vol] 2.43 10*3/uL 0.83-4.51 [facility] Automated lymphocyte count a s percentage of total leukocytesOrdered By: Alessandro Pablo on 01-10-2024 Lymphocytes/100 WBC Auto (Unsp spec) 19.2 % 19-41 [facility] Basophil percentageOrdered B y: Alessandro Toledolauro on 01-10-2024 Basophil percentage < 1.0 mg/dL 0.55-1.02 [facility] Basophil percentage 0-5 SEEN /hpf 0-5 [facility] Basophils/100 WBC (Bld) 0.7 % 0-1 [facility] Bilirubin [Mass/Vol] 0.50 mg/dL 0.20-1.00 [facility] Comment on above: For patients on eltr ombopag therapy, use of Dimension [place] TBIL is not recommended. Chloride [Moles/Vol] 103 mmol/L 98-107 [facility] Cholesterol [Mass/Vol] 157 mg/dL <200 [facility] Comment on above: <200 mg/dL Desirable 200-240 mg/dL Borderline >240 mg/dL High Risk Eosinophils/100 WBC (Bld) 1.4 % 0-5 [facility] Glucose [Mass/Vol] 90 mg/dL 74-106 [facility] Hemoglobin (Bld) [Mass/Vol] 14.1 g/dL 12.0-15.0 [facility] Lactate [Moles/Vol] 1.2 mmol/L 0.4-2.0 [facility] Monocytes/100 WBC (Bld) 8.0 % 0-10 [facility] Neutrophils (Bld) [#/Vol] 8.9 10*3/uL 2.0-7.7 [facility] Neutrophils/100 WBC (Bld) 70.4 % 47-70 [facility] Potassium [Moles/Vol] 3.7 mmol/L 3.5-5.1 [facility] [place] Protein [Mass/Vol] 7.5 g/dL 6.4-8.2 [facility] Sodium [Moles/Vol] 138 mmol/L 136-145 [facility] Triglyceride [Mass/Vol] 177 mg/dL <199 [facility] Comment on above: The drugs N-Acetylcy steine and Metamizole may falsely depress this assay.Serum Triglycerides Reference Interval Normal <150 mg/dL Borderline high 150 - 199 mg/dL High 200 - 499 mg/dL Very High > or = 500 mg/dL WBC (Bld) [#/Vol] 12.6 10*3/uL 4.4-11.0 [facility] Bilirubin Test strip Ql (U)O rdered By: Alessandro Shah on 01-10-2024 Bilirubin Ql (U) Negative Negative [facility] Determination of erythrocyte mean corpuscular volume (MCV)Ordered By: Alessandro Shah on 01-10-2024 MCV (RBC) [Entitic vol] 92.4 fL 81-99 [facility] Erythrocyte distribution wid th ratioOrdered By: Alessandro Shah on 01-10-2024 Erythrocyte distribution width (RBC) [Ratio] 13.7 % 11.6-14.6 [facility] Erythrocyte distribution wid th standard deviationOrdered By: Alessandro Shah on 01-10-2024 Erythrocyte distribution width (RBC) [Entitic vol] 46.1 fL 35.1-43.9 [facility] Hematocrit Auto (Bld) [Volum e fraction]Ordered By: Alessandro Shah on 01-10-2024 Hematocrit (Bld) [Volume fraction] 42.6 % 37-47 [facility] Immature granulocytes/100 WB C Auto (Bld)Ordered By: Alessandro Shah on 01-10-2024 Immature granulocytes/100 WBC (Bld) 0.300 % 0.0-0.9 [facility] Comment on above: IG% - Immature Granu locytes (promyelocytes, myelocytes and metamyelocytes) > 1% indicates that a LEFT SHIFT is Present. Ketones Test strip Ql (U)Ord ered By: Alessandro Shah on 01-10-2024 Ketones Ql (U) 5 mg/dl Negative [facility] Laboratory - Chemistry and C hemistry - challengeOrdered By: Alessandro Shah on 01-10-2024 Albumin/Globulin [Mass ratio] 1.1 {ratio} 0.9-2.4 [facility] ALP [Catalytic activity/Vol] 103 U/L 45-117 [facility] ALT [Catalytic activity/Vol] 38 U/L 13-56 [facility] Cholesterol in HDL [Mass/Vol] 48 mg/dL >40 [facility] Comment on above: The drugs N-Acetylcy steine and Metamizole may falsely depress this assay. Reference Range HDL <40 mg/dL Low HDL Cholesterol HDL >or= 60 mg/dL High HDL Cholesterol Cholesterol in LDL [Mass/Vol] 74 mg/dL 0-130 [facility] CO2 [Moles/Vol] 29.0 mmol/L 21.0-32.0 [facility] Globulin (S) [Mass/Vol] 3.6 g/dL 2.2-4.2 [facility] Urea nitrogen/Creatinine [Mass ratio] 19.0 mg/mg 10-20 [facility] Laboratory - Hematology and Cell countsOrdered By: Alessandro Shah on 01-10-2024 MCH (RBC) [Entitic mass] 30.6 pg 27.0-32.0 [facility] MCHC (RBC) [Mass/Vol] 33.1 g/dL 32-36 [facility] [place] Nucleated RBC/100 WBC (Bld) [Ratio] 0 % 0-5 [facility] Platelet mean volume (Bld) [Entitic vol] 10.9 fL 6.2-12.0 [facility] Platelets (Bld) [#/Vol] 334 10*3/uL 150-450 [facility] Mucus LM Ql (Urine sed)Order ed By: Alessandro Shah on 01-10-2024 Mucus Ql (Urine sed) RARE /hpf [facility] Nitrite Test strip Ql (U)Ord ered By: Alessandro Shah on 01-10-2024 Nitrite Ql (U) Negative Negative [facility] No Panel InformationOrdered By: Alessandro Shah on 01-10-2024 Bedside Estimated GFR (eGFR) > 60.0000 mL/min >60 [facility] Urine RBC 0-5 SEEN /hpf 0-5 [facility] Estimated GFR (MDRD) Amer 81 mL/min >60 [facility] Comment on above: GFR Calc Estimated GFR (MDRD) Non-Af Amer 67 mL/min >60 [facility] Comment on above: Non- GFR Calc Vitamin D 25-Hydroxy 33.1 ng/mL [facility] Comment on above: Vitamin D 25(OH) Sta tus Range Deficiency <20 ng/mL (50nmol/L) Insufficiency 20 - 30 ng/mL (50 - 75 nmol/L) Sufficiency 30 - 100 ng/mL (75 - 250 nmol/L) Toxicity >100 ng/mL (>250 nmol/L) VLDL Cholesterol 35 mg/dL 5-40 [facility] Protein Test strip Ql (U)Ord ered By: Alessandro Shah on 01-10-2024 Protein Ql (U) 15 mg/dl Negative [facility] RBC Auto (Bld) [#/Vol]Ordere d By: Alessandro Shah on 01-10-2024 RBC (Bld) [#/Vol] 4.61 10*6/uL 4.2-5.4 [facility] Serum or plasma calcium yaakov urement (mass/volume)Ordered By: Alessandro Shah on 01-10-2024 Calcium [Mass/Vol] 9.3 mg/dL 8.5-10.1 [facility] Serum or plasma creatinine m easurement (mass/volume)Ordered By: Alessandro Shah on 01-10-2024 Creatinine [Mass/Vol] 0.89 mg/dL 0.55-1.02 [facility] [place] Comment on above: The validity of the calculated GFR & GFRAA in patients over 70 years has not been determined. Clinical correlation is essential. Serum or plasma urea nitroge n measurement (mass/volume)Ordered By: Alessandro Shah on 01-10-2024 Urea nitrogen [Mass/Vol] 17 mg/dL 7-18 [facility] Squamous epithelial cells de tection in urine sediment by light microscopyOrdered By: Alessandro Shah on 01-10-2024 Epithelial cells.squamous LM Ql (Urine sed) 0 SEEN /hpf 5-10 [facility] Thin prep Papanicolaou smear with manual screeningOrdered By: Alessandro Shah on 01-10-2024 Thin prep Papanicolaou smear with manual screening 3.9 g/dL 3.2-5.0 [facility] Thin prep Papanicolaou smear with manual screening 21 U/L 15-37 [facility] Thin prep Papanicolaou smear with manual screening 6 5-15 [facility] Urine blood detectionOrdered By: Alessandro Shah on 01-10-2024 RBC Ql (U) 50 /ul Negative [facility] Urine clarityOrdered By: Darwin Shah on 01-10-2024 Clarity (U) Clear Clear [facility] Urine color determinationOrd ered By: Alessandro Shah on 01-10-2024 Color (U) Yellow Yellow [facility] Urine glucose detectionOrder ed By: Alessandro Shah on 01-10-2024 Glucose Ql (U) Normal mg/dl Normal [facility] Urine leukocyte esterase det ection by dipstickOrdered By: Alessandro Shah on 01-10-2024 Leukocyte esterase Test strip Ql (U) 25 /ul Negative [facility] Urine pHOrdered By: Alessandro restrepo on 01-10-2024 pH (U) 5.0 [pH] 5.0 - 8.0 [facility] Urine sediment bacteria coun t by microscopy (number/high power field)Ordered By: Alessandro Shah on 01-10-2024 Bacteria LM.HPF (Urine sed) [#/Area] 0 /[HPF] None Seen [facility] Urine specific gravity measu rementOrdered By: Alessandro Shah on 01-10-2024 Specific gravity (U) [Rel density] 1.020 1.002-1.030 [facility] Urine urobilinogen measureme ntOrdered By: Alessandro Shah on 01-10-2024 Urobilinogen Ql (U) 1 mg/dl Normal [facility] Whole blood hemoglobin A1c/t otal hemoglobin ratio (mass fraction)Ordered By: Alessandro Shah on 01-10-2024 HbA1c (Bld) [Mass fraction] 6.0 % 3.8-5.6 [facility] Comment on above: Normal < 5.7 % Predi abetic 5.7 - 6.4 % Diabetic >or= 6.5 % Please note range changes. Absolute lymphocyte countOrd ered By: Alessandro Shah on 12-03-2023 Lymphocytes Auto (Unsp spec) [#/Vol] 1.50 10*3/uL 0.83-4.51 [facility] Automated lymphocyte count a s percentage of total leukocytesOrdered By: Alessandro Shah on 12-03-2023 Lymphocytes/100 WBC Auto (Unsp spec) 20.4 % 19-41 [facility] Basophil percentageOrdered B y: Alessandro Shah on 12-03-2023 Basophils/100 WBC (Bld) 0.7 % 0-1 [facility] Bilirubin [Mass/Vol] 0.50 mg/dL 0.20-1.00 [facility] Comment on above: For patients on eltr ombopag therapy, use of Dimension [place] TBIL is not recommended. Chloride [Moles/Vol] 108 mmol/L 98-107 [facility] Cholesterol [Mass/Vol] 139 mg/dL <200 [facility] Comment on above: <200 mg/dL Desirable 200-240 mg/dL Borderline >240 mg/dL High Risk Eosinophils/100 WBC (Bld) 1.9 % 0-5 [facility] Glucose [Mass/Vol] 107 mg/dL 74-106 [facility] Comment on above: Fasting Glucose resu lt from 100 to 125 mg/dL suggests IMPAIRED HOMEOSTASIS per A.D.A. criteria. Hemoglobin (Bld) [Mass/Vol] 13.5 g/dL 12.0-15.0 [facility] Monocytes/100 WBC (Bld) 9.5 % 0-10 [facility] Neutrophils (Bld) [#/Vol] 4.9 10*3/uL 2.0-7.7 [facility] Neutrophils/100 WBC (Bld) 67.2 % 47-70 [facility] Potassium [Moles/Vol] 3.8 mmol/L 3.5-5.1 [facility] [place] Protein [Mass/Vol] 7.8 g/dL 6.4-8.2 [facility] Sodium [Moles/Vol] 141 mmol/L 136-145 [facility] Triglyceride [Mass/Vol] 132 mg/dL <199 [facility] Comment on above: The drugs N-Acetylcy steine and Metamizole may falsely depress this assay.Serum Triglycerides Reference Interval Normal <150 mg/dL Borderline high 150 - 199 mg/dL High 200 - 499 mg/dL Very High > or = 500 mg/dL WBC (Bld) [#/Vol] 7.4 10*3/uL 4.4-11.0 [facility] Determination of erythrocyte mean corpuscular volume (MCV)Ordered By: Alessandro Shah on 12-03-2023 MCV (RBC) [Entitic vol] 92.7 fL 81-99 [facility] Erythrocyte distribution wid th ratioOrdered By: Alessandro Shah on 12-03-2023 Erythrocyte distribution width (RBC) [Ratio] 14.0 % 11.6-14.6 [facility] Erythrocyte distribution wid th standard deviationOrdered By: Alessandro Shah on 12-03-2023 Erythrocyte distribution width (RBC) [Entitic vol] 47.3 fL 35.1-43.9 [facility] Hematocrit Auto (Bld) [Volum e fraction]Ordered By: Alessandro Shah on 12-03-2023 Hematocrit (Bld) [Volume fraction] 41.7 % 37-47 [facility] Immature granulocytes/100 WB C Auto (Bld)Ordered By: Alessandro Shah on 12-03-2023 Immature granulocytes/100 WBC (Bld) 0.300 % 0.0-0.9 [facility] Comment on above: IG% - Immature Granu locytes (promyelocytes, myelocytes and metamyelocytes) > 1% indicates that a LEFT SHIFT is Present. Laboratory - Chemistry and C hemistry - challengeOrdered By: Alessandro Shah on 12-03-2023 Albumin/Creatinine DL <= 1.0 mg/L (24H U) [Ratio] 9.4 mg/g CRE <30 [facility] Albumin/Globulin [Mass ratio] 0.8 {ratio} 0.9-2.4 [facility] ALP [Catalytic activity/Vol] 91 U/L 45-117 [facility] ALT [Catalytic activity/Vol] 56 U/L 13-56 [facility] Cholesterol in HDL [Mass/Vol] 36 mg/dL >40 [facility] Comment on above: The drugs N-Acetylcy steine and Metamizole may falsely depress this assay. Reference Range HDL <40 mg/dL Low HDL Cholesterol HDL >or= 60 mg/dL High HDL Cholesterol Cholesterol in LDL [Mass/Vol] 77 mg/dL 0-130 [facility] CO2 [Moles/Vol] 24.0 mmol/L 21.0-32.0 [facility] Globulin (S) [Mass/Vol] 4.4 g/dL 2.2-4.2 [facility] Urea nitrogen/Creatinine [Mass ratio] 26.2 mg/mg 10-20 [facility] Laboratory - Hematology and Cell countsOrdered By: Alessandro Shah on 12-03-2023 MCH (RBC) [Entitic mass] 30.0 pg 27.0-32.0 [facility] MCHC (RBC) [Mass/Vol] 32.4 g/dL 32-36 [facility] [place] Nucleated RBC/100 WBC (Bld) [Ratio] 0 % 0-5 [facility] Platelets (Bld) [#/Vol] 291 10*3/uL 150-450 [facility] No Panel InformationOrdered By: Alessandro Shah on 12-03-2023 Estimated GFR (MDRD) Amer 98 mL/min >60 [facility] Comment on above: GFR Calc Estimated GFR (MDRD) Non-Af Amer 81 mL/min >60 [facility] Comment on above: Non- GFR Calc Vitamin D 25-Hydroxy 39.7 ng/mL [facility] Comment on above: Vitamin D 25(OH) Sta tus Range Deficiency <20 ng/mL (50nmol/L) Insufficiency 20 - 30 ng/mL (50 - 75 nmol/L) Sufficiency 30 - 100 ng/mL (75 - 250 nmol/L) Toxicity >100 ng/mL (>250 nmol/L) VLDL Cholesterol 26 mg/dL 5-40 [facility] Platelet mean volume Adin-Ec ker (Bld) [Entitic vol]Ordered By: Alessandro Shah on 12-03-2023 Platelet mean volume (Bld) [Entitic vol] 11.8 fL 6.2-12.0 [facility] RBC Auto (Bld) [#/Vol]Ordere d By: Alessandro Shah on 12-03-2023 RBC (Bld) [#/Vol] 4.50 10*6/uL 4.2-5.4 [facility] Serum or plasma calcium yaakov urement (mass/volume)Ordered By: Alessandro Shah on 12-03-2023 Calcium [Mass/Vol] 9.4 mg/dL 8.5-10.1 [facility] Serum or plasma creatinine m easurement (mass/volume)Ordered By: Alessandro Shah on 12-03-2023 Creatinine [Mass/Vol] 0.76 mg/dL 0.55-1.02 [facility] [place] Comment on above: The validity of the calculated GFR & GFRAA in patients over 70 years has not been determined. Clinical correlation is essential. Serum or plasma thyroid stim ulating hormone (TSH) measurement (units/volume)Ordered By: Alessandro Shah on 12-03-2023 TSH Qn 2.53 uIU/mL 0.358-3.74 [facility] Serum or plasma urea nitroge n measurement (mass/volume)Ordered By: Alessandro Shah on 12-03-2023 Urea nitrogen [Mass/Vol] 20 mg/dL 7-18 [facility] Thin prep Papanicolaou smear with manual screeningOrdered By: Alessandro Shah on 12-03-2023 Thin prep Papanicolaou smear with manual screening 3.4 g/dL 3.2-5.0 [facility] Thin prep Papanicolaou smear with manual screening 35 U/L 15-37 [facility] Thin prep Papanicolaou smear with manual screening 9 5-15 [facility] Thin prep Papanicolaou smear with manual screening 21.9 mg/L NO RANGE EST. [facility] Urine creatinine measurement (mass/volume)Ordered By: Alessandro Shah on 12-03-2023 Creatinine (U) [Mass/Vol] 233.00 mg/dL NO RANGE EST. [facility] Whole blood hemoglobin A1c/t otal hemoglobin ratio (mass fraction)Ordered By: Alessandro Shah on 12-03-2023 HbA1c (Bld) [Mass fraction] 6.2 % 3.8-5.6 [facility] Comment on above: Normal < 5.7 % Predi abetic 5.7 - 6.4 % Diabetic >or= 6.5 % Please note range changes. Absolute lymphocyte countOrd ered By: Alessandro Shha on 06-14-2023 Lymphocytes Auto (Unsp spec) [#/Vol] 1.83 10*3/uL 0.83-4.51 [facility] Basophil percentageOrdered B y: Alessandro Shah on 06-14-2023 Basophils/100 WBC (Bld) 0.8 % 0-1 [facility] Bilirubin [Mass/Vol] 0.40 mg/dL 0.20-1.00 [facility] Comment on above: For patients on eltr ombopag therapy, use of Dimension [place] TBIL is not recommended. Chloride [Moles/Vol] 107 mmol/L 98-107 [facility] Cholesterol [Mass/Vol] 176 mg/dL <200 [facility] Comment on above: <200 mg/dL Desirable 200-240 mg/dL Borderline >240 mg/dL High Risk Eosinophils/100 WBC (Bld) 1.0 % 0-5 [facility] Glucose [Mass/Vol] 126 mg/dL 74-106 [facility] Comment on above: Fasting Glucose resu lt greater than or equal to 126 mg/dL suggests DIABETES MELLITUS per A.D.A. criteria. Neutrophils (Bld) [#/Vol] 8.7 10*3/uL 2.0-7.7 [facility] Neutrophils/100 WBC (Bld) 75.7 % 47-70 [facility] Potassium [Moles/Vol] 3.7 mmol/L 3.5-5.1 [facility] [place] Protein [Mass/Vol] 7.0 g/dL 6.4-8.2 [facility] Sodium [Moles/Vol] 139 mmol/L 136-145 [facility] Triglyceride [Mass/Vol] 199 mg/dL <199 [facility] Comment on above: The drugs N-Acetylcy steine and Metamizole may falsely depress this assay.Serum Triglycerides Reference Interval Normal <150 mg/dL Borderline high 150 - 199 mg/dL High 200 - 499 mg/dL Very High > or = 500 mg/dL WBC (Bld) [#/Vol] 11.5 10*3/uL 4.4-11.0 [facility] Blood erythrocytes count (nu mber/volume)Ordered By: Alessandro Shah on 06-14-2023 RBC (Bld) [#/Vol] 4.90 10*6/uL 4.2-5.4 [facility] Blood hemoglobin measurement (mass/volume)Ordered By: Alessandro Shah on 06-14-2023 Hemoglobin (Bld) [Mass/Vol] 14.6 g/dL 12.0-15.0 [facility] Blood lymphocytes/100 leukoc ytesOrdered By: Alessandro Shah on 06-14-2023 Lymphocytes/100 WBC (Bld) 15.9 % 19-41 [facility] Blood monocytes/100 leukocyt esOrdered By: Alessandro Shah on 06-14-2023 Monocytes/100 WBC (Bld) 6.2 % 0-10 [facility] Blood platelet mean volumeOr dered By: Alessandro Shah on 06-14-2023 Platelet mean volume (Bld) [Entitic vol] 11.8 fL 6.2-12.0 [facility] Determination of erythrocyte mean corpuscular volume (MCV)Ordered By: Alessandro Shah on 06-14-2023 MCV (RBC) [Entitic vol] 94.3 fL 81-99 [facility] Hematocrit Auto (Bld) [Volum e fraction]Ordered By: Alessandro Shah on 06-14-2023 Hematocrit (Bld) [Volume fraction] 46.2 % 37-47 [facility] Laboratory - Chemistry and C hemistry - challengeOrdered By: Alessandro Shah on 06-14-2023 ALP [Catalytic activity/Vol] 98 U/L 45-117 [facility] ALT [Catalytic activity/Vol] 33 U/L 13-56 [facility] CO2 [Moles/Vol] 27.0 mmol/L 21.0-32.0 [facility] Globulin (S) [Mass/Vol] 3.4 g/dL 2.2-4.2 [facility] Urea nitrogen/Creatinine [Mass ratio] 21.4 mg/mg 10-20 [facility] Laboratory - Hematology and Cell countsOrdered By: Alessandro Shah on 06-14-2023 Erythrocyte distribution width (RBC) [Entitic vol] 48.4 fL 35.1-43.9 [facility] Erythrocyte distribution width (RBC) [Ratio] 14.1 % 11.6-14.6 [facility] Immature granulocytes/100 WBC (Bld) 0.400 % 0.0-0.9 [facility] Comment on above: IG% - Immature Granu locytes (promyelocytes, myelocytes and metamyelocytes) > 1% indicates that a LEFT SHIFT is Present. MCH (RBC) [Entitic mass] 29.8 pg 27.0-32.0 [facility] Nucleated RBC/100 WBC (Bld) [Ratio] 0 % 0-5 [facility] MCHC Auto (RBC) [Mass/Vol]Or dered By: Alessandro Shah on 06-14-2023 MCHC (RBC) [Mass/Vol] 31.6 g/dL 32-36 [facility] [place] No Panel InformationOrdered By: Alessandro Shah on 06-14-2023 Estimated GFR (MDRD) Amer 73 mL/min >60 [facility] Comment on above: GFR Calc Estimated GFR (MDRD) Non-Af Amer 60 mL/min >60 [facility] Comment on above: Non- GFR Calc Vitamin D 25-Hydroxy 32.3 ng/mL [facility] Comment on above: Vitamin D 25(OH) Sta tus Range Deficiency <20 ng/mL (50nmol/L) Insufficiency 20 - 30 ng/mL (50 - 75 nmol/L) Sufficiency 30 - 100 ng/mL (75 - 250 nmol/L) Toxicity >100 ng/mL (>250 nmol/L) Platelets bldOrdered By: Darwin Shah on 06-14-2023 Platelets (Bld) [#/Vol] 352 10*3/uL 150-450 [facility] Serum or plasma albumin yaakov urement (mass/volume)Ordered By: Alessandro Shah on 06-14-2023 Albumin [Mass/Vol] 3.6 g/dL 3.2-5.0 [facility] Serum or plasma albumin/glob ulin mass ratioOrdered By: Alessandro Shah on 06-14-2023 Albumin/Globulin [Mass ratio] 1.1 {ratio} 0.9-2.4 [facility] Serum or plasma calcium yaakov urement (mass/volume)Ordered By: Alessandro Shah on 06-14-2023 Calcium [Mass/Vol] 9.0 mg/dL 8.5-10.1 [facility] Serum or plasma cholesterol in HDL measurement (mass/volume)Ordered By: Alessandro Shah on 06-14-2023 Cholesterol in HDL [Mass/Vol] 39 mg/dL >40 [facility] Comment on above: The drugs N-Acetylcy steine and Metamizole may falsely depress this assay. Reference Range HDL <40 mg/dL Low HDL Cholesterol HDL >or= 60 mg/dL High HDL Cholesterol Serum or plasma cholesterol in VLDL measurement (mass/volume)Ordered By: Alessandro Shah on 06-14-2023 Cholesterol in VLDL [Mass/Vol] 40 mg/dL 5-40 [facility] Serum or plasma creatinine m easurement (mass/volume)Ordered By: Alessandro Shah on 06-14-2023 Creatinine [Mass/Vol] 0.98 mg/dL 0.55-1.02 [facility] [place] Comment on above: The validity of the calculated GFR & GFRAA in patients over 70 years has not been determined. Clinical correlation is essential. Serum or plasma low density lipoprotein (LDL) cholesterol measurement (mass/volume)Ordered By: Alessandro Shah on 06-14-2023 Cholesterol in LDL [Mass/Vol] 97 mg/dL 0-130 [facility] Serum or plasma urea nitroge n measurement (mass/volume)Ordered By: Alessandro Shah on 06-14-2023 Urea nitrogen [Mass/Vol] 21 mg/dL 7-18 [facility] Thin prep Papanicolaou smear with manual screeningOrdered By: Alessandro Shah on 06-14-2023 Thin prep Papanicolaou smear with manual screening 16 U/L 15 [facility] Thin prep Papanicolaou smear with manual screening 5 5-15 [facility] Whole blood hemoglobin A1c/t otal hemoglobin ratio (mass fraction)Ordered By: Alessandro Shah on 06-14-2023 HbA1c (Bld) [Mass fraction] 6.1 % 3.8-5.6 [facility] Comment on above: Normal < 5.7 % Predi abetic 5.7 - 6.4 % Diabetic >or= 6.5 % Please note range changes. Basophil percentageOrdered B y: Dr. Shah on 12-07-2022 Bilirubin [Mass/Vol] 0.40 mg/dL 0.20-1.00 [facility] Comment on above: For patients on eltr ombopag therapy, use of Dimension [place] TBIL is not recommended. Chloride [Moles/Vol] 104 mmol/L 98-107 [facility] Cholesterol [Mass/Vol] 166 mg/dL <200 [facility] Comment on above: <200 mg/dL Desirable 200-240 mg/dL Borderline >240 mg/dL High Risk Glucose [Mass/Vol] 110 mg/dL 74-106 [facility] Comment on above: Fasting Glucose resu lt from 100 to 125 mg/dL suggests IMPAIRED HOMEOSTASIS per A.D.A. criteria. Potassium [Moles/Vol] 4.0 mmol/L 3.5-5.1 [facility] [place] Protein [Mass/Vol] 6.9 g/dL 6.4-8.2 [facility] Sodium [Moles/Vol] 140 mmol/L 136-145 [facility] Triglyceride [Mass/Vol] 192 mg/dL <199 [facility] [facility] Comment on above: The drugs N-Acetylcy steine and Metamizole may falsely depress this assay.Serum Triglycerides Reference Interval Normal <150 mg/dL Borderline high 150 - 199 mg/dL High 200 - 499 mg/dL Very High > or = 500 mg/dL WBC (Bld) [#/Vol] 11.0 10*3/uL 4.4-11.0 [facility] Blood erythrocytes count (nu mber/volume)Ordered By: Dr. Shah on 12-07-2022 RBC (Bld) [#/Vol] 4.71 10*6/uL 4.2-5.4 [facility] Blood hemoglobin measurement (mass/volume)Ordered By: Dr. Shah on 12-07-2022 Hemoglobin (Bld) [Mass/Vol] 14.5 g/dL 12.0-15.0 [facility] Blood platelet mean volumeOr dered By: Dr. Shah on 12-07-2022 Platelet mean volume (Bld) [Entitic vol] 11.7 fL 6.2-12.0 [facility] Determination of erythrocyte mean corpuscular volume (MCV)Ordered By: Dr. Shah on 12-07-2022 MCV (RBC) [Entitic vol] 94.1 fL 81-99 [facility] Hematocrit Auto (Bld) [Volum e fraction]Ordered By: Dr. Shah on 12-07-2022 Hematocrit (Bld) [Volume fraction] 44.3 % 37-47 [facility] Laboratory - Chemistry and C hemistry - challengeOrdered By: Dr. Shah on 12-07-2022 ALP [Catalytic activity/Vol] 85 U/L 45-117 [facility] ALT [Catalytic activity/Vol] 32 U/L 13-56 [facility] CO2 [Moles/Vol] 30.0 mmol/L 21.0-32.0 [facility] Globulin (S) [Mass/Vol] 3.2 g/dL 2.2-4.2 [facility] Urea nitrogen/Creatinine [Mass ratio] 25.1 mg/mg 10-20 [facility] Laboratory - Hematology and Cell countsOrdered By: Dr. Shah on 12-07-2022 Erythrocyte distribution width (RBC) [Entitic vol] 48.0 fL 35.1-43.9 [facility] Erythrocyte distribution width (RBC) [Ratio] 13.9 % 11.6-14.6 [facility] MCH (RBC) [Entitic mass] 30.8 pg 27.0-32.0 [facility] MCHC Auto (RBC) [Mass/Vol]Or dered By: Dr. Shah on 12-07-2022 MCHC (RBC) [Mass/Vol] 32.7 g/dL 32-36 [facility] [place] No Panel InformationOrdered By: Dr. Shah on 12-07-2022 Estimated GFR (MDRD) Amer 93 mL/min >60 [facility] Comment on above: GFR Calc Estimated GFR (MDRD) Non-Af Amer 77 mL/min >60 [facility] Comment on above: Non- GFR Calc Vitamin D 25-Hydroxy 34.8 ng/mL [facility] Comment on above: Vitamin D 25(OH) Sta tus Range Deficiency <20 ng/mL (50nmol/L) Insufficiency 20 - 30 ng/mL (50 - 75 nmol/L) Sufficiency 30 - 100 ng/mL (75 - 250 nmol/L) Toxicity >100 ng/mL (>250 nmol/L) Platelets bldOrdered By: Dr. Shah on 12-07-2022 Platelets (Bld) [#/Vol] 327 10*3/uL 150-450 [facility] Serum or plasma albumin yaakov urement (mass/volume)Ordered By: Dr. Shah on 12-07-2022 Albumin [Mass/Vol] 3.7 g/dL 3.2-5.0 [facility] Serum or plasma albumin/glob ulin mass ratioOrdered By: Dr. Shah on 12-07-2022 Albumin/Globulin [Mass ratio] 1.2 {ratio} 0.9-2.4 [facility] Serum or plasma calcium yaakov urement (mass/volume)Ordered By: Dr. Shah on 12-07-2022 Calcium [Mass/Vol] 9.5 mg/dL 8.5-10.1 [facility] Serum or plasma cholesterol in HDL measurement (mass/volume)Ordered By: Dr. Shah on 12-07-2022 Cholesterol in HDL [Mass/Vol] 43 mg/dL >40 [facility] Comment on above: The drugs N-Acetylcy steine and Metamizole may falsely depress this assay. Reference Range HDL <40 mg/dL Low HDL Cholesterol HDL >or= 60 mg/dL High HDL Cholesterol Serum or plasma cholesterol in VLDL measurement (mass/volume)Ordered By: Dr. Shah on 12-07-2022 Cholesterol in VLDL [Mass/Vol] 38 mg/dL 5-40 [facility] Serum or plasma creatinine m easurement (mass/volume)Ordered By: Dr. Shah on 12-07-2022 Creatinine [Mass/Vol] 0.80 mg/dL 0.55-1.02 [facility] [place] Comment on above: The validity of the calculated GFR & GFRAA in patients over 70 years has not been determined. Clinical correlation is essential. Serum or plasma low density lipoprotein (LDL) cholesterol measurement (mass/volume)Ordered By: Dr. Shah on 12-07-2022 Cholesterol in LDL [Mass/Vol] 85 mg/dL 0-130 [facility] Serum or plasma urea nitroge n measurement (mass/volume)Ordered By: Dr. Shah on 12-07-2022 Urea nitrogen [Mass/Vol] 20 mg/dL 7-18 [facility] Thin prep Papanicolaou smear with manual screeningOrdered By: Dr. Shah on 12-07-2022 Thin prep Papanicolaou smear with manual screening 15 U/L 15-37 [facility] Thin prep Papanicolaou smear with manual screening 6 5-15 [facility] Thin prep Papanicolaou smear with manual screening 12.3 mg/L NO RANGE EST. [facility] Whole blood hemoglobin A1c/t otal hemoglobin ratio (mass fraction)Ordered By: Dr. Shah on 12-07-2022 HbA1c (Bld) [Mass fraction] 6.2 % 3.8-5.6 [facility] Comment on above: Normal < 5.7 % Predi abetic 5.7 - 6.4 % Diabetic >or= 6.5 % Please note range changes. Basophil percentageon 2021 Basophil percentage 25-50 SEEN /hpf 0-5 [facility] Work Phone: Bilirubin Test strip Ql (U)o n 07-07-2022 Bilirubin Ql (U) Negative Negative [facility] Work Phone: Ketones Test strip Ql (U)on 07-07-2022 Ketones Ql (U) 5 mg/dl Negative [facility] Work Phone: Laboratory - Chemistry and C hemistry - challengeon 07-07-2022 Bilirubin Ql (U) Negative [facility] Work Phone: Glucose Ql (U) Negative [facility] Work Phone: Ketones Ql (U) Negative [facility] Work Phone: pH (U) 6.5 [pH] [facility] Work Phone: Specific gravity (U) [Rel density] 1.010 [facility] Work Phone: Urobilinogen (U) [Mass/Vol] Negative [facility] Work Phone: Laboratory - Hematology and Cell countson 07-07-2022 Hemoglobin Ql (U) Hemolyzed [facility] Work Phone: Laboratory - Specimen inform ationon 07-07-2022 Clarity (U) Cloudy [facility] Work Phone: Color (U) STRAW [facility] Work Phone: Laboratory - Urinalysison Nitrite Ql (U) Negative [facility] Work Phone: Protein Ql (U) Negative [facility] Work Phone: Mucus LM Ql (Urine sed)on Mucus Ql (Urine sed) 0 SEEN /hpf [facility] [place] Work Phone: Nitrite Test strip Ql (U)on 07-07-2022 Nitrite Ql (U) Positive Negative [facility] Work Phone: No Panel Informationon 07-07 Urine Leukocytes Positive [facility] Work Phone: Urine Non-Hemolyzed Blood Large [facility] Work Phone: Protein Test strip Ql (U)on 07-07-2022 Protein Ql (U) 30 mg/dl Negative [facility] Work Phone: Squamous epithelial cells de tection in urine sediment by light microscopyon 07-07-2022 Epithelial cells.squamous LM Ql (Urine sed) 0-5 SEEN /hpf 5-10 [facility] Work Phone: Urine blood detectionon RBC Ql (U) 250 /ul Negative [facility] Work Phone: RBC Ql (U) 25-50 SEEN /hpf 0-5 [facility] Work Phone: Urine clarityon 07-07-2022 Clarity (U) Cloudy Clear [facility] Work Phone: Urine color determinationon 07-07-2022 Color (U) Yellow Yellow [facility] Work Phone: Urine glucose detectionon Glucose Ql (U) Normal mg/dl Normal [facility] Work Phone: Urine leukocyte esterase det ection by dipstickon 07-07-2022 Leukocyte esterase Test strip Ql (U) 500 /ul Negative [facility] Work Phone: [phone] Urine pHon 07-07-2022 pH (U) 7.0 [pH] 5.0 - 8.0 [facility] Work Phone: Urine sediment bacteria coun t by microscopy (number/high power field)on 07-07-2022 Bacteria LM.HPF (Urine sed) [#/Area] 1 /[HPF] None Seen [facility] Work Phone: Urine specific gravity measu rementon 07-07-2022 Specific gravity (U) [Rel density] 1.010 1.002-1.030 [facility] Work Phone: Urobilinogen Auto test strip Ql (U)on 07-07-2022 Urobilinogen Ql (U) Normal mg/dl Normal [facility] [place] Work Phone: Absolute lymphocyte counton 07-04-2022 Lymphocytes Auto (Unsp spec) [#/Vol] 2.64 10*3/uL 0.83-4.51 [facility] Work Phone: Basophil percentageon 2021 Basophils/100 WBC (Bld) 0.8 % 0-1 [facility] Work Phone: Eosinophils/100 WBC (Bld) 0.9 % 0-5 [facility] Work Phone: Neutrophils (Bld) [#/Vol] 9.4 10*3/uL 2.0-7.7 [facility] Work Phone: Neutrophils/100 WBC (Bld) 72.0 % 47-70 [facility] Work Phone: WBC (Bld) [#/Vol] 13.0 10*3/uL 4.4-11.0 [facility] Work Phone: Blood erythrocytes count (nu mber/volume)on 07-04-2022 RBC (Bld) [#/Vol] 4.61 10*6/uL 4.2-5.4 [facility] Work Phone: Blood hemoglobin measurement (mass/volume)on 07-04-2022 Hemoglobin (Bld) [Mass/Vol] 14.3 g/dL 12.0-15.0 [facility] Work Phone: Blood lymphocytes/100 leukoc yteson 07-04-2022 Lymphocytes/100 WBC (Bld) 20.3 % 19-41 [facility] Work Phone: Blood monocytes/100 leukocyt eson 07-04-2022 Monocytes/100 WBC (Bld) 5.5 % 0-10 [facility] Work Phone: Blood platelet mean volumeon 07-04-2022 Platelet mean volume (Bld) [Entitic vol] 12.2 fL 6.2-12.0 [facility] Work Phone: Determination of erythrocyte mean corpuscular volume (MCV)on 07-04-2022 MCV (RBC) [Entitic vol] 95.2 fL 81-99 [facility] Work Phone: Hematocrit Auto (Bld) [Volum e fraction]on 07-04-2022 Hematocrit (Bld) [Volume fraction] 43.9 % 37-47 [facility] Work Phone: Laboratory - Hematology and Cell countson 07-04-2022 Erythrocyte distribution width (RBC) [Entitic vol] 48.5 fL 35.1-43.9 [facility] Work Phone: Erythrocyte distribution width (RBC) [Ratio] 14.0 % 11.6-14.6 [facility] Work Phone: Immature granulocytes/100 WBC (Bld) 0.500 % 0.0-0.9 [facility] Work Phone: [phone] Comment on above: IG% - Immature Granu locytes (promyelocytes, myelocytes and metamyelocytes) > 1% indicates that a LEFT SHIFT is Present. MCH (RBC) [Entitic mass] 31.0 pg 27.0-32.0 [facility] Work Phone: Nucleated RBC/100 WBC (Bld) [Ratio] 0 % 0-5 [facility] Work Phone: MCHC Auto (RBC) [Mass/Vol]on 07-04-2022 MCHC (RBC) [Mass/Vol] 32.6 g/dL 32-36 [facility] Work Phone: Platelets bldon 07-04-2022 Platelets (Bld) [#/Vol] 330 10*3/uL 150-450 [facility] Work Phone: Absolute lymphocyte counton 06-26-2022 Lymphocytes Auto (Unsp spec) [#/Vol] 2.27 10*3/uL 0.83-4.51 [facility] Work Phone: [phone] Basophil percentageon 2021 Basophils/100 WBC (Bld) 0.6 % 0-1 [facility] Work Phone: [phone] Bilirubin [Mass/Vol] 0.50 mg/dL 0.20-1.00 [facility] Work Phone: [phone] Comment on above: For patients on eltr ombopag therapy, use of Dimension [place] TBIL is not recommended. Chloride [Moles/Vol] 104 mmol/L 98-107 [facility] Work Phone: [phone] Cholesterol [Mass/Vol] 170 mg/dL <200 [facility] Work Phone: Comment on above: <200 mg/dL Desirable 200-240 mg/dL Borderline >240 mg/dL High Risk Eosinophils/100 WBC (Bld) 0.6 % 0-5 [facility] Work Phone: Glucose [Mass/Vol] 112 mg/dL 74-106 [facility] Work Phone: Comment on above: Fasting Glucose resu lt from 100 to 125 mg/dL suggests IMPAIRED HOMEOSTASIS per A.D.A. criteria. Neutrophils (Bld) [#/Vol] 12.9 10*3/uL 2.0-7.7 [facility] Work Phone: [phone] Neutrophils/100 WBC (Bld) 79.9 % 47-70 [facility] Work Phone: [phone] Potassium [Moles/Vol] 3.7 mmol/L 3.5-5.1 [facility] [place] Work Phone: [phone] Protein [Mass/Vol] 7.3 g/dL 6.4-8.2 [facility] Work Phone: [phone] Sodium [Moles/Vol] 139 mmol/L 136-145 [facility] Work Phone: Triglyceride [Mass/Vol] 182 mg/dL <199 [facility] Work Phone: [phone] Comment on above: The drugs N-Acetylcy steine and Metamizole may falsely depress this assay.Serum Triglycerides Reference Interval Normal <150 mg/dL Borderline high 150 - 199 mg/dL High 200 - 499 mg/dL Very High > or = 500 mg/dL WBC (Bld) [#/Vol] 16.2 10*3/uL 4.4-11.0 [facility] Work Phone: [phone] Blood erythrocytes count (nu mber/volume)on 06-26-2022 RBC (Bld) [#/Vol] 4.88 10*6/uL 4.2-5.4 [facility] Work Phone: [phone] Blood hemoglobin measurement (mass/volume)on 06-26-2022 Hemoglobin (Bld) [Mass/Vol] 15.2 g/dL 12.0-15.0 [facility] Work Phone: Blood lymphocytes/100 leukoc yteson 06-26-2022 Lymphocytes/100 WBC (Bld) 14.0 % 19-41 [facility] Work Phone: Blood monocytes/100 leukocyt eson 06-26-2022 Monocytes/100 WBC (Bld) 4.3 % 0-10 [facility] Work Phone: Blood platelet mean volumeon 06-26-2022 Platelet mean volume (Bld) [Entitic vol] 12.2 fL 6.2-12.0 [facility] Work Phone: [phone] Determination of erythrocyte mean corpuscular volume (MCV)on 06-26-2022 MCV (RBC) [Entitic vol] 94.5 fL 81-99 [facility] Work Phone: [phone] Hematocrit Auto (Bld) [Volum e fraction]on 06-26-2022 Hematocrit (Bld) [Volume fraction] 46.1 % 37-47 [facility] Work Phone: Laboratory - Chemistry and C hemistry - challengeon 06-26-2022 ALP [Catalytic activity/Vol] 89 U/L 45-117 [facility] Work Phone: [phone] ALT [Catalytic activity/Vol] 28 U/L 13-56 [facility] Work Phone: [phone] CO2 [Moles/Vol] 28.0 mmol/L 21.0-32.0 [facility] Work Phone: [phone] Globulin (S) [Mass/Vol] 3.4 g/dL 2.2-4.2 [facility] Work Phone: [phone] Urea nitrogen/Creatinine [Mass ratio] 18.6 mg/mg 10-20 [facility] Work Phone: [phone] Laboratory - Hematology and Cell countson 06-26-2022 Erythrocyte distribution width (RBC) [Entitic vol] 48.8 fL 35.1-43.9 [facility] Work Phone: [phone] Erythrocyte distribution width (RBC) [Ratio] 14.0 % 11.6-14.6 [facility] Work Phone: Immature granulocytes/100 WBC (Bld) 0.600 % 0.0-0.9 [facility] Work Phone: Comment on above: IG% - Immature Granu locytes (promyelocytes, myelocytes and metamyelocytes) > 1% indicates that a LEFT SHIFT is Present. MCH (RBC) [Entitic mass] 31.1 pg 27.0-32.0 [facility] Work Phone: Nucleated RBC/100 WBC (Bld) [Ratio] 0 % 0-5 [facility] Work Phone: MCHC Auto (RBC) [Mass/Vol]on 06-26-2022 MCHC (RBC) [Mass/Vol] 33.0 g/dL 32-36 [facility] Work Phone: No Panel Informationon 06-26 Estimated GFR (MDRD) Amer 80 mL/min >60 [facility] Work Phone: Comment on above: GFR Calc Estimated GFR (MDRD) Non-Af Amer 66 mL/min >60 [facility] Work Phone: Comment on above: Non- GFR Calc Thyroid Stimulating Hormone (TSH) 2.53 uIU/mL 0.358-3.74 [facility] Work Phone: Urine Microalbumin/Creatinine Ratio 7.2 mg/g CRE <30 [facility] Work Phone: Vitamin D 25-Hydroxy 31.4 ng/mL [facility] Work Phone: Comment on above: Vitamin D 25(OH) Sta tus Range Deficiency <20 ng/mL (50nmol/L) Insufficiency 20 - 30 ng/mL (50 - 75 nmol/L) Sufficiency 30 - 100 ng/mL (75 - 250 nmol/L) Toxicity >100 ng/mL (>250 nmol/L) Platelets bldon 06-26-2022 Platelets (Bld) [#/Vol] 350 10*3/uL 150-450 [facility] Work Phone: Serum or plasma albumin yaakov urement (mass/volume)on 06-26-2022 Albumin [Mass/Vol] 3.9 g/dL 3.2-5.0 [facility] Work Phone: Serum or plasma albumin/glob ulin mass ratioon 06-26-2022 Albumin/Globulin [Mass ratio] 1.1 {ratio} 0.9-2.4 [facility] Work Phone: Serum or plasma calcium yaakov urement (mass/volume)on 06-26-2022 Calcium [Mass/Vol] 9.3 mg/dL 8.5-10.1 [facility] Work Phone: Serum or plasma cholesterol in HDL measurement (mass/volume)on 06-26-2022 Cholesterol in HDL [Mass/Vol] 42 mg/dL >40 [facility] Work Phone: Comment on above: The drugs N-Acetylcy steine and Metamizole may falsely depress this assay. Reference Range HDL <40 mg/dL Low HDL Cholesterol HDL >or= 60 mg/dL High HDL Cholesterol Serum or plasma cholesterol in VLDL measurement (mass/volume)on 06-26-2022 Cholesterol in VLDL [Mass/Vol] 36 mg/dL 5-40 [facility] Work Phone: Serum or plasma creatinine m easurement (mass/volume)on 06-26-2022 Creatinine [Mass/Vol] 0.91 mg/dL 0.55-1.02 [facility] Work Phone: Comment on above: The validity of the calculated GFR & GFRAA in patients over 70 years has not been determined. Clinical correlation is essential. Serum or plasma low density lipoprotein (LDL) cholesterol measurement (mass/volume)on 06-26-2022 Cholesterol in LDL [Mass/Vol] 92 mg/dL 0-130 [facility] Work Phone: Serum or plasma urea nitroge n measurement (mass/volume)on 06-26-2022 Urea nitrogen [Mass/Vol] 17 mg/dL 7-18 [facility] Work Phone: Thin prep Papanicolaou smear with manual screeningon 06-26-2022 Thin prep Papanicolaou smear with manual screening 17 U/L 15-37 [facility] Work Phone: Thin prep Papanicolaou smear with manual screening 7 5-15 [facility] Work Phone: Thin prep Papanicolaou smear with manual screening 10.6 mg/L NO RANGE EST. [facility] Work Phone: Urine creatinine measurement (mass/volume)on 06-26-2022 Creatinine (U) [Mass/Vol] 148.00 mg/dL NO RANGE EST. [facility] Work Phone: Whole blood hemoglobin A1c/t otal hemoglobin ratio (mass fraction)on 06-26-2022 HbA1c (Bld) [Mass fraction] 6.1 % 3.8-5.6 [facility] Work Phone: Comment on above: Normal < 5.7 % Predi abetic 5.7 - 6.4 % Diabetic >or= 6.5 % Please note range changes. Culture, urine Bacteria identified Cx Nom (U) Escherichia coli [facility] Work Phone: Vital Signs Date Time Vital Sign Value Performing Clinician Faci lity 05-26-2025 09:46-0400 Body height 154.[address] Alessandro Shah MD Work Phone: [facility] 05-26-2025 09:46-0400 Body mass index (BMI) [Ratio] 33.4 kg/m2 Dr. Alessandro Shah MD Work Phone: [facility] 05-26-2025 09:46-0400 Body weight 80.[address] Alessandro Shah MD Work Phone: [facility] 05-26-2025 09:46-0400 Diastolic blood pressure 79 mm[Hg] Dr. Alessandro Shah MD Work Phone: [phone] [place] [address] 05-26-2025 09:46-0400 Heart rate 70 /min Dr. Alessandro Shah MD Work Phone: [phone] [place] [address] 05-26-2025 09:46-0400 Respiratory rate 18 /min Dr. Alessandro Shah MD Work Phone: [facility] 05-26-2025 09:46-0400 Systolic blood pressure 125 mm[Hg] Dr. Alessandro Shah MD Work Phone: [phone] [place] [address] 01-02-2025 13:38-0500 Body height 154.[address] Alessandro Shah MD Work Phone: [phone] [place] [address] 01-02-2025 07:48-0500 Body mass index (BMI) [Ratio] 33.4 kg/m2 Dr. Alessandro Shah MD Work Phone: [facility] 01-02-2025 07:48-0500 Body weight 80.[address] Alessandro Shah MD Work Phone: [facility] 01-02-2025 07:48-0500 Diastolic blood pressure 69 mm[Hg] Dr. Alessandro Shah MD Work Phone: [facility] 01-02-2025 07:48-0500 Heart rate 94 /min Dr. Alessandro Shah MD Work Phone: [facility] 01-02-2025 07:48-0500 Respiratory rate 18 /min Dr. Alessandro Shah MD Work Phone: [facility] 01-02-2025 07:48-0500 SaO2% (BldA) [Mass fraction] 98 % Dr. Alessandro Shah MD Work Phone: [facility] 01-02-2025 07:48-0500 Systolic blood pressure 126 mm[Hg] Dr. Alessandro Shah MD Work Phone: [facility] 12-16-2024 14:23-0500 Body mass index (BMI) [Ratio] 33 kg/m2 Dr. Alessandro Shah MD Work Phone: [phone] [place] [address] 12-16-2024 14:23-0500 Body weight 79.[address] Alessandro Shah MD Work Phone: [phone] [place] [address] 12-16-2024 14:23-0500 Diastolic blood pressure 60 mm[Hg] Dr. Alessandro Shah MD Work Phone: [facility] 12-16-2024 14:23-0500 Respiratory rate 16 /min Dr. Alessandro Shah MD Work Phone: [facility] 12-16-2024 14:23-0500 Systolic blood pressure 110 mm[Hg] Dr. Alessandro Shah MD Work Phone: [facility] 12-02-2024 08:27-0500 Body temperature 98.4 [degF] Dr. Alessandro Shah MD Work Phone: [facility] 12-02-2024 08:27-0500 Diastolic blood pressure 76 mm[Hg] Dr. Alessandro Shah MD Work Phone: [facility] 12-02-2024 08:27-0500 Heart rate 76 /min Dr. Alessandro Shah MD Work Phone: [facility] 12-02-2024 08:27-0500 Respiratory rate 16 /min Dr. Alessandro Shah MD Work Phone: [phone] [place] [address] 12-02-2024 08:27-0500 SaO2% (BldA) [Mass fraction] 97 % Dr. Alessandro Shah MD Work Phone: [phone] [place] [address] 12-02-2024 08:27-0500 Systolic blood pressure 115 mm[Hg] Dr. Alessandro Shah MD Work Phone: [phone] [place] [address] 12-02-2024 06:45-0500 Body mass index (BMI) [Ratio] 32.5 kg/m2 Dr. Alessandro Shah MD Work Phone: [phone] [place] [address] 12-02-2024 06:45-0500 Body weight [address] Alessandro Shah MD Work Phone: [phone] [place] [address] 11-11-2024 09:30-0500 Body mass index (BMI) [Ratio] 33 kg/m2 Dr. Alessandro Shah MD Work Phone: [phone] [place] [address] 11-11-2024 09:30-0500 Body weight 79.[address] Alessandro Shah MD Work Phone: [phone] [place] [address] 11-11-2024 09:30-0500 Diastolic blood pressure 78 mm[Hg] Dr. Alessandro Shah MD Work Phone: [phone] [place] [address] 11-11-2024 09:30-0500 Respiratory rate 18 /min Dr. Alessandro Shah MD Work Phone: [phone] [place] [address] 11-11-2024 09:30-0500 Systolic blood pressure 132 mm[Hg] Dr. Alessandro Shah MD Work Phone: [phone] [place] [address] 10-08-2024 07:57-0500 Body mass index (BMI) [Ratio] 32.5 kg/m2 Dr. Alessandro Shah MD Work Phone: 6(987)[phone] [place] [address] 10-08-2024 07:57-0500 Body temperature 98.2 [degF] Dr. Alessandro Shah MD Work Phone: 8(529)[phone] [place] [address] 10-08-2024 07:57-0500 Body weight 78.[address] Alessandro Shah MD Work Phone: [facility] 10-08-2024 07:57-0500 Diastolic blood pressure 72 mm[Hg] Dr. Alessandro Shah MD Work Phone: [facility] 10-08-2024 07:57-0500 Heart rate 77 /min Dr. Alessandro Shah MD Work Phone: [facility] 10-08-2024 07:57-0500 Respiratory rate 18 /min Dr. Alessandro Shah MD Work Phone: 7(553)369-677888 [place] [address] 10-08-2024 07:57-0500 SaO2% (BldA) [Mass fraction] 97 % Dr. Alessandro Shah MD Work Phone: [facility] 10-08-2024 07:57-0500 Systolic blood pressure 123 mm[Hg] Dr. Alessandro Shah MD Work Phone: 3(857)801-563888 [place] [address] 10-08-2024 07:25-0500 Body weight 77.[address] Alessandro Shah MD Work Phone: 2(970)584-813588 [place] [address] 09-08-2024 07:27-0500 Body weight 78.[address] Alessandro Shah MD Work Phone: 1(908)646-937788 [place] [address] 02-07-2024 07:49-0400 Body height 154.[address] Alessandro Shah Work Phone: [facility] 02-07-2024 07:49-0400 Body mass index (BMI) [Ratio] 31.4 kg/m2 Dr. Alessandro Shah Work Phone: [facility] 02-07-2024 07:49-0400 Body temperature 97.8 [degF] Dr. Alessandro Shah Work Phone: [facility] 02-07-2024 07:49-0400 Body weight 75.[address] Alessandro Shah Work Phone: [facility] 02-07-2024 07:49-0400 Diastolic blood pressure 81 mm[Hg] Dr. Alessandro Shah Work Phone: [facility] 02-07-2024 07:49-0400 Heart rate 81 /min Dr. Alessandro Shah Work Phone: [facility] 02-07-2024 07:49-0400 Respiratory rate 20 /min Dr. Alessandro Shah Work Phone: [facility] 02-07-2024 07:49-0400 SaO2% (BldA) [Mass fraction] 93 % Dr. Alessandro Shah Work Phone: [facility] 02-07-2024 07:49-0400 Systolic blood pressure 143 mm[Hg] Dr. Alessandro Shah Work Phone: [facility] 11-18-2023 12:55-0500 Body temperature 97.8 [degF] Dr. Alessandro Shah Work Phone: [facility] 11-18-2023 12:55-0500 Diastolic blood pressure 74 mm[Hg] Dr. Alessandro Shah Work Phone: [facility] 11-18-2023 12:55-0500 Heart rate 91 /min Dr. Alessandro Shah Work Phone: [facility] 11-18-2023 12:55-0500 Respiratory rate 14 /min Dr. Alessandro Shah Work Phone: [facility] 11-18-2023 12:55-0500 SaO2% (BldA) [Mass fraction] 98 % Dr. Alessandro Shah Work Phone: [facility] 11-18-2023 12:55-0500 Systolic blood pressure 122 mm[Hg] Dr. Alessandro Shah Work Phone: [facility] 09-19-2023 14:17-0500 Body height 154.[address] Alessandro Shah Work Phone: [facility] 09-19-2023 14:17-0500 Body mass index (BMI) [Ratio] 30.2 kg/m2 Dr. Alessandro Shah Work Phone: [facility] 09-19-2023 14:17-0500 Body temperature 97.8 [degF] Dr. Alessandro Shah Work Phone: [facility] 09-19-2023 14:17-0500 Body weight 72.[address] Alessandro Shah Work Phone: [facility] 09-19-2023 14:17-0500 Diastolic blood pressure 75 mm[Hg] Dr. Alessandro Shah Work Phone: [facility] 09-19-2023 14:17-0500 Heart rate 96 /min Dr. Alessandro Shah Work Phone: [facility] 09-19-2023 14:17-0500 Respiratory rate 16 /min Dr. Alessandro Shah Work Phone: [facility] 09-19-2023 14:17-0500 SaO2% (BldA) [Mass fraction] 97 % Dr. Alessandro Shah Work Phone: [facility] 09-19-2023 14:17-0500 Systolic blood pressure 148 mm[Hg] Dr. Alessandro Shah Work Phone: [facility] 07-07-2022 10:44-0400 Body temperature 97.8 [degF] Dr. Alessandro Shah Work Phone: [facility] Work Phone: 07-07-2022 10:44-0400 Diastolic blood pressure 84 mm[Hg] Dr. Alessandro Shah Work Phone: [facility] Work Phone: 07-07-2022 10:44-0400 Heart rate 84 /min Dr. Alessandro Shah Work Phone: [facility] Work Phone: 07-07-2022 10:44-0400 Respiratory rate 16 /min Dr. Alessandro Shah Work Phone: [facility] Work Phone: 07-07-2022 10:44-0400 SaO2% (BldA) [Mass fraction] 97 % Dr. Alessandro Shah Work Phone: [facility] Work Phone: 07-07-2022 10:44-0400 Systolic blood pressure 146 mm[Hg] Dr. Alessandro Shah Work Phone: [facility] Work Phone: Encounters Encounter Date Encounter Type Care Provider Facility Start: 07-14-2025 ambulatory Alessandro Shah Facilit y:[facility] Start: 06-30-2025 ambulatory Alessandro Shah Facilit y:[facility] Start: 06-02-2025 End: 06-28-[address] Brittany Herman MD -Cardiac Rehab Work Phone: Start: 06-02-2025 End: 06-28-[address] Alessandro Shah MD Work Phone: -Cardiac Rehab Start: 05-26-2025 End: 05-26-2025 Patient encounter procedure Karen DAWKISN -[facility] Work Phone: Start: 05-26-2025 End: 05-28-[address] Alessandro Shah MD Work Phone: -[facility] Start: 05-26-2025 End: 05-28-[address] Brittany Herman MD -Cardiac Rehab Work Phone: Start: 04-28-[address] Efra Herman MD -Cardiac Rehab Work Phone: Start: 04-02-2025 End: 04-27-[address] Alessandro Shah MD Work Phone: -Cardiac Rehab Start: 04-02-2025 End: 04-27-[address] Brittany Herman MD -Cardiac Rehab Work Phone: Start: 03-17-2025 End: 03-28-[address] Alessandro Shah MD Work Phone: [facility] Work Phone: Start: 03-17-2025 End: 03-28-[address] Brittany Herman MD -Cardiac Rehab Work Phone: Start: 03-04-2025 End: 03-04-[address] Alessandro Shah MD Work Phone: [facility] Work Phone: Start: 03-04-2025 End: 03-04-[address] [facility] Start: 03-04-2025 End: 03-04-2025 ambulatory Alessandro Shah Facility:[facility] Start: 03-03-[address] Efra Herman MD -Cardiac Rehab Work Phone: Start: 02-24-2025 End: 02-25-2025 ambulatory [facility] Joseline Shah Facility:[facility] Start: 02-24-2025 End: 02-25-[address] Brittany Herman MD -Cardiac Rehab Work Phone: Start: 02-20-2025 Encounter for genera l adult medical examination without abnormal findings Alessandro Shah [facility] Start: 01-22-2025 End: 01-26-[address] Alessandro Shah MD Work Phone: [facility] Work Phone: Start: 01-22-2025 End: 01-26-[address] Brittany Herman MD -Cardiac Rehab Work Phone: Start: 01-15-[address] Efra Herman MD -Cardiac Rehab Work Phone: Start: 01-02-2025 End: 01-02-2025 Patient encounter procedure Karen DAWKINS -[facility] Work Phone: Start: 01-02-2025 End: 01-02-2025 ambulatory Alessandro Shah Facility:[facility] Start: 01-01-2025 ambulatory Juan Antonio White Facility :[facility] Start: 01-01-2025 Non-patient / Non-visit Dr. Juan Antonio White MD -[facility] Start: 01-01-2025 End: 01-01-[address] Alessandro Shah MD Work Phone: [facility] Work Phone: Start: 01-01-2025 End: 01-01-[address] Juan Antonio White MD -Breast Imaging - Biopsy/[facility] Work Phone: Start: 12-31-2024 End: 01-01-[address] Alessandro Shah MD Work Phone: [facility] Work Phone: Start: 12-31-2024 End: 12-31-2024 Patient encounter procedure [facility] Start: 12-31-2024 End: 12-31-2024 ambulatory Alessandro Shah Facility:[facility] Start: 12-30-[address] Efra Herman MD -Cardiac Rehab Work Phone: Start: 12-25-2024 End: 12-26-2024 ambulatory Alessandro Shah Facility:[facility] Start: 12-25-2024 End: 12-26-[address] Brittany Herman MD -Cardiac Rehab Work Phone: Start: 12-16-2024 End: 12-16-[address] Juan Antonio White MD -[facility] Work Phone: Start: 12-16-2024 End: 12-16-2024 ambulatory Juan Antonio White Facility:[facility] Start: 12-11-2024 End: 12-11-[address] Alessandro Shah MD -Outpatient Breast Imaging Work Phone: Start: 12-11-2024 End: 12-11-2024 ambulatory Alessandro Shah Facility:[facility] Start: 12-08-2024 End: 12-08-[address] Alessandro Shah MD -Outpatient Breast Imaging Work Phone: Start: 12-08-2024 End: 12-08-2024 ambulatory Alessandro Shah Facility:[facility] Start: 12-02-2024 ambulatory Juan Antonio White Facility :[facility] Start: 12-02-2024 Non-patient / Non-visit Dr. Juan Antonio White MD -[facility] Start: 12-02-2024 End: 12-02-2024 Admission to same day surgery center Dr. Juan Antonio White MD -Endoscopy Work Phone: Start: 12-02-2024 End: 12-02-2024 ambulatory Juan Antonio White Facility:[facility] Start: 11-27-2024 End: 11-28-2024 ambulatory Alessandro Shah Facility:[facility] Start: 11-27-2024 End: 11-28-[address] Brittany Herman MD -Cardiac Rehab Work Phone: Start: 11-11-2024 End: 11-11-[address] Juan Antonio White MD -[facility] Work Phone: Start: 11-11-2024 End: 11-11-2024 ambulatory Alessandro Shah Facility:[facility] Start: 11-08-2024 ambulatory Alessandro Shah [facility] y:[facility] Start: 11-06-[address] [facility] Start: 11-06-2024 End: 11-06-2024 ambulatory Alessandro Shah Facility:[facility] Start: 11-04-2024 End: 11-04-[address] [facility] Work Phone: Start: 11-04-2024 End: 11-04-2024 ambulatory Alessandro Shah Facility:[facility] Start: 10-28-2024 End: 10-28-2024 ambulatory Alessandro Shah Facility:[facility] Start: 10-28-2024 End: 10-28-[address] Brittany Herman MD -Cardiac Rehab Work Phone: Start: 10-08-2024 End: 10-08-2024 Patient encounter procedure Sadia HOPKINS -[facility] Work Phone: Start: 10-08-2024 End: 10-28-2024 ambulatory Alessandro Shah Facility:[facility] Start: 10-08-2024 End: 10-28-[address] Brittany Herman MD -Cardiac Rehab Work Phone: Start: 10-06-2024 End: 10-06-2024 Patient encounter procedure Sadia HOPKINS -Cat Scan, [facility] Work Phone: Start: 10-06-2024 End: 10-06-2024 ambulatory Alessandro Shah Facility:[facility] Start: 09-24-2024 End: 09-27-2024 ambulatory Alessandro Shah Facility:[facility] Start: 09-24-2024 End: 09-27-[address] Brittany Herman MD -Cardiac Rehab Work Phone: Start: 09-02-2024 End: 09-02-2024 ambulatory Alessandro Shah Facility:[facility] Start: 08-27-2024 End: 08-28-2024 ambulatory Alessandro Shah Facility:[facility] Start: 07-28-2024 End: 07-28-2024 ambulatory Alessandro Shah Facility:[facility] Start: 02-18-2024 End: 02-18-[address] Alessandro Shah Work Phone: [facility] Work Phone: Start: 02-18-2024 End: 02-18-[address] Alessandro Shah Work Phone: [facility]-Sleep Lab Work Phone: Start: 02-07-2024 End: 02-07-[address] Alessandro Shah Work Phone: [facility] Work Phone: Start: 01-10-2024 End: 01-10-[address] Alessandro Shah Work Phone: [facility] Work Phone: Start: 01-10-2024 End: 01-10-[address] Alessandro Shah Work Phone: [facility]-Cat Scan, [facility] Work Phone: Start: 12-04-2023 End: 12-04-[address] Alessandro Shah Work Phone: [facility]-Outpatient Bone Densitometry Work Phone: Start: 12-03-2023 End: 12-03-[address] Alessandro Shah Work Phone: [facility] Work Phone: Start: 12-03-2023 End: 12-03-[address] Alessandro Shah Work Phone: [facility] Start: 11-18-2023 End: 11-18-[address] Alessandro Shah Work Phone: [facility] Work Phone: Start: 10-03-2023 End: 10-03-[address] Alessandro Shah Work Phone: [facility] Work Phone: Start: 10-03-2023 End: 10-03-[address] Alessandro Shah [facility] Work [facility] Start: 09-19-2023 End: 09-19-[address] Alessandro Shah Work Phone: [facility] Work Phone: Start: 06-14-2023 End: 06-14-2023 ambulatory [facility] Work Phone: Start: 06-14-2023 End: 06-14-2023 Patient encounter procedure [facility] Start: 02-16-2023 End: 02-16-2023 ambulatory [facility] Work Phone: Start: 02-16-2023 End: 02-16-[address] [facility] Start: 12-07-2022 End: 12-07-2022 ambulatory [facility] Work Phone: Start: 12-07-2022 End: 12-07-2022 Patient encounter procedure [facility] Start: 11-30-2022 End: 11-30-2022 ambulatory [facility] Work Phone: Start: 11-30-2022 End: 11-30-2022 Patient encounter procedure [facility]-Outpatient Breast Imaging Start: 10-02-2022 End: 10-02-[address] Alessandro Shah Work Phone: [facility] Work Phone: Start: 10-02-2022 End: 10-02-[address] Alessandro Shah Work Phone: [facility], [facility] Start: 07-07-2022 End: 07-07-[address] Alessandro hSah Work Phone: [facility] Work Phone: Start: 07-07-2022 End: 07-07-[address] Alessandro Shah Work Phone: [facility]-Laboratory, Specimen Start: 07-07-2022 End: 07-07-[address] Alessandro Shah Work Phone: [facility] Start: 07-04-2022 End: 07-04-[address] Alessandro Shah Work Phone: [facility] Work Phone: Start: 07-04-2022 End: 07-04-[address] Alessandro Shah Work Phone: [facility] Start: 06-26-2022 End: 06-26-2022 ambulatory [facility] Work Phone: Start: 06-26-2022 End: 06-26-2022 Patient encounter procedure [facility] Start: 01-03-2021 End: 01-03-2021 Patient encounter procedure VIKKI FUENTES [facility] Procedures Date Procedure Procedure Detail Performing Clinician Start: 03-04-2025 Urnls dip stick/tabl et reagent auto microscopy Dr. Alessandro Shah MD Work Phone: Start: 03-04-2025 Vitamin D, 25-hydrox y measurement Dr. Alessandro Shah MD Work Phone: Comment on above: Vitamin D StatusDefi ciency: <20 ng/mL (50nmol/L)Insufficiency: 20-30 ng/mL (50-75 nmol/L)Sufficiency: 30-100 ng/mL (75-250 nmol/L)Toxicity: >100 ng/mL (>250 nmol/L) Start: 01-01-[address] Tal Shah MD Work Phone: Start: 12-11-[address] Alessandro vasquez MD Work Phone: Start: 12-08-2024 Screening mammography King Shah MD Work Phone: Start: 10-06-[address] Alessandro vasquez MD Work Phone: Start: 01-10-2024 Computed tomography of abdomen and pelvis with intravenous contrast Dr. Alessandro Shah Work Phone: Start: 12-04-2023 Dual energy X-ray absorptiometry Dr. Alessandro Shah Work Phone: Start: 12-04-2023 Screening mammography King Shah Work Phone: Start: 10-03-[address] Alessandro vasquez Work Phone: Start: 02-16-2023 Plain chest X-ray Start: 11-30-2022 Screening mammography Start: 10-02-[address] Alessandro vasquez Work Phone: History of placement of stent for coronary artery disease History of coronary artery stent placement Dr. Alessandro Shah MD Work Phone: Comment on above: 03/20/2024 Stent to m id RCA and PTCA alone of RPL and RPDA History of placement of stent for coronary artery disease History of coronary artery stent placement Karen DAWKINS History of placement of stent for coronary artery disease History of coronary artery stent placement Karen Case PA Urine culture Dr. Alessandro lemos Work Phone: Plan of Treatment Date Care Activity Detail Author Start: 12-02-2024 Colonoscopy flx dx w/collj spec when pfrmd DIAGNOSTIC COLONOSCOPY [facility] Start: 12-02-2024 Patient discharge [facility] Start: 07-07-2022 [facility] Work Phone: Bacteria identified in Urine by Culture Urine Culture [facility] Work Phone: CT Chest [facility] Measurement of respiratory function [facility] Patient referral [facility] Work Phone: Radionuclide imaging of perfusion of myocardium under exercise stress [facility] Immunizations Immunization Date Immunization Notes Care Provider Fa cili 09-23-2021 Covid (Pfizer) Dr. Alessandro duran MD Work Phone: [facility] 08-19-2021 influenza, injectabl e, quadrivalent, preservative free Dr. Alessandro Shah MD Work Phone: [facility] 08-19-2021 tetanus toxoid, redu guillermo diphtheria toxoid, and acellular pertussis vaccine, adsorbed Dr. Alessandro Shah MD Work Phone: [facility] 01-03-2021 Covid (Pfizer) Dr. Alessandro duran MD Work Phone: [facility] 12-13-2020 Covid (Pfizer) Dr. Alessandro duran MD Work Phone: [facility] 04-27-2020 pneumococcal polysaccharide vaccine, [address] Alessandro Shah MD Work Phone: [facility] Payers Date Payer Category Payer Self-pay [id number] 2024 Medicare [id number] 2024 Unknown [id number] 1960 Unknown [id number] 2.16.84 [id number] Unknown [id number] Unknown [id number] 2.16.8 40.1.937778.3.579.2.462 Unknown [id number] 2.16.8 40.1.819305.3.579.2.462 Unknown [id number] 2.16.8 40.1.163735.3.579.2.462 Unknown [id number] 2.16.8 40.1.701374.3.579.2.462 Unknown [id number] 2.16.8 40.1.329019.3.579.2.462 Unknown [id number] 2.16.8 40.1.386262.3.579.2.462 Unknown [id number] 2.16.8 40.1.664227.3.579.2.462 Unknown [id number] 2.16.8 40.1.405956.3.579.2.462 Unknown [id number] 2.16.8 40.1.743312.3.579.2.462 Unknown [id number] 2.16.8 40.1.380859.3.579.2.462 Unknown [id number] 2.16.8 40.1.329662.3.579.2.462 Unknown [id number] 2.16.8 40.1.167993.3.579.2.462 Unknown [id number] 2.16.8 40.1.936419.3.579.2.462 Unknown [id number] 2.16.8 40.1.912358.3.579.2.462 Unknown [id number] 2.16.8 40.1.518105.3.579.2.462 Unknown [id number] 2.16.8 40.1.588194.3.579.2.462 Unknown [id number] 2.16.8 40.1.356723.3.579.2.462 Unknown [id number] 2.16.8 40.1.923951.3.579.2.462 Unknown [id number] 2.16.8 40.1.440318.3.579.2.462 Unknown [id number] 2.16.8 40.1.715046.3.579.2.462 Unknown [id number] 2.16.8 40.1.919868.3.579.2.462 Unknown [id number] 2.16.8 40.1.396639.3.579.2.462 Unknown [id number] 2.16.8 40.1.729295.3.579.2.462 Unknown [id number] 2.16.8 40.1.422723.3.579.2.462 Unknown [id number] 2.16.8 40.1.139125.3.579.2.462 Unknown [id number] 2.16.8 40.1.190948.3.579.2.462 Unknown [id number] 2.16.8 40.1.742179.3.579.2.462 Unknown [id number] 2.16.8 40.1.202311.3.579.2.462 Unknown [id number] 2.16.8 40.1.994956.3.579.2.462 Unknown [id number] 2.16.8 40.1.502867.3.579.2.462 Unknown [id number] 2.16.8 40.1.720928.3.579.2.462 Unknown [id number] 2.16.8 40.1.320080.3.579.2.462 Unknown [id number] 2.16.8 40.1.858933.3.579.2.462 Unknown [id number] 2.16.8 40.1.624258.3.579.2.462 Social History Date Type Detail Facility Start: 05-08-2021 End: 02-07-2024 Tobacco smoking status NHIS Unknown if ever smoked [facility] Start: 1960 Sex Assigned At Female [facility] Start: 12-02-2024 Tobacco smoking stat us WAIS Smokes tobacco daily (finding) [facility] Start: 01-12-2025 End: 01-27-2025 Sex Female (finding) [facility] Medical Equipment Procedure Code Equipment Code Equipment Origin al Text Equipment Identifier Dates Drug-eluting coronary artery stent, [id number] lymer-coated [id number] FDA Start: 03-20-2024 Goals Date Patient Goal Desired Activity /State Mental Status Date Assessment Result Facility 12-02-2024 Cognitive function Level Of Cons ciousness Follows Commands;Drowsy [facility] Work Phone: 12-02-2024 Cognitive function Voice/Name [facility] Work Phone: Clinical Notes 10-08-2024 to 05-26-2025 Note Date & Type Note Facility 05-26-2025 Evaluation note Diagnosis Onset Date Resolution History of coronary artery stent placement acute May 26, 2025 9:28am Hypercholesteremia acute April 292024 9:28am Hypertension chronic May 26, 025 9:28am [facility] Work Phone: 1(375) 725-264603-06-2025 Evaluation note* Diagnosis Onset Date Resolution Status Admit Date Microcalcification of right breast on mammogram acute January 01, 2025 10:22am History of coronary artery s tent placement acute January 02, 2025 1:24pm Hypercholesteremia acute January 02, 2025 1:24pm Hypertension chronic January 02 025 1:24pm [facility] Work Phone: 1(656) 636-787003-06-2025 Procedure note [facility] Medical Records Department [address] [place] [address] Operative Report 01/01/25 1133 MR#: [id number] Acct: [id number] Name: RHINA PETERS Rep #:[id number] : 1960 64 From: Juan Antonio White MD PCP: Dr. 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 She has had a previous stereotactic biopsy in that same breast previously. I recommended stereotactic biopsy of these microcalcifications. We discussed the details of the planned procedure and she wished to proceed. She was brought to the mammography suite today following informed consent. She was placed prone on the stereotactic table. The right breast was then suspendedin the aperture of the table. The right breast was placed in a compression and scalp views were obtained until we were able to clearly see the region of microcalcifications of interest. Once this was performed 2 stereotactic views were obtained. Using the stereotactic views were able to target upon the lesionin question. At this point the skin of the breast was then prepped and draped in the usual manner. Local anesthetic was injected. The mammotome probe was then inserted to the desired depth. Post fire images showed the tip of the probe to be in the desired location. At this point circumferential suction biopsies were obtained withgood tissue sampling. The tissue specimen was then radiographed and clearly showed numerous microcal cifications within the samples. After this was performed a marking clip was then deployed. A post clip placement image showed the clip to be in the desired location. She was then taken out of compression. Manual pressure was then held for period of time and then Steri-Strip tapes were then applied.She tolerated the procedure well. I will contact her as soon as pathology results become available Surgical Findings: See description of surgery Complications Complications: No Admit VTE Documentation VTE Present on Admission: No VTE Mechan Device Prophylaxis: None VTE Pharm Prophylaxis ordered?: No Reason prophylaxis not ordered: Treatment Not Indicated 01/01/25 6869 Cosigner Signature (if applicable): CC: Dr. Alessandro Shah MD; Dr. Juan Antonio White MD~ Signed [facility]02-04-2025 Evaluation note* Diagnosis Onset Date Resolution Status Admit Date Screening for intestinal cancer acut e December 02, 2024 6:17am Breast microcalcification, mammographic acute December 16, 025 2:12pm Microcalcification of right breast on mammogram acute January 01 025 10:22am History of coronary artery s tent placement acute January 02, 2025 1:24pm Hypercholesteremia acute January 02, 2025 1:24pm Hypertension chronic January 02, 2 025 1:24pm [facility] Work Phone: [phone]) 768-709202-04-2025 [facility] Medical Records Department [address] [place] [id number] History Physical Exam 12/02/24 0731 MR#: [id number] Acct: [id number] Name: RHINA PETERS Rep #: [id number] : 1960 64 From: Juan Antonio White MD PCP: Dr. Alessandro Shah MD Status:REG [facility] [place] Location: [place] [address] HPI - General General Date of Admission: 12/02/24 Date of Service: 12/02/24 Chief Complaint: change in bowels HPI Narrative The patient is a 64-year-old female who is being seen today for colonoscopy. She has a family history of colon cancer. Her mother had colon cancer. Patient had her last colonoscopy about 5 years ago. This was negative for any polyps however a previous colonoscopy she did have polyps removed. Patient also has history of diverticulosis/diverticulitis. No active inflammation or abdominal pain however she states that she has been having some alternating normal stools along with jaycee watery bowel movements. She states that this watery stools occur at least once a week. She denies any abdominal pain. Given her family history she certainly has some concerns for colon polyps and cancers. She did use an [id number] fecal occult blood testing kit which was positive for occult blood. It is important to note that she had an MA back in February of last year. She had a stent placed at that time. She has been on Brilinta as well as aspirin. She was told that she needs to stay on blood thinners for at least a year. [facility] Medical History (Updated 12/02/24 @ 07:[address] Juan Antonio White MD) Screening for intestinal cancer Wears partial dentures Depression Gastric reflux Smoker CPAP (continuous positive airway pressure) dependence Sleep apnea Shortness of breath on exertion Chronic cough History of heart attack Cardiology follow-up encounter Hypercholesteremia Diabetes Hypertension Non-ST elevation MA (NSTEMI) Shortness of breath on exertion Obesity Daytime hypersomnia Osteopenia Neuropathy Sinus infection History of bloody stools Shoulder pain Arthritis Hypertension Home Medications ???Medication ???Instructions ???Recorded ???Last Taken ???Type aspirin 81 mg tablet,delayed 81 mg PO DAILY md ordered 05/08/21 12/01/24 History release (Adult Aspirin Regimen) calcium carbonate 600 mg PO DAILY 01/31/24 12/01/24 History coenzyme Q10 100 mg capsule (Co 400 mg PO DAILY unknown 01/31/24 0 12/01/24 History Q-10) fexofenadine 180 mg tablet 180 mg PO DAILY 01/31/24 12/01/24 History (Bertha Allergy) metformin 500 mg tablet 500 mg PO BID 01/31/24 12/01/24 Hi story metoprolol tartrate 50 mg tablet 50 mg PO BID 01/31/24 12/02/24 His tory multivitamin 1 tab PO DAILY 01/31/24 12/01/24 H istory varenicline tartrate 1 mg tablet 1 mg PO BID smoking cessation 01/2712/01/24 History atorvastatin 80 mg tablet 80 mg PO QHS #90 tabs 04/10/2401/20 Rx losartan 25 mg tablet 25 mg PO DAILY #90 tabs 04/10/24 0 12/02/24 Rx ticagrelor 90 mg tablet (Brilinta) 90 mg PO BID #180 tabs 07/08/24 12/01/24 Rx cholecalciferol (vitamin D3) 25 25 mcg PO BID Low level 10/08/24 0 12/01/24 History mcg (1,000 unit) capsule (Vitamin D3) Allergy/AdvReac Type Severity Reaction Status Date / Time lisinopril AdvReac Mild cough Verified 12/02/24 06:43 Family History Mother Colon cancer Heart disease Hypertension Father Heart disease Hypertension Grandmother Breast cancer Surgical History History of cardiac catheterization S/P laparoscopy History of coronary artery stent placement History of cataract extraction History of hysterectomy History of D C Social History household members: spouse housing: house Smoking Status: Current every day smoker (Patient smoked today.) tobacco type: cigarettes how long ago did patient quit smoking: Currently is working on quitting quit status: considering quitting alcohol intake: current alcohol intake frequency: a few times a month substance use type: does not use Vital Signs Vital Signs Vital Signs: 12/02/24 06:45 12/02/24 06:45 12/02/24 07:20 Temperature 97.6 F L 97.6 F L Temperature Source Temporal Pulse Rate 77 77 Respiratory Rate 16 16 Respiratory Pattern Normal Blood Pressure 136/67 H 136/67 H Blood Pressure Mean 90 Blood Pressure Source Monitor Blood Pressure Position Semi-Fowlers Blood Pressure Location Right Arm Pulse Ox 100 100 Oxygen Delivery Method Room Air Room Air Weight Weight: 171 lb 15.369 oz Body Mass Index (BMI) 32.5 Physical Exam Const alert, oriented x3 and no apparent distress Assessment Plan Asses (more content not included)...[facility]12-11-2024 Evaluation note* Diagnosis Onset Date Resolution Status Admit Date DOLORES (obstructive sleep apnea) chroni c October 08, 2024 10:48am Smoking greater than 40 pack years chronic October 08 024 10:48am Stage 1 mild COPD by GOLD classification chronic October 08 024 10:48am Screening for intestinal cancer acut e December 02, 2024 6:17am Breast microcalcification, mammographic acute December 16 025 2:12pm Microcalcification of right breast on mammogram acute January 01 025 10:22am History of coronary artery s tent placement acute January 02, 2025 1:24pm Hypercholesteremia acute January 02, 2025 1:24pm Hypertension chronic January 02, 025 1:24pm [facility] Work Phone: evaluation noteNo assessment information available [facility] Work Phone: evaluation note* Diagnosis Onset Date Resolution Status Urinary tract infection none active [facility] Work Phone: evaluation note* Diagnosis Onset Date Resolution Status Maxillary sinusitis acute [facility] Work Phone: evaluation note* Diagnosis Onset Date Resolution Status Maxillary sinusitis acute Bronchitis acute [facility] Work Phone: evaluation note* Diagnosis Onset Date Resolution Status Bronchitis acute Daytime hypersomnia acute Obesity chronic Shortness of breath on exertion chronic [facility] Work Phone: evaluation note* Diagnosis Onset Date Resolution Status Admit Date History of coronary artery s tent placement acute May 26, 2025 9:28am Hypercholesteremia acute April 292024 9:28am Hypertension chronic May 26, 2 025 9:28am [facility] Work Phone: Reason for referral (narrative)No reason for referral information [facility] Work Phone: Summary Purpose Family History No Family History Records Found Relationship Condition Age at Onset Recorded Date/T [place] mother Malignant neoplasm of colon Unknown Cardiac disease Unknown Hypertension Unknown father Cardiac disease Unknown grandmother Malignant neoplasm of breast Unknown Relationship Condition Age at Onset Recorded Date/T [place] mother Malignant neoplasm of colon Unknown Hypertension Unknown father Cardiac disease Unknown grandmother Malignant neoplasm of breast Unknown Advance Directives No Advanced Directives Records Found Advance Directive Response Recorded Date/ Time Living Will Yes March 20, 2024 1 0:02am Power of Crop Specialist Yes March 20, 2024 10:02am Living Will Yes July 09, 2024 8:44am Power of Crop Specialist Yes June 8:44am Living Will Yes September 28 1:51am Power of Crop Specialist Yes September 28, 2024 1:51am Living Will Yes November 27 3:23pm Power of Crop Specialist Yes November 27, 2024 3:23pm Name of Medical Power of Crop Specialist November 27, 2024 3:23pm Advance Directive Response Recorded Date/ Time Living Will Yes March 20, 2024 1 0:02am Do you have a Healthcare Power of Crop Specialist? Yes March 20, 2024 10:02am Living Will Yes July 09, 2024 8:44am Do you have a Healthcare Power of Crop Specialist? Yes July 09, 2024 8:44am Living Will Yes September 28 1:51am Do you have a Healthcare Power of Crop Specialist? Yes September 28, 2024 1:51am Living Will Yes November 27 3:23pm Do you have a Healthcare Power of Crop Specialist? Yes November 27, 2024 3:23pm Name of Medical Power of Crop Specialist November 27, 2024 3:23pm Advance Directive Response Recorded Date/ Time Living Will Yes March 20, 2024 1 0:02am Do you have a Healthcare Power of Crop Specialist? Yes March 20, 2024 10:02am Living Will Yes November 27 3:23pm Do you have a Healthcare Power of Crop Specialist? Yes November 27, 2024 3:23pm Name of Medical Power of Crop Specialist November 27, 2024 3:23pm Advance Directive Response Recorded Date/ Time Living Will Yes March 20, 2024 1 0:02am Do you have a Healthcare Power of Crop Specialist? Yes March 20, 2024 10:02am Chief Complaint and Reason for Visit Chief Complaint Urinary tract infect ion Reason for Visit Urinary tract infect ion Chief Complaint Urinary tract infect ion NICOTINE DEP Reason for Visit Urinary tract infect ion Chief Complaint NICOTINE DEP SCREENING Chief Complaint SCREENING Acute bronchitis Chief Complaint COUGH/SINUS ISSUES/S ORE THROAT/DAS/CONGEST NICOTINE DEPENDENCE Reason for Visit Maxillary sinusitis Chief Complaint COUGH/SINUS ISSUES/S ORE THROAT/DAS/CONGEST NICOTINE DEPENDENCE CONCERN FOR BRONCHITIS SCREENING/POST BEN Reason for Visit Maxillary sinusitis Bronchitis Chief Complaint COUGH/SINUS ISSUES/S ORE THROAT/DAS/CONGEST NICOTINE DEPENDENCE CONCERN FOR BRONCHITIS SCREENING/POST BEN DIVERTICULITIS *ORAL & IV* Reason for Visit Maxillary sinusitis Bronchitis Chief Complaint CONCERN FOR BRONCHIT IS SCREENING/POST BEN DIVERTICULITIS *ORAL & IV* Sleep apnea Hypersomnia, unspecified Reason for Visit Bronchitis Daytime hypersomnia Obesity Shortness of breath on exertion Chief Complaint Admit Date PCI with stenting September 24, 2024 8:00am NICOTINE DEP October 06, 2024 1 2:48pm PCI with stenting October 08, 2024 8:00am 6 M FU October 08, 2024 10:48am Phase III Maintenance-self pay October 28, 2024 8:00am EORDER November 04, 2024 1: 25pm CHANGE IN BOWEL HABITS November 11 9:15am 2024 PH3 maintenance-self pay November 272024 8:00am SCREENING December 08, 2024 10:26am RT BREAST ABN MAMM December 11, 2024 9:27am MICROCALCIFICATIONS December 16, 2024 2:12pm 2024 PH3 maintenance-self pay November 302024 8:00am 2024 PH3 maintenance-self pay December 30, 2024 7:08am EORDER December 31, 2024 11:3 2am ABN MAMM RIGHT BREAST January 01, 2025 10 :22am ABN MAMM RIGHT BREAST January 01, 2025 11 :33am 6 M FU January 02, 2025 1:24 pm Reason for Visit Admit Date DOLORES (obstructive sleep apnea) September 282023 10:48am Smoking greater than 40 pack years Decem melvin 2023 10:48am Stage 1 mild COPD by GOLD classification October 08, 2024 10:48am Screening for intestinal cancer December 02, 2024 6:17am Breast microcalcification, mammographic December 16, 2024 2:12pm Microcalcification of right breast on ma mmogram January 01, 2025 10:22am History of coronary artery stent placeme nt January 02, 2025 1:24pm Hypercholesteremia January 02, 2025 1:24 pm Hypertension January 02, 2025 1:24 pm Chief Complaint Admit Date PCI with stenting September 24, 2024 8:00am NICOTINE DEP October 06, 2024 1 2:48pm PCI with stenting October 08, 2024 8:00am 6 M FU October 08, 2024 10:48am Phase III Maintenance-self pay October 28, 2024 8:00am EORDER November 04, 2024 1: 25pm CHANGE IN BOWEL HABITS November 11 9:15am 2024 PH3 maintenance-self pay November 272024 8:00am SCREENING December 08, 2024 10:26am RT BREAST ABN MAMM December 11, 2024 9:27am MICROCALCIFICATIONS December 16, 2024 2:12pm 2024 PH3 maintenance-self pay November 302024 8:00am EORDER December 31, 2024 11:3 2am ABN MAMM RIGHT BREAST January 01, 2025 10 :22am ABN MAMM RIGHT BREAST January 01, 2025 11 :33am 6 M FU January 02, 2025 1:24 pm 2024 PH3 maintenance-self pay December 8:00am Chief Complaint Admit Date NICOTINE DEP October 06, 2024 1 2:48pm PCI with stenting October 08, 2024 8:00am 6 M FU October 08, 2024 10:48am Phase III Maintenance-self pay October 28, 2024 8:00am EORDER November 04, 2024 1: 25pm CHANGE IN BOWEL HABITS November 11 9:15am 2024 PH3 maintenance-self pay November 272024 8:00am SCREENING December 08, 2024 10:26am RT BREAST ABN MAMM December 11, 2024 9:27am MICROCALCIFICATIONS December 16, 2024 2:12pm 2024 PH3 maintenance-self pay November 302024 8:00am EORDER December 31, 2024 11:3 2am ABN MAMM RIGHT BREAST January 01, 2025 10 :22am ABN MAMM RIGHT BREAST January 01, 2025 11 :33am 6 M FU January 02, 2025 1:24 pm 2024 PH3 maintenance-self pay December 8:00am Chief Complaint Admit Date CHANGE IN BOWEL HABITS November 11 9:15am 2024 PH3 maintenance-self pay November 272024 8:00am SCREENING December 08, 2024 10:26am RT BREAST ABN MAMM December 11, 2024 9:27am MICROCALCIFICATIONS December 16, 2024 2:12pm 2024 PH3 maintenance-self pay November 302024 8:00am EORDER December 31, 2024 11:3 2am ABN MAMM RIGHT BREAST January 01, 2025 10 :22am ABN MAMM RIGHT BREAST January 01, 2025 11 :33am 6 M FU January 02, 2025 1:24 pm 2024 PH3 maintenance-self pay December 8:00am 2024 PH3 maintenance-self pay January 8:00am 2024 PH3 maintenance-self pay March 03 8:00am Reason for Visit Admit Date Screening for intestinal cancer December 02, 2024 6:17am Breast microcalcification, mammographic December 16, 2024 2:12pm Microcalcification of right breast on ma mmogram January 01, 2025 10:22am History of coronary artery stent placeme nt January 02, 2025 1:24pm Hypercholesteremia January 02, 2025 1:24 pm Hypertension January 02, 2025 1:24 pm Chief Complaint Admit Date SCREENING December 08, 2024 10:26am RT BREAST ABN MAMM December 11, 2024 9:27am MICROCALCIFICATIONS December 16, 2024 2:12pm 2024 PH3 maintenance-self pay November 302024 8:00am EORDER December 31, 2024 11:3 2am ABN MAMM RIGHT BREAST January 01, 2025 10 :22am ABN MAMM RIGHT BREAST January 01, 2025 11 :33am 6 M FU January 02, 2025 1:24 pm 2024 PH3 maintenance-self pay December 8:00am 2024 PH3 maintenance-self pay January 8:00am 2024 PH3 maintenance-self pay March 17, 2025 8:00am Chief Complaint Admit Date EORDER December 31, 2024 11:3 2am ABN MAMM RIGHT BREAST January 01, 2025 10 :22am ABN MAMM RIGHT BREAST January 01, 2025 11 :33am 6 M FU January 02, 2025 1:24 pm 2024 PH3 maintenance-self pay December 8:00am 2024 PH3 maintenance-self pay January 8:00am 2024 PH3 maintenance-self pay March 17, 2025 8:00am 2024 PH3 maintenance-self pay April 02, 2025 8:00am Reason for Visit Admit Date Microcalcification of right breast on ma mmogram January 01, 2025 10:22am History of coronary artery stent placeme nt January 02, 2025 1:24pm Hypercholesteremia January 02, 2025 1:24 pm Hypertension January 02, 2025 1:24 pm Chief Complaint Admit Date 2024 PH3 maintenance-self pay January 8:00am 2024 PH3 maintenance-self pay March 17, 2025 8:00am 2024 PH3 maintenance-self pay April 02, 2025 8:00am 2024 PH3 maintenance-self pay April 28, 2025 6:33am SEE NOTES/HTN May 26, 2025 9:28 am Reason for Visit Admit Date History of coronary artery stent placeme nt May 26, 2025 9:28am Hypercholesteremia May 26, 2025 9:28 am Hypertension May 26, 2025 9:28 am Chief Complaint Admit Date 2024 PH3 maintenance-self pay January 8:00am 2024 PH3 maintenance-self pay March 17, 2025 8:00am 2024 PH3 maintenance-self pay April 02, 2025 8:00am 2024 PH3 maintenance-self pay May 26, 2025 8:00am SEE NOTES/HTN May 26, 2025 9:28 am Chief Complaint Admit Date 2024 PH3 maintenance-self pay March 17, 2025 8:00am 2024 PH3 maintenance-self pay April 02, 2025 8:00am 2024 PH3 maintenance-self pay May 26, 2025 8:00am SEE NOTES/HTN May 26, 2025 9:28 am 2024 PH3 maintenance-self pay May 9:51am Additional Source Comments INFORMATION SOURCE (unrecogn ized section and content) DATE CREATED AUTHOR 01/23/2021 Sesar Holbrook [facility] DATE CREATED AUTHOR AUTHOR'S ORGANIZ ATION 07/10/2025 [facility] Goals (unrecognized section and content) Goals may be documented in a n alternate sectionGoals may be documented in an alternate sectionGoals may be documented in an alternate sectionGoals may be documented in an alternate sectionGoals may be documented in an alternate sectionGoals may be documented in an alternate sectionGoals may be documented in an alternate sectionGoals may be documented in an alternate sectionGoals may be documented in an alternate sectionGoals may be documented in an alternate sectionGoals may be documented in an alternate sectionGoals may be documented in an alternate sectionGoals may be documented in an alternate sectionGoals may be documented in an alternate sectionGoals may be documented in an alternate sectionGoals may be documented in an alternate section Care Teams (unrecognized sec tion and content) Team Status: Active Member Role Status Dates Dr. Alessandro Shah MD Family Provider Active Dr. Alessandro Shah MD Primary Care Provider Active Team Status: Inactive Member Role Status Dates Dr. Alessandro Shah MD Primary Care Pr ovider, Attending Provider, Referring Provider Active Team Status: Active Member Role Status Dates Dr. Alessandro Shah MD Primary Care Pr ovider, Attending Provider, Referring Provider Active Team Status: Inactive Member Role Status Dates Dr. Alessandro Shah MD Primary Care Provider, Attend ing Provider Active Team Status: Inactive Member Role Status Dates Dr. Alessandro Shah MD Primary Care Provider, Referr ing Provider Active Alessandro Kasper NP, FINANCIAL SYSTEMS MANAGER-C Attending Provider Active Team Status: Inactive Member Role Status Dates Dr. Alessandro Shah MD Primary Care Provider, Referr ing Provider Active Reva Patel NP-C Attending Provider Active Team Status: Inactive Member Role Status Dates Dr. Alessandro Shah MD Primary Care Provider, Referr ing Provider Active Sadia Rushing FINANCIAL SYSTEMS MANAGER, FINANCIAL SYSTEMS MANAGER-C Attending Provider Active Team Status: Inactive Member Role Status Dates Dr. Alessandro Shha MD Primary Care Provider Active Sadia Rushing FINANCIAL SYSTEMS MANAGER, FINANCIAL SYSTEMS MANAGER-C Attending Provider, Referrin g Provider Active Team Status: Active Member Role Status Dates Dr. Alessandro Shah MD Primary Care Provider Active Team Status: Inactive Member Role Status Dates Dr. Alessandro Shah MD Primary Care Provider Active Start: September 24, 2024 End: September 27, 2024 Dr. Brittany Herman MD Attending Provider Activ e Start: September 24, 2024 End: September 27, 2024 Dr. Brittany Herman MD Referring Provider Activ e Start: September 24, 2024 End: September 27, 2024 Team Status: Inactive Member Role Status Dates Dr. Alessandro Shah MD Primary Care Provider Active Start: October 06, 2024 End: October 06, 2024 Sadia Rushing FINANCIAL SYSTEMS MANAGER, FINANCIAL SYSTEMS MANAGER-C Attending Provider Active Start: October 06, 2024 End: October 06, 2024 Sadia Rushing FINANCIAL SYSTEMS MANAGER, FINANCIAL SYSTEMS MANAGER-C Referring Provider Active Start: October 06, 2024 End: October 06, 2024 Team Status: Inactive Member Role Status Dates Dr. Alessandro Shah MD Primary Care Provider Active Start: October 08, 2024 End: October 28, 2024 Dr. Brittany Herman MD Attending Provider Activ e Start: October 08, 2024 End: October 28, 2024 Dr. Brittany Herman MD Referring Provider Activ e Start: October 08, 2024 End: October 28, 2024 Team Status: Inactive Member Role Status Dates Dr. Alessandro Shah MD Primary Care Provider Active Start: October 08, 2024 End: October 08, 2024 Dr. Alessandro Shah MD Referring Provider Active Start: October 08, 2024 End: October 08, 2024 Sadia Rushing NP, FINANCIAL SYSTEMS MANAGER-C Attending Provider Active Start: October 08, 2024 End: October 08, 2024 Team Status: Inactive Member Role Status Dates Dr. Alessandro Shah MD Primary Care Provider Active Start: October 28, 2024 End: October 28, 2024 Dr. Brittany Herman MD Attending Provider Activ e Start: October 28, 2024 End: October 28, 2024 Dr. Brittany Herman MD Referring Provider Activ e Start: October 28, 2024 End: October 28, 2024 Team Status: Inactive Member Role Status Dates Dr. Alessandro Shah MD Primary Care Provider Active Start: November 04, 2024 End: November 04, 2024 Dr. Alessandro Shah MD Attending Provider Active Start: November 04, 2024 End: November 04, 2024 Dr. Alessandro Shah MD Referring Provider Active Start: November 04, 2024 End: November 04, 2024 Team Status: Active Member Role Status Dates Dr. Alessandro Shah MD Primary Care Provider Active Start: November 06, 2024 Dr. Alessandro Shah MD Attending Provider Active Start: November 06, 2024 Dr. Alessandro Shah MD Referring Provider Active Start: November 06, 2024 Team Status: Inactive Member Role Status Dates Dr. Alessandro Shah MD Primary Care Provider Active Start: November 11, 2024 End: November 11, 2024 Dr. Alessandro Shah MD Referring Provider Active Start: November 11, 2024 End: November 11, 2024 Dr. Juan Antonio White MD Attending Provider Active Start: November 11, 2024 End: November 11, 2024 Team Status: Inactive Member Role Status Dates Dr. Alessandro Shah MD Primary Care Provider Active Start: November 27, 2024 End: November 28, 2024 Dr. Brittany Herman MD Attending Provider Activ e Start: November 27, 2024 End: November 28, 2024 Dr. Brittany Herman MD Referring Provider Activ e Start: November 27, 2024 End: November 28, 2024 Team Status: Inactive Member Role Status Dates Dr. Alessandro Shah MD Primary Care Provider Active Start: December 02, 2024 End: December 02, 2024 Dr. Alessandro Shah MD Referring Provider Active Start: December 02, 2024 End: December 02, 2024 Dr. Juan Antonio White MD Attending Provider Active Start: December 02, 2024 End: December 02, 2024 Team Status: Active Member Role Status Dates Dr. Alessandro Shah MD Primary Care Provider Active Start: December 02, 2024 Dr. Alessandro Shah MD Referring Provider Active Start: December 02, 2024 Dr. Juan Antonio White MD Attending Provider Active Start: December 02, 2024 Dr. Juan Antonio White MD Other Provider Active St art: December 02, 2024 Team Status: Inactive Member Role Status Dates Dr. Alessandro Shah MD Primary Care Provider Active Start: December 08, 2024 End: December 08, 2024 Dr. Alessandro Shah MD Attending Provider Active Start: December 08, 2024 End: December 08, 2024 Dr. Alessandro Shah MD Referring Provider Active Start: December 08, 2024 End: December 08, 2024 Team Status: Inactive Member Role Status Dates Dr. Alessandro Shah MD Primary Care Provider Active Start: December 11, 2024 End: December 11, 2024 Dr. Alessandro Shah MD Attending Provider Active Start: December 11, 2024 End: December 11, 2024 Dr. Alessandro Shah MD Referring Provider Active Start: December 11, 2024 End: December 11, 2024 Team Status: Inactive Member Role Status Dates Dr. Alessandro Shah MD Primary Care Provider Active Start: December 16, 2024 End: December 16, 2024 Dr. Alessandro Shah MD Referring Provider Active Start: December 16, 2024 End: December 16, 2024 Dr. Juan Antonio White MD Attending Provider Active Start: December 16, 2024 End: December 16, 2024 Team Status: Inactive Member Role Status Dates Dr. Alessandro Shah MD Primary Care Provider Active Start: December 25, 2024 End: December 26, 2024 Dr. Brittany Herman MD Attending Provider Activ e Start: December 25, 2024 End: December 26, 2024 Dr. Brittany Herman MD Referring Provider Activ e Start: December 25, 2024 End: December 26, 2024 Team Status: Active Member Role Status Dates Dr. Alessandro Shah MD Primary Care Provider Active Start: December 30, 2024 Dr. Brittany Herman MD Attending Provider Activ e Start: December 30, 2024 Dr. Brittany Herman MD Referring Provider Activ e Start: December 30, 2024 Team Status: Inactive Member Role Status Dates Dr. Alessandro Shah MD Primary Care Provider Active Start: December 31, 2024 End: December 31, 2024 Kymberly Dorsey FINANCIAL SYSTEMS MANAGER, FINANCIAL SYSTEMS MANAGER-C Attending Provider Active Start: December 31, 2024 End: December 31, 2024 Kymberly Dorsey FINANCIAL SYSTEMS MANAGER, FINANCIAL SYSTEMS MANAGER-C Referring Provider Active Start: December 31, 2024 End: December 31, 2024 Team Status: Active Member Role Status Dates Dr. Alessandro Shah MD Primary Care Provider Active Start: January 01, 2025 Dr. Juan Antonio White MD Attending Provider Active Start: January 01, 2025 Dr. Juan Antonio White MD Referring Provider Active Start: January 01, 2025 Team Status: Active Member Role Status Dates Dr. Alessandro Shah MD Primary Care Provider Active Start: January 01, 2025 Dr. Juan Antonio White MD Attending Provider Active Start: January 01, 2025 Dr. Juan Antonio White MD Referring Provider Active Start: January 01, 2025 Dr. Juan Antonio White MD Other Provider Active St art: January 01, 2025 Team Status: Inactive Member Role Status Dates Dr. Alessandro Shah MD Primary Care Provider Active Start: January 02, 2025 End: January 02, 2025 Dr. Alessandro Shah MD Referring Provider Active Start: January 02, 2025 End: January 02, 2025 Karen Case PA, PA Attending Provider Active Start: January 02, 2025 End: January 02, 2025 Team Status: Inactive Member Role Status Dates Dr. Alessandro Shah MD Primary Care Provider Active Start: January 01, 2025 End: January 01, 2025 Dr. Juan Antonio White MD Attending Provider Active Start: January 01, 2025 End: January 01, 2025 Dr. Juan Antonio White MD Referring Provider Active Start: January 01, 2025 End: January 01, 2025 Team Status: Active Member Role Status Dates Dr. Alessandro Shah MD Primary Care Provider Active Start: January 15, 2025 Dr. Brittany Herman MD Attending Provider Activ e Start: January 15, 2025 Dr. Brittany Herman MD Referring Provider Activ e Start: January 15, 2025 Team Status: Inactive Member Role Status Dates Dr. Alessandro Shah MD Primary Care Provider Active Start: January 22, 2025 End: January 26, 2025 Dr. Brittany Herman MD Attending Provider Activ e Start: January 22, 2025 End: January 26, 2025 Dr. Brittany Herman MD Referring Provider Activ e Start: January 22, 2025 End: January 26, 2025 Team Status: Inactive Member Role Status Dates Dr. Alessandro Shah MD Primary Care Provider Active Start: February 24, 2025 End: February 25, 2025 Dr. Brittany Herman MD Attending Provider Activ e Start: February 24, 2025 End: February 25, 2025 Dr. Brittany Herman MD Referring Provider Activ e Start: February 24, 2025 End: February 25, 2025 Team Status: Active Member Role Status Dates Dr. Alessandro Shah MD Primary Care Provider Active Start: March 03, 2025 Dr. Brittany Herman MD Attending Provider Activ e Start: March 03, 2025 Dr. Brittany Herman MD Referring Provider Activ e Start: March 03, 2025 Team Status: Inactive Member Role Status Dates Dr. Alessandro Shah MD Primary Care Provider Active Start: March 04, 2025 End: March 04, 2025 Dr. Alessandro Shah MD Attending Provider Active Start: March 04, 2025 End: March 04, 2025 Dr. Alessandro Shah MD Referring Provider Active Start: March 04, 2025 End: March 04, 2025 Team Status: Inactive Member Role Status Dates Dr. Alessandro Shah MD Primary Care Provider Active Start: March 17, 2025 End: March 28, 2025 Dr. Brittany Herman MD Attending Provider Activ e Start: March 17, 2025 End: March 28, 2025 Dr. Brittany Herman MD Referring Provider Activ e Start: March 17, 2025 End: March 28, 2025 Team Status: Active Member Role/Relationship Status Dates Dr. Alessandro Shah MD Primary Care Provider Active Team Status: Inactive Member Role/Relationship Status Dates Dr. Alessandro Shah MD Primary Care Provider Active Start: December 31, 2024 End: December 31, 2024 Kymberly Dorsey FINANCIAL SYSTEMS MANAGER, FINANCIAL SYSTEMS MANAGER-C Attending Provider Active Start: December 31, 2024 End: December 31, 2024 Kymberly Dorsey FINANCIAL SYSTEMS MANAGER, FINANCIAL SYSTEMS MANAGER-C Referring Provider Active Start: December 31, 2024 End: December 31, 2024 Team Status: Inactive Member Role/Relationship Status Dates Dr. Alessandro Shah MD Primary Care Provider Active Start: January 01, 2025 End: January 01, 2025 Dr. Juan Antonio White MD Attending Provider Active Start: January 01, 2025 End: January 01, 2025 Dr. Juan Antonio White MD Referring Provider Active Start: January 01, 2025 End: January 01, 2025 Team Status: Active Member Role/Relationship Status Dates Dr. Alessandro Shah MD Primary Care Provider Active Start: January 01, 2025 Dr. Juan Antonio White MD Attending Provider Active Start: January 01, 2025 Dr. Juan Antonio White MD Referring Provider Active Start: January 01, 2025 Dr. Juan Antonio Whiet MD Other Provider Active St art: January 01, 2025 Team Status: Inactive Member Role/Relationship Status Dates Dr. Alessandro Shah MD Primary Care Provider Active Start: January 02, 2025 End: January 02, 2025 Dr. Alessandro Shah MD Referring Provider Active Start: January 02, 2025 End: January 02, 2025 Karen Case PA, PA Attending Provider Active Start: January 02, 2025 End: January 02, 2025 Team Status: Inactive Member Role/Relationship Status Dates Dr. Alessandro Shah MD Primary Care Provider Active Start: January 22, 2025 End: January 26, 2025 Dr. Brittany Herman MD Attending Provider Activ e Start: January 22, 2025 End: January 26, 2025 Dr. Brittany Herman MD Referring Provider Activ e Start: January 22, 2025 End: January 26, 2025 Team Status: Inactive Member Role/Relationship Status Dates Dr. Alessandro Shah MD Primary Care Provider Active Start: February 24, 2025 End: February 25, 2025 Dr. Brittany Herman MD Attending Provider Activ e Start: February 24, 2025 End: February 25, 2025 Dr. Brittany Herman MD Referring Provider Activ e Start: February 24, 2025 End: February 25, 2025 Team Status: Inactive Member Role/Relationship Status Dates Dr. Alessandro Shah MD Primary Care Provider Active Start: March 04, 2025 End: March 04, 2025 Dr. Alessandro Shah MD Attending Provider Active Start: March 04, 2025 End: March 04, 2025 Dr. Alessandro Shah MD Referring Provider Active Start: March 04, 2025 End: March 04, 2025 Team Status: Inactive Member Role/Relationship Status Dates Dr. Alessandro Shah MD Primary Care Provider Active Start: March 17, 2025 End: March 28, 2025 Dr. Brittany Herman MD Attending Provider Activ e Start: March 17, 2025 End: March 28, 2025 Dr. Brittany Herman MD Referring Provider Activ e Start: March 17, 2025 End: March 28, 2025 Team Status: Inactive Member Role/Relationship Status Dates Dr. Alessandro Shah MD Primary Care Provider Active Start: April 02, 2025 End: April 27, 2025 Dr. Brittany Herman MD Attending Provider Activ e Start: April 02, 2025 End: April 27, 2025 Dr. Brittany Herman MD Referring Provider Activ e Start: April 02, 2025 End: April 27, 2025 Team Status: Inactive Member Role/Relationship Status Dates Dr. Alessandro Shah MD Primary Care Provider Active Start: February 24, 2025 End: February 25, 2025 Dr. Brittany Herman MD Attending Provider Activ e Start: February 24, 2025 End: February 25, 2025 Dr. Brittany Herman MD Referring Provider Activ e Start: February 24, 2025 End: February 25, 2025 Team Status: Inactive Member Role/Relationship Status Dates Dr. Alessandro Shah MD Primary Care Provider Active Start: March 04, 2025 End: March 04, 2025 Dr. Alessandro Shah MD Attending Provider Active Start: March 04, 2025 End: March 04, 2025 Dr. Alessandro Shah MD Referring Provider Active Start: March 04, 2025 End: March 04, 2025 Team Status: Inactive Member Role/Relationship Status Dates Dr. Alessandro Shah MD Primary Care Provider Active Start: March 17, 2025 End: March 28, 2025 Dr. Brittany Herman MD Attending Provider Activ e Start: March 17, 2025 End: March 28, 2025 Dr. Brittany Herman MD Referring Provider Activ e Start: March 17, 2025 End: March 28, 2025 Team Status: Inactive Member Role/Relationship Status Dates Dr. Alessandro Shah MD Primary Care Provider Active Start: April 02, 2025 End: April 27, 2025 Dr. Brittany Herman MD Attending Provider Activ e Start: April 02, 2025 End: April 27, 2025 Dr. Brittany Herman MD Referring Provider Activ e Start: April 02, 2025 End: April 27, 2025 Team Status: Active Member Role/Relationship Status Dates Dr. Alessandro Shah MD Primary Care Provider Active Start: April 28, 2025 Dr. Brittany Herman MD Attending Provider Activ e Start: April 28, 2025 Dr. Brittany Herman MD Referring Provider Activ e Start: April 28, 2025 Team Status: Inactive Member Role/Relationship Status Dates Dr. Alessandro Shah MD Primary Care Provider Active Start: May 26, 2025 End: May 26, 2025 Dr. Alessandro Shah MD Referring Provider Active Start: May 26, 2025 End: May 26, 2025 Karen Case PA, PA Attending Provider Active Start: May 26, 2025 End: May 26, 2025 Team Status: Inactive Member Role/Relationship Status Dates Dr. Alessandro Shah MD Primary Care Provider Active Start: May 26, 2025 End: May 28, 2025 Dr. Brittany Herman MD Attending Provider Activ e Start: May 26, 2025 End: May 28, 2025 Dr. Brittany Herman MD Referring Provider Activ e Start: May 26, 2025 End: May 28, 2025 Team Status: Inactive Member Role/Relationship Status Dates Dr. Alessandro Shah MD Primary Care Provider Active Start: March 04, 2025 End: March 04, 2025 Dr. Alessandro Shah MD Attending Provider Active Start: March 04, 2025 End: March 04, 2025 Dr. Alessandro Shah MD Referring Provider Active Start: March 04, 2025 End: March 04, 2025 Team Status: Inactive Member Role/Relationship Status Dates Dr. Alessandro Shah MD Primary Care Provider Active Start: March 17, 2025 End: March 28, 2025 Dr. Brittany Herman MD Attending Provider Activ e Start: March 17, 2025 End: March 28, 2025 Dr. Brittany Herman MD Referring Provider Activ e Start: March 17, 2025 End: March 28, 2025 Team Status: Inactive Member Role/Relationship Status Dates Dr. Alessandro Shah MD Primary Care Provider Active Start: April 02, 2025 End: April 27, 2025 Dr. Brittany Herman MD Attending Provider Activ e Start: April 02, 2025 End: April 27, 2025 Dr. Brittany Herman MD Referring Provider Activ e Start: April 02, 2025 End: April 27, 2025 Team Status: Inactive Member Role/Relationship Status Dates Dr. Alessandro Shah MD Primary Care Provider Active Start: May 26, 2025 End: May 28, 2025 Dr. Brittany Herman MD Attending Provider Activ e Start: May 26, 2025 End: May 28, 2025 Dr. Brittany Herman MD Referring Provider Activ e Start: May 26, 2025 End: May 28, 2025 Team Status: Inactive Member Role/Relationship Status Dates Dr. Alessandro Shah MD Primary Care Provider Active Start: May 26, 2025 End: May 26, 2025 Dr. Alessandro Shah MD Referring Provider Active Start: May 26, 2025 End: May 26, 2025 Karen Case PA, PA Attending Provider Active Start: May 26, 2025 End: May 26, 2025 Team Status: Inactive Member Role/Relationship Status Dates Dr. Alessandro Shah MD Primary Care Provider Active Start: June 02, 2025 End: June 28, 2025 Dr. Brittany Herman MD Attending Provider Activ e Start: June 02, 2025 End: June 28, 2025 Dr. Brittany Herman MD Referring Provider Activ e Start: June 02, 2025 End: June 28, 2025 FOR RECORDS PERTAINING TO PATIENTS WHO ARE [...] BE BASED ON THE PRIMARY CLINICAL RECORDS. [employer] provides no warranty or guarantee of the accuracy or completeness of information in this document.
--- NOTE | 2025-07-15 17:24 | STRESSREP_ITS ---
Stress Test Report Exercise myocardial perfusion stress test. 65-year-old female with a history of chest pain. Stress protocol: Resting EKG demonstrates normal sinus rhythm with a rate of 84 bpm resting blood pressure is 146/78 mmHg. The patient exercised according to the regular S[facility] protocol for a total duration of 6 minutes attaining a maximum heart rate of 160 bpm which was 104% of maximum predicted heart rate; the maximum workload was 7 metabolic equivalents. At rest there were no ST or T wave changes noted to suggest ischemia and at peak exercise upsloping ST changes only were noted which did not meet the criteria for ischemia. No clinical angina was noted the test was terminated due to the target heart rate being achieved/fatigue. The peak b lood pressure was 188/86 mmHg. Rate-pressure product was 24,000. Myocardial perfusion protocol. 12 mCi of technetium 99m sestamibi was injected at rest. The patient exercised according to regular S[facility] protocol for total duration of 6 minutes and at peak exercise 36 mCi of technetium 99m sestamibi was injected stress images were obtained stress and rest images were reconstructed in comparing the short axis vertical long and horizontal long axis. Gated images were also obtained. Perfusion SPECT analysis: Review of the stress images demonstrate normal uptake of tracer noted in all areas of the myocardium. The resting images similarly demonstrate normal uptake of tracer noted in all areas of the myocardium. No areas of reversibility are noted to suggest ischemia no previous infarct was noted. Gated SPECT analysis: The gated ejection fraction is 88%. Conclusion: Normal exercise myocardial perfusion stress test at a moderate workload.
== END | disposition home or self-care (01) ==
LOC: CVS 06:30
PROVIDERS: PCP Family Medicine; Referring Provider Physician Assistant Medical; Visit Provider Physician Assistant Medical
DX: I10 Essential (primary) hypertension (principal); E78.00 Pure hypercholesterolemia, unspecified; Z95.5 Presence of coronary angioplasty implant and graft
CPT/HCPCS: 78452; 93017; A9500

== ENCOUNTER 2025-07-25 00:23 | Emergency (ER) | payer MEDICARE, OTHER, SELFPAY ==
[2025-04-28 00:30] VITALS: BMI 32.3
[2025-07-25 00:24] VITALS: BP 134/84; PULSE 124; RESP 20; TEMP 36.6; O2SAT 100; BMI 33.5
--- NOTE | 2025-07-25 00:26 | EKG12_ITS ---
Test Reason : CP Blood Pressure : */* mmHG Vent. Rate : 106 BPM Atrial Rate : 106 BPM P-R Int : 162 ms QRS Dur : 74 ms QT Int : 338 ms P-R-T Axes : 46 49 57 degrees QTcB Int : 448 ms Sinus tachycardia Low voltage QRS Borderline ECG Confirmed by BUD JARRELL ([id number]), fan mail editor JACY CAMILO ([id number]) on 07/27/2025 8:46:46 AM Referred By: Confirmed By: BUD JARRELL
[2025-07-25 00:49] LABS: Hematocrit 45.3 % (37-47); Hemoglobin 14.8 g/dL (12.0-15.0); Immature Granulocytes Count 0.070 X10^3/uL (0.0-0.0); Mean Corp Hgb Conc 32.7 g/dL (32-36); Mean Corpuscular Volume 92.1 fL (81-99); Mean Platelet Vol. 10.9 fl (6.2-12.0); NRBC Flagged by Analyzer 0 % (0-5); Platelet Count 386 K/mm3 (150-450); RBC Distribution Width CV 14.0 % (11.6-14.6); RBC Distribution Width SD 47.4 fl (35.1-43.9); Red Blood Count 4.92 M/mm3 (4.2-5.4); White Blood Count 16.2 K/mm3 (4.4-11.0)
--- NOTE | 2025-07-25 00:51 | ED.VIS.CHEST ---
HPI History of Present Illness Chief Complaint: Palpitations [facility] Medical History Breast microcalcification, mammographic Screening for intestinal cancer Wears partial dentures Depression Gastric reflux Smoker CPAP (continuous positive airway pressure) dependence Sleep apnea Shortness of breath on exertion Chronic cough History of heart attack Cardiology follow-up encounter Hypercholesteremia Diabetes Hypertension Non-ST elevation PR (NSTEMI) Shortness of breath on exertion Obesity Daytime hypersomnia Osteopenia Neuropathy Sinus infection History of bloody stools Shoulder pain Arthritis Hypertension Home Medications ?Medication ?Instructions ?Recorded ?Last Taken ?Type aspirin 81 mg tablet,delayed 81 mg PO DAILY md ordered 05/08/21 12/01/24 History release (Adult Aspirin Regimen) calcium carbonate 600 mg PO DAILY 01/31/24 12/01/24 History coenzyme Q10 100 mg capsule (Co 400 mg PO DAILY unknown 01/31/24 12/01/24 History Q-10) fexofenadine 180 mg tablet 180 mg PO DAILY 01/31/24 12/01/24 History (Bertha Allergy) metformin 500 mg tablet 500 mg PO BID 01/31/24 12/01/24 History metoprolol tartrate 50 mg tablet 50 mg PO BID 01/31/24 12/02/24 History cholecalciferol (vitamin D3) 25 25 mcg PO BID Low level 10/08/24 12/01/24 History mcg (1,000 unit) capsule (Vitamin D3) clopidogrel 75 mg tablet (Plavix) 75 mg PO QDAY #90 tabs 01/02/25 Unknown Rx atorvastatin 80 mg tablet 80 mg PO QHS #90 tabs 03/03/25 Unknown Rx losartan 25 mg tablet 25 mg PO DAILY #90 tabs 03/03/25 Unknown Rx nitroglycerin 0.4 mg sublingual 0.4 mg sublingual Q5-15M PRN chest 05/26/25 Unknown Rx tablet (Nitrostat) pain #25 tabs ondansetron 4 mg disintegrating 4 mg PO Q8H PRN PRN Nausea #10 tabs 07/25/25 Unknown Rx tablet Allergy/AdvReac Type Severity Reaction Status Date / Time lisinopril AdvReac Mild cough Verified 07/25/25 00:24 Family History Mother Colon cancer Hypertension Father Heart disease Hypertension Grandmother Breast cancer Surgical History H/O breast biopsy History of cardiac catheterization S/P laparoscopy History of coronary artery stent placement History of cataract extraction History of hysterectomy History of D&C Social History household members: spouse housing: house Smoking Status: Current every day smoker tobacco type: cigarettes how long ago did patient quit smoking: Currently is working on quitting quit status: considering quitting alcohol intake: current alcohol intake frequency: a few times a month substance use type: does not use EXAM Physical Exam Const Vital Signs: 07/25/25 00:24 07/25/25 00:40 07/25/25 00:42 Temperature 97.8 F Temperature Source Oral Pulse Rate 124 H Respiratory Rate 20 H Respiratory Effort Normal Non-Labored Blood Pressure 134/84 H Blood Pressure Mean 100 Pulse Ox 100 Oxygen Delivery Method Room Air Room Air 07/25/25 01:24 07/25/25 02:00 07/25/25 03:00 Temperature Temperature Source Pulse Rate 90 88 88 Respiratory Rate 19 H 21 H 26 H Respiratory Effort Blood Pressure 122/77 H 119/70 132/70 H Blood Pressure Mean 92 86 90 Pulse Ox 95 93 96 Oxygen Delivery Method Room Air Room Air Room Air 07/25/25 04:00 Temperature 98.5 F Temperature Source Pulse Rate 88 Respiratory Rate 24 H Respiratory Effort Blood Pressure 123/68 H Blood Pressure Mean 86 Pulse Ox 97 Oxygen Delivery Method MDM MDM MDM Narrative Medical decision making narrative: HISTORY OF PRESENT ILLNESS: Chief complaint: Palpitation 65-year-old female history of COPD, DOLORES, CAD, hypertension, hyperlipidemia presents with heart racing and nausea. States this began tonight. Notes it occurred for minutes and suddenly resolved. She is currently asymptomatic. The patient denies recent surgery in the last 4 weeks or immobilization in the last 3 days, denies previous diagnosis of DVT or PE, hemoptysis, unilateral leg swelling or malignancy with treatment the last 6 months or palliative. No estrogen use noted. REVIEW OF SYSTEMS: Pertinent positives: Palpitations, nausea Pertinent negatives: Syncope PHYSICAL EXAM: Nursing triage notes reviewed, Vital signs reviewed Constitutional: please see mdm HENT: MMM Eyes: Pupils equal round and reactive to light, Extraocular muscles intact Neck: No stridor, no JVD, full neck ROM Lungs: Clear to auscultation, No wheezing or rales. No increased work of breathing, no conversational dyspnea, no accessory muscle use, no nasal flaring. No respiratory distress noted Heart: Regular rate and rhythm, No murmurs, No rubs and No gallops, 2+ distal pulses (radial, femoral, posterior tibial) in all extremities Abdomen: Soft, there is no tenderness, rigidity, rebound or guarding, no obvious peritoneal signs, no palpable pulsatile abdominal masses, no auscultated abdominal bruit : No CVAT Extremities: No edema Neuro: No new focal neurological deficits, cranial nerves II through XII intact, 5/5 strength in all present extremities. Intact sensation to light touch in all present extremities, 2+ reflexes bilateral patella tendons. Skin: No rash or lesions noted MEDICAL DECISION MAKING: Chief Complaint: please see HPI External records reviewed: Reviewed prior cardiovascular testing. Reviewed stress test from 07/15/2025 which showed normal exercise myocardial perfusion test Factors affecting care: as per HPI Social determinants of health: Denies illicit drugs History obtained from others: EMS, significant other Consults: none [facility] Narrative: The patient was initially tachycardic rate of 124 saturating well afebrile. Exam without focal cardiopulmonary abnormality I considered the following differential diagnosis: Arrhythmia, electrolyte disturbance, dehydration, anemia, infectious process, amongst others Triage orders were placed including high sensitive troponin protocol, BMP, CBC, EKG, chest x-ray and cardiac monitoring. I obtained a broad lab and imaging work to further determine if the patient was suffering from a life-threatening etiology. The patient was initially resuscitated with normal saline and Zofran. ALL IMAGES (IF OBTAINED) HAVE BEEN PERSONALLY REVIEWED AND INTERPRETED BY MYSELF. Initial EKG shows sinus tachycardia rate of 106, normal axis, normal intervals, no obvious STEMI, no signs of arrhythmia CBC showed leukocytosis suggestive of systemic inflammation (likely reactive in this clinical context), no anemia or thrombocytopenia noted BMP without significant lecture normalities, no sign of metabolic acidosis or endorgan hypoperfusion, no URVASHI High-sensitivity troponin is negative, no evidence of myocardial ischemia x2 (effectively ruling out ACS per [facility] high-sensitivity troponin protocol) I have personally reviewed the patient's chest x-ray. Chest x-ray is unremarkable for pulmonary edema, pneumothorax, pneumonia or focal cardiopulmonary abnormality. On reevaluation patient heart rate improved to 88. She is asymptomatic. No clear life-limiting etiology could be be ascertained during her ED evaluation. She is given a prescription for Zofran and instruction to follow with her primary care physician for further outpatient evaluation and testing. Strict return precautions were discussed. The patient and/or family, caregivers express understanding. The patient and/or family, caregivers agrees with the plan. Shared decision making: I will have a discussion with the patient and or visitors regarding risk/benefits of further testing or admission. They will be made aware of of the risk/benefits inherent in this decision they will be given the opportunity to voice understanding. Total critical care time today provided was at least 0 minutes. This excludes separately billable procedures. Critical care time (if documented) is secondary to the patient having high probability of clinically significant/life threatening deterioration in the patient's condition which required my urgent intervention. Impression: 1. Palpitations 2. Nausea 3. History of CAD Dispo: Discharge This note was generated with [employer] dictation software. It may contain incorrect words, spelling, and punctuation that were not noted in review of the chart prior to signing. Lab Data Labs: Laboratory Results - last 24 hr 07/25/25 07/25/25 00:36 02:55 WBC 16.2 H RBC 4.92 Hgb 14.8 Hct 45.3 MCV 92.1 MCH 30.1 MCHC 32.7 RDW Std Deviation 47.4 H RDW Coeff of [place] 14.0 Plt Count 386 MPV 10.9 Immature Gran % (Auto) 0.400 Neut % (Auto) 80.5 H Lymph % (Auto) 12.3 L [place] % (Auto) 5.6 Eos % (Auto) 0.6 Baso % (Auto) 0.6 Absolute Neuts (auto) 13.0 H Absolute Lymphs (auto) 1.99 Nucleated RBC % 0 Sodium 143 Potassium 4.0 Chloride 105 Carbon Dioxide 24.3 Anion Gap 14 BUN 20 H Creatinine 1.06 Estim Creat Clear Calc 49.50 L Est GFR (MDRD) Non-Af 58 L BUN/Creatinine Ratio 19.1 Glucose 141 H Calcium 9.4 Troponin T High Sens 9 Troponin T Hi Sens 2 Hr 7 Radiography Diagnostic Testing: Clinical Impression(s) from Imaging Studies Chest X-Ray 07/25/25 01:00 IMPRESSION: No evidence for acute abnormality. Reading Location: [place] [id number] Discharge Plan Triage Chief Complaint: Palpitations ED Provider: Jose David Dewitt Dx/Rx/DC Orders Instructions: ED Heart Palpitations Prescriptions: New ondansetron 4 mg tablet,disintegrating 4 mg PO Q8H PRN PRN (Reason: Nausea) Qty: 10 0RF No Action aspirin [Adult Aspirin Regimen] 81 mg tablet,delayed release (DR/EC) 81 mg PO DAILY metformin 500 mg tablet 500 mg PO BID coenzyme Q10 [Co Q-10] 100 mg capsule 400 mg PO DAILY metoprolol tartrate 50 mg tablet 50 mg PO BID calcium carbonate 600 mg calcium (1,500 mg) tablet 600 mg PO DAILY fexofenadine [Bertha Allergy] 180 mg tablet 180 mg PO DAILY clopidogrel [Plavix] 75 mg tablet 75 mg PO QDAY Qty: 90 3RF cholecalciferol (vitamin D3) [Vitamin D3] 25 mcg (1,000 unit) capsule 25 mcg PO BID nitroglycerin [Nitrostat] 0.4 mg tablet, sublingual 0.4 mg sublingual Q5-15M PRN (Reason: chest pain) Qty: 25 3RF Rx Instructions: do not exceed 3 doses per episode losartan 25 mg tablet 25 mg PO DAILY Qty: 90 3RF atorvastatin 80 mg tablet 80 mg PO QHS Qty: 90 3RF Primary Care Provider: Alessandro Shah Referrals: Alessandro Shah MD [Primary Care Provider, Family Practice] Activity Restrictions/Additional Instructions: Thank you for trusting us with your care today! Your labs and images are reassuring. No clear precipitating cause your symptoms could be ascertained Please take Zofran as needed for nausea at home Please return to the emergency department if your symptoms change or worsen. Please follow with your primary care physician for further outpatient evaluation and management. Print Language: Wolof Disposition Disposition: Home, Self Care Discharge Date/Time: 07/25/25 04:17
--- NOTE | 2025-07-25 01:00 | RAD_ITS ---
PROCEDURE: CHEST 1 VIEW (PORTABLE) 07/25/2025 REASON FOR EXAM: CHEST PAIN TECHNIQUE: Frontal view of the chest. COMPARISON: CT scan on 10/06/2024. FINDINGS: The lungs are expanded. There is no demonstrated parenchymal abnormality. There is no demonstrated pleural abnormality. Normal heart and pericardium. Normal mediastinum and ino. Normal visualized pulmonary arteries. Normal visualized aortic arch and descending thoracic aorta. Normal visualized thoracic spine. Normal visualized ribs, clavicles, and shoulders. There is no demonstrated abnormality of the visualized soft tissue structures of the upper abdomen. RAD/Chest 1 View (Portable) IMPRESSION: No evidence for acute abnormality. Reading Location: [facility]
[2025-07-25 01:16] LABS: Anion Gap 14 (5-15); BUN 20 mg/dL (4-19); BUN/Creat Ratio 19.1 RATIO (10-20); Calcium,Total 9.4 mg/dL (7.6-11.0); Carbon Dioxide 24.3 mmol/L (21.0-32.0); Chloride 105 mmol/L (98-108); Estimated Creatinine Clearance 49.50 ml/min (50-250); Glucose 141 mg/dL (70-99); Potassium 4.0 mmol/L (3.3-5.1); Troponin T High Sensitivity 9 ng/L (<=14)
[2025-07-25] MEDS: 0.9% Normal Saline (500mL Bag) 500 ML 999 ML IV (01:22)
[2025-07-25 01:24] VITALS: BP 122/77; PULSE 90; RESP 19; O2SAT 95
[2025-07-25 02:00] VITALS: BP 119/70; PULSE 88; RESP 21; O2SAT 93
[2025-07-25 03:00] VITALS: BP 132/70; PULSE 88; RESP 26; O2SAT 96
[2025-07-25 03:24] LABS: Troponin T High Sens 2 HR 7 ng/L (<=14)
[2025-07-25 04:00] VITALS: BP 123/68; PULSE 88; RESP 24; TEMP 36.9; O2SAT 97
== END 2025-07-25 04:17 | disposition home or self-care (01) ==
PROVIDERS: Emergency Provider Emergency Medicine; PCP Family Medicine; Visit Provider Emergency Medicine
DX: R00.2 Palpitations (principal); J44.9 Chronic obstructive pulmonary disease, unspecified; E11.40 Type 2 diabetes mellitus with diabetic neuropathy, unspecified; I25.10 Atherosclerotic heart disease of native coronary artery without angina pectoris; R11.0 Nausea; I10 Essential (primary) hypertension; I25.2 Old myocardial infarction; K21.9 Gastro-esophageal reflux disease without esophagitis; E78.00 Pure hypercholesterolemia, unspecified; M85.80 Other specified disorders of bone density and structure, unspecified site; G47.33 Obstructive sleep apnea (adult) (pediatric); F17.210 Nicotine dependence, cigarettes, uncomplicated; Z95.5 Presence of coronary angioplasty implant and graft; Z79.82 Long term (current) use of aspirin; Z79.02 Long term (current) use of antithrombotics/antiplatelets; Z79.84 Long term (current) use of oral hypoglycemic drugs; Z79.899 Other long term (current) drug therapy
CPT/HCPCS: 71045; 80048; 84484; 85025; 93005; 96361; 96374; 99283; A4216; J2405

== ENCOUNTER 2025-07-30 08:34 | Outpatient (RCR) | payer SELFPAY ==
[2025-04-28 00:30] VITALS: BMI 32.3
== END 2025-08-28 23:59 ==
LOC: CR 08:34
PROVIDERS: PCP Family Medicine; Referring Provider Specialist; Visit Provider Specialist
DX: Z00.00 Encounter for general adult medical examination without abnormal findings (principal)

== ENCOUNTER → 2025-08-04 | Outpatient (CLI) | payer MEDICARE, OTHER, SELFPAY ==
[2025-04-28 00:30] VITALS: BMI 32.3
[2025-08-04 10:24] LABS: Mucous, Urine 0 SEEN /hpf (<or=2+)
[2025-08-04 12:05] LABS: Color, Urine Yellow (Yellow); Glucose, Dipstick Normal (Normal); Ketone-Dipstick Negative (Negative); Leukocyte Esterase-Dipstick Negative /ul (Negative); Nitrite-Dipstick Negative (Negative); Protein-Dipstick 15 mg/dl (Negative); Specific Gravity, Urine 1.015 (1.002-1.030); Urine Bilirubin Dipstick Negative (Negative)
[2025-08-04 12:09] LABS: Hematocrit 41.0 % (37-47); Hemoglobin 13.4 g/dL (12.0-15.0); Immature Granulocytes Count 0.030 X10^3/uL (0.0-0.0); Mean Corp Hgb Conc 32.7 g/dL (32-36); Mean Corpuscular Volume 93.0 fL (81-99); Mean Platelet Vol. 11.3 fl (6.2-12.0); NRBC Flagged by Analyzer 0 % (0-5); Platelet Count 360 K/mm3 (150-450); RBC Distribution Width CV 14.3 % (11.6-14.6); RBC Distribution Width SD 49.1 fl (35.1-43.9); Red Blood Count 4.41 M/mm3 (4.2-5.4); White Blood Count 9.2 K/mm3 (4.4-11.0)
[2025-08-04 12:22] LABS: Occult Blood-Urine 25 /ul (Negative); Red Blood Cells-Urine 0-5 SEEN /hpf (0-5)
[2025-08-04 12:23] LABS: Squamous Epithelial Cells - UA 0-5 SEEN /hpf (5-10)
[2025-08-04 12:26] LABS: Creatinine, Urine (random) 135.00 mg/dL (28.00-217.00); Microalbumin,Random Urine < 12.0 mg/L (<20 mg/L)
[2025-08-04 12:35] LABS: AST(SGOT) 27 U/L (<=31); Alanine Aminotransfer ALT/SGPT 35 U/L (<=34); Albumin, Serum 4.1 g/dL (3.4-4.8); Alkaline Phosphatase 93 U/L (35-104); Anion Gap 12 (5-15); BUN 13 mg/dL (4-19); BUN/Creat Ratio 16.0 RATIO (10-20); Bilirubin, Direct 0.16 mg/dL (0.00-0.30); Calcium,Total 9.7 mg/dL (7.6-11.0); Carbon Dioxide 23.6 mmol/L (21.0-32.0); Chloride 108 mmol/L (98-108); Cholesterol 105 mg/dL (<=200); Globulin 2.4 g/dL (2.2-4.2); Glucose 114 mg/dL (70-99); Low Density Lipoprotein Calc. 47 mg/dL; Potassium 4.9 mmol/L (3.3-5.1); Triglycerides 105 mg/dL; Very Low Density Lipoprotein 21 mg/dL (5-40); cholesterol:hdl ratio screen 2.82
[2025-08-04 20:25] LABS: AST(SGOT) 28 U/L (<=31); Alanine Aminotransfer ALT/SGPT 35 U/L (<=34); Albumin, Serum 4.1 g/dL (3.4-4.8); Alkaline Phosphatase 93 U/L (35-104); Bilirubin, Direct 0.16 mg/dL (0.00-0.30); Globulin 2.5 g/dL (2.2-4.2)
== END | disposition home or self-care (01) ==
LOC: MFPLAB 10:20
PROVIDERS: Nurse Practitioner Family; PCP Family Medicine; Visit Provider Family Medicine
DX: E11.69 Type 2 diabetes mellitus with other specified complication (principal); F17.200 Nicotine dependence, unspecified, uncomplicated; E78.00 Pure hypercholesterolemia, unspecified
CPT/HCPCS: 36415; 80053; 80061; 80076; 81001; 82043; 82248; 82570; 83036; 85025

== ENCOUNTER 2025-09-01 09:01 | Outpatient (RCR) | payer SELFPAY ==
[2025-04-28 00:30] VITALS: BMI 32.3
== END 2025-09-27 23:59 ==
LOC: CR 09:01
PROVIDERS: PCP Family Medicine; Referring Provider Specialist; Visit Provider Specialist
DX: Z00.00 Encounter for general adult medical examination without abnormal findings (principal)

== ENCOUNTER 2025-09-29 08:41 | Outpatient (RCR) | payer SELFPAY ==
[2025-04-28 00:30] VITALS: BMI 32.3
== END 2025-10-28 23:59 ==
LOC: CR 08:41
PROVIDERS: PCP Family Medicine; Referring Provider Specialist; Visit Provider Specialist
DX: Z00.00 Encounter for general adult medical examination without abnormal findings (principal)

== ENCOUNTER → 2025-10-09 | Outpatient (CLI) | payer MEDICARE, OTHER, SELFPAY ==
[2025-04-28 00:30] VITALS: BMI 32.3
--- NOTE | 2025-10-09 12:22 | CT_ITS ---
PROCEDURE: LOW DOSE CT LUNG SCREENING 10/09/2025 REASON FOR EXAM: SMOKER QUIT FEBRUARY 2024 45+ year history cigarette use. TECHNIQUE: Procedure Code: [id number] Modality: CT Procedure: LOW DOSE CT LUNG SCREENING Coronal and Sagittal reconstruction series were provided. One or more dose reduction techniques were used (e.g., Automated exposure control, adjustment of the mA and/or kV according to patient size, use of iterative reconstruction technique). REFERENCE LINK: [employer] Lung-RADS RADIATION DOSE SUMMARY: CTDlvol: 3 mGy DLP: 84 mGycm COMPARISON: September 2024. FINDINGS: PULMONARY NODULES: (Only nodules >3mm are reported) Nodules described below are on series 2 unless otherwise specified. Thyroid gland: Negative. Lungs: Mild emphysematous changes. No pulmonary nodules or masses. Calcified granuloma left lung base. Pleura: Negative for pleural effusion or pneumothorax. Airways: Mild cylindrical bronchiectasis. Imaged bronchi and trachea otherwisenegative. Mediastinum: Negative for mediastinal mass. Lymph nodes: Negative for axillary, mediastinal or hilar adenopathy. Heart and Vasculature: Heart normal size. Mild vascular calcifications of the thoracic aorta. Coronary Artery Calcifications: Moderate vascular calcifications of the coronary arteries Upper Abdomen: Imaged upper abdomen negative. Hardware: None. Bones: Age-appropriate degenerative changes of the thoracic spine. CT/Low Dose CT Lung Screening IMPRESSION: Emphysema. Lung-RADS Category: 1 NEGATIVE. RECOMMEND 12-MONTH SCREENING LDCT. Other Significant Findings: None Reading Location: [id number]
== END | disposition home or self-care (01) ==
LOC: PSN 12:22
PROVIDERS: PCP Family Medicine; Referring Provider Nurse Practitioner Acute Care; Visit Provider Nurse Practitioner Acute Care
DX: Z87.891 Personal history of nicotine dependence (principal)
CPT/HCPCS: 71271; 94060; 94726; 94729